=== PATIENT | female | born 1930 | race Hispanic/Latino ===

== ENCOUNTER 2017-05-26 17:01 | Inpatient (IN) | payer MEDICARE, BC ==
[2017-05-26] MEDS ORDERED: Albuterol-Ipratrop 3 mg / 0.5 (3 ml) UD INH STA ×3 (17:33→18:40)
--- NOTE | 2017-05-26 17:48 | ED PDOC ---
HPI: SOB/CHF/COPD Time Seen by Provider: 05/26/17 17:16 Chief Complaint (Nursing): Shortness Of Breath Chief Complaint (Provider): Shortness of breath History Per: Patient History/Exam Limitations: no limitations Onset/Duration Of Symptoms: Days Current Symptoms Are (Timing): Still Present Additional Complaint(s): 86yo female with past medical history of chronic lung problems, hypertension, brought to ED by EMS for evaluation of shortness of breath, present since this afternoon. Patient states she was discharged from a rehab facility this morning and was told when she would arrive home, there would be O2 for her to use. Patient states she was in rehab due to chronic leg weakness. Patient was found at home with shortness of breath and O2 sat of 80. Patient was given nebulizers en route to the facility after which she reports feeling better. Patient reports a chronic cough with phlegm, denies any leg swelling, fever, headache. No other medical complaints. PCP: Dr. Garza Past Medical History Reviewed: Historical Data, Nursing Documentation, Vital Signs Vital Signs: Last Vital Signs Temp 98.0 F 05/27/17 12:08 Pulse 88 05/27/17 12:08 Resp 18 05/27/17 12:08 BP 116/62 05/27/17 12:08 Pulse Ox 95 05/27/17 12:08 - Medical History PMH: COPD, Gastritis, HTN Denies: Diabetes, Chronic Kidney Disease - Surgical History Surgical History: Pacemaker - Family History Family History: States: No Known Family Hx - Living Arrangements Living Arrangements: Alone - Immunization History Hx Tetanus Toxoid Vaccination: No Hx Influenza Vaccination: No Hx Pneumococcal Vaccination: No - Home Medications Home Medications: Ambulatory Orders Medication Instructions Recorded Acetaminophen [Acetaminophen Extra 1,000 mg PO BID 05/26/17 Strength] Atorvastatin [Lipitor] 20 mg PO HS 05/26/17 Bisoprolol [Zebeta] 2.5 mg PO DAILY 05/26/17 Budesonide/Formoterol Fumarate 2 puff IH Q12H 05/26/17 [Symbicort 160-4.5 Mcg Inhaler] Famotidine [Pepcid] 20 mg PO HS 05/26/17 Gabapentin [Neurontin] 300 mg PO TID 05/26/17 Montelukast [Singulair] 10 mg PO HS 05/26/17 Mv,Min10/Folic Acid/D3/Ala/Lut 1 tab PO DAILY 05/26/17 [Strovite One Caplet] Albuterol/Ipratropium [Duoneb 3 3 ml INH RQ4 PRN neb 05/27/17 mg/0.5 mg (3 ml) UD] Amino Acids/Protein Hydrolys 30 ml PO BID 05/27/17 [Prostat 15 g packet] Silver Sulfadiazine 1% [Silvadene 1 % TOP Q8 05/27/17 1%] - Allergies Allergies/Adverse Reactions: Allergies Allergy/AdvReac Type Severity Reaction Status Date / Time No Known Allergies Allergy Verified 05/26/17 17:33 Review of Systems ROS Statement: Except As Marked, All Systems Reviewed And Found Negative Constitutional: Negative for: Fever, Chills Respiratory: Positive for: Cough, Shortness of Breath, Sputum Musculoskeletal: Negative for: Other (leg swelling) Physical Exam - Reviewed Nursing Documentation Reviewed: Yes Vital Signs Reviewed: Yes - Physical Exam Appears: Positive for: Uncomfortable Head Exam: Positive for: ATRAUMATIC, NORMAL INSPECTION, NORMOCEPHALIC Skin: Positive for: Normal Color Eye Exam: Positive for: EOMI ENT: Positive for: Normal ENT Inspection Neck: Positive for: Supple Cardiovascular/Chest: Positive for: Regular Rate, Rhythm Respiratory: Positive for: Wheezing (coarse breath sounds with occasional wheeze ), Other (tachypnea). Negative for: Accessory Muscle Use Gastrointestinal/Abdominal: Positive for: Soft. Negative for: Tenderness Back: Positive for: Normal Inspection Extremity: Positive for: Normal ROM. Negative for: Pedal Edema Neurologic/Psych: Positive for: Alert, Oriented - Laboratory Results Result Diagrams: 05/27/17 06:30 05/27/17 06:30 - ECG ECG: Positive for: Interpreted By Me, Viewed By Me ECG Rhythm: Positive for: Atrioventricular Paced, ST/T Changes (non-specific) Rate: 95 O2 Sat by Pulse Oximetry: 100 (RA) Pulse Ox Interpretation: Normal Medical Decision Making Medical Decision Making: Impression: Shortness of breath Differential: COPD, acute bronchitis, pneumonia, CHF rule out PE Plan: -- Labs -- CXR -- Duoneb 3ml INH -- Rapid flu Reassess Time: 1909 Patient signed out to Dr. Huerta pending labs. Scribe Attestation: Documented by Floridalma Christianson acting as a scribe for Michelle Arguello MD. Provider Attestation: All medical record entries made by the Scribe were at my direction and personally dictated by me. I have reviewed the chart and agree that the record accurately reflects my personal performance of the history, physical exam, medical decision making, and the department course for this patient. I have also personally directed, reviewed, and agree with the discharge instructions and disposition. Disposition - Clinical Impression Clinical Impression: Bilateral pulmonary embolism, COPD (chronic obstructive pulmonary disease) - Patient ED Disposition Is Patient to be Admitted: Transfer of Care Counseled Patient/Family Regarding: Studies Performed, Diagnosis - Disposition Disposition: Transfer of Care Disposition Time: 19:10 Condition: STABLE Patient Signed Over To: Ernie Huerta Handoff Comments: pending labs
[2017-05-26] MEDS ORDERED: Albuterol-Ipratrop 3 mg / 0.5 (3 ml) UD ONE ×2 (17:49→18:50)
[2017-05-26 18:33] LABS: BASO # 0.1 K/uL (0.0-0.2); BASO % 0.8 % (0.0-2.0); EOS # 0.1 K/uL (0.0-0.7); EOS % 0.8 % (0.0-4.0); HEMATOCRIT 38.2 % (34.0-47.0); LYMPH # 4.9 K/uL (1.0-4.3); LYMPH % 42.4 % (20.0-40.0); MEAN CELL VOLUME 87.7 fl (81.0-99.0); MEAN CORPUSCULAR HEMOGLOBIN 27.9 pg (27.0-31.0); MEAN CORPUSCULAR HGB CONC 31.9 g/dL (33.0-37.0); MEAN PLATELET VOLUME 8.5 fl (7.2-11.7); MONO # 0.7 K/uL (0.0-0.8); MONO % 6.4 % (0.0-10.0); NEUT # 5.8 K/uL (1.8-7.0); NEUT % 49.6 % (50.0-75.0); NRBC % 0.2 % (0.0-0.0); RED CELL DISTRIBUTION WIDTH 18.2 % (11.5-14.5); WHITE BLOOD COUNT 11.6 K/uL (4.8-10.8)
[2017-05-26 18:34] LABS: ABG ALLEN TEST YES; ARTERIAL BLOOD GAS HCO3 28.1 mmol/L (21-28); ARTERIAL BLOOD GAS O2 CAPACITY 15.8 mL/dL (16-24); ARTERIAL BLOOD GAS O2 CONTENT 15.9 ML/dL (15-23); ARTERIAL BLOOD GAS PH 7.38 (7.35-7.45); ARTERIAL BLOOD GAS PO2 113 mm/Hg (80-100); ARTERIAL BLOOD HGB O2 SAT 96.2 % (95.0-98.0); CARBOXYHEMOGLOBIN 2.7 % (0.5-1.5); HHB -0.9 % (0.0-5.0); METHEMOGLOBIN 2.1 % (0.0-3.0)
[2017-05-26] MEDS ORDERED: levoFLOXacin 500 mg in D5W 500 MG/100 ML BAG IVPB STA (18:40)
--- NOTE | 2017-05-26 18:48 | RAD ---
PROCEDURE: CHEST RADIOGRAPH, 1 VIEW HISTORY: dyspnea COMPARISON: 03/04/2013 FINDINGS: LUNGS: Clear. PLEURA: No pneumothorax or pleural fluid seen. CARDIOVASCULAR: No radiographic findings to suggest acute or significant cardiovascular disease. Position/ configuration of pacemaker device: Satisfactory. OSSEOUS STRUCTURES: No significant abnormalities. VISUALIZED UPPER ABDOMEN: Normal. OTHER FINDINGS: None. IMPRESSION: No active disease. No acute/significant interval changes.
[2017-05-26] MEDS ORDERED: levoFLOXacin 500 mg in D5W 500 MG/100 ML BAG IVPB ONE (18:51)
--- NOTE | 2017-05-26 19:16 | ED PDOC ---
- Laboratory Results Result Diagrams: 05/26/17 18:27 05/26/17 18:27 - ECG O2 Sat by Pulse Oximetry: 100 Pulse Ox Interpretation: Normal Medical Decision Making Medical Decision Making: Receiving sign out: Patient signed out to me by Dr. Arguello at 1900 pending chemistry, troponin and d-dimer results. CT Chest FINDINGS: Artifacts: Streak artifact degrades image quality. Motion artifact degrades image quality. Heart, aorta and Pulmonary arteries: The heart is enlarged. There are coronary artery calcifications. There are atherosclerotic calcifications in the aortic arch. There is dissection at the arch. There is an adjacent focal aneurysm or pseudoaneurysm, images 29-38, series 3. There is mural thrombus in the descending aorta with areas of ulceration. There are bilateral pulmonary emboli. Largest filling defects are a lower lobe pulmonary arteries. Lungs pleural spaces: Trachea and main bronchi are patent. There is mild prominence of interstitial markings. There is symmetric groundglass opacities. There is subsegmental atelectasis in the right upper lobe. There is dependent atelectasis and scarring at the lung bases. There are no definite effusions. Mediastinum: There is shotty mediastinal nodes.Kiersten are not optimally evaluated without contrast material. There is a small hiatal hernia. Esophagus is grossly unremarkable. Thyroid: The thyroid is asymmetric with prominence of the right lobe. 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 There are extensive degenerative changes in both shoulders. There are degenerative changes in the spine. Soft tissues: unremarkable Upper abdomen: Extensive streak artifact limits evaluation of the upper abdomen. Tubes, lines and devices: There is streak artifact from a pacemaker in the left chest wallThere is streak artifact from pacemaker leads. 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 reasessed, lovenox ordered for bilateral PE. Risk factor likely large habitus and relative immobility. Virgil Jimenez NP aware. Pt. requires inpatient monitoring at this time for hypoxia on RA, continued nebulizer treatments, and stabilization of condition for bilateral PE. Scribe Attestation: Documented by Floridalma Christianson and Marta Campbell acting as scribes for Ernie Huerta MD. Provider Attestation: All medical record entries made by the Scribe were at my direction and personally dictated by me. I have reviewed the chart and agree that the record accurately reflects my personal performance of the history, physical exam, medical decision making, and the department course for this patient. I have also personally directed, reviewed, and agree with the discharge instructions and disposition. Disposition - Clinical Impression Clinical Impression: Bilateral pulmonary embolism, COPD (chronic obstructive pulmonary disease) - POA Present On Arrival: None - Disposition Disposition: Admitted as In-Patient Disposition Time: 00:20 Condition: SERIOUS
[2017-05-26 19:26] LABS: BLOOD UREA NITROGEN 32 mg/dl (7-17); CALCIUM 10.3 mg/dL (8.4-10.2); CARBON DIOXIDE 32 mmol/L (22-30); CHLORIDE 102 mmol/L (98-107); GFR AFRICAN-AMERICAN > 60; GLUCOSE,RANDOM 112 mg/dL (65-105); POTASSIUM 5.2 MMOL/L (3.6-5.0); SODIUM 143 mmol/l (132-148)
[2017-05-26] MEDS ORDERED: Magnesium Sulfate 2 gm/50 ml 2 GM/50 ML BAG IVPB ONE (22:53)
[2017-05-26] MEDS ORDERED: Iodixanol 320 MG/ML 100 ML BOTTLE IV ONE (23:03)
--- NOTE | 2017-05-27 00:15 | CT ---
EXAM: CT Angiography Chest With Intravenous Contrast EXAM DATE/TIME: 05/26/2017 8:17 PM CLINICAL HISTORY: 86 years old, female; Signs and symptoms; Shortness of breath; Prior surgery; Surgery date: 6+ months; Surgery type: Pacemaker; Additional info: R/O pe, elevated d-dimer TECHNIQUE: Axial computed tomographic angiography images of the chest with intravenous contrast using pulmonary embolism protocol. All CT scans at this facility use one or more dose reduction techniques, viz.: automated exposure control; ma/kV adjustment per patient size (including targeted exams where dose is matched to indication; i.e. head); or iterative reconstruction technique. MIP reconstructed images were created and reviewed. Coronal and sagittal reformatted images were created and reviewed. CONTRAST: 95 mL of [id number] administered intravenously. COMPARISON: There are no prior studies for comparison. FINDINGS: Artifacts: Streak artifact degrades image quality. Motion artifact degrades image quality. Heart, aorta and Pulmonary arteries: The heart is enlarged. There are coronary artery calcifications. There are atherosclerotic calcifications in the aortic arch. There is dissection at the arch. There is an adjacent focal aneurysm or pseudoaneurysm, images 29-38, series 3. There is mural thrombus in the descending aorta with areas of ulceration. There are bilateral pulmonary emboli. Largest filling defects are a lower lobe pulmonary arteries. Lungs pleural spaces: Trachea and main bronchi are patent. There is mild prominence of interstitial markings. There is symmetric groundglass opacities. There is subsegmental atelectasis in the right upper lobe. There is dependent atelectasis and scarring at the lung bases. There are no definite effusions. Mediastinum: There is shotty mediastinal nodes.Kiersten are not optimally evaluated without contrast material. There is a small hiatal hernia. Esophagus is grossly unremarkable. Thyroid: The thyroid is asymmetric with prominence of the right lobe. 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 There are extensive degenerative changes in both shoulders. There are degenerative changes in the spine. Soft tissues: unremarkable Upper abdomen: Extensive streak artifact limits evaluation of the upper abdomen. Tubes, lines and devices: There is streak artifact from a pacemaker in the left chest wallThere is streak artifact from pacemaker leads. 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
[2017-05-27] MEDS ORDERED: Enoxaparin 100 mg Syringe SC STA (00:26)
[2017-05-27] MEDS ORDERED: Magnesium Sulfate 2 gm/50 ml 2 GM/50 ML BAG ONE (01:22)
[2017-05-27 03:12] VITALS: BMI 35.4
[2017-05-27 03:38] VITALS: RESP 18
[2017-05-27] MEDS ORDERED: Albuterol-Ipratrop 3 mg / 0.5 (3 ml) UD INH PRN (06:06)
[2017-05-27] MEDS ORDERED: Patient's Own Med (Budesonide/Formoterol Fumarate [Symbicort 160-4.5 Mcg Inhaler] 2 PUFF) IH SCH (06:15)
[2017-05-27 07:01] LABS: BASO % 0.1 % (0.0-2.0); HEMATOCRIT 34.2 % (34.0-47.0); LYMPH % 18.5 % (20.0-40.0); MEAN CELL VOLUME 87.2 fl (81.0-99.0); MEAN CORPUSCULAR HEMOGLOBIN 27.2 pg (27.0-31.0); MEAN CORPUSCULAR HGB CONC 31.2 g/dL (33.0-37.0); MEAN PLATELET VOLUME 8.3 fl (7.2-11.7); MONO # 0.1 K/uL (0.0-0.8); MONO % 1.6 % (0.0-10.0); NEUT # 4.3 K/uL (1.8-7.0); NEUT % 79.8 % (50.0-75.0); NRBC % 0.2 % (0.0-0.0); RED CELL DISTRIBUTION WIDTH 18.9 % (11.5-14.5); WHITE BLOOD COUNT 5.4 K/uL (4.8-10.8)
[2017-05-27 07:02] LABS: ALB/GLOB RATIO 0.9 (1.0-2.1); ALKALINE PHOSPHATASE 86 U/L (38-126); ALT/SGPT 34 U/L (9-52); AST/SGOT 35 U/L (14-36); BILIRUBIN,TOTAL 0.3 mg/dl (0.2-1.3); BLOOD UREA NITROGEN 30 mg/dl (7-17); CALCIUM 9.8 mg/dL (8.4-10.2); CARBON DIOXIDE 24 mmol/L (22-30); CHLORIDE 103 mmol/L (98-107); GFR AFRICAN-AMERICAN > 60; GLUCOSE,RANDOM 208 mg/dL (65-105); POTASSIUM 4.3 MMOL/L (3.6-5.0); SODIUM 137 mmol/l (132-148); TOTAL PROTEIN 7.4 G/DL (6.3-8.2)
--- NOTE | 2017-05-27 07:55 | CP.PCM.HP ---
History of Present Illness - History of Present Illness History of Present Illness: pt admitted for b/l pe. was recently dc from [facility]. felt sob at home but there was no o2 at home. at present pt offers no compalints. pt is confused. no cp, dyspnea. ct report noted w/ b/l pe and aortic arch ?? dissection. consults pending pt comfortable, bw noted. Present on Admission - Present on Admission Any Indicators Present on Admission: Yes History of Uncontrolled Diabetes: Yes Decubitus Ulcer Location: sacrum/buttock Decubitus Ulcer Stage: I Review of Systems - Respiratory Respiratory: As Per HPI, Dyspnea on Exertion (d) Past Patient History - Past Medical History & Family History Past Medical History?: Yes - Past Social History Smoking Status: Never Smoked - CARDIAC Hx Cardiac Disorders: Yes Hx Hypertension: Yes Hx Pacemaker: Yes - PULMONARY Hx Respiratory Disorders: Yes Hx Chronic Obstructive Pulmonary Disease (COPD): Yes - NEUROLOGICAL Hx Neurological Disorder: No - HEENT Hx HEENT Problems: No - RENAL Hx Chronic Kidney Disease: Yes - ENDOCRINE/METABOLIC Other/Comment: PT had bowel surgery - HEMATOLOGICAL/ONCOLOGICAL Hx Blood Disorders: No - INTEGUMENTARY Hx Dermatological Problems: No - MUSCULOSKELETAL/RHEUMATOLOGICAL Hx Falls: No Other/Comment: CHRONIC LEG WEAKNESS - GASTROINTESTINAL Hx Gastritis: Yes - GENITOURINARY/GYNECOLOGICAL Hx Genitourinary Disorders: No - PSYCHIATRIC Hx Substance Use: No - SURGICAL HISTORY Other/Comment: Bowel Surgery - ANESTHESIA Hx Anesthesia: Yes Hx Anesthesia Reactions: No Hx Malignant Hyperthermia: No Meds Allergies/Adverse Reactions: Allergies Allergy/AdvReac Type Severity Reaction Status Date / Time No Known Allergies Allergy Verified 05/26/17 17:33 Physical Exam - Constitutional Appears: Non-toxic, No Acute Distress, Chronically Ill - Head Exam Head Exam: ATRAUMATIC, NORMAL INSPECTION, NORMOCEPHALIC - Eye Exam Eye Exam: EOMI, Normal appearance, PERRL Pupil Exam: NORMAL ACCOMODATION, PERRL - ENT Exam ENT Exam: Mucous Membranes Moist, Normal Exam - Neck Exam Neck exam: Positive for: Normal Inspection - Respiratory Exam Respiratory Exam: Clear to Auscultation Bilateral, NORMAL BREATHING PATTERN - Cardiovascular Exam Cardiovascular Exam: REGULAR RHYTHM, RRR, +S1, +S2 - GI/Abdominal Exam GI & Abdominal Exam: Normal Bowel Sounds, Soft. absent: Tenderness - Rectal Exam Rectal Exam: NORMAL INSPECTION - Exam Exam: Circumcision, NORMAL INSPECTION External exam: NORMAL EXTERNAL EXAM Speculum exam: NORMAL SPECULUM EXAM Bimanual exam: NORMAL BIMANUAL EXAM - Extremities Exam Extremities exam: Positive for: normal inspection - Back Exam Back exam: NORMAL INSPECTION - Neurological Exam Neurological exam: Alert, CN II-XII Intact, Normal Gait, Oriented x3, Reflexes Normal - Psychiatric Exam Psychiatric exam: Normal Affect, Normal Mood - Skin Skin Exam: Dry, Intact, Normal Color, Warm Results - Vital Signs Recent Vital Signs: Last Vital Signs Temp 98.1 F 05/27/17 02:41 Pulse 97 H 05/27/17 02:41 Resp 18 05/27/17 03:01 BP 134/77 05/27/17 02:41 Pulse Ox 100 05/27/17 03:02 - Labs Result Diagrams: 05/27/17 06:30 05/27/17 06:30 Labs: Laboratory Results - last 24 hr 05/26/17 05/26/17 05/26/17 18:27 18:27 18:31 WBC 11.6 H RBC 4.36 Hgb 12.2 Hct 38.2 MCV 87.7 MCH 27.9 MCHC 31.9 L RDW 18.2 H Plt Count 506 H MPV 8.5 Neut % (Auto) 49.6 L Lymph % (Auto) 42.4 H [place] % (Auto) 6.4 Eos % (Auto) 0.8 Baso % (Auto) 0.8 Neut # 5.8 Lymph # 4.9 H [place] # 0.7 Eos # 0.1 Baso # 0.1 D-Dimer, Quantitative pCO2 51 H pO2 113 H HCO3 28.1 H ABG pH 7.38 ABG Total CO2 31.8 H ABG O2 Saturation 100.9 H ABG O2 Content 15.9 ABG Base Excess 4.1 H ABG Hemoglobin 11.6 L ABG Carboxyhemoglobin 2.7 H POC ABG HHb (Measured) -0.9 L ABG Methemoglobin 2.1 ABG O2 Capacity 15.8 L Andres Test Yes A-a O2 Difference 108.0 Hgb O2 Saturation 96.2 FiO2 40.0 Sodium 143 Potassium 5.2 H Chloride 102 Carbon Dioxide 32 H Anion Gap 14 BUN 32 H Creatinine 0.8 Est GFR ( Amer) > 60 Est GFR (Non-Af Amer) > 60 Random Glucose 112 H Calcium 10.3 H Total Bilirubin AST ALT Alkaline Phosphatase Troponin I 0.0360 NT-Pro-B Natriuret Pep 1520 H Total Protein Albumin Globulin Albumin/Globulin Ratio Influenza Typ A,B (EIA) 05/26/17 05/26/17 05/27/17 18:32 19:10 06:30 WBC 5.4 D RBC 3.93 Hgb 10.7 L Hct 34.2 MCV 87.2 MCH 27.2 MCHC 31.2 L RDW 18.9 H Plt Count 392 D MPV 8.3 Neut % (Auto) 79.8 H Lymph % (Auto) 18.5 L [place] % (Auto) 1.6 Eos % (Auto) 0.0 Baso % (Auto) 0.1 Neut # 4.3 Lymph # 1.0 [place] # 0.1 Eos # 0.0 Baso # 0.0 D-Dimer, Quantitative 1908 H pCO2 pO2 HCO3 ABG pH ABG Total CO2 ABG O2 Saturation ABG O2 Content ABG Base Excess ABG Hemoglobin ABG Carboxyhemoglobin POC ABG HHb (Measured) ABG Methemoglobin ABG O2 Capacity Andres Test A-a O2 Difference Hgb O2 Saturation FiO2 Sodium Potassium Chloride Carbon Dioxide Anion Gap BUN Creatinine Est GFR ( Amer) Est GFR (Non-Af Amer) Random Glucose Calcium Total Bilirubin AST ALT Alkaline Phosphatase Troponin I NT-Pro-B Natriuret Pep Total Protein Albumin Globulin Albumin/Globulin Ratio Influenza Typ A,B (EIA) Negative for flu a/b 05/27/17 06:30 WBC RBC Hgb Hct MCV MCH MCHC RDW Plt Count MPV Neut % (Auto) Lymph % (Auto) [place] % (Auto) Eos % (Auto) Baso % (Auto) Neut # Lymph # [place] # Eos # Baso # D-Dimer, Quantitative pCO2 pO2 HCO3 ABG pH ABG Total CO2 ABG O2 Saturation ABG O2 Content ABG Base Excess ABG Hemoglobin ABG Carboxyhemoglobin POC ABG HHb (Measured) ABG Methemoglobin ABG O2 Capacity Andres Test A-a O2 Difference Hgb O2 Saturation FiO2 Sodium 137 Potassium 4.3 Chloride 103 Carbon Dioxide 24 Anion Gap 14 BUN 30 H Creatinine 0.8 Est GFR ( Amer) > 60 Est GFR (Non-Af Amer) > 60 Random Glucose 208 H Calcium 9.8 Total Bilirubin 0.3 AST 35 ALT 34 Alkaline Phosphatase 86 Troponin I NT-Pro-B Natriuret Pep Total Protein 7.4 Albumin 3.5 Globulin 3.9 Albumin/Globulin Ratio 0.9 L Influenza Typ A,B (EIA) Assessment & Plan (1) Aortic arch dissection Assessment and Plan: cardio ct surgery prn Status: Acute (2) DVT prophylaxis Assessment and Plan: hold scd/ae hose for dopplar lovenox Status: Acute (3) Bilateral pulmonary embolism Assessment and Plan: lovenox pulm/heme/onc o2 prn case d/c w/ daughter as pt is confused Status: Acute (4) COPD (chronic obstructive pulmonary disease) Assessment and Plan: benedicto falcon pulm Status: Acute Decision To Admit - Pt Status Changed To: Hospital Disposition Of: Inpatient - Admit Certification Admit to Inpatient:: After my assessment, the patient will require hospitalization for at least two midnights. This is because of the severity of symptoms shown, intensity of services needed, and/or the medical risk in this patient being treated as an outpatient. - . Bed Request Type: Telemetry Admitting Physician: Francia Wheatley
[2017-05-27] MEDS ORDERED: Multivitamin With Minerals Tab PO SCH (09:00)
[2017-05-27] MEDS ORDERED: Fluticasone-Salmeterol 250-50mcg Diskus IH SCH (09:00)
[2017-05-27] MEDS ORDERED: Enoxaparin 80 mg Syringe SC SCH (09:00)
[2017-05-27] MEDS ORDERED: Patient's Own Med (Amino Acids/Protein Hydrolys [Prostat 15 G Packet] 30 ml) PO SCH (09:00)
[2017-05-27] MEDS ORDERED: SILVER SULFADIAZINE 1% TOP SCH (09:00)
[2017-05-27] MEDS ORDERED: Silver Sulfadiazine 1% Cream (20 gm) TOP SCH (09:00)
[2017-05-27] MEDS ORDERED: Enoxaparin 100 mg Syringe SC SCH (09:00)
[2017-05-27] MEDS ORDERED: levoFLOXacin 500 mg in D5W 500 MG/100 ML BAG IVPB SCH (09:00)
--- NOTE | 2017-05-27 10:54 | PQF GENQUE ---
Opal Jimenez, Please specify type of COPD: i.e. With acute exacerbation versus Stable Other COPD (please specify) Clinically unable to determine Unknown H and P:Respiratory Exam: Clear to Auscultation Bilateral, NORMAL BREATHING PATTERN Diagnoses include: COPD (chronic obstructive pulmonary disease) Assessment and Plan: benedicto falcon Status: Acute This form is a permanent part of the medical record Clarification of your documentation is requested to better reflect the severity of illness and intensity of treatment of your patient. Indicators present [] Specify: [] [] Specify: [] [] Specify: [] [] Specify: [] Location in the medical record that reflects the above clinical findings: [] Treatment Provided: [] PHYSICIAN'S RESPONSE Based on your medical judgment of the clinical indicators outlined above please clarify the following: [] Practitioner response chronic, no exacerbation noted [] If unable to determine, please check the box, sign and date. Present On Admission (POA) Indicator: [x] Present at the time of admission [] Not present at the time of admission [] Clinically Undetermined In responding to this query, please exercise your independent professional judgment. The fact that a question is asked does not imply that any particular answer is desired or expected. Thank you for your clarification on this documentation. If you have any questions please call. * Thank you, Rosmery Christianson RN ext. #[phone] MTDF
[2017-05-27 12:09] VITALS: BP 116/62; TEMP 98
--- NOTE | 2017-05-27 13:07 | CP.PCM.CON ---
History of Present Illness - History of Present Illness History of Present Illness: CC: B/L PE. Pulmonary consult for a 86 y/o F, brought to [facility] due increased SOB on DOA, Pt had Nebulizer Tx while in the field with mild relief of symptoms. Pt with Hx of COPD, Pacemaker, discharged from [facility] due to weakness B/ L lower extremities on same DOA to [facility]. As per Pt, she was suppose to receive O2 on arrival at home but wast not delivered on time, Pt start feeling increased SOB associated to chronic productive cough. Worsening symptoms: SOTOMAYOR. CT showing: B/L Pulmonary Emboli. Aggravated factor: Movements. Pt denied: Fever, chills, n/v/d, abdominal pain, dizziness, syncope, CP, sick contact, recent travel out of [facility]. CT Chest reads: B/L Pulmonary Emboli, largest filling defects in lower lobe arteries. Cardiomegaly with pacemaker. 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 Review of Systems - Constitutional Constitutional: Weakness - EENT Eyes: Other (negative) Ears: Decreased Hearing Nose/Mouth/Throat: Other (negative) - Cardiovascular Cardiovascular: Other (negative) - Respiratory Respiratory: Cough, Dyspnea on Exertion - Gastrointestinal Gastrointestinal: Other (negative) - Genitourinary Genitourinary: Urinary Incontinence - Musculoskeletal Musculoskeletal: Muscle Weakness - Neurological Neurological: Confusion - Psychiatric Psychiatric: Confusion - Endocrine Endocrine: Other (obesity) Past Patient History - Past Medical History & Family History Past Medical History?: Yes Pertinent Family History: Unknown - Past Social History Smoking Status: Never Smoked Alcohol: None Drugs: Denies Home Situation {Lives}: Alone - CARDIAC Hx Cardiac Disorders: Yes Hx Hypertension: Yes Hx Pacemaker: Yes - PULMONARY Hx Respiratory Disorders: Yes Hx Chronic Obstructive Pulmonary Disease (COPD): Yes - NEUROLOGICAL Hx Neurological Disorder: No - HEENT Hx HEENT Problems: No - RENAL Hx Chronic Kidney Disease: Yes - ENDOCRINE/METABOLIC Other/Comment: PT had bowel surgery - HEMATOLOGICAL/ONCOLOGICAL Hx Blood Disorders: No - INTEGUMENTARY Hx Dermatological Problems: No - MUSCULOSKELETAL/RHEUMATOLOGICAL Hx Musculoskeletal Disorders: Yes Hx Falls: No Other/Comment: CHRONIC LEG WEAKNESS - GASTROINTESTINAL Hx Gastrointestinal Disorders: Yes Hx Gastritis: Yes - GENITOURINARY/GYNECOLOGICAL Hx Genitourinary Disorders: No - PSYCHIATRIC Hx Psychophysiologic Disorder: No Hx Substance Use: No - SURGICAL HISTORY Hx Surgeries: Yes Other/Comment: Bowel Surgery - ANESTHESIA Hx Anesthesia: Yes Hx Anesthesia Reactions: No Hx Malignant Hyperthermia: No Meds Home Medications: Home Medication List Medication Instructions Recorded Confirmed Type Albuterol/Ipratropium [Duoneb 3 3 ml INH RQ4 PRN neb 05/27/17 Rx mg/0.5 mg (3 ml) UD] Allergies/Adverse Reactions: Allergies Allergy/AdvReac Type Severity Reaction Status Date / Time No Known Allergies Allergy Verified 05/26/17 17:33 - Medications Medications: Current Medications Acetaminophen (Tylenol 325mg Tab) 975 mg PO BID [facility] Last Admin: 05/27/17 09:20 Dose: 975 mg Albuterol/Ipratropium (Duoneb 3 Mg/0.5 Mg (3 Ml) Ud) 3 ml INH RQ4 PRN PRN Reason: Shortness of Breath Atorvastatin Calcium (Lipitor) 20 mg PO HS [facility] Bisoprolol Fumarate (Zebeta) 2.5 mg PO DAILY [facility] Last Admin: 05/27/17 09:22 Dose: 2.5 mg Enoxaparin Sodium (Lovenox) 80 mg SC Q12 E[facility]OTT PRN Reason: Protocol Famotidine (Pepcid) 20 mg PO HS [facility] Gabapentin (Neurontin) 300 mg PO TID [facility] Last Admin: 05/27/17 09:22 Dose: 300 mg Home Med (Amino Acids/Protein Hydrolys [Prostat 15 G Packet]) 30 ml PO BID [facility] Levofloxacin/Dextrose (Levaquin 500mg) 500 mg in 100 mls @ 100 mls/hr IVPB DAILY [facility] PRN Reason: Protocol Last Admin: 05/27/17 11:22 Dose: 100 mls/hr Montelukast Sodium (Singulair) 10 mg PO HS [facility] Multivitamins/Minerals (Therapeutic-M Tab) 1 tab PO DAILY [facility] Fluticasone/Salmeterol (Advair Diskus 250/50) 1 puff IH Q12 [facility] Last Admin: 05/27/17 09:21 Dose: 1 puff Silver Sulfadiazine (Silvadene 1% 20 Gm) 1 ea TOP Q8 [facility] Last Admin: 05/27/17 09:21 Dose: 1 applic Physical Exam - Constitutional Appears: No Acute Distress, Chronically Ill - Head Exam Head Exam: NORMAL INSPECTION - Eye Exam Eye Exam: PERRL - ENT Exam Additional comments: Hard of hearing - Neck Exam Neck exam: Positive for: Normal Inspection - Respiratory Exam Respiratory Exam: NORMAL BREATHING PATTERN - Cardiovascular Exam Cardiovascular Exam: REGULAR RHYTHM - GI/Abdominal Exam GI & Abdominal Exam: Normal Bowel Sounds, Soft - Extremities Exam Additional comments: B/L heels harvey erythema, POA. - Back Exam Additional comments: Pressured ulcer R buttock and sacrum, POS - Neurological Exam Neurological exam: Alert Additional comments: Ox2, forgetful, follows commands, weakness lower extremities. - Skin Skin Exam: Warm Results - Vital Signs Recent Vital Signs: Last Vital Signs Temp 98.0 F 05/27/17 12:08 Pulse 88 05/27/17 12:08 Resp 18 05/27/17 12:08 BP 116/62 05/27/17 12:08 Pulse Ox 95 05/27/17 12:08 reviewed Lnydon - Labs Result Diagrams: 05/27/17 06:30 05/27/17 06:30 Labs: Laboratory Results - last 24 hr 05/26/17 05/26/17 05/26/17 18:27 18:27 18:31 WBC 11.6 H RBC 4.36 Hgb 12.2 Hct 38.2 MCV 87.7 MCH 27.9 MCHC 31.9 L RDW 18.2 H Plt Count 506 H MPV 8.5 Neut % (Auto) 49.6 L Lymph % (Auto) 42.4 H Att[place] % (Auto) 6.4 Eos % (Auto) 0.8 Baso % (Auto) 0.8 Neut # 5.8 Lymph # 4.9 H Attala # 0.7 Eos # 0.1 Baso # 0.1 D-Dimer, Quantitative pCO2 51 H pO2 113 H HCO3 28.1 H ABG pH 7.38 ABG Total CO2 31.8 H ABG O2 Saturation 100.9 H ABG O2 Content 15.9 ABG Base Excess 4.1 H ABG Hemoglobin 11.6 L ABG Carboxyhemoglobin 2.7 H POC ABG HHb (Measured) -0.9 L ABG Methemoglobin 2.1 ABG O2 Capacity 15.8 L Andres Test Yes A-a O2 Difference 108.0 Hgb O2 Saturation 96.2 FiO2 40.0 Sodium 143 Potassium 5.2 H Chloride 102 Carbon Dioxide 32 H Anion Gap 14 BUN 32 H Creatinine 0.8 Est GFR ( Amer) > 60 Est GFR (Non-Af Amer) > 60 Random Glucose 112 H Calcium 10.3 H Total Bilirubin AST ALT Alkaline Phosphatase Troponin I 0.0360 NT-Pro-B Natriuret Pep 1520 H Total Protein Albumin Globulin Albumin/Globulin Ratio Influenza Typ A,B (EIA) 05/26/17 05/26/17 05/27/17 18:32 19:10 06:30 WBC 5.4 D RBC 3.93 Hgb 10.7 L Hct 34.2 MCV 87.2 MCH 27.2 MCHC 31.2 L RDW 18.9 H Plt Count 392 D MPV 8.3 Neut % (Auto) 79.8 H Lymph % (Auto) 18.5 L [place] % (Auto) 1.6 Eos % (Auto) 0.0 Baso % (Auto) 0.1 Neut # 4.3 Lymph # 1.0 Attala # 0.1 Eos # 0.0 Baso # 0.0 D-Dimer, Quantitative 1908 H pCO2 pO2 HCO3 ABG pH ABG Total CO2 ABG O2 Saturation ABG O2 Content ABG Base Excess ABG Hemoglobin ABG Carboxyhemoglobin POC ABG HHb (Measured) ABG Methemoglobin ABG O2 Capacity Andres Test A-a O2 Difference Hgb O2 Saturation FiO2 Sodium Potassium Chloride Carbon Dioxide Anion Gap BUN Creatinine Est GFR ( Amer) Est GFR (Non-Af Amer) Random Glucose Calcium Total Bilirubin AST ALT Alkaline Phosphatase Troponin I NT-Pro-B Natriuret Pep Total Protein Albumin Globulin Albumin/Globulin Ratio Influenza Typ A,B (EIA) Negative for flu a/b 05/27/17 06:30 WBC RBC Hgb Hct MCV MCH MCHC RDW Plt Count MPV Neut % (Auto) Lymph % (Auto) [place] % (Auto) Eos % (Auto) Baso % (Auto) Neut # Lymph # [place] # Eos # Baso # D-Dimer, Quantitative pCO2 pO2 HCO3 ABG pH ABG Total CO2 ABG O2 Saturation ABG O2 Content ABG Base Excess ABG Hemoglobin ABG Carboxyhemoglobin POC ABG HHb (Measured) ABG Methemoglobin ABG O2 Capacity Andres Test A-a O2 Difference Hgb O2 Saturation FiO2 Sodium 137 Potassium 4.3 Chloride 103 Carbon Dioxide 24 Anion Gap 14 BUN 30 H Creatinine 0.8 Est GFR ( Amer) > 60 Est GFR (Non-Af Amer) > 60 Random Glucose 208 H Calcium 9.8 Total Bilirubin 0.3 AST 35 ALT 34 Alkaline Phosphatase 86 Troponin I NT-Pro-B Natriuret Pep Total Protein 7.4 Albumin 3.5 Globulin 3.9 Albumin/Globulin Ratio 0.9 L Influenza Typ A,B (EIA) reviewed J.P. - Imaging and Cardiology Chest x-ray Status: Report reviewed by me (RobertP.) CT scan - chest Status: Report reviewed by me (Krystyna.) Assessment & Plan (1) Bilateral pulmonary embolism Status: Acute Priority: High (2) COPD (chronic obstructive pulmonary disease) Status: Acute Priority: High - Assessment and Plan (Free Text) Plan: Pt on O2 NC, Lovenox adjusted dose, Levaquin 500 IV and rest of Tx. Will be transferred today to [facility] for further Tx of PE, Aortic arch dissection Aneurysm, - Date & Time Date: 05/27/17 Time: 12:00
[2017-05-27 13:09] VITALS: PULSE 95; O2SAT 100
--- NOTE | 2017-05-27 13:58 | CP.PCM.DIS ---
Provider - Provider Date of Admission: 05/27/17 00:23 Attending physician: Francia Wheatley MD Time Spent in preparation of Discharge (in minutes): 60 Diagnosis - Discharge Diagnosis (1) Aortic arch dissection Status: Acute (2) DVT prophylaxis Status: Acute (3) Bilateral pulmonary embolism Status: Acute (4) COPD (chronic obstructive pulmonary disease) Status: Acute Hospital Course - Lab Results Lab Results: Most Recent Lab Values WBC 5.4 K/uL (4.8-10.8) D 05/27/17 06:30 RBC 3.93 Mil/uL (3.80-5.20) 05/27/17 06:30 Hgb 10.7 g/dL (12.0-16.0) L 05/27/17 06:30 Hct 34.2 % (34.0-47.0) 05/27/17 06:30 MCV 87.2 fl (81.0-99.0) 05/27/17 06:30 MCH 27.2 pg (27.0-31.0) 05/27/17 06:30 MCHC 31.2 g/dL (33.0-37.0) L 05/27/17 06:30 RDW 18.9 % (11.5-14.5) H 05/27/17 06:30 Plt Count 392 K/uL (130-400) D 05/27/17 06:30 MPV 8.3 fl (7.2-11.7) 05/27/17 06:30 Neut % (Auto) 79.8 % (50.0-75.0) H 05/27/17 06:30 Lymph % (Auto) 18.5 % (20.0-40.0) L 05/27/17 06:30 Dubois % (Auto) 1.6 % (0.0-10.0) 05/27/17 06:30 Eos % (Auto) 0.0 % (0.0-4.0) 05/27/17 06:30 Baso % (Auto) 0.1 % (0.0-2.0) 05/27/17 06:30 Neut # 4.3 K/uL (1.8-7.0) 05/27/17 06:30 Lymph # 1.0 K/uL (1.0-4.3) 05/27/17 06:30 Dubois # 0.1 K/uL (0.0-0.8) 05/27/17 06:30 Eos # 0.0 K/uL (0.0-0.7) 05/27/17 06:30 Baso # 0.0 K/uL (0.0-0.2) 05/27/17 06:30 D-Dimer, Quantitative 1908 ng/mlDDU (0-230) H 05/26/17 19:10 pCO2 51 mm/Hg (35-45) H 05/26/17 18:31 pO2 113 mm/Hg (80-100) H 05/26/17 18:31 HCO3 28.1 mmol/L (21-28) H 05/26/17 18:31 ABG pH 7.38 (7.35-7.45) 05/26/17 18:31 ABG Total CO2 31.8 mmol/L (22-28) H 05/26/17 18:31 ABG O2 Saturation 100.9 % (95-98) H 05/26/17 18:31 ABG O2 Content 15.9 ML/dL (15-23) 05/26/17 18:31 ABG Base Excess 4.1 mmol/L (-2.0-3.0) H 05/26/17 18:31 ABG Hemoglobin 11.6 g/dL (11.7-17.4) L 05/26/17 18:31 ABG Carboxyhemoglobin 2.7 % (0.5-1.5) H 05/26/17 18:31 POC ABG HHb (Measured) -0.9 % (0.0-5.0) L 05/26/17 18:31 ABG Methemoglobin 2.1 % (0.0-3.0) 05/26/17 18:31 ABG O2 Capacity 15.8 mL/dL (16-24) L 05/26/17 18:31 Andres Test Yes 05/26/17 18:31 A-a O2 Difference 108.0 mm/Hg 05/26/17 18:31 Hgb O2 Saturation 96.2 % (95.0-98.0) 05/26/17 18:31 FiO2 40.0 % 05/26/17 18:31 Sodium 137 mmol/l (132-148) 05/27/17 06:30 Potassium 4.3 MMOL/L (3.6-5.0) 05/27/17 06:30 Chloride 103 mmol/L (98-107) 05/27/17 06:30 Carbon Dioxide 24 mmol/L (22-30) 05/27/17 06:30 Anion Gap 14 (10-20) 05/27/17 06:30 BUN 30 mg/dl (7-17) H 05/27/17 06:30 Creatinine 0.8 mg/dl (0.7-1.2) 05/27/17 06:30 Est GFR ( Amer) > 60 05/27/17 06:30 Est GFR (Non-Af Amer) > 60 05/27/17 06:30 Random Glucose 208 mg/dL (65-105) H 05/27/17 06:30 Calcium 9.8 mg/dL (8.4-10.2) 05/27/17 06:30 Total Bilirubin 0.3 mg/dl (0.2-1.3) 05/27/17 06:30 AST 35 U/L (14-36) 05/27/17 06:30 ALT 34 U/L (9-52) 05/27/17 06:30 Alkaline Phosphatase 86 U/L (38-126) 05/27/17 06:30 Troponin I 0.0360 ng/mL (0.00-0.120) 05/26/17 18:27 NT-Pro-B Natriuret Pep 1520 pg/ml (0-900) H 05/26/17 18:27 Total Protein 7.4 G/DL (6.3-8.2) 05/27/17 06:30 Albumin 3.5 g/dL (3.5-5.0) 05/27/17 06:30 Globulin 3.9 gm/dL (2.2-3.9) 05/27/17 06:30 Albumin/Globulin Ratio 0.9 (1.0-2.1) L 05/27/17 06:30 Influenza Typ A,B (EIA) Negative for flu a/b (NEGATIVE) 05/26/17 18:32 Discharge Exam - Head Exam Head Exam: ATRAUMATIC, NORMAL INSPECTION, NORMOCEPHALIC Discharge Plan - Follow Up Plan Condition: STABLE Disposition: Trans to Other Acute Care Hosp Additional Instructions: rangel dx-b/l pe, aortic arch dissection/aneurysm for xfer to [facility] today under s/o dr boone no distress. daughter aware of all
--- NOTE | 2017-05-27 19:09 | CARD ---
APPROVED REPORT EKG Measurement Heart [id number] <Conclusion> Atrial-sensed ventricular-paced rhythm with occasional premature ventricular complexes Abnormal ECG
== END 2017-05-27 13:56 | disposition short-term general hospital (02) | DRG 175 ==
LOC: H.ER 17:01 → H.ERHOLD 05-27 00:23 → H.TEL 05-27 02:20
PROVIDERS: ADMIT Family Medicine; ATTEND Family Medicine
DX: I26.99 Other pulmonary embolism without acute cor pulmonale (principal); I71.01 Dissection of thoracic aorta; I74.19 Embolism and thrombosis of other parts of aorta; I70.0 Atherosclerosis of aorta; L89.151 Pressure ulcer of sacral region, stage 1; J44.9 Chronic obstructive pulmonary disease, unspecified; I10 Essential (primary) hypertension; I51.7 Cardiomegaly; K29.70 Gastritis, unspecified, without bleeding; Z79.51 Long term (current) use of inhaled steroids; Z95.0 Presence of cardiac pacemaker

== ENCOUNTER 2018-02-09 16:10 | Inpatient (IN) | payer MEDICARE, BC ==
[2018-02-09] MEDS ORDERED: Sodium Chloride 0.9% 1,000 ML IV ONE (16:45)
--- NOTE | 2018-02-09 16:56 | CT ---
Date of service: 02/09/2018 PROCEDURE: CT HEAD WITHOUT CONTRAST. HISTORY: code stroke COMPARISON: None available. TECHNIQUE: Axial computed tomography images were obtained through the head/brain without intravenous contrast. Radiation dose: Total exam DLP = 873 mGy-cm. This CT exam was performed using one or more of the following dose reduction techniques: Automated exposure control, adjustment of the mA and/or kV according to patient size, and/or use of iterative reconstruction technique. FINDINGS: HEMORRHAGE: A 1.3 cm intraparenchymal hemorrhage/hematoma -left thalamus with surrounding edema is present. No midline shift present. BRAIN: Edema surrounds the left thalamic hemorrhage/hematoma . There is extensive generalize cerebral atrophy and extensive periventricular chronic appearing microvascular ischemic changes. VENTRICLES: Unremarkable. No hydrocephalus. CALVARIUM: Unremarkable. PARANASAL SINUSES: Right sphenoid sinus retention cyst and fluid- sinus inflammatory changes here inferred. MASTOID AIR CELLS: Unremarkable as visualized. No inflammatory changes. OTHER FINDINGS: None. IMPRESSION: Left thalamic intraparenchymal hemorrhage/hematoma approximately 1.3 cm with surrounding edema. No gross midline shift appreciated. Prior to dictating this report these findings were called in to the ER physician at 4:50 p.m. on 02/09/2018 Continued close follow-up recommended Chronic cerebral atrophy and chronic appearing periventricular ischemic white matter changes as above.
--- NOTE | 2018-02-09 16:59 | ED PDOC ---
HPI:STROKE - Time Time: 16:30 - Historian Historian: Family - Chief Complaint Chief Complaint: Slurred speech - Onset Date: 02/09/18 Onset: This morning - Timing Timing: Currently Symptomatic - Associated Symptoms Associated symptoms:: Anticoagulant use (Xarelto) - Notes: Notes:: 87yo female, with history of hypertension, CHF, COPD, pulmonary embolism, ulcers , brought to ER by daughter for evaluation of slurred and confused speech since this morning. History obtained from daughter secondary to patient's clinical condition. Per daughter, the patient called out to her this morning and she noted the patient "was not speaking right" and had slurred and confused speech. She states the patient was less verbal than normal all day and today was less active in bed despite being bed bound. She states when the patient went to bed last night, she was at her baseline. She reports the patient complained this morning that people were "looking" at her. Daughter reports the patient has progressively worsened during the day and has become less verbal; also states patient has had decreased PO intake today. She additionally states the patient had bloody urine x 2 weeks and had a home ultrasound as well as labs which were both normal. Of note, patient is on a Xarelto regimen due to history of bilateral pulmonary embolisms and a pacemaker. Otherwise, daughter denies any history of CVA. PMD: Dr. Bright Garza NIHSS Stroke Scale - Date/Time Evaluation Performed Date Performed: 02/09/18 Time Performed: 16:30 When Was NIHSS Performed: Baseline - How Severe is the Stroke Level of Consciousness: 0=Alert LOC to Questions: 2=Neither correct LOC to commands: 1=Obeys one correctly Best Gaze: 0=Normal Visual: 0=No visual loss Facial: 0=Normal Motor Arm - Left: 3=No effort against gravity (falls immediately) Motor Arm - Right: 0=No drift Motor Leg - Left: 3=No effort against gravity (falls immediately) Motor Leg - Right: 3=No effort against gravity (falls immediately) Limb Ataxia: 0=Absent Sensory: 0=Normal Best Language: 2=Severe aphasia Dysarthia: 1=Mild to moderate slurring Extinction & Inattention (Neglect): 0=Normal, no object Score: 15 rTPA Inclusion/Exclusion - Refusal of Treatment Patient Refused Treatment: No - Inclusion Criteria for Altepase Patient is 18 years or Older: Yes The Clinical Diagnosis of Ischemic Stroke That is Causing a Potentially Disabling Neurological Deficit: No Time of Onset is Well Established to be Less Than 270 Minute Before Treatment Would Begin: No Risk/Benefit Discussed With Patient/Family Member Present: No Past Medical History Reviewed: Historical Data, Nursing Documentation, Vital Signs Vital Signs: Last Vital Signs Temp 98.2 F 02/09/18 16:15 Pulse 87 02/09/18 16:15 Resp 18 02/09/18 16:15 BP 184/100 H 02/09/18 16:15 Pulse Ox 96 02/09/18 16:15 - Medical History PMH: COPD, Gastritis, HTN, Chronic Kidney Disease Denies: CVA, Diabetes - Surgical History Surgical History: Pacemaker Other surgeries: Surgery for ulcer; right shoulder surgery - Family History Family History: States: No Known Family Hx - Living Arrangements Living Arrangements: With Family (bedbound) - Social History Current smoker - smoking cessation education provided: No Alcohol: None Drugs: Denies - Immunization History Hx Tetanus Toxoid Vaccination: No Hx Influenza Vaccination: No Hx Pneumococcal Vaccination: No - Home Medications Home Medications: Ambulatory Orders Medication Instructions Recorded Atorvastatin [Lipitor] 20 mg PO HS 05/26/17 Budesonide/Formoterol Fumarate 2 puff IH Q12 05/26/17 [Symbicort 160-4.5 Mcg Inhaler] Gabapentin [Neurontin] 300 mg PO HS 05/26/17 Bisoprolol [Zebeta] 5 mg PO BID 02/09/18 Magnesium Hydroxide [Milk Of 30 ml PO DAILY PRN 02/09/18 Magnesia] Multivitamin [Multi-Vitamin Daily] 1 tab PO DAILY 02/09/18 Rivaroxaban [Xarelto] 20 mg PO DAILY 02/09/18 - Allergies Allergies/Adverse Reactions: Allergies Allergy/AdvReac Type Severity Reaction Status Date / Time No Known Allergies Allergy Verified 02/09/18 16:15 Review of Systems ROS Statement: Except As Marked, All Systems Reviewed And Found Negative (as per HPI) Neurological: Positive for: Change in Speech, Confusion Physical Exam - Reviewed Nursing Documentation Reviewed: Yes Vital Signs Reviewed: Yes - Physical Exam Appears: Positive for: No Acute Distress. Negative for: Well (+ chronically ill appearing; + bed-bound) Head Exam: Positive for: ATRAUMATIC, NORMOCEPHALIC Skin: Positive for: Warm, Dry, Pallor Eye Exam: Positive for: EOMI, PERRL ENT: Positive for: Pharynx Is (clear), Other (tacky mucus membranes) Neck: Positive for: Painless ROM, Supple Cardiovascular/Chest: Positive for: Regular Rate, Rhythm, Chest Non Tender. Negative for: Murmur Respiratory: Positive for: Rales (bibasilar). Negative for: Respiratory Distress Gastrointestinal/Abdominal: Positive for: Soft. Negative for: Tenderness Back: Positive for: Normal Inspection, Other (deep sacral decub). Negative for : Decreased ROM Extremity: Positive for: Swelling (+ edema noted to right upper extremity and fingers), Other (lower extremities with poor muscle bulk). Negative for: Pedal Edema Lymphatic: Negative for: Adenopathy Neurologic/Psych: Positive for: Alert, Motor/Sensory Deficits (right upper extremity weakness, bilateral lower extremity weakness, see NIHSS), Aphasia. Negative for: Oriented - Laboratory Results Result Diagrams: 02/12/18 04:20 02/12/18 04:20 - ECG ECG: Positive for: Interpreted By Me, Viewed By Me ECG Rhythm: Positive for: Venticular Paced Interpretation Of Abn EKG: Appropriate discordance of t-waves O2 Sat by Pulse Oximetry: 96 (RA) Pulse Ox Interpretation: Normal - Radiology X-Ray: Read By Radiologist - Core Measure Core Measure Indicators: Code Stroke - Critical Care Total Time (In Min): 30 Documented Critical Care: Time excludes all time spent performint seperately billable procedures Medical Decision Making Medical Decision Making: Impression: Aphasia, right sided weakness Differential: Including but not limited to CVA, metabolic encephalopathy, sepsis , dehydration, anemia, ACS Plan: -- Labs -- EKG -- CXR -- CT Head w/o contrast Code stroke called [address] Head w/o contrast FINDINGS: HEMORRHAGE: A 1.3 cm intraparenchymal hemorrhage/hematoma -left thalamus with surrounding edema is present. No midline shift present. BRAIN: Edema surrounds the left thalamic hemorrhage/hematoma . There is extensive generalize cerebral atrophy and extensive periventricular chronic appearing microvascular ischemic changes. VENTRICLES: Unremarkable. No hydrocephalus. CALVARIUM: Unremarkable. PARANASAL SINUSES: Right sphenoid sinus retention cyst and fluid- sinus inflammatory changes here inferred. MASTOID AIR CELLS: Unremarkable as visualized. No inflammatory changes. OTHER FINDINGS: None. IMPRESSION: Left thalamic intraparenchymal hemorrhage/hematoma approximately 1.3 cm with surrounding edema. No gross midline shift appreciated. Prior to dictating this report these findings were called in to the ER physician at 4:50 p.m. on 2017 Continued close follow-up recommended Chronic cerebral atrophy and chronic appearing periventricular ischemic white matter changes as above. [address] Lindo who recommends repeat CT in 12 hours. Keep head and bed elevated, if blood pressure goes up start Cardizem drip. Agrees with starting Kcentra to reverse Xarelto effects. [address] Houser for ICU consult. Case discussed with Dr. Anton and patient admitted under his medical service. [address] Lindo in ER and he is agreeable with current plan of care. Accession No. : [id number] Patient Name / ID : ANNALEE [email or web address] / [id number] Exam Date : 02/09/2018 17:34:24 ( Approved ) Study Comment : Sex / Age : F / 87Y Creator : Tc Gaxiola MD Dictator : Tc Gaxiola MD Manager Photo : Oceanographic Meteorologist : Tc Gaxiola MD Approver2 : Report Date : 02/09/2018 17:51:05 My Comment : Date of service: 02/09/2018 HISTORY: Code Stroke COMPARISON: 05/26/2017 FINDINGS: LUNGS: Right apical opacity. Possible pneumonia. Followup advised. Patchy left basilar opacity, possibly subsegmental atelectasis. PLEURA: No significant pleural effusion identified, no pneumothorax apparent. CARDIOVASCULAR: Mild cardiomegaly. Permanent pacemaker. No congestive change. OSSEOUS STRUCTURES: No significant abnormalities. VISUALIZED UPPER ABDOMEN: Normal. OTHER FINDINGS: None. IMPRESSION: Ill-defined right apical opacity. Possible pneumonia. Possible subsegmental atelectasis at left lung base. CT chest ordered to elucidate opacity. Pt has no leukocytosis or cough or hypoxia. ----- Scribe Attestation: Documented by Floridalma Christianson, acting as a scribe for Bernie Horton MD. Provider Scribe Attestation: All medical record entries made by the Scribe were at my direction and personally dictated by me. I have reviewed the chart and agree that the record accurately reflects my personal performance of the history, physical exam, medical decision making, and the department course for this patient. I have also personally directed, reviewed, and agree with the discharge instructions and disposition. Disposition - Clinical Impression Clinical Impression: Thalamic hemorrhage with stroke Counseled Patient/Family Regarding: Studies Performed, Diagnosis - Disposition Disposition Time: 17:00 Condition: CRITICAL - Pt Status Changed To: Hospital Disposition Of: Inpatient - Admit Certification Admit to Inpatient:: After my assessment, the patient will require hospitalization for at least two midnights. This is because of the severity of symptoms shown, intensity of services needed, and/or the medical risk in this patient being treated as an outpatient. - POA Present On Arrival: Falls Or Trauma, Pressure Ulcer (risk)
[2018-02-09] MEDS ORDERED: Hum Prothrombin CPLX(PCC)4FACT 1 Unit Inj IV STA (17:15)
[2018-02-09 17:24] LABS: VENOUS BLOOD GAS BASE EXCESS 7.1 mmol/L (0.0-2.0); VENOUS BLOOD GAS PCO2 45 mmHg (40-60); VENOUS BLOOD GAS PO2 74 mm/Hg (30-55); VENOUS BLOOD PH 7.46 (7.32-7.43)
[2018-02-09 17:25] LABS: BASO # 0.1 K/uL (0.0-0.2); BASO % 1.1 % (0.0-2.0); EOS # 0.1 K/uL (0.0-0.7); EOS % 1.1 % (0.0-4.0); HEMOGLOBIN 9.8 g/dL (12.0-16.0); LYMPH # 2.4 K/uL (1.0-4.3); LYMPH % 21.9 % (20.0-40.0); MEAN CELL VOLUME 73.7 fl (81.0-99.0); MEAN CORPUSCULAR HEMOGLOBIN 24.1 pg (27.0-31.0); MEAN CORPUSCULAR HGB CONC 32.7 g/dL (33.0-37.0); MEAN PLATELET VOLUME 8.8 fl (7.2-11.7); MONO # 0.6 K/uL (0.0-0.8); NEUT # 7.5 K/uL (1.8-7.0); NEUT % 69.9 % (50.0-75.0); NRBC % 0.1 % (0.0-0.0); RBC 4.07 Mil/uL (3.80-5.20); RED CELL DISTRIBUTION WIDTH 20.7 % (11.5-14.5); WHITE BLOOD COUNT 10.8 K/uL (4.8-10.8)
[2018-02-09 17:36] LABS: ALBUMIN 3.7 g/dL (3.5-5.0); ALT/SGPT 20 U/L (9-52); AST/SGOT 30 U/L (14-36); BLOOD UREA NITROGEN 39 mg/dl (7-17); CALCIUM 9.4 mg/dL (8.4-10.2); GFR NON-AFRICAN AMERICAN 53; HDL CHOLESTEROL 21 MG/DL (30-70)
[2018-02-09 17:37] LABS: INR 2.7; PROTHROMBIN TIME 30.8 Seconds (9.8-13.1)
[2018-02-09 17:39] LABS: PARTIAL THROMBOPLASTIN TIME 43.1 Seconds (25.6-37.1)
[2018-02-09 17:46] LABS: LDL CHOLESTEROL 66 mg/dL (0-129)
--- NOTE | 2018-02-09 17:52 | RAD ---
Date of service: 02/09/2018 HISTORY: Code Stroke COMPARISON: 05/26/2017 FINDINGS: LUNGS: Right apical opacity. Possible pneumonia. Followup advised. Patchy left basilar opacity, possibly subsegmental atelectasis. PLEURA: No significant pleural effusion identified, no pneumothorax apparent. CARDIOVASCULAR: Mild cardiomegaly. Permanent pacemaker. No congestive change. OSSEOUS STRUCTURES: No significant abnormalities. VISUALIZED UPPER ABDOMEN: Normal. OTHER FINDINGS: None. IMPRESSION: Ill-defined right apical opacity. Possible pneumonia. Possible subsegmental atelectasis at left lung base.
[2018-02-09] MEDS ORDERED: HUM PROTHROMBIN CPLX IV ONE (18:00)
[2018-02-09] MEDS ORDERED: [UNRECOGNIZED DRUG - OTHER] IV ONE (18:00)
[2018-02-09 18:21] VITALS: BMI 26.8
--- NOTE | 2018-02-09 18:21 | CP.PCM.CON ---
History of Present Illness - History of Present Illness History of Present Illness: Neurology Consultation Note; Mrs. Ochoa is an 87-year-old woman with a past medical history of previous DVT/PE on Xarelto, HTN, OA, who is bedbound and was found to be lethargic and difficult to move this morning by her daughter. She was brought in to the ED, where a CT scan of the head was done and showed a left thalamic intraparenchymal hemorrhage measuring about 1.4 cm. Her BP was elevated and the patient had slight right side weakness as compared with the left. Review of Systems - Review of Systems All systems: reviewed and no additional remarkable complaints except Past Patient History - Past Medical History & Family History Past Medical History?: Yes - Past Social History Alcohol: None Drugs: Denies - CARDIAC Hx Hypertension: Yes Hx Pacemaker: Yes - PULMONARY Hx Chronic Obstructive Pulmonary Disease (COPD): Yes - NEUROLOGICAL Hx Neurological Disorder: No - HEENT Hx HEENT Problems: No - RENAL Hx Chronic Kidney Disease: Yes - ENDOCRINE/METABOLIC Other/Comment: PT had bowel surgery - HEMATOLOGICAL/ONCOLOGICAL Hx Blood Disorders: No - INTEGUMENTARY Hx Dermatological Problems: No - MUSCULOSKELETAL/RHEUMATOLOGICAL Hx Musculoskeletal Disorders: Yes Hx Falls: No Other/Comment: CHRONIC LEG WEAKNESS - GASTROINTESTINAL Hx Gastritis: Yes - GENITOURINARY/GYNECOLOGICAL Hx Genitourinary Disorders: No - PSYCHIATRIC Hx Psychophysiologic Disorder: No Hx Substance Use: No - SURGICAL HISTORY Hx Surgeries: Yes Other/Comment: Bowel Surgery - ANESTHESIA Hx Anesthesia: Yes Hx Anesthesia Reactions: No Hx Malignant Hyperthermia: No Meds Allergies/Adverse Reactions: Allergies Allergy/AdvReac Type Severity Reaction Status Date / Time No Known Allergies Allergy Verified 02/09/18 16:15 - Medications Medications: Current Medications Sodium Chloride (Sodium Chloride 0.9%) 1,000 mls @ 100 mls/hr IV .Q10H ONE Stop: 02/10/18 02:44 Last Admin: 02/09/18 17:42 Dose: 100 mls/hr Prothrombin Complex Concent ( (Human) 3,890 unit/ IV SUPPLIES) 1 mls @ 3.158 mls/hr IV ONCE ONE Stop: 02/09/18 18:18 Physical Exam - Neurological Exam Neurological exam: Altered, CN II-XII Intact Additional comments: NIHSS= 8 - Expanded Neurological Exam Expanded Neurological exam: Expressive Aphasia Patient oriented to: person, place Speech: Slurred Speech Cranial nerves: Facial [place] w/Forehead Movement: Abnormal Right Ataxia: No Cerebellar Function: Finger to Nose: Abnormal Right Upper motor neuron: Babinski Sign: Abnormal Right Sensory exam: Lower Extremity 2 Point Discrimination: Normal, Lower Extremity Light Touch: Normal, Lower Extremity Pin Prick: Normal, Lower Extremity Temperature: Normal, Upper Extremity 2 Point Discrimination: Normal, Upper Extremity Light Touch: Normal, Upper Extremity Pin Prick: Normal, Upper Extremity Temperature: Normal Neuro motor strength exam: Left Upper Extremity: 4, Right Upper Extremity: 3, Left Lower Extremity: 4, Right Lower Extremity: 3 DTR: Achilles Tendon Left: 2+, Achilles Tendon Right: 3+, Brachioradialis Left: 2+, Brachioradialis Right: 3+, Patellar Left: 2+, Patellar Right: 3+, Tricep Left: 2+, Tricep Right: 3+ Results - Vital Signs Recent Vital Signs: Last Vital Signs Temp 98.2 F 02/09/18 16:15 Pulse 77 02/09/18 17:04 Resp 23 02/09/18 17:04 BP 148/81 02/09/18 17:04 Pulse Ox 96 02/09/18 18:01 - Labs Result Diagrams: 02/09/18 17:17 02/09/18 17:17 Labs: Laboratory Results - last 24 hr 02/09/18 02/09/18 02/09/18 16:38 17:15 17:17 WBC 10.8 D RBC 4.07 Hgb 9.8 L Hct 30.0 L MCV 73.7 L D MCH 24.1 L MCHC 32.7 L RDW 20.7 H Plt Count 307 MPV 8.8 Neut % (Auto) 69.9 Lymph % (Auto) 21.9 [place] % (Auto) 6.0 Eos % (Auto) 1.1 Baso % (Auto) 1.1 Neut # (Auto) 7.5 H Lymph # (Auto) 2.4 [place] # (Auto) 0.6 Eos # (Auto) 0.1 Baso # (Auto) 0.1 PT INR APTT pO2 74 H VBG pH 7.46 H VBG pCO2 45 VBG HCO3 30.4 VBG Total CO2 33.4 H VBG O2 Sat (Calc) 99.7 H VBG Base Excess 7.1 H VBG Potassium 4.4 Sodium 135.0 Chloride 105.0 Glucose 111 H Lactate 1.1 FiO2 21.0 Potassium Carbon Dioxide Anion Gap BUN Creatinine Est GFR ( Amer) Est GFR (Non-Af Amer) POC Glucose (mg/dL) 114 H Random Glucose Calcium Phosphorus Magnesium Total Bilirubin AST ALT Alkaline Phosphatase Troponin I Total Protein Albumin Globulin Albumin/Globulin Ratio Triglycerides Cholesterol LDL Cholesterol Direct HDL Cholesterol Venous Blood Potassium 4.4 02/09/18 02/09/18 17:17 17:17 WBC RBC Hgb Hct MCV MCH MCHC RDW Plt Count MPV Neut % (Auto) Lymph % (Auto) [place] % (Auto) Eos % (Auto) Baso % (Auto) Neut # (Auto) Lymph # (Auto) [place] # (Auto) Eos # (Auto) Baso # (Auto) PT 30.8 H INR 2.7 APTT 43.1 H pO2 VBG pH VBG pCO2 VBG HCO3 VBG Total CO2 VBG O2 Sat (Calc) VBG Base Excess VBG Potassium Sodium 137 Chloride 102 Glucose Lactate FiO2 Potassium 4.3 Carbon Dioxide 28 Anion Gap 11 BUN 39 H Creatinine 1.0 Est GFR ( Amer) > 60 Est GFR (Non-Af Amer) 53 POC Glucose (mg/dL) Random Glucose 109 H Calcium 9.4 Phosphorus 3.2 Magnesium 2.2 Total Bilirubin 0.5 AST 30 ALT 20 Alkaline Phosphatase 97 Troponin I 0.0280 Total Protein 7.5 Albumin 3.7 Globulin 3.8 Albumin/Globulin Ratio 1.0 Triglycerides 134 Cholesterol 124 LDL Cholesterol Direct 66 HDL Cholesterol 21 L Venous Blood Potassium Assessment & Plan (1) Thalamic hemorrhage Assessment and Plan: The patient is on Xarelto and will need to be reversed with K-Centra due to concern of expansion. Furthermore, I recommend the followin. ICU admission 2. Q 1 hour neuro-checks 3. Cadrene drip to maintain sBP 100-130 mm Hg 4. Hold anticoagulation 5. Keep head of bed above 40 degrees 6. PT/OT eval 7. SCD for DVT Px 8. Fluids with NS at 100 mL/hr 9. NPO till swallow eval 10. Case management consult 12. Repeat non-contrast CT head in 12 hours. 13. Consider neurosurgical evaluation. Thank you. Status: Acute Priority: High
[2018-02-09 18:38] LABS: URINE BILIRUBIN NEGATIVE (NEGATIVE); URINE BLOOD MODERATE (NEGATIVE); URINE CLARITY TURBID (Clear); URINE COLOR RED (YELLOW); URINE GLUCOSE (UA) NEG (Normal); URINE LEUKOCYTE ESTERASE MOD Leu/uL (Negative); URINE PROTEIN 100 mg/dL (NEGATIVE); URINE UROBILINOGEN 0.2-1.0 mg/dL (0.2-1.0)
[2018-02-09 18:49] LABS: SQUAMOUS EPITHIAL 3 /hpf (0-5); URINE BACTERIA FEW (<OCC)
--- NOTE | 2018-02-09 19:19 | CP.CCUPN ---
CCU Subjective - Physician Review Subjective (Free Text): 87F admitted today post Code Stroke eval for acute onset R sided weakness and slurred speech, found to have hemorrhagic CVA involving Left thalamic region ( 1.3 cm size hematoma) with local edema, no midline shift. Family noted less verbalization, mild confusion and slurred speech this AM, associated with R arm weakness, no LOC, no falls, no SOB, chest discomfort, palpitations, diaphoresis. Of nopte, she has been on Xarelto since 2017 for h/o of Pulmonary embolus. Other vitals and I/O's reviewed: Initial BP was 184/100, later on repeat eval 148/81 without therapy, HR 77-87, 96% SPO2 on nasal cannula, RR 23. Afebrile. ROS: No other pertinent negs or positives on 10+ system review. PMSFH: All other Nursing and physician documentation reviewed to date; no new pertinent info noted relevant to current medical problems. Allergies: NKDA Home Meds: Lipitor, Zebeta, Budesonide inhaler, Gabapentin, MVI, Xarelto EXAM- HEENT: no icterus, no gaze preference, no nystagmus NECK: No JVD visible, supple, carotids equal upstroke bilat CHEST: decreased BS bases, no wheezes audible HEART: irregular, distant, S1S2, no rubs / murmurs ABD: soft, no increased distention, no tympany, no focal tenderness, BS hypoactive EXT: no peripheral/ digital cyanosis, no calf tenderness or palpable cords, distal pulses intact and symmetrical. NEURO: R Motor 3/5 upper and lower, L-Motor 4-5/5; sensory intact, Plantars: withdrawal bilaterally SKIN: no rashes, otherwise warm and dry. LABS: WBC= 10.8 HGB= 9.8 PlTs= 307K INR= 2.7 / PTT= 43.1 Tl=164 K= 4.3 CL= 102 HCO3= 28 BUN/Cr= 39/1.0 BS= 109 CXR: rotated film increased interstitial markings on left, no gross consolidation. (my interp). EKG: Vent demand Paced beats at 78/min ( my interp) IMPRESSION / MAJOR PROBLEMS NOW: 1. Acute hemorrhagic CVA with local edema, on DOACs, with Coagulopathy 2. Accelerated HTN 3. Chronic Disease Anemia 4. Azotemia / Dehydration 5. BedBound at home status PLAN: 1. Repeat CT Brain imaging as per Neuro; Neurochecks, Seizure precautions, HOB 30 degree elevation. 2. Reverse coagulopathy; Kcentra ordered. 3. Keep Systolic BP no higher than 140-150. IV Nicardipine infusion if needed for BP control. Cautious IVF hydration with NSS. 4. SCDs bilaterally 5. No Advance Directives, full Code status as per family. CCU Objective - Vital Signs / Intake & Output Vital Signs (Last 4 hours): Vital Signs Temp Pulse Resp BP Pulse Ox 02/09/18 18:20 71 23 159/84 H 96 02/09/18 18:01 96 02/09/18 17:15 99.4 F 02/09/18 17:04 77 23 148/81 96 02/09/18 16:15 98.2 F 87 18 184/100 H 96
[2018-02-09 19:58] LABS: INR 2.1; PROTHROMBIN TIME 23.5 Seconds (9.8-13.1)
[2018-02-09 20:00] LABS: PARTIAL THROMBOPLASTIN TIME 40.2 Seconds (25.6-37.1)
[2018-02-10] MEDS ORDERED: Sodium Chloride 0.9% 1,000 ML IV ONE (00:15)
[2018-02-10] MEDS ORDERED: Labetalol 5 mg/ml Inj 20ML IVP STA (00:53)
[2018-02-10 05:31] LABS: MEAN CELL VOLUME 74.5 fl (81.0-99.0); MEAN CORPUSCULAR HGB CONC 32.3 g/dL (33.0-37.0); RBC 3.74 Mil/uL (3.80-5.20); RED CELL DISTRIBUTION WIDTH 20.6 % (11.5-14.5); WHITE BLOOD COUNT 10.8 K/uL (4.8-10.8)
[2018-02-10 05:37] LABS: BLOOD UREA NITROGEN 33 mg/dl (7-17); CALCIUM 9.2 mg/dL (8.4-10.2); GFR NON-AFRICAN AMERICAN 53
[2018-02-10] MEDS ORDERED: Nicardipine 20 MG/200 ML 20 MG/200 ML BAG IV ONE (05:38)
[2018-02-10 07:59] LABS: INR 1.8
[2018-02-10 08:01] LABS: PARTIAL THROMBOPLASTIN TIME 38.2 Seconds (25.6-37.1)
--- NOTE | 2018-02-10 08:46 | CP.PCM.PN ---
Subjective - Date & Time of Evaluation Date of Evaluation: 02/10/18 Time of Evaluation: 08:44 - Subjective Subjective: Ms. Ochoa was seen and examined at the bedside in ICU. She is awake, expressive aphasia, answer with some garbled speech. She is confused, but answers some simple questions with yes or no. She is able to some simple commands such as opening her mouth, squeezing her hand with right upper extremity weaker than the left ( hx. OA and rotator cuff SX.).She peyman does not know if an object is placed in her left hand such as cup to place it in her mouth. She is able to participate during speech eval. Nicardipine drip is infusing with SBP below 130. There was no untoward events overnight. Objective - Vital Signs/Intake and Output Vital Signs (last 24 hours): Temp Pulse Resp BP Pulse Ox 98.4 F 76 23 117/42 L 94 L 02/10/18 08:00 02/10/18 08:00 02/10/18 08:00 02/10/18 08:00 02/10/18 08:00 Intake and Output: 02/10/18 02/10/18 06:59 18:59 Intake Total 50 Balance 50 - Medications Medications: Current Medications Sodium Chloride (Sodium Chloride 0.9%) 1,000 mls @ 40 mls/hr IV .Q24H ONE Stop: 02/10/18 16:44 Last Admin: 02/10/18 00:15 Dose: 40 mls/hr Nicardipine HCl (Cardene Iv Premix) 20 mg in 200 mls @ 50 mls/hr IV .Q4H ONE; 5 MG/HR PRN Reason: Protocol Stop: 02/10/18 09:37 Last Admin: 02/10/18 06:11 Dose: 5 mg/hr, 50 mls/hr - Labs Labs: 02/10/18 04:35 02/10/18 04:35 PT 20.0 Seconds (9.8-13.1) H 02/10/18 07:45 INR 1.8 02/10/18 07:45 APTT 38.2 Seconds (25.6-37.1) H 02/10/18 07:45 - Constitutional Appears: No Acute Distress - Head Exam Head Exam: NORMAL INSPECTION - Eye Exam Pupil Exam: Miosis, PERRL - Neurological Exam Neurological Exam: Awake Neuro motor strength exam: Left Upper Extremity: 4, Right Upper Extremity: 3, Left Lower Extremity: 4, Right Lower Extremity: 3 Additional comments: awake, expressive aphasia, apraxic, follows commands, sensation is intact. Assessment and Plan (1) Thalamic hemorrhage Assessment & Plan: Case discussed with Dr. Lindo, continue all current medical regimen including ICU team management for blood pressure control. Pending repeat CTH without contrast. Recommend hydration, blood pressure control, repeat CTH if mental state deteriorate, severe headache, keep head of bed elevated at least 30 degrees, neurosurgical consult. Status: Acute
--- NOTE | 2018-02-10 08:49 | CARD ---
APPROVED REPORT Date of service: 02/09/2018 <Conclusion> Atrial-sensed ventricular-paced rhythm Abnormal ECG
--- NOTE | 2018-02-10 10:57 | CT ---
Date of service: 02/10/2018 PROCEDURE: CT HEAD WITHOUT CONTRAST. HISTORY: Follow-up COMPARISON: 02/09/2018. TECHNIQUE: Axial computed tomography images were obtained through the head/brain without intravenous contrast. Radiation dose: Total exam DLP = 1118.35 mGy-cm. This CT exam was performed using one or more of the following dose reduction techniques: Automated exposure control, adjustment of the mA and/or kV according to patient size, and/or use of iterative reconstruction technique. FINDINGS: HEMORRHAGE: Given differences in slice selection, there is no significant interval change in the size and appearance of 1.5 x 1.5 cm acute left thalamic hematoma with moderate surrounding vasogenic edema, mild mass effect and 2 mm midline shift from left to right. BRAIN: There are severe chronic microangiopathic changes. There is no abnormal extra-axial fluid collection. VENTRICLES: There is moderate age-related global parenchymal volume loss and proportionate enlargement of the ventricles and cortical sulci. CALVARIUM: There is mild hyperostosis frontalis interna. PARANASAL SINUSES: There is fluid in the right sphenoid chamber. The remaining included paranasal sinuses are clear. MASTOID AIR CELLS: There is fluid in the right mastoid air cells. The left mastoid air cells are clear. OTHER FINDINGS: None. IMPRESSION: Interval evolution of 1.5 x 1.5 cm acute left thalamic hematoma with moderate surrounding vasogenic edema, mild mass effect and 2 mm midline shift from left to right. No herniation or hydrocephalus. No other significant interval change. A preliminary report was provided by [employer] services.
[2018-02-10] MEDS ORDERED: Sodium Chloride 0.9% 1,000 ML IV SCH (11:00)
--- NOTE | 2018-02-10 13:45 | CT ---
Date of Service: 02/09/18 CT chest without IV contrast Indication: Right upper lobe opacity Technique: Contiguous axial images were obtained through the chest without intravenous contrast enhancement. Sagittal and coronal reconstructions were generated and reviewed. This CT exam was performed using 1 or more of the following dose reduction techniques: Automated exposure control, adjustment of the MAA and/or kV according to patient size, and/or use of iterative reconstruction technique. Radiation dose (DLP): 543.28 MGy-cm. Comparison: Chest x-ray performed 02/09/18, CTA chest performed 05/26/17 Findings: Visualized portions of the inferior thyroid gland appear unremarkable. The unenhanced mediastinal and hilar vascular structures appear grossly unremarkable. Cardiomegaly. Trace pericardial effusion. Dense atherosclerotic calcifications of the aorta and branches. Coronary artery calcifications. 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 Bilateral interstitial pulmonary opacities most prominent at the lung bases. Geographic region of ground-glass opacities within the right upper lobe. Correlate clinically for pulmonary edema. Superimposed infection is not excluded. Dependent basilar consolidations. No pleural effusion. No pneumothorax. Small hiatal hernia/ distal esophageal wall thickening. Limited visualization of the noncontrast upper abdomen: Pancreatic atrophy. Degenerative changes of the spine. Extensive degenerative changes/ abnormalities involving bilateral shoulders. Impression: Geographic ground glass opacities within the right upper lobe and bilateral interstitial opacities may be due to pulmonary edema. Correlate clinically. Superimposed infection is not excluded. Follow-up upon resolution suggested. Preliminary impression was provided by [employer].
--- NOTE | 2018-02-10 19:41 | HP ---
Copied To: Dennis Anton MD Attending MD: Dennis Anton MD HISTORY OF PRESENT ILLNESS: Ms. Ochoa is an 87-year-old female who was admitted to the intensive care unit following an episode of lethargy. She has a history of deep venous thrombosis and pulmonary embolism and is on Xarelto at home. She was noted to be lethargic by the daughter and was brought to the emergency room. She is bed bound, also has a history of hypertension, osteoarthritis. FAMILY HISTORY: Nonrevealing SOCIAL HISTORY: She is bed bound. Lives at home. MEDICAL HISTORY: In the emergency room, she was found to have left thalamic intraparenchymal hemorrhage measuring about 1.4 cm. She is unable to give much history, but is responsive to verbal commands by saying yes or no. She has right arm weakness, but has history of rotator cuff surgery in the past. No other history is obtained. PHYSICAL EXAMINATION: GENERAL: The patient is awake, alert, responsive to verbal commands, but still appears very week. VITAL SIGNS: Blood pressure of 148/81, pulse of 77, respiratory rate of 20. She is afebrile. O2 sat 99% on room air. SKIN: Shows fair turgor. HEENT: Pupils are equal and reactive to light and accommodation. Mouth shows fair hygiene. LUNGS: Clear. HEART: Regular. No murmurs or gallop. ABDOMEN: Soft, nontender. No organomegaly. EXTREMITIES: She has weakness of right upper extremity. Left upper extremity is unremarkable. Lower extremity also appears unremarkable. CENTRAL NERVOUS SYSTEM: The patient is awake and alert. One could not evaluate it completely except for weakness of the right upper extremity. LABORATORY DATA: WBC 10.8, hemoglobin 9.9, platelet count 307,000. Sodium 137, potassium 4.3, BUN of 39, creatinine 1, serum glucose 149. Chest x-ray is remarkable for ill-defined right apical opacity, possible pneumonia, possible subsegmental atelectasis, left base. CT of the head is remarkable for left thalamic intraparenchymal hemorrhage. EKG, official report is pending, but read by me shows pacemaker rhythm. IMPRESSION AND PLAN: 1. Intracranial bleed, probably secondary to Xarelto. The plan is neurology evaluation. Monitor the patient in intensive care unit. Repeat CAT scan in several hours to evaluate progress of bleed. Xarelto already given. We will continue to monitor in the intensive care unit. Further therapy will depend on findings. 2. Anemia, probably chronic. 3. History of hypertension. 4. History of pulmonary emboli in the past. 5. History of deep vein thrombosis in the past. Dennis Anton MD
[2018-02-11 05:47] LABS: BASO # 0.1 K/uL (0.0-0.2); BASO % 0.5 % (0.0-2.0); EOS # 0.3 K/uL (0.0-0.7); HEMOGLOBIN 9.3 g/dL (12.0-16.0); LYMPH # 2.4 K/uL (1.0-4.3); LYMPH % 23.2 % (20.0-40.0); MEAN CELL VOLUME 75.2 fl (81.0-99.0); MEAN CORPUSCULAR HEMOGLOBIN 23.9 pg (27.0-31.0); MEAN CORPUSCULAR HGB CONC 31.8 g/dL (33.0-37.0); MEAN PLATELET VOLUME 8.8 fl (7.2-11.7); MONO # 0.6 K/uL (0.0-0.8); NEUT % 67.3 % (50.0-75.0); RBC 3.88 Mil/uL (3.80-5.20); WHITE BLOOD COUNT 10.4 K/uL (4.8-10.8)
[2018-02-11 06:15] LABS: ALBUMIN 3.5 g/dL (3.5-5.0); ALT/SGPT 21 U/L (9-52); AST/SGOT 24 U/L (14-36); BLOOD UREA NITROGEN 26 mg/dl (7-17); CALCIUM 9.2 mg/dL (8.4-10.2); GFR NON-AFRICAN AMERICAN 53
[2018-02-11] MEDS ORDERED: Nicardipine 20 MG/200 ML 20 MG/200 ML BAG IV ONE (08:15)
--- NOTE | 2018-02-11 08:27 | CP.PCM.PN ---
Subjective - Date & Time of Evaluation Date of Evaluation: 02/11/18 Time of Evaluation: 08:27 - Subjective Subjective: Ms. Ochoa was seen and examined at the bedside in ICU. She is awake, expressive aphasia, answer with some garbled speech, but confused. She constantly moans and groans, but not able to move all extremities. She is able to follow some commands such as opening her mouth, moving her tongue from side to side. Sensation is intact. Repeat CTH yesterday showed interval evolution of 1.5 x 1.5 cm acute left thalamic hematoma with moderate surrounding vasogenic edema, mild mass effect and 2 mm midline shift from left to right. No herniation or hydrocephalus. No other significant interval change. This am SBP is above 130, re-ordered Cardene drip. There was no untoward events overnight. Objective - Vital Signs/Intake and Output Vital Signs (last 24 hours): Temp Pulse Resp BP Pulse Ox 97.6 F 75 21 160/60 H 96 02/11/18 08:00 02/11/18 08:00 02/11/18 08:00 02/11/18 08:00 02/11/18 08:00 Intake and Output: 02/11/18 02/11/18 06:59 18:59 Intake Total 440 40 Output Total 500 Balance -60 40 - Medications Medications: Current Medications Acetaminophen (Tylenol 325mg Tab) 650 mg PO Q6 PRN PRN Reason: Pain, Mild (1-3) Last Admin: 02/10/18 18:20 Dose: 650 mg Sodium Chloride (Sodium Chloride 0.9%) 1,000 mls @ 40 mls/hr IV .Q24H ELL[place]OTT Stop: 02/11/18 12:56 Last Admin: 02/10/18 11:00 Dose: 40 mls/hr Nicardipine HCl (Cardene Iv Premix) 20 mg in 200 mls @ 50 mls/hr IV .Q4H ONE; 5 MG/HR PRN Reason: Protocol Stop: 02/11/18 12:14 - Labs Labs: 02/11/18 04:30 02/11/18 04:30 PT 20.0 Seconds (9.8-13.1) H 02/10/18 07:45 INR 1.8 02/10/18 07:45 APTT 38.2 Seconds (25.6-37.1) H 02/10/18 07:45 - Constitutional Appears: No Acute Distress - Head Exam Head Exam: NORMAL INSPECTION - Eye Exam Pupil Exam: Miosis, PERRL Additional comments: 2 mm brisk to react. - Neurological Exam Neurological Exam: Awake Neuro motor strength exam: Left Upper Extremity: 3, Right Upper Extremity: 2/1, Left Lower Extremity: 2/1, Right Lower Extremity: 2/1 Additional comments: awake, confused, follow some commands, sensation is intact. Assessment and Plan (1) Thalamic hemorrhage Assessment & Plan: Case discussed with Dr. Lindo, continue all current medical regimen including ICU team management for blood pressure control.Pending MRI of the brain.Recommend hydration, aspiration precaution, blood pressure control, repeat CTH if mental state deteriorate, severe headache, keep head of bed elevated at least 30 degrees, neurosurgical consult. Status: Acute
--- NOTE | 2018-02-11 12:23 | CP.PCM.PN ---
Subjective - Date & Time of Evaluation Date of Evaluation: 02/11/18 Time of Evaluation: 12:24 - Subjective Subjective: MORE AWAKE AND RESPONSIVE TODAY DAUGHTER AND GRANDAUGHTER AT BEDSIDE--CASE DISCUSSED WITH THEM Objective - Vital Signs/Intake and Output Vital Signs (last 24 hours): Temp Pulse Resp BP Pulse Ox 98.3 F 86 17 157/63 H 97 02/11/18 11:42 02/11/18 11:00 02/11/18 11:00 02/11/18 11:00 02/11/18 11:00 Intake and Output: 02/11/18 02/11/18 06:59 18:59 Intake Total 440 200 Output Total 500 Balance -60 200 - Medications Medications: Current Medications Acetaminophen (Tylenol 325mg Tab) 650 mg PO Q6 PRN PRN Reason: Pain, Mild (1-3) Last Admin: 02/10/18 18:20 Dose: 650 mg Sodium Chloride (Sodium Chloride 0.9%) 1,000 mls @ 40 mls/hr IV .Q24H [place]OTT Stop: 02/11/18 12:56 Last Admin: 02/10/18 11:00 Dose: 40 mls/hr - Labs Labs: 02/11/18 04:30 02/11/18 04:30 PT 20.0 Seconds (9.8-13.1) H 02/10/18 07:45 INR 1.8 02/10/18 07:45 APTT 38.2 Seconds (25.6-37.1) H 02/10/18 07:45 - Constitutional Appears: Chronically Ill - Head Exam Head Exam: ATRAUMATIC, NORMAL INSPECTION, NORMOCEPHALIC - Eye Exam Eye Exam: EOMI, Normal appearance, PERRL Pupil Exam: NORMAL ACCOMODATION, PERRL - ENT Exam ENT Exam: Mucous Membranes Moist, Normal Exam - Neck Exam Neck Exam: Full ROM, Normal Inspection. absent: Lymphadenopathy - Respiratory Exam Respiratory Exam: Clear to Ausculation Bilateral, NORMAL BREATHING PATTERN - Cardiovascular Exam Cardiovascular Exam: REGULAR RHYTHM, +S1, +S2. absent: Murmur - GI/Abdominal Exam GI & Abdominal Exam: Soft, Normal Bowel Sounds. absent: Tenderness - Rectal Exam Rectal Exam: NORMAL INSPECTION - Extremities Exam Extremities Exam: Full ROM, Normal Capillary Refill, Normal Inspection. absent : Joint Swelling, Pedal Edema - Back Exam Back Exam: NORMAL INSPECTION - Neurological Exam Neurological Exam: Alert, Awake, CN II-XII Intact Neuro motor strength exam: Left Upper Extremity: 4, Right Upper Extremity: 2/1, Left Lower Extremity: 4, Right Lower Extremity: 4 - Skin Skin Exam: Dry, Intact, Normal Color, Warm Assessment and Plan - Assessment and Plan (Free Text) Assessment: CVA--INTRACRANIAL BLEED HTN APHASIA DYSPHAGIA Plan: CONTINUE RX ORDERED PROGNOSIS IS GUARDED PICC LINE FOR IV ACCESS
--- NOTE | 2018-02-11 13:07 | PQF ---
PROVIDER RESPONSE TEXT: STAGE 3 PRESSURE ULCERS IN SACRUM--PRESENT ON ADMISSION REVIEWER QUERY TEXT: Pressure Ulcer Type 3 queries: Pressure ulcer is documented in the Medical Record. Please specify the (1) location,(2) present on admission status and (3) stage:if in agreement POA status of each pressure ulcer: -- Not present on admission -- Present on admission -- Other -- Clinically unable to determine -- Unknown MD order: Wound Care; Sacral Wound on Admission Nursing Admission Assessment : Pressure Ulcer POA: Yes: Sacrum 02/10 Pressure Ulcer Assessment:Sacrum: Partial thickness loss of dermis presenting as a shallow open ulcer Stage of each pressure ulcer (National Pressure Ulcer Advisory Panel definitions): -- Stage I: Intact skin with non-blanchable redness of a localized area -- Stage II: Partial thickness skin loss involving dermis with a shallow open ulcer or an open serum -filled blister -- Stage III: Full thickness skin loss involving damage or necrosis of subcutaneous tissue -- Stage IV: Full thickness skin loss with exposed bone, tendon or muscle -- Unstageable: Full thickness tissue loss in which the base of the ulcer is covered by slough and/o r eschar in the wound bed The patient's Clinical Indicators include: xx Query created by: Rosmery Christianson on 02/11/2018 10:39 AM Electronically signed by: Dennis Anton MD 02/11/2018 1:04 PM
--- NOTE | 2018-02-11 13:36 | MRI ---
Date of service: 02/11/2018 PROCEDURE: MRI BRAIN WITHOUT CONTRAST HISTORY: Evaluate for other micro hemorrhages COMPARISON: Comparison made with prior CT scan of the brain 02/10/2018 TECHNIQUE: Multiplanar, multisequence MR images of the brain were obtained without intravenous contrast enhancement. FINDINGS: Note that the examination is limited by motion artifact. HEMORRHAGE: Re- demonstrated is an a small rounded acute hemorrhage of located in the left basal ganglia that exhibits predominantly dark T2 and isointense T1 signal consistent with intracellular deoxyhemoglobin. A very thin rim of bright T1 signal is seen consistent with developing intracellular methemoglobin. Small rim of edema surrounds the hemorrhage. Additionally, there are a few tiny focal areas of dark T2 signal scattered about both basal nuclei including the right adams radiata seen on gradient echo weighted sequence likely representing tiny foci of hemosiderin. DWI: No evidence of an acute or early subacute infarction. BRAIN PARENCHYMA: Significant and extensive the diffuse and confluent chronic white matter ischemic changes seen extending peripherally into the deep and subcortical white matter both cerebral hemispheres. There is extension of these changes into the white matter tracts of both basal nuclei. The in addition there are chronic appearing infarct changes seen within the brainstem with one or 2 tiny lacunar-type infarcts seen in the left cerebellar hemisphere. No obvious parenchymal nor extra-axial mass or collection seen on this noncontrast exam. Moderate generalized VENTRICLES: No obstructive hydrocephalus. CRANIUM: Unremarkable. ORBITS: Grossly unremarkable. PARANASAL SINUSES/MASTOIDS: Clear subtotal opacification right chamber sphenoid sinus. Minor mucosal thickening noted within a few ethmoid air cells. VASCULAR SYSTEM: Visualized major vascular flow voids at skull base patent. . OTHER FINDINGS: None. IMPRESSION: Limited motion degraded study. Re- demonstrated is an acute hemorrhage in the left basal ganglia with small rim of surrounding edema. . Several tiny foci of dark T2 signal scattered about both basal nuclei seen on gradient echo weighted sequence likely representing tiny hemosiderin deposits. Significant an extensive chronic periventricular white matter ischemic changes which extend into the white matter tracts of both basal nuclei. There are also of chronic brainstem ischemic changes with 1 or 2 tiny chronic left cerebellar lacunar type infarcts. Moderate generalized volume loss.
--- NOTE | 2018-02-11 13:38 | CP.CCUPN ---
CCU Subjective - Physician Review Subjective (Free Text): Awake, but appears confused, no new focal weakness, still has R sided hemiplegia , BP levels intermittently elevated, up to 180 systolic at times, denies any headaches or dizziness, no nausea. Other vitals and I/O's reviewed: ROS: No other pertinent negs or positives on 10+ system review. PMSFH: All other Nursing and physician documentation reviewed to date; no new pertinent info noted relevant to current medical problems. Allergies: NKDA Home Meds: Lipitor, Zebeta, Budesonide inhaler, Gabapentin, MVI, Xarelto EXAM- HEENT: no icterus, no gaze preference, no nystagmus NECK: No JVD visible, supple, carotids equal upstroke bilat CHEST: decreased BS bases, no wheezes audible HEART: irregular, distant, S1S2, no rubs / murmurs ABD: soft, no increased distention, no tympany, no focal tenderness, BS hypoactive EXT: no peripheral/ digital cyanosis, no calf tenderness or palpable cords, distal pulses intact and symmetrical. NEURO: R Motor 3/5 upper and lower, L-Motor 4-5/5; sensory intact, Plantars: withdrawal bilaterally SKIN: no rashes, otherwise warm and dry. LABS: WBC= 10.4 HGB= 9.3 PlTs= 281K INR= 1.8 yesterday Df=712 K= 3.8 CL= 104 HCO3= 29 BUN/Cr= 26/1.0 BS= 101 MRI Brain results reviewed: Chronic white matter ischemis changes, no overall change in size of hemorrhage. IMPRESSION / MAJOR PROBLEMS NOW: 1. Acute hemorrhagic CVA with local edema, on DOACs, with Coagulopathy 2. Accelerated HTN 3. Chronic Disease Anemia 4. Azotemia / Dehydration 5. BedBound at home status PLAN: 1. Keep Systolic BP no higher than 140. IV Nicardipine infusion if needed for BP control. Resume BBlockers. 2. Off IVFs, approved for PO diet with pureed and nectar thickened fluids. 3. PT/OT 4. Stable for Tele bed for further mgmt / observation. CCU Objective - Vital Signs / Intake & Output Vital Signs (Last 4 hours): Vital Signs Temp Pulse Resp BP Pulse Ox 02/11/18 11:42 98.3 F 02/11/18 11:00 86 17 157/63 H 97 02/11/18 10:52 86 16 160/68 H 96 02/11/18 10:00 84 14 187/103 H 96 Intake and Output (Last 8hrs): Intake & Output 02/10/18 02/11/18 02/11/18 22:59 06:59 14:59 Intake Total 580 440 200 Output Total 600 500 Balance -20 -60 200 Intake: IV 360 440 80 Oral 220 120 Output: Urine 600 500 Urethral ([place]) 600 500 Other: # Bowel Movements 2 - Patient Studies Fingerstick Blood Sugar Results: 114
[2018-02-11] MEDS ORDERED: Lidocaine 1% Inj (20ml) ONE (15:11)
[2018-02-11] MEDS ORDERED: Chlorhexidine Gluconate 1 APPL/PKT TP ONE (15:52)
--- NOTE | 2018-02-11 16:34 | CP.PCM.CON ---
History of Present Illness - History of Present Illness History of Present Illness: General surgery consult note for Dr. Edie Chavez, PGY-2 Pt S & E at bedside with family in attendence at 1450 87F w/PMH sig for CVA, HTN consulted for vascular access for BP medication requirements. Pt is non verbal, history as per daughters and granddaughter at bedside. Pt was found to have hemorrhagic CVA upon admission due to elevated BP. Unable to obtain ROS due to non verbal status. Family at bedside indicated that daughter -Beckie Holman - is the medical decision maker. Consent was obtained for Triple lumen catheter insertion. 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, OA, COPD, chronic leg weakness PSH: Pacemaker, "bowel surgery" All: NKDA SH: Bedbound Review of Systems - Review of Systems Systems not reviewed;Unavailable: Dementia, Other (non verbal) Past Patient History - Past Medical History & Family History Past Medical History?: Yes - Past Social History Smoking Status: Never Smoked - CARDIAC Hx Cardiac Disorders: Yes Hx Hypertension: Yes Hx Pacemaker: Yes - PULMONARY Hx Respiratory Disorders: Yes Hx Chronic Obstructive Pulmonary Disease (COPD): Yes - NEUROLOGICAL Hx Neurological Disorder: No - HEENT Hx HEENT Problems: Yes - RENAL Hx Chronic Kidney Disease: No - ENDOCRINE/METABOLIC Hx Endocrine Disorders: Yes Hx Diabetes Mellitus Type 2: Yes - HEMATOLOGICAL/ONCOLOGICAL Hx Blood Disorders: No - INTEGUMENTARY Hx Dermatological Problems: No - MUSCULOSKELETAL/RHEUMATOLOGICAL Hx Musculoskeletal Disorders: Yes Hx Falls: No Hx Fractures: Yes Hx Osteoarthritis: Yes Other/Comment: CHRONIC LEG WEAKNESS - GASTROINTESTINAL Hx Gastrointestinal Disorders: Yes Hx Gastritis: Yes Hx Ulcer: Yes - GENITOURINARY/GYNECOLOGICAL Hx Genitourinary Disorders: No - PSYCHIATRIC Hx Psychophysiologic Disorder: No - SURGICAL HISTORY Hx Surgeries: Yes Other/Comment: repair of stomach ulcer bleed, pacemaker, fracture repair - ANESTHESIA Hx Anesthesia: Yes Hx Anesthesia Reactions: No Hx Malignant Hyperthermia: No Meds Allergies/Adverse Reactions: Allergies Allergy/AdvReac Type Severity Reaction Status Date / Time No Known Allergies Allergy Verified 02/09/18 16:15 - Medications Medications: Current Medications Acetaminophen (Tylenol 325mg Tab) 650 mg PO Q6 PRN PRN Reason: Pain, Mild (1-3) Last Admin: 02/10/18 18:20 Dose: 650 mg Amlodipine Besylate (Norvasc) 5 mg PO DAILY [facility] Bisoprolol Fumarate (Zebeta) 10 mg PO DAILY [facility] Last Admin: 02/11/18 16:18 Dose: 10 mg Clonidine HCl (Catapres-Tts2 0.2 Mg/24 Hr) 1 patch TD Q7D [facility] Physical Exam - Constitutional Appears: Non-toxic, No Acute Distress - Head Exam Head Exam: ATRAUMATIC, NORMAL INSPECTION, NORMOCEPHALIC - Eye Exam Eye Exam: EOMI, Normal appearance - ENT Exam ENT Exam: Mucous Membranes Moist, Normal Exam - Neck Exam Neck exam: Positive for: Full Rom, Normal Inspection - Respiratory Exam Respiratory Exam: NORMAL BREATHING PATTERN - Cardiovascular Exam Cardiovascular Exam: REGULAR RHYTHM, +S1, +S2 - GI/Abdominal Exam GI & Abdominal Exam: Soft. absent: Tenderness - Extremities Exam Extremities exam: Positive for: normal inspection. Negative for: tenderness - Neurological Exam Neurological exam: CN II-XII Intact - Psychiatric Exam Additional comments: unable to assess - Skin Skin Exam: Dry, Intact, Normal Color, Warm Results - Vital Signs Recent Vital Signs: Last Vital Signs Temp 98.2 F 02/11/18 16:00 Pulse 83 02/11/18 16:00 Resp 21 02/11/18 16:00 BP 173/91 H 02/11/18 16:00 Pulse Ox 97 02/11/18 16:00 - Labs Result Diagrams: 02/11/18 04:30 02/11/18 04:30 Labs: Laboratory Results - last 24 hr 02/11/18 02/11/18 04:30 04:30 WBC 10.4 RBC 3.88 Hgb 9.3 L Hct 29.2 L MCV 75.2 L MCH 23.9 L MCHC 31.8 L RDW 21.0 H Plt Count 281 MPV 8.8 Neut % (Auto) 67.3 Lymph % (Auto) 23.2 [place] % (Auto) 6.0 Eos % (Auto) 3.0 Baso % (Auto) 0.5 Neut # (Auto) 7.0 Lymph # (Auto) 2.4 [place] # (Auto) 0.6 Eos # (Auto) 0.3 Baso # (Auto) 0.1 Sodium 139 Potassium 3.8 Chloride 104 Carbon Dioxide 29 Anion Gap 10 BUN 26 H Creatinine 1.0 Est GFR ( Amer) > 60 Est GFR (Non-Af Amer) 53 Random Glucose 101 Calcium 9.2 Total Bilirubin 0.5 AST 24 ALT 21 Alkaline Phosphatase 94 Total Protein 7.1 Albumin 3.5 Globulin 3.7 Albumin/Globulin Ratio 1.0 Assessment & Plan - Assessment and Plan (Free Text) Assessment: 87F w/hemorrhagic CVA requiring BP medication drips Plan: TLC insertion at bedside Consent obtained, in chart DW attending Kathy, PGY-2 - Date & Time Date: 02/11/18 Time: 16:33 Proc: Central Venous Access - Time Performed Time Performed: 14:55 - Time Out Time Out: Side verified, Site verified, Patient ID confirmed, Sterile procedures obs. - Procedure Procedure: Central Line placement: Right Technique:: Seldinger technique, Ultrasound guidance, Internal jugular vein ( failed, decision to insert into Right femoral vein made), Femoral vein ( successful, guidewire inserted) - Consent obtained Consent obtained: Written - Performed by Performed by: Mid-level Provider - Indications Indication(s):: Centrally admin. meds Contraindications: None Tube type:: Triple lumen - Local Anesthetic Local Anesthetic: Lidocaine: Lidocaine 3cc - Number of Attempts Attempts: 5 in RIJ, 3 in Right femoral vein - Depth of Skin Depth at skin cm:: 15cm - Line sutured in place Line sutured in place:: Yes (femoral vein TLC inserted, no need for CXR, never put guidewire into RIJ ) - Post-procedural O2 Sat % Post-procedural O2 sat %:: 97% - Complications Complications: None - Patient tolerated procedure Patient Tolerated Procedure:: Uncooperative (for RIJ insertion, tolerated right femoral vein catheter with cooperation)
--- NOTE | 2018-02-11 17:07 | RAD ---
HISTORY: attempted TLC placement COMPARISON: Chest x-ray performed 02/09/18 TECHNIQUE: Chest, one view. FINDINGS: Numerous external wires and leads obscure evaluation of the underlying parenchyma. LUNGS: Interstitial prominence. Patchy opacities involving the right greater than left upper and left greater than right lower lobes may reflect infiltrate or edema. Please note that chest x-ray has limited sensitivity for the detection of pulmonary masses. PLEURA: Probable small bilateral pleural effusions. No definite pneumothorax . CARDIOVASCULAR: Cardiomegaly. Dual lead left-sided pacemaker. OSSEOUS STRUCTURES: Degenerative changes. Osseous demineralization. VISUALIZED UPPER ABDOMEN: Unremarkable. OTHER FINDINGS: None. IMPRESSION: Interstitial prominence. Patchy opacities involving the right greater than left upper and left greater than right lower lobes may reflect infiltrate or edema. Probable small bilateral pleural effusions. Cardiomegaly. Dual lead left-sided pacemaker.
[2018-02-11] MEDS: Nicardipine HCl 40 MG/200 ML 40 MG/200 ML SOL IV SCH (22:30)
[2018-02-12 05:46] LABS: BASO % 0.3 % (0.0-2.0); EOS # 0.2 K/uL (0.0-0.7); HEMOGLOBIN 8.8 g/dL (12.0-16.0); LYMPH # 1.9 K/uL (1.0-4.3); LYMPH % 16.2 % (20.0-40.0); MEAN CELL VOLUME 74.7 fl (81.0-99.0); MEAN CORPUSCULAR HEMOGLOBIN 23.7 pg (27.0-31.0); MEAN CORPUSCULAR HGB CONC 31.7 g/dL (33.0-37.0); MEAN PLATELET VOLUME 8.8 fl (7.2-11.7); MONO # 0.8 K/uL (0.0-0.8); MONO % 6.5 % (0.0-10.0); NEUT # 8.9 K/uL (1.8-7.0); RBC 3.72 Mil/uL (3.80-5.20); RED CELL DISTRIBUTION WIDTH 21.1 % (11.5-14.5); WHITE BLOOD COUNT 11.8 K/uL (4.8-10.8)
[2018-02-12 05:56] LABS: ALB/GLOB RATIO 0.9 (1.0-2.1); ALBUMIN 3.3 g/dL (3.5-5.0); ALT/SGPT 17 U/L (9-52); AST/SGOT 24 U/L (14-36); BLOOD UREA NITROGEN 21 mg/dl (7-17); CALCIUM 8.9 mg/dL (8.4-10.2); GFR NON-AFRICAN AMERICAN 53
[2018-02-12] MEDS: Nicardipine HCl 40 MG/200 ML 40 MG/200 ML SOL IV SCH (06:15)
--- NOTE | 2018-02-12 11:36 | CP.PCM.PN ---
Subjective - Date & Time of Evaluation Date of Evaluation: 02/12/18 Time of Evaluation: 11:36 - Subjective Subjective: more awake and alert responds to verbal commands tolerating diet Objective - Vital Signs/Intake and Output Vital Signs (last 24 hours): Temp Pulse Resp BP Pulse Ox 98.6 F 86 24 129/65 98 02/12/18 08:00 02/12/18 10:00 02/12/18 10:00 02/12/18 10:00 02/12/18 10:00 Intake and Output: 02/12/18 02/12/18 06:59 18:59 Intake Total 915 120 Output Total 350 Balance 565 120 - Medications Medications: Current Medications Acetaminophen (Tylenol 325mg Tab) 650 mg PO Q6 PRN PRN Reason: Pain, Mild (1-3) Last Admin: 02/10/18 18:20 Dose: 650 mg Amlodipine Besylate (Norvasc) 10 mg PO DAILY [facility] Ascorbic Acid (Vitamin C 500 Mg Tab) 1,000 mg PO DAILY [facility] [place] Bisoprolol Fumarate (Zebeta) 10 mg PO DAILY [facility] [place] Last Admin: 02/12/18 08:54 Dose: 10 mg Clonidine HCl (Catapres-Tts2 0.2 Mg/24 Hr) 1 patch TD Q7D [facility] [place] Hydralazine HCl (Apresoline) 5 mg IV Q3H PRN PRN Reason: Systolic Blood Pressure Multivitamins/Minerals (Therapeutic-M Tab) 1 tab PO DAILY [facility] [place] Zinc Sulfate (Zinc Sulfate 220 Mg Cap) 220 mg PO DAILY [facility] [place] - Labs Labs: 02/12/18 04:20 02/12/18 04:20 PT 20.0 Seconds (9.8-13.1) H 02/10/18 07:45 INR 1.8 02/10/18 07:45 APTT 38.2 Seconds (25.6-37.1) H 02/10/18 07:45 - Constitutional Appears: No Acute Distress - Head Exam Head Exam: ATRAUMATIC, NORMAL INSPECTION, NORMOCEPHALIC - Eye Exam Eye Exam: EOMI, Normal appearance, PERRL Pupil Exam: NORMAL ACCOMODATION, PERRL - ENT Exam ENT Exam: Mucous Membranes Moist, Normal Exam - Neck Exam Neck Exam: Full ROM, Normal Inspection. absent: Lymphadenopathy - Respiratory Exam Respiratory Exam: Clear to Ausculation Bilateral, NORMAL BREATHING PATTERN - Cardiovascular Exam Cardiovascular Exam: REGULAR RHYTHM, +S1, +S2. absent: Murmur - GI/Abdominal Exam GI & Abdominal Exam: Soft, Normal Bowel Sounds. absent: Tenderness - Rectal Exam Rectal Exam: NORMAL INSPECTION - Extremities Exam Extremities Exam: Full ROM, Normal Capillary Refill, Normal Inspection. absent : Joint Swelling, Pedal Edema - Back Exam Back Exam: NORMAL INSPECTION - Neurological Exam Neurological Exam: Alert, Awake, CN II-XII Intact - Skin Skin Exam: Dry, Intact, Normal Color, Warm Assessment and Plan - Assessment and Plan (Free Text) Assessment: s/p cva--intracranial bleed htn hx of dvt Plan: continue current rx pt/ot may need venous doppler of lower extremities to determine need for ivc filter
[2018-02-12] MEDS: Multivitamin With Minerals Tab PO SCH (13:34)
--- NOTE | 2018-02-12 14:56 | CP.PCM.PN ---
Subjective - Date & Time of Evaluation Date of Evaluation: 02/12/18 Time of Evaluation: 14:54 - Subjective Subjective: Mrs. Ochoa was seen and examined today at bedside in the ICU. There were no acute events overnight. Her speech was slightly improved. Objective - Vital Signs/Intake and Output Vital Signs (last 24 hours): Temp Pulse Resp BP Pulse Ox 98.6 F 76 20 147/71 99 02/12/18 08:00 02/12/18 14:29 02/12/18 14:00 02/12/18 14:29 02/12/18 14:00 Intake and Output: 02/12/18 02/12/18 06:59 18:59 Intake Total 915 480 Output Total 350 Balance 565 480 - Medications Medications: Current Medications Acetaminophen (Tylenol 325mg Tab) 650 mg PO Q6 PRN PRN Reason: Pain, Mild (1-3) Last Admin: 02/10/18 18:20 Dose: 650 mg Amlodipine Besylate (Norvasc) 10 mg PO DAILY [facility] Ascorbic Acid (Vitamin C 500 Mg Tab) 1,000 mg PO DAILY [facility] Last Admin: 02/12/18 13:35 Dose: 1,000 mg Bisoprolol Fumarate (Zebeta) 10 mg PO DAILY [facility] Last Admin: 02/12/18 08:54 Dose: 10 mg Clonidine HCl (Catapres-Tts2 0.2 Mg/24 Hr) 1 patch TD Q7D [facility] Hydralazine HCl (Apresoline) 5 mg IV Q3H PRN PRN Reason: Systolic Blood Pressure Last Admin: 02/12/18 14:29 Dose: 5 mg Multivitamins/Minerals (Therapeutic-M Tab) 1 tab PO DAILY [facility] Last Admin: 02/12/18 13:34 Dose: 1 tab Zinc Sulfate (Zinc Sulfate 220 Mg Cap) 220 mg PO DAILY [facility] Last Admin: 02/12/18 13:36 Dose: 220 mg - Labs Labs: 02/12/18 04:20 02/12/18 04:20 PT 20.0 Seconds (9.8-13.1) H 02/10/18 07:45 INR 1.8 02/10/18 07:45 APTT 38.2 Seconds (25.6-37.1) H 02/10/18 07:45 - Neurological Exam Additional comments: Neurologically unchanged compared with yesterday's examination. Assessment and Plan (1) Thalamic hemorrhage Assessment & Plan: Continue current management of BP (Norvasc increased to 10 mg). PT/OT. Status: Acute
[2018-02-13 06:56] LABS: BASO % 0.4 % (0.0-2.0); EOS # 0.4 K/uL (0.0-0.7); EOS % 3.1 % (0.0-4.0); HEMOGLOBIN 8.8 g/dL (12.0-16.0); LYMPH # 2.7 K/uL (1.0-4.3); LYMPH % 23.6 % (20.0-40.0); MEAN CELL VOLUME 74.9 fl (81.0-99.0); MEAN CORPUSCULAR HEMOGLOBIN 23.6 pg (27.0-31.0); MEAN CORPUSCULAR HGB CONC 31.6 g/dL (33.0-37.0); MONO # 0.8 K/uL (0.0-0.8); MONO % 6.7 % (0.0-10.0); NEUT # 7.6 K/uL (1.8-7.0); NEUT % 66.2 % (50.0-75.0); RBC 3.73 Mil/uL (3.80-5.20); RED CELL DISTRIBUTION WIDTH 20.8 % (11.5-14.5); WHITE BLOOD COUNT 11.5 K/uL (4.8-10.8)
[2018-02-13 07:09] LABS: ALBUMIN 3.4 g/dL (3.5-5.0); ALT/SGPT 16 U/L (9-52); AST/SGOT 22 U/L (14-36); BLOOD UREA NITROGEN 18 mg/dl (7-17); CALCIUM 9.2 mg/dL (8.4-10.2); GFR NON-AFRICAN AMERICAN 53
[2018-02-13] MEDS: Multivitamin With Minerals Tab PO SCH (08:49)
--- NOTE | 2018-02-13 13:10 | CP.PCM.PN ---
Subjective - Date & Time of Evaluation Date of Evaluation: 02/13/18 Time of Evaluation: 13:11 - Subjective Subjective: MORE AWAKE AND ALERT RESPONDS APPROPRIATELY TO QUESTIONS TOLERATING DIET Objective - Vital Signs/Intake and Output Vital Signs (last 24 hours): Temp Pulse Resp BP Pulse Ox 97.8 F 72 23 134/65 98 02/13/18 12:00 02/13/18 10:00 02/13/18 10:00 02/13/18 10:00 02/13/18 10:00 Intake and Output: 02/13/18 02/13/18 06:59 18:59 Intake Total 240 Output Total 400 Balance -400 240 - Medications Medications: Current Medications Acetaminophen (Tylenol 325mg Tab) 650 mg PO Q6 PRN PRN Reason: Pain, Mild (1-3) Last Admin: 02/10/18 18:20 Dose: 650 mg Amlodipine Besylate (Norvasc) 10 mg PO DAILY [facility] Last Admin: 02/13/18 08:49 Dose: 10 mg Ascorbic Acid (Vitamin C 500 Mg Tab) 1,000 mg PO DAILY [facility] Last Admin: 02/13/18 08:49 Dose: 1,000 mg Bisoprolol Fumarate (Zebeta) 10 mg PO DAILY [facility] Last Admin: 02/13/18 08:48 Dose: 10 mg Clonidine HCl (Catapres-Tts2 0.2 Mg/24 Hr) 1 patch TD Q7D [facility] Hydralazine HCl (Apresoline) 5 mg IV Q3H PRN PRN Reason: Systolic Blood Pressure Last Admin: 02/12/18 18:19 Dose: 5 mg Multivitamins/Minerals (Therapeutic-M Tab) 1 tab PO DAILY [facility] Last Admin: 02/13/18 08:49 Dose: 1 tab Zinc Sulfate (Zinc Sulfate 220 Mg Cap) 220 mg PO DAILY [facility] Last Admin: 02/13/18 08:50 Dose: 220 mg - Labs Labs: 02/13/18 05:00 02/13/18 05:00 PT 20.0 Seconds (9.8-13.1) H 02/10/18 07:45 INR 1.8 02/10/18 07:45 APTT 38.2 Seconds (25.6-37.1) H 02/10/18 07:45 - Constitutional Appears: No Acute Distress - Head Exam Head Exam: ATRAUMATIC, NORMAL INSPECTION, NORMOCEPHALIC - Eye Exam Eye Exam: EOMI, Normal appearance, PERRL Pupil Exam: NORMAL ACCOMODATION, PERRL - ENT Exam ENT Exam: Mucous Membranes Moist, Normal Exam - Neck Exam Neck Exam: Full ROM, Normal Inspection. absent: Lymphadenopathy - Respiratory Exam Respiratory Exam: Clear to Ausculation Bilateral, NORMAL BREATHING PATTERN - Cardiovascular Exam Cardiovascular Exam: REGULAR RHYTHM, +S1, +S2. absent: Murmur - GI/Abdominal Exam GI & Abdominal Exam: Soft, Normal Bowel Sounds. absent: Tenderness - Rectal Exam Rectal Exam: NORMAL INSPECTION - Extremities Exam Extremities Exam: Full ROM, Normal Capillary Refill, Normal Inspection. absent : Joint Swelling, Pedal Edema - Back Exam Back Exam: NORMAL INSPECTION - Neurological Exam Neurological Exam: Alert, Awake, CN II-XII Intact, Oriented x3 Neuro motor strength exam: Left Upper Extremity: 4, Right Upper Extremity: 2/1, Left Lower Extremity: 4, Right Lower Extremity: 4 - Psychiatric Exam Psychiatric exam: Normal Affect, Normal Mood - Skin Skin Exam: Dry, Intact, Normal Color, Warm Assessment and Plan - Assessment and Plan (Free Text) Assessment: INTRACRANIAL BLEED HTN HX OF DVT Plan: MAY TRANSFER TO TELEMETRY ERGONOMIST TO REFER FOR SUBACUTE CARE WILL DISCUS VENOUS DOPPLER OF EXTREMITIES WITH FAMILY
[2018-02-14 05:39] LABS: BASO % 0.4 % (0.0-2.0); EOS # 0.1 K/uL (0.0-0.7); EOS % 1.4 % (0.0-4.0); HEMOGLOBIN 8.7 g/dL (12.0-16.0); LYMPH # 1.9 K/uL (1.0-4.3); LYMPH % 17.6 % (20.0-40.0); MEAN CELL VOLUME 74.4 fl (81.0-99.0); MEAN CORPUSCULAR HEMOGLOBIN 24.1 pg (27.0-31.0); MEAN CORPUSCULAR HGB CONC 32.4 g/dL (33.0-37.0); MEAN PLATELET VOLUME 8.7 fl (7.2-11.7); MONO # 0.7 K/uL (0.0-0.8); MONO % 6.8 % (0.0-10.0); NEUT % 73.8 % (50.0-75.0); RBC 3.61 Mil/uL (3.80-5.20); RED CELL DISTRIBUTION WIDTH 21.3 % (11.5-14.5); WHITE BLOOD COUNT 10.8 K/uL (4.8-10.8)
[2018-02-14 05:45] LABS: ALB/GLOB RATIO 0.9 (1.0-2.1); ALBUMIN 3.3 g/dL (3.5-5.0); ALT/SGPT 17 U/L (9-52); AST/SGOT 26 U/L (14-36); BLOOD UREA NITROGEN 23 mg/dl (7-17); CALCIUM 9.1 mg/dL (8.4-10.2); GFR NON-AFRICAN AMERICAN 53
[2018-02-14] MEDS: Multivitamin With Minerals Tab PO SCH (08:48)
--- NOTE | 2018-02-14 10:41 | CP.PCM.PN ---
Subjective - Date & Time of Evaluation Date of Evaluation: 02/14/18 Time of Evaluation: 10:44 - Subjective Subjective: NO APPARENT DISTRESS CLINICALLY IMPROVING CONSTIPATED Objective - Vital Signs/Intake and Output Vital Signs (last 24 hours): Temp Pulse Resp BP Pulse Ox 97.5 F L 73 23 151/67 H 96 02/14/18 08:00 02/14/18 10:08 02/14/18 10:00 02/14/18 10:08 02/14/18 10:00 Intake and Output: 02/14/18 02/14/18 06:59 18:59 Intake Total 0 237 Output Total 300 Balance -300 237 - Medications Medications: Current Medications Acetaminophen (Tylenol 325mg Tab) 650 mg PO Q6 PRN PRN Reason: Pain, Mild (1-3) Last Admin: 02/13/18 15:40 Dose: 650 mg Amlodipine Besylate (Norvasc) 10 mg PO DAILY [facility] Last Admin: 02/14/18 08:48 Dose: 10 mg Ascorbic Acid (Vitamin C 500 Mg Tab) 1,000 mg PO DAILY [facility] Last Admin: 02/14/18 08:46 Dose: 1,000 mg Bisoprolol Fumarate (Zebeta) 10 mg PO DAILY [facility] Last Admin: 02/14/18 08:47 Dose: 10 mg Hydralazine HCl (Apresoline) 10 mg PO TID [facility] Last Admin: 02/14/18 10:08 Dose: 10 mg Hydralazine HCl (Apresoline) 5 mg IV Q4H PRN PRN Reason: Systolic Blood Pressure Multivitamins/Minerals (Therapeutic-M Tab) 1 tab PO DAILY [facility] Last Admin: 02/14/18 08:48 Dose: 1 tab Zinc Sulfate (Zinc Sulfate 220 Mg Cap) 220 mg PO DAILY [facility] Last Admin: 02/14/18 08:45 Dose: 220 mg - Labs Labs: 02/14/18 04:40 02/14/18 04:40 PT 20.0 Seconds (9.8-13.1) H 02/10/18 07:45 INR 1.8 02/10/18 07:45 APTT 38.2 Seconds (25.6-37.1) H 02/10/18 07:45 - Constitutional Appears: No Acute Distress - Head Exam Head Exam: ATRAUMATIC, NORMAL INSPECTION, NORMOCEPHALIC - Eye Exam Eye Exam: EOMI, Normal appearance, PERRL Pupil Exam: NORMAL ACCOMODATION, PERRL - ENT Exam ENT Exam: Mucous Membranes Moist, Normal Exam - Neck Exam Neck Exam: Full ROM, Normal Inspection. absent: Lymphadenopathy - Respiratory Exam Respiratory Exam: Clear to Ausculation Bilateral, NORMAL BREATHING PATTERN - Cardiovascular Exam Cardiovascular Exam: REGULAR RHYTHM, +S1, +S2. absent: Murmur - GI/Abdominal Exam GI & Abdominal Exam: Soft, Normal Bowel Sounds. absent: Tenderness - Rectal Exam Rectal Exam: NORMAL INSPECTION - Extremities Exam Extremities Exam: Full ROM, Normal Capillary Refill, Normal Inspection. absent : Joint Swelling, Pedal Edema Additional comments: R ARM WEAKNESS - Back Exam Back Exam: NORMAL INSPECTION - Neurological Exam Neurological Exam: Alert, Awake, CN II-XII Intact, Oriented x3 Neuro motor strength exam: Left Upper Extremity: 4, Right Upper Extremity: 2/1, Left Lower Extremity: 4, Right Lower Extremity: 4 - Psychiatric Exam Psychiatric exam: Normal Affect, Normal Mood - Skin Skin Exam: Dry, Intact, Normal Color, Warm Assessment and Plan - Assessment and Plan (Free Text) Assessment: ACUTE CVA--INTRACRANIAL BLEED HTN Plan: CONTINUE CURRENT RX FOR POSSIBLE SUBACUTE CARE/REHAB WILL GIVE COLACE FOR CONSTIPATION
--- NOTE | 2018-02-14 16:01 | CP.PCM.PN ---
Subjective - Date & Time of Evaluation Date of Evaluation: 02/14/18 Time of Evaluation: 15:59 - Subjective Subjective: Mrs. Ochoa was seen and examined today at bedside in the ICU. Her daughter was present. There were no acute events overnight. The patient is more conversant today and seems more alert. Objective - Vital Signs/Intake and Output Vital Signs (last 24 hours): Temp Pulse Resp BP Pulse Ox 98.2 F 69 19 146/58 L 98 02/14/18 12:00 02/14/18 14:00 02/14/18 14:00 02/14/18 14:00 02/14/18 14:00 Intake and Output: 02/14/18 02/14/18 06:59 18:59 Intake Total 0 477 Output Total 300 Balance -300 477 - Medications Medications: Current Medications Acetaminophen (Tylenol 325mg Tab) 650 mg PO Q6 PRN PRN Reason: Pain, Mild (1-3) Last Admin: 02/13/18 15:40 Dose: 650 mg Amlodipine Besylate (Norvasc) 10 mg PO DAILY [facility] Last Admin: 02/14/18 08:48 Dose: 10 mg Ascorbic Acid (Vitamin C 500 Mg Tab) 1,000 mg PO DAILY [facility] Last Admin: 02/14/18 08:46 Dose: 1,000 mg Bisoprolol Fumarate (Zebeta) 10 mg PO DAILY [facility] Last Admin: 02/14/18 08:47 Dose: 10 mg Docusate Sodium (Colace) 100 mg PO TID [facility] Last Admin: 02/14/18 13:32 Dose: 100 mg Hydralazine HCl (Apresoline) 10 mg PO TID [facility] Last Admin: 02/14/18 13:16 Dose: 10 mg Hydralazine HCl (Apresoline) 5 mg IV Q4H PRN PRN Reason: Systolic Blood Pressure Multivitamins/Minerals (Therapeutic-M Tab) 1 tab PO DAILY [facility] Last Admin: 02/14/18 08:48 Dose: 1 tab Zinc Sulfate (Zinc Sulfate 220 Mg Cap) 220 mg PO DAILY [facility] Last Admin: 02/14/18 08:45 Dose: 220 mg - Labs Labs: 02/14/18 04:40 02/14/18 04:40 PT 20.0 Seconds (9.8-13.1) H 02/10/18 07:45 INR 1.8 02/10/18 07:45 APTT 38.2 Seconds (25.6-37.1) H 02/10/18 07:45 - Neurological Exam Additional comments: Focal neurological deficits persist, but she is more alert and conversant today. Assessment and Plan (1) Thalamic hemorrhage Assessment & Plan: Continue current management. Avoid antiplatelet agents. SQ DVT Px is okay. PT /OT eval and treatment. Control BP per primary team. Status: Acute
[2018-02-15 05:46] LABS: BASO % 0.4 % (0.0-2.0); EOS # 0.3 K/uL (0.0-0.7); EOS % 2.7 % (0.0-4.0); HEMOGLOBIN 8.1 g/dL (12.0-16.0); LYMPH # 1.9 K/uL (1.0-4.3); LYMPH % 18.3 % (20.0-40.0); MEAN CELL VOLUME 74.4 fl (81.0-99.0); MEAN CORPUSCULAR HEMOGLOBIN 23.8 pg (27.0-31.0); MEAN CORPUSCULAR HGB CONC 31.9 g/dL (33.0-37.0); MEAN PLATELET VOLUME 8.4 fl (7.2-11.7); MONO # 0.7 K/uL (0.0-0.8); MONO % 6.4 % (0.0-10.0); NEUT # 7.5 K/uL (1.8-7.0); NEUT % 72.2 % (50.0-75.0); RBC 3.43 Mil/uL (3.80-5.20); RED CELL DISTRIBUTION WIDTH 21.2 % (11.5-14.5); WHITE BLOOD COUNT 10.4 K/uL (4.8-10.8)
[2018-02-15 06:06] LABS: ALB/GLOB RATIO 0.9 (1.0-2.1); ALBUMIN 3.1 g/dL (3.5-5.0); CALCIUM 8.9 mg/dL (8.4-10.2)
[2018-02-15] MEDS: Multivitamin With Minerals Tab PO SCH (08:45)
--- NOTE | 2018-02-15 09:25 | CP.PCM.PN ---
Subjective - Date & Time of Evaluation Date of Evaluation: 02/15/18 Time of Evaluation: 09:25 - Subjective Subjective: CLINICALLY UNCHANGED WILL OBTAIN [facility] CONSULT RE-DISPOSITION Objective - Vital Signs/Intake and Output Vital Signs (last 24 hours): Temp Pulse Resp BP Pulse Ox 98.1 F 83 15 146/64 95 02/15/18 08:00 02/15/18 08:45 02/15/18 08:00 02/15/18 08:45 02/15/18 08:00 Intake and Output: 02/15/18 02/15/18 06:59 18:59 Intake Total 0 500 Output Total 400 100 Balance -400 400 - Medications Medications: Current Medications Acetaminophen (Tylenol 325mg Tab) 650 mg PO Q6 PRN PRN Reason: Pain, Mild (1-3) Last Admin: 02/13/18 15:40 Dose: 650 mg Amlodipine Besylate (Norvasc) 10 mg PO DAILY [facility] Last Admin: 02/15/18 08:45 Dose: 10 mg Ascorbic Acid (Vitamin C 500 Mg Tab) 1,000 mg PO DAILY [facility] Last Admin: 02/15/18 08:45 Dose: 1,000 mg Bisoprolol Fumarate (Zebeta) 10 mg PO DAILY [facility] Last Admin: 02/15/18 08:45 Dose: 10 mg Docusate Sodium (Colace) 100 mg PO TID [facility] Last Admin: 02/15/18 08:44 Dose: 100 mg Hydralazine HCl (Apresoline) 10 mg PO TID [facility] Last Admin: 02/15/18 08:44 Dose: 10 mg Hydralazine HCl (Apresoline) 5 mg IV Q4H PRN PRN Reason: Systolic Blood Pressure Multivitamins/Minerals (Therapeutic-M Tab) 1 tab PO DAILY [facility] Last Admin: 02/15/18 08:45 Dose: 1 tab Zinc Sulfate (Zinc Sulfate 220 Mg Cap) 220 mg PO DAILY [facility] Last Admin: 02/15/18 08:45 Dose: 220 mg - Labs Labs: 02/15/18 05:30 02/15/18 05:30 PT 20.0 Seconds (9.8-13.1) H 02/10/18 07:45 INR 1.8 02/10/18 07:45 APTT 38.2 Seconds (25.6-37.1) H 08/30/18 07:45 - Constitutional Appears: No Acute Distress - Head Exam Head Exam: ATRAUMATIC, NORMAL INSPECTION, NORMOCEPHALIC - Eye Exam Eye Exam: EOMI, Normal appearance, PERRL Pupil Exam: NORMAL ACCOMODATION, PERRL - ENT Exam ENT Exam: Mucous Membranes Moist, Normal Exam - Neck Exam Neck Exam: Full ROM, Normal Inspection. absent: Lymphadenopathy - Respiratory Exam Respiratory Exam: Clear to Ausculation Bilateral, NORMAL BREATHING PATTERN - Cardiovascular Exam Cardiovascular Exam: REGULAR RHYTHM, +S1, +S2. absent: Murmur - GI/Abdominal Exam GI & Abdominal Exam: Soft, Normal Bowel Sounds. absent: Tenderness - Rectal Exam Rectal Exam: NORMAL INSPECTION - Extremities Exam Extremities Exam: Full ROM, Normal Capillary Refill, Normal Inspection. absent : Joint Swelling, Pedal Edema - Back Exam Back Exam: NORMAL INSPECTION - Neurological Exam Neurological Exam: Alert, Awake, CN II-XII Intact, Oriented x3 - Psychiatric Exam Psychiatric exam: Normal Affect, Normal Mood - Skin Skin Exam: Dry, Intact, Normal Color, Warm Assessment and Plan - Assessment and Plan (Free Text) Assessment: CVA HTN Plan: CONTINUE RX ORDERED
[2018-02-15 09:48] LABS: HDL CHOLESTEROL 21 MG/DL (30-70)
[2018-02-15 09:59] LABS: LDL CHOLESTEROL 67 mg/dL (0-129)
[2018-02-15 11:08] LABS: URINE AMORPHOUS SEDIMENT RARE /ul (<OCC); URINE BACTERIA FEW (<OCC); URINE BILIRUBIN NEGATIVE (NEGATIVE); URINE BLOOD LARGE (NEGATIVE); URINE CLARITY TURBID (Clear); URINE COLOR YELLOW (YELLOW); URINE GLUCOSE (UA) NEG (Normal); URINE LEUKOCYTE ESTERASE LARGE Leu/uL (Negative); URINE PROTEIN 30 mg/dL (NEGATIVE); URINE TRIPLE PHOSPHATE CRYSTAL MOD /hpf (<OCC); URINE UROBILINOGEN 0.2-1.0 mg/dL (0.2-1.0)
[2018-02-16 06:16] LABS: BASO % 0.3 % (0.0-2.0); EOS # 0.3 K/uL (0.0-0.7); EOS % 2.5 % (0.0-4.0); HEMOGLOBIN 8.1 g/dL (12.0-16.0); LYMPH # 2.5 K/uL (1.0-4.3); LYMPH % 22.1 % (20.0-40.0); MEAN CORPUSCULAR HEMOGLOBIN 23.6 pg (27.0-31.0); MEAN CORPUSCULAR HGB CONC 31.5 g/dL (33.0-37.0); MEAN PLATELET VOLUME 8.7 fl (7.2-11.7); MONO # 0.7 K/uL (0.0-0.8); MONO % 6.4 % (0.0-10.0); NEUT # 7.7 K/uL (1.8-7.0); NEUT % 68.7 % (50.0-75.0); RBC 3.42 Mil/uL (3.80-5.20); RED CELL DISTRIBUTION WIDTH 21.1 % (11.5-14.5); WHITE BLOOD COUNT 11.2 K/uL (4.8-10.8)
[2018-02-16 06:31] LABS: ALB/GLOB RATIO 0.9 (1.0-2.1); ALBUMIN 3.2 g/dL (3.5-5.0); ALT/SGPT 18 U/L (9-52); AST/SGOT 33 U/L (14-36); BLOOD UREA NITROGEN 25 mg/dl (7-17); GFR NON-AFRICAN AMERICAN 53
[2018-02-16] MEDS: Multivitamin With Minerals Tab PO SCH (08:57)
--- NOTE | 2018-02-16 09:58 | CP.PCM.PN ---
Subjective - Date & Time of Evaluation Date of Evaluation: 02/16/18 Time of Evaluation: 09:58 - Subjective Subjective: AWAKE AND ALERT NO NEW CLINICAL FINDINGS Objective - Vital Signs/Intake and Output Vital Signs (last 24 hours): Temp Pulse Resp BP Pulse Ox 98.7 F 72 17 138/78 92 L 02/16/18 08:00 02/16/18 08:56 02/16/18 08:00 02/16/18 08:56 02/16/18 08:00 Intake and Output: 02/16/18 02/16/18 06:59 18:59 Intake Total 0 Balance 0 - Medications Medications: Current Medications Acetaminophen (Tylenol 325mg Tab) 650 mg PO Q6 PRN PRN Reason: Pain, Mild (1-3) Last Admin: 02/13/18 15:40 Dose: 650 mg Amlodipine Besylate (Norvasc) 10 mg PO DAILY [facility] Last Admin: 02/16/18 08:54 Dose: 10 mg Ascorbic Acid (Vitamin C 500 Mg Tab) 1,000 mg PO DAILY [facility] Last Admin: 02/16/18 08:57 Dose: 1,000 mg Bisoprolol Fumarate (Zebeta) 10 mg PO DAILY [facility] Last Admin: 02/15/18 08:45 Dose: 10 mg Docusate Sodium (Colace) 100 mg PO TID [facility] Last Admin: 02/16/18 08:56 Dose: 100 mg Hydralazine HCl (Apresoline) 10 mg PO TID [facility] Last Admin: 02/16/18 08:56 Dose: 10 mg Hydralazine HCl (Apresoline) 5 mg IV Q4H PRN PRN Reason: Systolic Blood Pressure Multivitamins/Minerals (Therapeutic-M Tab) 1 tab PO DAILY [facility] Last Admin: 02/16/18 08:57 Dose: 1 tab Zinc Sulfate (Zinc Sulfate 220 Mg Cap) 220 mg PO DAILY [facility] Last Admin: 02/16/18 08:58 Dose: 220 mg - Labs Labs: 02/16/18 05:55 02/16/18 05:55 PT 20.0 Seconds (9.8-13.1) H 02/10/18 07:45 INR 1.8 02/10/18 07:45 APTT 38.2 Seconds (25.6-37.1) H 02/10/18 07:45 - Constitutional Appears: No Acute Distress - Head Exam Head Exam: ATRAUMATIC, NORMAL INSPECTION, NORMOCEPHALIC - Eye Exam Eye Exam: EOMI, Normal appearance, PERRL Pupil Exam: NORMAL ACCOMODATION, PERRL - ENT Exam ENT Exam: Mucous Membranes Moist, Normal Exam - Neck Exam Neck Exam: Full ROM, Normal Inspection. absent: Lymphadenopathy - Respiratory Exam Respiratory Exam: Clear to Ausculation Bilateral, NORMAL BREATHING PATTERN - Cardiovascular Exam Cardiovascular Exam: REGULAR RHYTHM, +S1, +S2. absent: Murmur - GI/Abdominal Exam GI & Abdominal Exam: Soft, Normal Bowel Sounds. absent: Tenderness - Rectal Exam Rectal Exam: NORMAL INSPECTION - Extremities Exam Extremities Exam: Full ROM, Normal Capillary Refill, Normal Inspection. 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
--- NOTE | 2018-02-16 10:51 | CP.PCM.PN ---
Subjective - Date & Time of Evaluation Date of Evaluation: 02/16/18 Time of Evaluation: 10:51 - Subjective Subjective: Ms. Ochoa was seen and examined at the bedside in ICU. She is more conversant to staff, but unable to verbalize place, person , and time. She is able to participate during assessment with right arm weaker than the left. She has minimal movement of the lower extremities. There was no untoward events overnight. Objective - Vital Signs/Intake and Output Vital Signs (last 24 hours): Temp Pulse Resp BP Pulse Ox 98.7 F 72 17 138/78 92 L 02/16/18 08:00 02/16/18 08:56 02/16/18 08:00 02/16/18 08:56 02/16/18 08:00 Intake and Output: 02/16/18 02/16/18 06:59 18:59 Intake Total 0 0 Balance 0 0 - Medications Medications: Current Medications Acetaminophen (Tylenol 325mg Tab) 650 mg PO Q6 PRN PRN Reason: Pain, Mild (1-3) Last Admin: 02/13/18 15:40 Dose: 650 mg Amlodipine Besylate (Norvasc) 10 mg PO DAILY [facility] Last Admin: 02/16/18 08:54 Dose: 10 mg Ascorbic Acid (Vitamin C 500 Mg Tab) 1,000 mg PO DAILY [facility] Last Admin: 02/16/18 08:57 Dose: 1,000 mg Bisoprolol Fumarate (Zebeta) 10 mg PO DAILY [facility] Last Admin: 02/16/18 10:36 Dose: 10 mg Docusate Sodium (Colace) 100 mg PO TID [facility] Last Admin: 02/16/18 08:56 Dose: 100 mg Hydralazine HCl (Apresoline) 10 mg PO TID [facility] Last Admin: 02/16/18 08:56 Dose: 10 mg Hydralazine HCl (Apresoline) 5 mg IV Q4H PRN PRN Reason: Systolic Blood Pressure Multivitamins/Minerals (Therapeutic-M Tab) 1 tab PO DAILY [facility] Last Admin: 02/16/18 08:57 Dose: 1 tab Zinc Sulfate (Zinc Sulfate 220 Mg Cap) 220 mg PO DAILY [facility] Last Admin: 02/16/18 08:58 Dose: 220 mg - Labs Labs: 02/16/18 05:55 02/16/18 05:55 PT 20.0 Seconds (9.8-13.1) H 02/10/18 07:45 INR 1.8 02/10/18 07:45 APTT 38.2 Seconds (25.6-37.1) H 02/10/18 07:45 - Constitutional Appears: No Acute Distress - Head Exam Head Exam: NORMAL INSPECTION - Eye Exam Pupil Exam: Miosis, PERRL Additional comments: 2 mm - Neurological Exam Neurological Exam: Awake Neuro motor strength exam: Left Upper Extremity: 3, Right Upper Extremity: 2/1, Left Lower Extremity: 2/1, Right Lower Extremity: 2/1 Additional comments: neurological improved from previous examination. Assessment and Plan (1) Thalamic hemorrhage Assessment & Plan: Continue all current medical, physical , and occupational therapies. Recommend hydration, blood pressure control, and electrolyte abnormalities. Status: Acute
[2018-02-17 05:30] VITALS: O2SAT 97
[2018-02-17 06:03] LABS: HEMOGLOBIN 8.1 g/dL (12.0-16.0); MEAN CELL VOLUME 74.8 fl (81.0-99.0); MEAN CORPUSCULAR HEMOGLOBIN 23.8 pg (27.0-31.0); MEAN CORPUSCULAR HGB CONC 31.7 g/dL (33.0-37.0); RBC 3.4 Mil/uL (3.80-5.20); RED CELL DISTRIBUTION WIDTH 20.9 % (11.5-14.5); WHITE BLOOD COUNT 11.4 K/uL (4.8-10.8)
[2018-02-17 06:22] LABS: BLOOD UREA NITROGEN 25 mg/dl (7-17); CALCIUM 9.1 mg/dL (8.4-10.2); GFR NON-AFRICAN AMERICAN 53
[2018-02-17] MEDS: Multivitamin With Minerals Tab PO SCH (08:37)
[2018-02-17] MEDS ORDERED: Ferrous Sulfate 300 mg/5 mL Liq UD PO SCH (09:15)
--- NOTE | 2018-02-17 09:15 | CP.PCM.PN ---
Subjective - Date & Time of Evaluation Date of Evaluation: 02/17/18 Time of Evaluation: 09:17 - Subjective Subjective: NO NEW FINDINGS CLINICALLY IMPROVED Objective - Vital Signs/Intake and Output Vital Signs (last 24 hours): Temp Pulse Resp BP Pulse Ox 98 F 71 20 151/68 H 97 02/17/18 04:00 02/17/18 08:36 02/17/18 06:00 02/17/18 08:36 02/17/18 06:00 Intake and Output: 02/17/18 02/17/18 06:59 18:59 Intake Total 50 Output Total 600 Balance -550 - Medications Medications: Current Medications Acetaminophen (Tylenol 325mg Tab) 650 mg PO Q6 PRN PRN Reason: Pain, Mild (1-3) Last Admin: 02/13/18 15:40 Dose: 650 mg Amlodipine Besylate (Norvasc) 10 mg PO DAILY [facility] Last Admin: 02/17/18 08:36 Dose: 10 mg Ascorbic Acid (Vitamin C 500 Mg Tab) 1,000 mg PO DAILY [facility] Last Admin: 02/17/18 08:37 Dose: 1,000 mg Bisoprolol Fumarate (Zebeta) 10 mg PO DAILY [facility] Last Admin: 02/16/18 10:36 Dose: 10 mg Docusate Sodium (Colace) 100 mg PO TID [facility] Last Admin: 02/17/18 08:35 Dose: 100 mg Ferrous Sulfate (Feosol Liq) 300 mg PO BID [facility] Hydralazine HCl (Apresoline) 10 mg PO TID [facility] Last Admin: 02/17/18 08:35 Dose: 10 mg Hydralazine HCl (Apresoline) 5 mg IV Q4H PRN PRN Reason: Systolic Blood Pressure Multivitamins/Minerals (Therapeutic-M Tab) 1 tab PO DAILY [facility] Last Admin: 02/17/18 08:37 Dose: 1 tab Zinc Sulfate (Zinc Sulfate 220 Mg Cap) 220 mg PO DAILY [facility] Last Admin: 02/17/18 08:37 Dose: 220 mg - Labs Labs: 02/17/18 04:50 02/17/18 04:50 PT 20.0 Seconds (9.8-13.1) H 02/10/18 07:45 INR 1.8 02/10/18 07:45 APTT 38.2 Seconds (25.6-37.1) H 02/10/18 07:45 - Constitutional Appears: No Acute Distress - Head Exam Head Exam: ATRAUMATIC, NORMAL INSPECTION, NORMOCEPHALIC - Eye Exam Eye Exam: EOMI, Normal appearance, PERRL Pupil Exam: NORMAL ACCOMODATION, PERRL - ENT Exam ENT Exam: Mucous Membranes Moist, Normal Exam - Neck Exam Neck Exam: Full ROM, Normal Inspection. absent: Lymphadenopathy - Respiratory Exam Respiratory Exam: Clear to Ausculation Bilateral, NORMAL BREATHING PATTERN - Cardiovascular Exam Cardiovascular Exam: REGULAR RHYTHM, +S1, +S2. absent: Murmur - GI/Abdominal Exam GI & Abdominal Exam: Soft, Normal Bowel Sounds. absent: Tenderness - Rectal Exam Rectal Exam: NORMAL INSPECTION - Extremities Exam Extremities Exam: Full ROM, Normal Capillary Refill, Normal Inspection. absent : Joint Swelling, Pedal Edema Additional comments: WEAKNESS OF R ARM - Back Exam Back Exam: NORMAL INSPECTION - Neurological Exam Neurological Exam: Alert, Awake, CN II-XII Intact, Oriented x3 - Psychiatric Exam Psychiatric exam: Normal Affect, Normal Mood - Skin Skin Exam: Dry, Intact, Normal Color, Warm Assessment and Plan - Assessment and Plan (Free Text) Assessment: INTRACRANIAL BLEED--STABLE Plan: ASSEMBLER FOR PULLER OVER HAND FOR DISCHARGE PLANNING
--- NOTE | 2018-02-17 09:20 | CP.PCM.PN ---
Subjective - Date & Time of Evaluation Date of Evaluation: 02/17/18 Time of Evaluation: 09:20 - Subjective Subjective: Ms. Ochoa was seen and examined at the bedside in ICU. She is more conversant to staff, able to state her name,but unable to verbalize place, other person , and time. She is able to participate during assessment with right arm weaker than the left. She has minimal movement of the lower extremities. There was no untoward events overnight. Objective - Vital Signs/Intake and Output Vital Signs (last 24 hours): Temp Pulse Resp BP Pulse Ox 98 F 71 20 151/68 H 97 02/17/18 04:00 02/17/18 08:36 02/17/18 06:00 02/17/18 08:36 02/17/18 06:00 Intake and Output: 02/17/18 02/17/18 06:59 18:59 Intake Total 50 Output Total 600 Balance -550 - Medications Medications: Current Medications Acetaminophen (Tylenol 325mg Tab) 650 mg PO Q6 PRN PRN Reason: Pain, Mild (1-3) Last Admin: 02/13/18 15:40 Dose: 650 mg Amlodipine Besylate (Norvasc) 10 mg PO DAILY [facility] Last Admin: 02/17/18 08:36 Dose: 10 mg Ascorbic Acid (Vitamin C 500 Mg Tab) 1,000 mg PO DAILY [facility] Last Admin: 02/17/18 08:37 Dose: 1,000 mg Bisoprolol Fumarate (Zebeta) 10 mg PO DAILY [facility] Last Admin: 02/16/18 10:36 Dose: 10 mg Docusate Sodium (Colace) 100 mg PO TID [facility] Last Admin: 02/17/18 08:35 Dose: 100 mg Ferrous Sulfate (Feosol Liq) 300 mg PO BID [facility] Hydralazine HCl (Apresoline) 10 mg PO TID [facility] Last Admin: 02/17/18 08:35 Dose: 10 mg Hydralazine HCl (Apresoline) 5 mg IV Q4H PRN PRN Reason: Systolic Blood Pressure Multivitamins/Minerals (Therapeutic-M Tab) 1 tab PO DAILY [facility] Last Admin: 02/17/18 08:37 Dose: 1 tab Zinc Sulfate (Zinc Sulfate 220 Mg Cap) 220 mg PO DAILY [facility] Last Admin: 02/17/18 08:37 Dose: 220 mg - Labs Labs: 02/17/18 04:50 02/17/18 04:50 PT 20.0 Seconds (9.8-13.1) H 02/10/18 07:45 INR 1.8 02/10/18 07:45 APTT 38.2 Seconds (25.6-37.1) H 02/10/18 07:45 - Constitutional Appears: No Acute Distress - Head Exam Head Exam: NORMAL INSPECTION - Eye Exam Pupil Exam: Miosis, PERRL Additional comments: 3 mm brisk - Neurological Exam Neurological Exam: Awake Neuro motor strength exam: Left Upper Extremity: 3, Right Upper Extremity: 2/1, Left Lower Extremity: 2/1, Right Lower Extremity: 2/1 Additional comments: neurological unchanged from previous examination. Assessment and Plan (1) Thalamic hemorrhage Assessment & Plan: Continue all current medical, physical, occupational, and speech therapies. Pending repeat CTH without contrast to determine when anti-coagulation can be re -started. Recommend normothermia, blood pressure control, hydration. Status: Acute
[2018-02-17 12:27] VITALS: TEMP 99
[2018-02-17 14:06] VITALS: BP 138/69; PULSE 70; RESP 22
--- NOTE | 2018-02-18 12:30 | PQF ---
PROVIDER RESPONSE TEXT: PRESSURE ULCERS PRESENT ON ADMISSION--STAGE 1 RIGHT HEEL L AND R GREAT TOES--REDNESS R BUTTOCK--SHALLOW ULCER REVIEWER QUERY TEXT: Pressure Ulcer Type Pressure ulcers are documented in the Medical Record. Please specify the location, and stage: if in agreement : 02/11 and 02/15: Wound RN:Pressure Ulcer Assessment: Right Heel : Stage 1 rules examiner: Pressure Ulcer Assessments as follows:: 02/13 note : Lt. Great toe and RT. Great toe: intact skin with non-blanchable redness 02/14 note : Rt. Buttock: Partial thickness loss of dermis presenting as a shallow ulcer Stage of each pressure ulcer (National Pressure Ulcer Advisory Panel definitions): -- Stage I: Intact skin with non-blanchable redness of a localized area -- Stage II: Partial thickness skin loss involving dermis with a shallow open ulcer or an open serum -filled blister -- Stage III: Full thickness skin loss involving damage or necrosis of subcutaneous tissue -- Stage IV: Full thickness skin loss with exposed bone, tendon or muscle -- Unstageable: Full thickness tissue loss in which the base of the ulcer is covered by slough and/o r eschar in the wound bed The patient's Clinical Indicators include: xx Query created by: Rosmery Christianson on 02/16/2018 10:36 AM Electronically signed by: Dennis Anton MD 02/18/2018 12:27 PM
--- NOTE | 2018-02-18 12:33 | CP.PCM.DIS ---
Provider - Provider Date of Admission: 02/09/18 17:24 Attending physician: Dennis Anton MD Time Spent in preparation of Discharge (in minutes): 35 Diagnosis - Discharge Diagnosis (1) Hypertension Status: Acute (2) COPD (chronic obstructive pulmonary disease) Status: Acute Priority: High (3) Thalamic hemorrhage Status: Acute Priority: High (4) Thalamic hemorrhage with stroke Status: Acute (5) Decubital ulcer Status: Acute Hospital Course - Lab Results Lab Results: Micro Results 02/09/18 17:26 Blood Blood Culture - Final NO GROWTH AFTER 5 DAYS 02/09/18 17:26 Blood Gram Stain - Final TEST NOT PERFORMED 02/09/18 17:17 Blood Blood Culture - Final NO GROWTH AFTER 5 DAYS 02/09/18 17:17 Blood Gram Stain - Final TEST NOT PERFORMED 02/10/18 11:40 Naris MRSA Culture (Admit) - Final MRSA NOT DETECTED 02/09/18 17:35 Urine,Catheterized Urine Culture - Final MULTIPLE SPECIES. SUGGEST REPEAT SPECIMEN. Most Recent Lab Values WBC 11.4 K/uL (4.8-10.8) H 02/17/18 04:50 RBC 3.40 Mil/uL (3.80-5.20) L 02/17/18 04:50 Hgb 8.1 g/dL (12.0-16.0) L 02/17/18 04:50 Hct 25.4 % (34.0-47.0) L 02/17/18 04:50 MCV 74.8 fl (81.0-99.0) L 02/17/18 04:50 MCH 23.8 pg (27.0-31.0) L 02/17/18 04:50 MCHC 31.7 g/dL (33.0-37.0) L 02/17/18 04:50 RDW 20.9 % (11.5-14.5) H 02/17/18 04:50 Plt Count 312 K/uL (130-400) 02/17/18 04:50 MPV 8.7 fl (7.2-11.7) 02/16/18 05:55 Neut % (Auto) 68.7 % (50.0-75.0) 02/16/18 05:55 Lymph % (Auto) 22.1 % (20.0-40.0) 02/16/18 05:55 Sharkey % (Auto) 6.4 % (0.0-10.0) 02/16/18 05:55 Eos % (Auto) 2.5 % (0.0-4.0) 02/16/18 05:55 Baso % (Auto) 0.3 % (0.0-2.0) 02/16/18 05:55 Neut # (Auto) 7.7 K/uL (1.8-7.0) H 02/16/18 05:55 Lymph # (Auto) 2.5 K/uL (1.0-4.3) 02/16/18 05:55 Sharkey # (Auto) 0.7 K/uL (0.0-0.8) 02/16/18 05:55 Eos # (Auto) 0.3 K/uL (0.0-0.7) 02/16/18 05:55 Baso # (Auto) 0.0 K/uL (0.0-0.2) 02/16/18 05:55 PT 20.0 Seconds (9.8-13.1) H 02/10/18 07:45 INR 1.8 02/10/18 07:45 APTT 38.2 Seconds (25.6-37.1) H 02/10/18 07:45 pO2 74 mm/Hg (30-55) H 02/09/18 17:15 VBG pH 7.46 (7.32-7.43) H 02/09/18 17:15 VBG pCO2 45 mmHg (40-60) 02/09/18 17:15 VBG HCO3 30.4 mmol/L 02/09/18 17:15 VBG Total CO2 33.4 mmol/L (22-28) H 02/09/18 17:15 VBG O2 Sat (Calc) 99.7 % (40-65) H 02/09/18 17:15 VBG Base Excess 7.1 mmol/L (0.0-2.0) H 02/09/18 17:15 VBG Potassium 4.4 mmol/L (3.6-5.2) 02/09/18 17:15 Sodium 135.0 mmol/L (132-148) 02/09/18 17:15 Chloride 105.0 mmol/L (98-107) 02/09/18 17:15 Glucose 111 mg/dL (65-105) H 02/09/18 17:15 Lactate 1.1 mmol/L (0.7-2.1) 02/09/18 17:15 FiO2 21.0 % 02/09/18 17:15 Sodium 138 mmol/l (132-148) 02/17/18 04:50 Potassium 4.2 MMOL/L (3.6-5.0) 02/17/18 04:50 Chloride 100 mmol/L (98-107) 02/17/18 04:50 Carbon Dioxide 35 mmol/L (22-30) H 02/17/18 04:50 Anion Gap 7 (10-20) L 02/17/18 04:50 BUN 25 mg/dl (7-17) H 02/17/18 04:50 Creatinine 1.0 mg/dl (0.7-1.2) 02/17/18 04:50 Est GFR ( Amer) > 60 02/17/18 04:50 Est GFR (Non-Af Amer) 53 02/17/18 04:50 POC Glucose (mg/dL) 104 mg/dL (65-110) 02/10/18 05:47 Random Glucose 85 mg/dL (65-105) 02/17/18 04:50 Hemoglobin A1c 5.6 % (4.2-6.5) 02/09/18 17:17 Calcium 9.1 mg/dL (8.4-10.2) 02/17/18 04:50 Phosphorus 3.2 mg/dl (2.5-4.5) 02/09/18 17:17 Magnesium 2.2 MG/DL (1.6-2.3) 02/09/18 17:17 Total Bilirubin 0.3 mg/dl (0.2-1.3) 02/16/18 05:55 AST 33 U/L (14-36) 02/16/18 05:55 ALT 18 U/L (9-52) 02/16/18 05:55 Alkaline Phosphatase 75 U/L (38-126) 02/16/18 05:55 Troponin I 0.0280 ng/mL (0.00-0.120) 02/09/18 17:17 Total Protein 6.9 G/DL (6.3-8.2) 02/16/18 05:55 Albumin 3.2 g/dL (3.5-5.0) L 02/16/18 05:55 Globulin 3.6 gm/dL (2.2-3.9) 02/16/18 05:55 Albumin/Globulin Ratio 0.9 (1.0-2.1) L 02/16/18 05:55 Triglycerides 79 mg/DL (0-149) D 02/15/18 09:40 Cholesterol 119 mg/dL (0-199) 02/15/18 09:40 LDL Cholesterol Direct 67 mg/dL (0-129) 02/15/18 09:40 HDL Cholesterol 21 MG/DL (30-70) L 02/15/18 09:40 Venous Blood Potassium 4.4 mmol/L (3.6-5.2) 02/09/18 17:15 Urine Color Yellow (YELLOW) 02/15/18 10:30 Urine Clarity Turbid (Clear) 02/15/18 10:30 Urine pH 8.0 (5.0-8.0) 02/15/18 10:30 Ur Specific Jeffrey 1.008 (1.003-1.030) 02/15/18 10:30 Urine Protein 30 mg/dL (NEGATIVE) 02/15/18 10:30 Urine Glucose (UA) Neg mg/dL (Normal) 02/15/18 10:30 Urine Ketones Negative mg/dL (NEGATIVE) 02/15/18 10:30 Urine Blood Large (NEGATIVE) 02/15/18 10:30 Urine Nitrate Negative (NEGATIVE) 02/15/18 10:30 Urine Bilirubin Negative (NEGATIVE) 02/15/18 10:30 Urine Urobilinogen 0.2-1.0 mg/dL (0.2-1.0) 02/15/18 10:30 Ur Leukocyte Esterase Large Giovani/uL (Negative) 02/15/18 10:30 Urine RBC (Auto) 91 /hpf (0-3) H 02/15/18 10:30 Urine Microscopic WBC 36 /hpf (0-5) H 02/15/18 10:30 Ur Squamous Epith Cells 3 /hpf (0-5) 02/09/18 17:35 Triple Phos Crystals Mod /hpf (<OCC) H 02/15/18 10:30 Amorphous Sediment Rare /ul (<OCC) H 02/15/18 10:30 Urine Bacteria Few (<OCC) H 02/15/18 10:30 Granular Casts (Auto) 1-2 /lpf (0-1) 02/09/18 17:35 Urine Yeast (Budding) Rare /hpf (NEGATIVE) H 02/09/18 17:35 Blood Type O NEGATIVE 02/09/18 17:17 Antibody Screen Negative 02/09/18 17:17 BBK History Checked No verified bt 02/09/18 17:17 Discharge Exam - Head Exam Head Exam: NORMAL INSPECTION - Eye Exam Eye Exam: EOMI, Normal appearance, PERRL Pupil Exam: NORMAL ACCOMODATION, PERRL - GI/Abdominal Exam GI & Abdominal Exam: Normal Bowel Sounds - Rectal Exam Rectal Exam: NORMAL INSPECTION - Extremities Exam Additional comments: WEAKNESS OF R ARM - Neurological Exam Neurological exam: Alert, CN II-XII Intact, Oriented x3, Reflexes Normal - Psychiatric Exam Psychiatric exam: Normal Affect, Normal Mood - Skin Skin Exam: Dry, Intact, Normal Color, Warm Additional comments: DECUBITUS ULCERS OF TOES AND SACRUM Discharge Plan - Follow Up Plan Condition: CRITICAL Disposition: TRANSF TO SNF
== END 2018-02-17 15:38 | DRG 64 ==
LOC: H.ER 16:10 → H.ERHOLD 17:24 → H.ICU/CCU 22:30
PROVIDERS: ADMIT Internal Medicine Pulmonary Disease; ATTEND Internal Medicine Pulmonary Disease
PROC: 06HM33Z Insertion of Infusion Device into Right Femoral Vein, Percutaneous Approach (ICD-10-PCS; principal; 2018-02-11)
DX: I61.8 Other nontraumatic intracerebral hemorrhage (principal); L89.153 Pressure ulcer of sacral region, stage 3; G93.6 Cerebral edema; R47.01 Aphasia; G81.91 Hemiplegia, unspecified affecting right dominant side; I13.0 Hypertensive heart and chronic kidney disease with heart failure and stage 1 through stage 4 chronic kidney disease, or unspecified chronic kidney disease; Z74.01 Bed confinement status; Z86.711 Personal history of pulmonary embolism; Z86.718 Personal history of other venous thrombosis and embolism; Z86.73 Personal history of transient ischemic attack (TIA), and cerebral infarction without residual deficits; Z95.0 Presence of cardiac pacemaker; R48.2 Apraxia; I25.10 Atherosclerotic heart disease of native coronary artery without angina pectoris; J44.9 Chronic obstructive pulmonary disease, unspecified; Z79.01 Long term (current) use of anticoagulants; R13.10 Dysphagia, unspecified; I50.9 Heart failure, unspecified; N18.9 Chronic kidney disease, unspecified; D63.8 Anemia in other chronic diseases classified elsewhere; K29.70 Gastritis, unspecified, without bleeding; M19.90 Unspecified osteoarthritis, unspecified site; K59.00 Constipation, unspecified; L89.611 Pressure ulcer of right heel, stage 1

== ENCOUNTER 2018-10-29 16:13 | Inpatient (IN) | payer MEDICARE, BC ==
[2018-10-29 16:25] VITALS: BMI 39.0
[2018-10-29] MEDS ORDERED: Albuterol 0.083% Inhal Sol (2.5 mg/3 mL) UD IH STA ×2 (16:28→16:38)
[2018-10-29 16:34] LABS: ABG ALLEN TEST YES; ARTERIAL BLOOD GAS HCO3 26.6 mmol/L (21-28); ARTERIAL BLOOD GAS O2 SAT 94.5 % (95-98); ARTERIAL BLOOD GAS PCO2 45 mm/Hg (35-45); ARTERIAL BLOOD GAS PO2 55 mm/Hg (80-100); ARTERIAL BLOOD GAS TCO2 29.3 mmol/L (22-28)
--- NOTE | 2018-10-29 16:45 | RAD ---
Date of service: 10/29/2018 HISTORY: Shortness of breath. COMPARISON: 02/11/2018. FINDINGS: LUNGS: Underlying interstitial lung disease. Mild pulmonary vascular congestion. PLEURA: No significant pleural effusion identified, no pneumothorax apparent. CARDIOVASCULAR: Cardiomegaly. Mild pulmonary vascular congestion. Atherosclerotic calcifications identified primarily aortic arch. Position/ configuration of pacemaker OSSEOUS STRUCTURES: No significant abnormalities. VISUALIZED UPPER ABDOMEN: Normal. OTHER FINDINGS: None. IMPRESSION: Mild pulmonary vascular congestion/CHF.
[2018-10-29 17:01] LABS: BASO % 0.2 % (0.0-2.0); EOS % 0.1 % (0.0-4.0); HEMOGLOBIN 8.6 g/dL (12.0-16.0); LYMPH # 1.7 K/uL (1.0-4.3); LYMPH % 12.3 % (20.0-40.0); MEAN CORPUSCULAR HEMOGLOBIN 23.2 pg (27.0-31.0); MEAN CORPUSCULAR HGB CONC 32.5 g/dL (33.0-37.0); MONO # 0.4 K/uL (0.0-0.8); MONO % 2.6 % (0.0-10.0); NEUT # 11.5 K/uL (1.8-7.0); NEUT % 84.8 % (50.0-75.0); RBC 3.73 Mil/uL (3.80-5.20); RED CELL DISTRIBUTION WIDTH 22.1 % (11.5-14.5); WHITE BLOOD COUNT 13.5 K/uL (4.8-10.8)
[2018-10-29] MEDS ORDERED: Albuterol 0.083% Inhal Sol (2.5 mg/3 mL) UD ONE (17:02)
[2018-10-29 17:12] LABS: MEAN CELL VOLUME 71.3 fl (81.0-99.0)
[2018-10-29 17:13] LABS: INR 1.3; PROTHROMBIN TIME 14.6 Seconds (9.8-13.1)
[2018-10-29 17:16] LABS: ALB/GLOB RATIO 0.8 (1.0-2.1); ALBUMIN 4.1 g/dL (3.5-5.0); CALCIUM 9.7 mg/dL (8.4-10.2); PARTIAL THROMBOPLASTIN TIME 26.9 Seconds (25.6-37.1)
[2018-10-29] MEDS ORDERED: Magnesium Hydroxide Susp 30 ml UD PO PRN (17:33)
--- NOTE | 2018-10-29 17:33 | CP.PCM.HP ---
<Cornelio Guzman - Last Filed: 10/29/18 19:33> History of Present Illness - History of Present Illness History of Present Illness: Patient currently on CPAP and dyspneic, no family at bedside at this moment. Hx mostly taken from ED doctor. 87 y/o female who presents to the ER via EMS with shortness of breath for the last week, patient reports associated wheezing and dry cough. Today she endorses worsening of sx despite using home treatments. Patient took 2 duonebs prior to EMS arrival. EMS reports patient had an O2 sat in the low 80s and an additional Duoneb was given which did not improve symptoms. EMS initiated CPAP and gave Solumedrol 125mg IV. Patient reports feeling a little better. Noted to be in mild distress with accessory respiratory muscles use. O2 sat on monitor range 92-98%. Otherwise no recent fever, chills, sputum production, leg edema, abdominal or chest pain. PMD: Dr. 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 Bowel Surgery (unsure) Meds: per chart, reviewed NKDA SH: denies tobacco hx, etoh or ilicit drugs use. Present on Admission - Present on Admission Any Indicators Present on Admission: No Review of Systems - Review of Systems All systems: reviewed and no additional remarkable complaints except (HPI) Past Patient History - Past Medical History & Family History Past Medical History?: Yes - Past Social History Smoking Status: Never Smoked - CARDIAC Hx Hypertension: Yes Hx Pacemaker: Yes - PULMONARY Hx Chronic Obstructive Pulmonary Disease (COPD): Yes - NEUROLOGICAL Hx Neurological Disorder: No - HEENT Hx HEENT Problems: Yes - RENAL Hx Chronic Kidney Disease: Yes - ENDOCRINE/METABOLIC Hx Endocrine Disorders: Yes Hx Diabetes Mellitus Type 2: Yes - HEMATOLOGICAL/ONCOLOGICAL Hx Blood Disorders: No - INTEGUMENTARY Hx Dermatological Problems: No - MUSCULOSKELETAL/RHEUMATOLOGICAL Hx Musculoskeletal Disorders: Yes Hx Falls: No Hx Fractures: Yes Hx Osteoarthritis: Yes Other/Comment: CHRONIC LEG WEAKNESS - GASTROINTESTINAL Hx Gastritis: Yes - GENITOURINARY/GYNECOLOGICAL Hx Genitourinary Disorders: No - PSYCHIATRIC Hx Psychophysiologic Disorder: No - SURGICAL HISTORY Hx Surgeries: Yes Other/Comment: repair of stomach ulcer bleed, pacemaker, fracture repair - ANESTHESIA Hx Anesthesia: Yes Hx Anesthesia Reactions: No Hx Malignant Hyperthermia: No Meds Allergies/Adverse Reactions: Allergies Allergy/AdvReac Type Severity Reaction Status Date / Time No Known Allergies Allergy Verified 10/29/18 16:19 Physical Exam - Constitutional Appears: Non-toxic, In Acute Distress (mild due to SOB) - Head Exam Head Exam: NORMAL INSPECTION - Eye Exam Eye Exam: EOMI, Normal appearance, PERRL - ENT Exam ENT Exam: Mucous Membranes Moist - Neck Exam Neck exam: Positive for: Full Rom. Negative for: Lymphadenopathy, Tenderness, Thyromegaly - Respiratory Exam Respiratory Exam: Accessory Muscle Use, Rhonchi (diffuse), Wheezes (expiratory, diffuse), Respiratory Distress. absent: Chest Wall Tenderness - Cardiovascular Exam Cardiovascular Exam: REGULAR RHYTHM. absent: Tachycardia, Systolic Murmur - GI/Abdominal Exam GI & Abdominal Exam: Normal Bowel Sounds, Soft. absent: Distended, Tenderness - Extremities Exam Extremities exam: Negative for: calf tenderness, pedal edema - Neurological Exam Neurological exam: Alert, CN II-XII Intact, Oriented x3 - Skin Skin Exam: Dry, Warm Results - Vital Signs Recent Vital Signs: Last Vital Signs Temp 97.8 F 10/29/18 16:19 Pulse 85 10/29/18 17:23 Resp 22 10/29/18 16:19 BP 152/82 H 10/29/18 17:30 Pulse Ox 100 10/29/18 16:19 - Labs Result Diagrams: 10/29/18 16:55 10/29/18 16:55 Labs: Laboratory Results - last 24 hr 10/29/18 10/29/18 10/29/18 16:29 16:55 16:55 WBC 13.5 H RBC 3.73 L Hgb 8.6 L Hct 26.6 L MCV 71.3 L D MCH 23.2 L MCHC 32.5 L RDW 22.1 H Plt Count 453 H D MPV 8.0 Neut % (Auto) 84.8 H Lymph % (Auto) 12.[address] [facility] % (Auto) 2.6 Eos % (Auto) 0.1 Baso % (Auto) 0.2 Neut # (Auto) 11.5 H Lymph # (Auto) 1.7 [facility] # (Auto) 0.4 Eos # (Auto) 0.0 Baso # (Auto) 0.0 PT INR APTT pCO2 45 pO2 55 L HCO3 26.6 ABG pH 7.40 ABG Total CO2 29.3 H ABG O2 Saturation 94.5 L ABG Base Excess 2.5 Andres Test Yes ABG Potassium 4.1 A-a O2 Difference 145.0 Sodium 135.0 135 Chloride 99.0 96 L Glucose 172 H Lactate 1.3 Vent Mode N/c FiO2 36.0 Potassium 4.4 Carbon Dioxide 27 Anion Gap 16 BUN 39 H Creatinine 1.2 Est GFR ( Amer) 52 Est GFR (Non-Af Amer) 43 Random Glucose 169 H Calcium 9.7 Total Bilirubin 0.5 AST 53 H D ALT 16 Alkaline Phosphatase 105 Total Protein 9.1 H Albumin 4.1 Globulin 5.0 H Albumin/Globulin Ratio 0.8 L Arterial Blood Potassium 4.1 Influenza Typ A,B (EIA) 10/29/18 10/29/18 16:55 16:55 WBC RBC Hgb Hct MCV MCH MCHC RDW Plt Count MPV Neut % (Auto) Lymph % (Auto) [facility] % (Auto) Eos % (Auto) Baso % (Auto) Neut # (Auto) Lymph # (Auto) [facility] # (Auto) Eos # (Auto) Baso # (Auto) PT 14.6 H INR 1.3 APTT 26.9 pCO2 pO2 HCO3 ABG pH ABG Total CO2 ABG O2 Saturation ABG Base Excess Andres Test ABG Potassium A-a O2 Difference Sodium Chloride Glucose Lactate Vent Mode FiO2 Potassium Carbon Dioxide Anion Gap BUN Creatinine Est GFR ( Amer) Est GFR (Non-Af Amer) Random Glucose Calcium Total Bilirubin AST ALT Alkaline Phosphatase Total Protein Albumin Globulin Albumin/Globulin Ratio Arterial Blood Potassium Influenza Typ A,B (EIA) Negative for flu a/b Assessment & Plan - Assessment and Plan (Free Text) Assessment: 87 yo female with PMH of COPD, Gastritis, HTN, Chronic Kidney Disease, 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 Plan: Acute CHF/ Respiratory distress - VSS -on CPAP ( PEEP 5, FiO2 40) - CXR: Mild pulmonary vascular congestion/CHF. - EKG: Atrial paced rhythm, appropriate T wave - PBNP: 21014 - s/p duonebs x 3 - continue dounebs q4 eddi, q3 prn - lasix 40 iv q12h - continue Coreg, hydralazine, norvasc and lipitor - I&O - Cardiology consulted, input appreciated - Critical care consulted, possible ICU placement - labs in am Elevated Troponin - likely secondary to CHF - EKG: Atrial paced rhythm, appropriate T wave - f/u trending - Cardiology consulted - f/u repeat EKG Leukocytosis - WBC 13, likely reactive - afebrile, no signs of infection - f/u am CBC - blood cx h/o Hemorrhagic CVA (02/2018) - stable - continue home meds HTN - chronic, controlled - continue home meds - monitor vitals h/o PE/DVT - not on anticoagulation due to hemorrhagic CVA last year DVT ppx - scd for now Case discussed with Dr Haque. <Rema Haque - Last Filed: 10/30/18 20:34> Results - Vital Signs Recent Vital Signs: Last Vital Signs Temp 98 F 10/30/18 20:11 Pulse 99 H 10/30/18 20:11 Resp 18 10/30/18 20:11 BP 117/70 10/30/18 20:11 Pulse Ox 97 10/30/18 20:11 - Labs Result Diagrams: 10/30/18 05:26 10/30/18 18:17 Labs: Laboratory Results - last 24 hr 10/29/18 10/29/18 10/30/18 20:40 23:50 05:26 WBC 4.6 L D RBC 3.66 L Hgb 8.5 L Hct 27.2 L MCV 74.2 L D MCH 23.2 L MCHC 31.2 L RDW 22.1 H Plt Count 401 H MPV 8.4 Neut % (Auto) 79.6 H Lymph % (Auto) 19.[address] [facility] % (Auto) 0.8 Eos % (Auto) 0.0 Baso % (Auto) 0.1 Neut # (Auto) 3.7 Lymph # (Auto) 0.[address] [facility] # (Auto) 0.0 Eos # (Auto) 0.0 Baso # (Auto) 0.0 Sodium Potassium Chloride Carbon Dioxide Anion Gap BUN Creatinine Est GFR ( Amer) Est GFR (Non-Af Amer) Random Glucose Calcium Iron TIBC % Saturation Ferritin Total Bilirubin AST ALT Alkaline Phosphatase Troponin I 1.8000 H* Total Protein Albumin Globulin Albumin/Globulin Ratio Triglycerides Cholesterol LDL Cholesterol Direct HDL Cholesterol Urine Color Yellow Urine Clarity Turbid Urine pH 6.0 Ur Specific [place] 1.012 Urine Protein 100 Urine Glucose (UA) 50 Urine Ketones Negative Urine Blood Moderate Urine Nitrate Negative Urine Bilirubin Negative Urine Urobilinogen 0.2-1.0 Ur Leukocyte Esterase Large Urine RBC (Auto) 144 H Urine WBC Clumps (Auto) Mod H Urine Microscopic WBC 389 H Ur Squamous Epith Cells < 1 Urine Bacteria Occ H 10/30/18 10/30/18 10/30/18 05:26 11:45 11:45 WBC RBC Hgb Hct MCV MCH MCHC RDW Plt Count MPV Neut % (Auto) Lymph % (Auto) [facility] % (Auto) Eos % (Auto) Baso % (Auto) Neut # (Auto) Lymph # (Auto) [facility] # (Auto) Eos # (Auto) Baso # (Auto) Sodium 137 138 Potassium 4.3 3.9 Chloride 99 97 L Carbon Dioxide 24 26 Anion Gap 18 19 BUN 43 H 45 H Creatinine 1.3 H 1.3 H Est GFR ( Amer) 47 47 Est GFR (Non-Af Amer) 39 39 Random Glucose 138 H 159 H Calcium 9.3 9.4 Iron 39 TIBC 264 % Saturation 15 L Ferritin Total Bilirubin 0.4 AST 32 ALT 19 Alkaline Phosphatase 91 Troponin I 1.4900 H* 1.6000 H* Total Protein 8.5 H Albumin 4.0 Globulin 4.5 H Albumin/Globulin Ratio 0.9 L Triglycerides 86 Cholesterol 128 LDL Cholesterol Direct 79 HDL Cholesterol 28 L Urine Color Urine Clarity Urine pH Ur Specific [place] Urine Protein Urine Glucose (UA) Urine Ketones Urine Blood Urine Nitrate Urine Bilirubin Urine Urobilinogen Ur Leukocyte Esterase Urine RBC (Auto) Urine WBC Clumps (Auto) Urine Microscopic WBC Ur Squamous Epith Cells Urine Bacteria 10/30/18 10/30/18 11:45 18:17 WBC RBC Hgb Hct MCV MCH MCHC RDW Plt Count MPV Neut % (Auto) Lymph % (Auto) [facility] % (Auto) Eos % (Auto) Baso % (Auto) Neut # (Auto) Lymph # (Auto) [facility] # (Auto) Eos # (Auto) Baso # (Auto) Sodium 137 Potassium 3.7 Chloride 97 L Carbon Dioxide 28 Anion Gap 16 BUN 47 H Creatinine 1.3 H Est GFR ( Amer) 47 Est GFR (Non-Af Amer) 39 Random Glucose 150 H Calcium 9.4 Iron TIBC % Saturation Ferritin 125.0 Total Bilirubin AST ALT Alkaline Phosphatase Troponin I 1.8900 H* Total Protein Albumin Globulin Albumin/Globulin Ratio Triglycerides Cholesterol LDL Cholesterol Direct HDL Cholesterol Urine Color Urine Clarity Urine pH Ur Specific [place] Urine Protein Urine Glucose (UA) Urine Ketones Urine Blood Urine Nitrate Urine Bilirubin Urine Urobilinogen Ur Leukocyte Esterase Urine RBC (Auto) Urine WBC Clumps (Auto) Urine Microscopic WBC Ur Squamous Epith Cells Urine Bacteria Attending/Attestation - Attestation I have personally seen and examined this patient.: Yes I have fully participated in the care of the patient.: Yes I have reviewed all pertinent clinical information: Yes Notes (Text): Agree with findings and plan as above.
[2018-10-29 17:44] LABS: TROPONIN I 2.28 ng/mL (0.00-0.120)
[2018-10-29] MEDS ORDERED: Albuterol-Ipratrop 3 mg / 0.5 (3 ml) UD INH PRN ×2 (17:44→18:09)
--- NOTE | 2018-10-29 17:45 | ED PDOC ---
HPI: SOB/CHF/COPD Time Seen by Provider: 10/29/18 16:21 Chief Complaint (Nursing): Respiratory Distress Chief Complaint (Provider): Shortness of breath History Per: Patient, EMS, Family (Daughter) History/Exam Limitations: clinical condition Current Symptoms Are (Timing): Still Present Additional Complaint(s): 87 y/o female presents to the ER via EMS with shortness of breath. For the last week, patient reports she has been having wheezing and cough. Today wheezing and shortness of breath worsened prompting ER visit. Patient took 2 duonebs prior to EMS arrival. EMS reports patient had an O2 sat in the low 80s. An additional Duoneb was given which did not improve symptoms. EMS initiated CPAP and gave Solumedrol 125mg IV. Patient reports feeling a little better since management by EMS. History obtained from daughter, EMS, and patient due to patient's clinical condition. PMD: Dr. Colon Past Medical History Reviewed: Historical Data, Nursing Documentation, Vital Signs Vital Signs: Last Vital Signs Temp 97.8 F 10/29/18 16:19 Pulse 85 10/29/18 17:23 Resp 22 10/29/18 16:19 BP 152/82 H 10/29/18 17:30 Pulse Ox 100 10/29/18 16:19 Primary Care Provider: Doctor,Ludwig - Medical History PMH: COPD, Fractures, Gastritis, HTN, Chronic Kidney Disease Denies: CVA, Diabetes - Surgical History Surgical History: Pacemaker - Family History Family History: States: Unknown Family Hx - Immunization History Hx Tetanus Toxoid Vaccination: No Hx Influenza Vaccination: No Hx Pneumococcal Vaccination: No - Home Medications Home Medications: Ambulatory Orders Medication Instructions Recorded Atorvastatin [Lipitor] 20 mg PO HS 05/26/17 Budesonide/Formoterol Fumarate 2 puff IH Q12 05/26/17 [Symbicort 160-4.5 Mcg Inhaler] Acetaminophen [Tylenol (Renal)] PRN 10/29/18 Albuterol/Ipratropium [Duoneb 3 3 ml IH TID 10/29/18 MG/3 Ml-0.5 MG/3 Ml 3 Ml] Carvedilol [Coreg] 3.125 mg PO 10/29/18 Multivitamin [Daily Isamar] 1 tab PO DAILY 10/29/18 amLODIPine [Norvasc] 10 mg PO DAILY 10/29/18 hydrALAZINE [hydralazine 10 mg PO TID 10/29/18 Hydrochloride] - Allergies Allergies/Adverse Reactions: Allergies Allergy/AdvReac Type Severity Reaction Status Date / Time No Known Allergies Allergy Verified 10/29/18 16:19 Review of Systems ROS Statement: Except As Marked, All Systems Reviewed And Found Negative Constitutional: Negative for: Fever Respiratory: Positive for: Cough, Shortness of Breath, Wheezing Physical Exam - Reviewed Nursing Documentation Reviewed: Yes Vital Signs Reviewed: Yes - Physical Exam Appears: Positive for: In Acute Distress (in acute respiratory distress) Head Exam: Positive for: ATRAUMATIC, NORMOCEPHALIC Skin: Positive for: Warm, Dry Eye Exam: Positive for: EOMI, PERRL ENT: Positive for: Other (tacky mucus membranes) Neck: Positive for: Painless ROM, Supple Cardiovascular/Chest: Positive for: Other (Distant heart sounds). Negative for: Murmur (auculated) Respiratory: Positive for: Accessory Muscle Use, Rhonchi (diffuse), Wheezing (expiratory wheezing), Respiratory Distress Gastrointestinal/Abdominal: Positive for: Soft. Negative for: Tenderness Back: Positive for: Normal Inspection Extremity: Positive for: Other (poor muscle bulk bilateral legs). Negative for: Deformity, Swelling Lymphatic: Negative for: Adenopathy Neurological/Psych: Positive for: Awake, Alert. Negative for: Facial Droop - Laboratory Results Result Diagrams: 10/31/18 04:50 10/31/18 04:50 Lab Results: pCO2 45 mm/Hg (35-45) 10/29/18 16:29 pO2 55 mm/Hg (80-100) L 10/29/18 16:29 HCO3 26.6 mmol/L (21-28) 10/29/18 16:29 ABG pH 7.40 (7.35-7.45) 10/29/18 16:29 ABG Total CO2 29.3 mmol/L (22-28) H 10/29/18 16:29 ABG O2 Saturation 94.5 % (95-98) L 10/29/18 16:29 ABG Base Excess 2.5 mmol/L (-2.0-3.0) 10/29/18 16:29 Andres Test Yes 10/29/18 16:29 ABG Potassium 4.1 mmol/L (3.6-5.2) 10/29/18 16:29 A-a O2 Difference 145.0 mm/Hg 10/29/18 16:29 Sodium 135.0 mmol/L (132-148) 10/29/18 16:29 Chloride 99.0 mmol/L (98-107) 10/29/18 16:29 Glucose 172 mg/dL (65-105) H 10/29/18 16:29 Lactate 1.3 mmol/L (0.7-2.1) 10/29/18 16:29 Vent Mode N/c 10/29/18 16:29 FiO2 36.0 % 10/29/18 16:29 PT 14.6 Seconds (9.8-13.1) H 10/29/18 16:55 INR 1.3 10/29/18 16:55 APTT 26.9 Seconds (25.6-37.1) 10/29/18 16:55 Total Bilirubin 0.5 mg/dl (0.2-1.3) 10/29/18 16:55 AST 53 U/L (14-36) H D 10/29/18 16:55 ALT 16 U/L (9-52) 10/29/18 16:55 Alkaline Phosphatase 105 U/L (38-126) 10/29/18 16:55 Total Protein 9.1 G/DL (6.3-8.2) H 10/29/18 16:55 Albumin 4.1 g/dL (3.5-5.0) 10/29/18 16:55 Globulin 5.0 gm/dL (2.2-3.9) H 10/29/18 16:55 Albumin/Globulin Ratio 0.8 (1.0-2.1) L 10/29/18 16:55 - ECG ECG Rhythm: Positive for: Atrial Paced (rhythm with appropriate T wave discordance) Rate: 98 O2 Sat by Pulse Oximetry: 100 (RA) Pulse Ox Interpretation: Normal - Radiology X-Ray: Read By Radiologist - Progress ED Course And Treament: On reeval at 7 - Critical Care Total Time (In Min): 30 Documented Critical Care: Time excludes all time spent performint seperately billable procedures Medical Decision Making Medical Decision Making: Initial Impression: Dyspnea Differential includes COPD exacerbation, CHF, anemia, and ACS. Initial Plan: --Type and screen stat --Arterial blood gas shock panel --EKG --BNP --CMP --Troponin stat --ED urine dipstick --CBC --PTT --Prothombin time --Chest X-ray --Albuterol 2.5mg INH --Lasix 40mg IV --Blood culture stat --Peak flow --Bipap procedure --Influenza A B stat 16:42 Chest X-ray FINDINGS: LUNGS: Underlying interstitial lung disease. Mild pulmonary vascular congestion. PLEURA: No significant pleural effusion identified, no pneumothorax apparent. CARDIOVASCULAR: Cardiomegaly. Mild pulmonary vascular congestion. Atherosclerotic calcifications identified primarily aortic arch. Position/ configuration of pacemaker\AICD device: Satisfactory. OSSEOUS STRUCTURES: No significant abnormalities. VISUALIZED UPPER ABDOMEN: Normal. OTHER FINDINGS: None. IMPRESSION: Mild pulmonary vascular congestion/CHF. 17:[address] Haque for admission for acute CHF and dyspnea. 1800 Troponin positive and probnp markedly elevated. LAVERNE Stein Cardiology oncall. Findings most consistent with cardiac stress rather than acute MO. Given pt's h/o severe hemorrhage (bleeding ulcers and hemorrhagic CVA) will follow serial troponin and continue workup for ACS. LAVERNE Mckeon [employer] Professor who evaluated pt in ER and considered stable for telemetry floor. LAVERNE pt and pt's family findings and plan of care. Scribe Attestation: Documented by Avinash Hanna acting as a scribe for Bernie Horton MD. Provider Scribe Attestation: All medical record entries made by the Scribe were at my direction and personpio chris dictated by me. I have reviewed the chart and agree that the record accurately reflects my personal performance of the history, physical exam, medical decision making, and the department course for this patient. I have also personally directed, reviewed, and agree with the discharge instructions and disposition. Disposition - Clinical Impression Clinical Impression: CHF (congestive heart failure), Elevated troponin, COPD (chronic obstructive pulmonary disease) - Disposition Disposition Time: 17:00 Condition: GUARDED - Pt Status Changed To: Hospital Disposition Of: Inpatient - Admit Certification Admit to Inpatient:: After my assessment, the patient will require hospitalization for at least two midnights. This is because of the severity of symptoms shown, intensity of services needed, and/or the medical risk in this patient being treated as an outpatient. - POA Present On Arrival: None
[2018-10-29 21:16] LABS: SQUAMOUS EPITHIAL < 1 /hpf (0-5); URINE BACTERIA OCC (<OCC); URINE BILIRUBIN NEGATIVE (NEGATIVE); URINE BLOOD MODERATE (NEGATIVE); URINE CLARITY TURBID (Clear); URINE COLOR YELLOW (YELLOW); URINE GLUCOSE (UA) 50 mg/dL (NEGATIVE); URINE LEUKOCYTE ESTERASE LARGE Leu/uL (Negative); URINE PROTEIN 100 mg/dL (NEGATIVE); URINE UROBILINOGEN 0.2-1.0 mg/dL (0.2-1.0); WBC CLUMPS MOD /hpf
[2018-10-29] MEDS: Albuterol-Ipratrop 3 mg / 0.5 (3 ml) UD INH SCH ×2 (22:29→23:49)
[2018-10-30] MEDS: Albuterol-Ipratrop 3 mg / 0.5 (3 ml) UD INH SCH ×6 (04:59→23:43)
[2018-10-30 07:05] LABS: ALB/GLOB RATIO 0.9 (1.0-2.1); CALCIUM 9.3 mg/dL (8.4-10.2)
[2018-10-30 07:08] LABS: TROPONIN I 1.49 ng/mL (0.00-0.120)
[2018-10-30 07:37] LABS: BASO % 0.1 % (0.0-2.0); HEMOGLOBIN 8.5 g/dL (12.0-16.0); LYMPH # 0.9 K/uL (1.0-4.3); LYMPH % 19.5 % (20.0-40.0); MEAN CELL VOLUME 74.2 fl (81.0-99.0); MEAN CORPUSCULAR HEMOGLOBIN 23.2 pg (27.0-31.0); MEAN CORPUSCULAR HGB CONC 31.2 g/dL (33.0-37.0); MEAN PLATELET VOLUME 8.4 fl (7.2-11.7); MONO % 0.8 % (0.0-10.0); NEUT # 3.7 K/uL (1.8-7.0); NEUT % 79.6 % (50.0-75.0); NRBC % 0.2 % (0.0-0.0); RBC 3.66 Mil/uL (3.80-5.20); RED CELL DISTRIBUTION WIDTH 22.1 % (11.5-14.5); WHITE BLOOD COUNT 4.6 K/uL (4.8-10.8)
--- NOTE | 2018-10-30 08:52 | CP.PCM.CON ---
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 She was being looked after by visiting nurse as well as a visiting doctor. She has had a history of pacemaker insertion in 2017. She has a history of hypertension for which she takes multiple antihypertensives. There is no history of diabetes and she has never been a smoker and she has never suffered a myocardial infarction or a history of congestive cardiac failure. The patient denied any chest pain or chest discomfort prior to her onset of dyspnea. Upon arrival in the emergency room the patient received an intravenous dose of furosemide and has diuresed profusely over the last 24 hours and reports significant relief of her dyspnea. She has had a CPAP mask on and on room air now shows an oxygen saturation of 86%. She is lying virtually flat in bed and can carry on a conversation in a halting manner but does not appear distressed while breathing room air. Respiratory rate was 16 to 18 breaths/min while off of CPAP machine. Telemetry shows atrial sensed ventricular paced rhythm at 80 to 90 bpm with occasional premature beats which are are appropriately sensed. Her blood pressure was 134/74 mmHg. There was no pedal edema. There was a sacral pressure sore. The apex was not palpable the first and second heart sounds were distant but normal. There was no murmur or gallop. The inspiratory effort was poor. There were no rales. An indwelling Humphries catheter was in place. Abdomen was soft liver and spleen are not palpable. Her electrocardiogram again showed sinus rhythm with atrial sensed ventricular paced rhythm. Chest x-ray was suggestive of pulmonary venous congestion. Lab data showed microcytic anemia with a hemoglobin in the range of 8.5 g Her creatinine of 1.2 mg percent at admission had risen to 1.3 mg percent this morning and her electrolytes were normal. proBNP was 27,200 pg/mL troponin was elevated on arrival in the emergency room and is trending down. Impression: Patient's history and clinical findings and chest x-ray as well as elevated proBNP strongly suggest congestive cardiac failure. Her elevated troponin levels are most likely due to left ventricular decompensation. Her ventricular paced rhythm precludes EKG diagnosis of myocardial ischemia or infarction. History of COPD/bronchial asthma. Cerebrovascular accident due to intracranial bleed. Microcytic anemia (??iron deficiency) The patient is scheduled to undergo an echocardiogram. In the meantime she will continue to receive furosemide. Iron studies have been ordered. Given her history of intracranial bleed anticoagulation including for DVT prophylaxis has been avoided. The patient is on compression stockings. Past Patient History - Past Medical History & Family History Past Medical History?: Yes - Past Social History Smoking Status: Never Smoked - CARDIAC Hx Hypertension: Yes Hx Pacemaker: Yes - PULMONARY Hx Chronic Obstructive Pulmonary Disease (COPD): Yes - NEUROLOGICAL Hx Neurological Disorder: No - HEENT Hx HEENT Problems: Yes - RENAL Hx Chronic Kidney Disease: Yes - ENDOCRINE/METABOLIC Hx Endocrine Disorders: Yes Hx Diabetes Mellitus Type 2: Yes - HEMATOLOGICAL/ONCOLOGICAL Hx Blood Disorders: No - INTEGUMENTARY Hx Dermatological Problems: No - MUSCULOSKELETAL/RHEUMATOLOGICAL Hx Musculoskeletal Disorders: Yes Hx Falls: No Hx Fractures: Yes Hx Osteoarthritis: Yes Other/Comment: CHRONIC LEG WEAKNESS - GASTROINTESTINAL Hx Gastritis: Yes - GENITOURINARY/GYNECOLOGICAL Hx Genitourinary Disorders: No - PSYCHIATRIC Hx Psychophysiologic Disorder: No Hx Substance Use: No - SURGICAL HISTORY Hx Surgeries: Yes Other/Comment: repair of stomach ulcer bleed, pacemaker, fracture repair - ANESTHESIA Hx Anesthesia: Yes Hx Anesthesia Reactions: No Hx Malignant Hyperthermia: No Meds Allergies/Adverse Reactions: Allergies Allergy/AdvReac Type Severity Reaction Status Date / Time No Known Allergies Allergy Verified 10/29/18 16:19 - Medications Medications: Current Medications Albuterol/Ipratropium (Duoneb 3 Mg/0.5 Mg (3 Ml) Ud) 3 ml INH RQ4 [facility] Last Admin: 10/30/18 07:36 Dose: 3 ml Albuterol/Ipratropium (Duoneb 3 Mg/0.5 Mg (3 Ml) Ud) 3 ml INH Q3 PRN PRN Reason: Shortness of Breath Amlodipine Besylate (Norvasc) 10 mg PO DAILY [facility] Aspirin (Ecotrin) 81 mg PO DAILY [facility] Atorvastatin Calcium (Lipitor) 20 mg PO HS [facility] Last Admin: 10/29/18 22:34 Dose: 20 mg Carvedilol (Coreg) 3.125 mg PO Q12H [facility] Last Admin: 10/30/18 06:42 Dose: 3.125 mg Furosemide (Lasix) 40 mg IVP Q12 [facility] Last Admin: 10/29/18 22:30 Dose: 40 mg Home Med (Budesonide/Formoterol Fumarate [Symbicort 160-4.5 Mcg Inhaler]) 2 puff IH Q12 [facility] Hydralazine HCl (Apresoline) 10 mg PO TID [facility] Magnesium Hydroxide (Milk Of Magnesia) 30 ml PO DAILY PRN PRN Reason: Constipation Multivitamins/Minerals (Therapeutic-M Tab) 1 tab PO DAILY [facility] Results - Vital Signs Recent Vital Signs: Last Vital Signs Temp 96.4 F L 10/30/18 08:19 Pulse 84 10/30/18 08:19 Resp 20 10/30/18 08:19 BP 134/79 10/30/18 08:19 Pulse Ox 100 10/30/18 08:19 - Labs Result Diagrams: 10/30/18 05:26 10/30/18 05:26 Labs: Laboratory Results - last 24 hr 10/29/18 10/29/18 10/29/18 16:29 16:45 16:55 WBC RBC Hgb Hct MCV MCH MCHC RDW Plt Count MPV Neut % (Auto) Lymph % (Auto) [place] % (Auto) Eos % (Auto) Baso % (Auto) Neut # (Auto) Lymph # (Auto) [place] # (Auto) Eos # (Auto) Baso # (Auto) PT INR APTT pCO2 45 pO2 55 L HCO3 26.6 ABG pH 7.40 ABG Total CO2 29.3 H ABG O2 Saturation 94.5 L ABG Base Excess 2.5 Andres Test Yes ABG Potassium 4.1 A-a O2 Difference 145.0 Sodium 135.0 135 Chloride 99.0 96 L Glucose 172 H Lactate 1.3 Vent Mode N/c FiO2 36.0 Potassium 4.4 Carbon Dioxide 27 Anion Gap 16 BUN 39 H Creatinine 1.2 Est GFR ( Amer) 52 Est GFR (Non-Af Amer) 43 Random Glucose 169 H Calcium 9.7 Total Bilirubin 0.5 AST 53 H D ALT 16 Alkaline Phosphatase 105 Troponin I 2.2800 H* NT-Pro-B Natriuret Pep 03503 H Total Protein 9.1 H Albumin 4.1 Globulin 5.0 H Albumin/Globulin Ratio 0.8 L Triglycerides Cholesterol LDL Cholesterol Direct HDL Cholesterol Arterial Blood Potassium 4.1 Urine Color Urine Clarity Urine pH Ur Specific [place] Urine Protein Urine Glucose (UA) Urine Ketones Urine Blood Urine Nitrate Urine Bilirubin Urine Urobilinogen Ur Leukocyte Esterase Urine RBC (Auto) Urine WBC Clumps (Auto) Urine Microscopic WBC Ur Squamous Epith Cells Urine Bacteria Influenza Typ A,B (EIA) Blood Type O NEGATIVE Antibody Screen Negative BBK History Checked Patient has bt 10/29/18 10/29/18 10/29/18 16:55 16:55 16:55 WBC 13.5 H RBC 3.73 L Hgb 8.6 L Hct 26.6 L MCV 71.3 L D MCH 23.2 L MCHC 32.5 L RDW 22.1 H Plt Count 453 H D MPV 8.0 Neut % (Auto) 84.8 H Lymph % (Auto) 12.3 L [place] % (Auto) 2.6 Eos % (Auto) 0.1 Baso % (Auto) 0.2 Neut # (Auto) 11.5 H Lymph # (Auto) 1.7 [place] # (Auto) 0.4 Eos # (Auto) 0.0 Baso # (Auto) 0.0 PT 14.6 H INR 1.3 APTT 26.9 pCO2 pO2 HCO3 ABG pH ABG Total CO2 ABG O2 Saturation ABG Base Excess Andres Test ABG Potassium A-a O2 Difference Sodium Chloride Glucose Lactate Vent Mode FiO2 Potassium Carbon Dioxide Anion Gap BUN Creatinine Est GFR ( Amer) Est GFR (Non-Af Amer) Random Glucose Calcium Total Bilirubin AST ALT Alkaline Phosphatase Troponin I NT-Pro-B Natriuret Pep Total Protein Albumin Globulin Albumin/Globulin Ratio Triglycerides Cholesterol LDL Cholesterol Direct HDL Cholesterol Arterial Blood Potassium Urine Color Urine Clarity Urine pH Ur Specific [place] Urine Protein Urine Glucose (UA) Urine Ketones Urine Blood Urine Nitrate Urine Bilirubin Urine Urobilinogen Ur Leukocyte Esterase Urine RBC (Auto) Urine WBC Clumps (Auto) Urine Microscopic WBC Ur Squamous Epith Cells Urine Bacteria Influenza Typ A,B (EIA) Negative for flu a/b Blood Type Antibody Screen BBK History Checked 10/29/18 10/29/18 10/30/18 20:40 23:50 05:26 WBC 4.6 L D RBC 3.66 L Hgb 8.5 L Hct 27.2 L MCV 74.2 L D MCH 23.2 L MCHC 31.2 L RDW 22.1 H Plt Count 401 H MPV 8.4 Neut % (Auto) 79.6 H Lymph % (Auto) 19.5 L [place] % (Auto) 0.8 Eos % (Auto) 0.0 Baso % (Auto) 0.1 Neut # (Auto) 3.7 Lymph # (Auto) 0.9 L [place] # (Auto) 0.0 Eos # (Auto) 0.0 Baso # (Auto) 0.0 PT INR APTT pCO2 pO2 HCO3 ABG pH ABG Total CO2 ABG O2 Saturation ABG Base Excess Andres Test ABG Potassium A-a O2 Difference Sodium Chloride Glucose Lactate Vent Mode FiO2 Potassium Carbon Dioxide Anion Gap BUN Creatinine Est GFR ( Amer) Est GFR (Non-Af Amer) Random Glucose Calcium Total Bilirubin AST ALT Alkaline Phosphatase Troponin I 1.8000 H* NT-Pro-B Natriuret Pep Total Protein Albumin Globulin Albumin/Globulin Ratio Triglycerides Cholesterol LDL Cholesterol Direct HDL Cholesterol Arterial Blood Potassium Urine Color Yellow Urine Clarity Turbid Urine pH 6.0 Ur Specific [place] 1.012 Urine Protein 100 Urine Glucose (UA) 50 Urine Ketones Negative Urine Blood Moderate Urine Nitrate Negative Urine Bilirubin Negative Urine Urobilinogen 0.2-1.0 Ur Leukocyte Esterase Large Urine RBC (Auto) 144 H Urine WBC Clumps (Auto) Mod H Urine Microscopic WBC 389 H Ur Squamous Epith Cells < 1 Urine Bacteria Occ H Influenza Typ A,B (EIA) Blood Type Antibody Screen BBK History Checked 10/30/18 05:26 WBC RBC Hgb Hct MCV MCH MCHC RDW Plt Count MPV Neut % (Auto) Lymph % (Auto) [place] % (Auto) Eos % (Auto) Baso % (Auto) Neut # (Auto) Lymph # (Auto) [place] # (Auto) Eos # (Auto) Baso # (Auto) PT INR APTT pCO2 pO2 HCO3 ABG pH ABG Total CO2 ABG O2 Saturation ABG Base Excess Andres Test ABG Potassium A-a O2 Difference Sodium 137 Chloride 99 Glucose Lactate Vent Mode FiO2 Potassium 4.3 Carbon Dioxide 24 Anion Gap 18 BUN 43 H Creatinine 1.3 H Est GFR ( Amer) 47 Est GFR (Non-Af Amer) 39 Random Glucose 138 H Calcium 9.3 Total Bilirubin 0.4 AST 32 ALT 19 Alkaline Phosphatase 91 Troponin I 1.4900 H* NT-Pro-B Natriuret Pep Total Protein 8.5 H Albumin 4.0 Globulin 4.5 H Albumin/Globulin Ratio 0.9 L Triglycerides 86 Cholesterol 128 LDL Cholesterol Direct 79 HDL Cholesterol 28 L Arterial Blood Potassium Urine Color Urine Clarity Urine pH Ur Specific [place] Urine Protein Urine Glucose (UA) Urine Ketones Urine Blood Urine Nitrate Urine Bilirubin Urine Urobilinogen Ur Leukocyte Esterase Urine RBC (Auto) Urine WBC Clumps (Auto) Urine Microscopic WBC Ur Squamous Epith Cells Urine Bacteria Influenza Typ A,B (EIA) Blood Type Antibody Screen BBK History Checked
--- NOTE | 2018-10-30 09:42 | CARD ---
APPROVED REPORT Date of service: 10/29/2018 EKG Measurement Heart [id number] <Conclusion> Atrial-sensed ventricular-paced rhythm Abnormal ECG
[2018-10-30] MEDS: FLUTICASONE PROPION/SALMETEROL 113-14 IH SCH ×2 (10:24→21:34)
[2018-10-30] MEDS: Multivitamin With Minerals Tab PO SCH (10:27)
--- NOTE | 2018-10-30 10:35 | CP.PCM.PN ---
<Amanda Jimenes - Last Filed: 10/30/18 17:44> Subjective - Date & Time of Evaluation Date of Evaluation: 10/30/18 Time of Evaluation: 10:35 - Subjective Subjective: Patient seen and examined bedside with Dr. Haque Patient wearing CPAP, peep 5, FIO2 40% She denies any chest pain, but admits shortness of breath. Breathing has im proved but still labored. Troponins trending down. No complaints at present. Objective - Vital Signs/Intake and Output Vital Signs (last 24 hours): Temp Pulse Resp BP Pulse Ox 96.4 F L 84 20 134/79 100 10/30/18 08:19 10/30/18 08:19 10/30/18 08:19 10/30/18 10:26 10/30/18 08:19 Intake and Output: 10/30/18 10/30/18 06:59 18:59 Intake Total 100 Output Total 850 Balance -750 - Medications Medications: Current Medications Albuterol/Ipratropium (Duoneb 3 Mg/0.5 Mg (3 Ml) Ud) 3 ml INH RQ4 [facility] Last Admin: 10/30/18 07:36 Dose: 3 ml Albuterol/Ipratropium (Duoneb 3 Mg/0.5 Mg (3 Ml) Ud) 3 ml INH Q3 PRN PRN Reason: Shortness of Breath Amlodipine Besylate (Norvasc) 10 mg PO DAILY [facility] Last Admin: 10/30/18 10:27 Dose: 10 mg Aspirin (Ecotrin) 81 mg PO DAILY [facility] Last Admin: 10/30/18 10:25 Dose: 81 mg Atorvastatin Calcium (Lipitor) 20 mg PO HS [facility] Last Admin: 10/29/18 22:34 Dose: 20 mg Carvedilol (Coreg) 3.125 mg PO Q12H [facility] Last Admin: 10/30/18 06:42 Dose: 3.125 mg Furosemide (Lasix) 40 mg IVP Q12 [facility] Last Admin: 10/30/18 10:26 Dose: 40 mg Hydralazine HCl (Apresoline) 10 mg PO TID [facility] Last Admin: 10/30/18 10:25 Dose: 10 mg Magnesium Hydroxide (Milk Of Magnesia) 30 ml PO DAILY PRN PRN Reason: Constipation Multivitamins/Minerals (Therapeutic-M Tab) 1 tab PO DAILY [facility] Last Admin: 10/30/18 10:27 Dose: 1 tab - Labs Labs: 10/30/18 05:26 10/30/18 05:26 PT 14.6 Seconds (9.8-13.1) H 10/29/18 16:55 INR 1.3 10/29/18 16:55 APTT 26.9 Seconds (25.6-37.1) 10/29/18 16:55 - Constitutional Appears: Other (on CPAP, no respiratory distress) - Eye Exam Eye Exam: Normal appearance - Respiratory Exam Respiratory Exam: Rales, Wheezes (poor inspiratory ), Respiratory Distress. absent: Clear to Ausculation Bilateral Additional comments: decreased breath sounds bilaterally, poor air entry - Cardiovascular Exam Cardiovascular Exam: absent: Bradycardia, Tachycardia Additional comments: paced rhythm, distant heart sounds - GI/Abdominal Exam GI & Abdominal Exam: Soft. absent: Distended, Guarding, Tenderness - Neurological Exam Neurological Exam: Alert, Awake - Psychiatric Exam Psychiatric exam: Normal Affect, Normal Mood - Skin Skin Exam: Dry, Intact - Additional Findings Additional findings: pleasant morbidly obese elderly female Assessment and Plan - Assessment and Plan (Free Text) Assessment: 87 year old female with PMH of COPD, Gastritis, HTN, Chronic Kidney Disease, Hemorrhagic CVA 02/2018 admitted with CHF exacerbation, COPD exacerbation with acute respiratory failure improved with CPAP and diuresis. PAtient with Elevated troponins, ?LV strain vs acute MA. Hx of Hemorrhagic CVA - hold heparin/lovenox Continue to monitor respiratory status. continue diuresis, monitor K+ Trend troponins Plan: Acute CHF Exacerbation with Elevated Troponins COPD Exacerbation with Acute Respiratory Failure - CXR: Mild pulmonary vascular congestion/CHF. - EKG: Atrial paced rhythm - PBNP: 33249 - lasix 40 iv a40d--ervlwms K+ and renal function - continue Coreg, hydralazine, norvasc and lipitor - I&O - Cardiology consult appreciated Leukocytosis resolved , now with Leukopenia - WBC 13--> 4.5 -likely reactive as patient is afebrile -f.u blood cultures/urine cultures -continue to monitor h/o Hemorrhagic CVA (02/2018) - stable - continue home meds HTN - chronic, controlled - continue home meds - monitor vitals Hx of PE/DVT - not on anticoagulation due to hemorrhagic CVA last year DVT ppx - scd for now <Garland,Rema K - Last Filed: 10/30/18 20:30> Objective - Vital Signs/Intake and Output Vital Signs (last 24 hours): Temp Pulse Resp BP Pulse Ox 98 F 99 H 18 117/70 97 10/30/18 20:11 10/30/18 20:11 10/30/18 20:11 10/30/18 20:11 10/30/18 20:11 Intake and Output: 10/30/18 10/31/18 18:59 06:59 Intake Total 900 Output Total 650 Balance 250 - Medications Medications: Current Medications Albuterol/Ipratropium (Duoneb 3 Mg/0.5 Mg (3 Ml) Ud) 3 ml INH RQ4 [facility] Last Admin: 10/30/18 19:06 Dose: 3 ml Albuterol/Ipratropium (Duoneb 3 Mg/0.5 Mg (3 Ml) Ud) 3 ml INH Q3 PRN PRN Reason: Shortness of Breath Amlodipine Besylate (Norvasc) 10 mg PO DAILY [facility] Last Admin: 10/30/18 10:27 Dose: 10 mg Aspirin (Ecotrin) 81 mg PO DAILY [facility] Last Admin: 10/30/18 10:25 Dose: 81 mg Atorvastatin Calcium (Lipitor) 20 mg PO HS [facility] Last Admin: 10/29/18 22:34 Dose: 20 mg Carvedilol (Coreg) 3.125 mg PO Q12H [facility] Last Admin: 10/30/18 17:05 Dose: 3.125 mg Furosemide (Lasix) 40 mg IVP Q12 [facility] Last Admin: 10/30/18 10:26 Dose: 40 mg Hydralazine HCl (Apresoline) 10 mg PO TID [facility] Last Admin: 10/30/18 17:04 Dose: 10 mg Magnesium Hydroxide (Milk Of Magnesia) 30 ml PO DAILY PRN PRN Reason: Constipation Multivitamins/Minerals (Therapeutic-M Tab) 1 tab PO DAILY [facility] Last Admin: 10/30/18 10:27 Dose: 1 tab - Labs Labs: 10/30/18 05:26 10/30/18 18:17 PT 14.6 Seconds (9.8-13.1) H 10/29/18 16:55 INR 1.3 10/29/18 16:55 APTT 26.9 Seconds (25.6-37.1) 10/29/18 16:55 Attending/Attestation - Attestation I have personally seen and examined this patient.: Yes I have fully participated in the care of the patient.: Yes I have reviewed all pertinent clinical information, including history, physical exam and plan: Yes Notes (Text): Agree with findings and plan as above. Cardiology consult appreciated and followed, troponins trended down and back up. She is currently chest pain free and comfortable, however requires higher O2 than at baseline which is 2-3 L NC at home, likely lives at 88-92%. Continue to monitor, diurese.
[2018-10-30 12:03] LABS: IRON 39 ug/dL (37-170)
[2018-10-30 12:05] LABS: CALCIUM 9.4 mg/dL (8.4-10.2)
[2018-10-30 12:13] LABS: % IRON SATURATION 15 % (20-55); TOTAL IRON BINDING CAPACITY 264 ug/dL (250-450)
[2018-10-30 12:40] LABS: TROPONIN I 1.6 ng/mL (0.00-0.120)
[2018-10-30 19:03] LABS: CALCIUM 9.4 mg/dL (8.4-10.2)
[2018-10-30 19:57] LABS: TROPONIN I 1.89 ng/mL (0.00-0.120)
[2018-10-31] MEDS: Albuterol-Ipratrop 3 mg / 0.5 (3 ml) UD INH SCH ×6 (04:03→23:33)
[2018-10-31 05:44] LABS: HEMOGLOBIN 8.3 g/dL (12.0-16.0); MEAN CELL VOLUME 71.8 fl (81.0-99.0); MEAN CORPUSCULAR HEMOGLOBIN 23.2 pg (27.0-31.0); MEAN CORPUSCULAR HGB CONC 32.4 g/dL (33.0-37.0); RBC 3.55 Mil/uL (3.80-5.20); RED CELL DISTRIBUTION WIDTH 21.6 % (11.5-14.5); WHITE BLOOD COUNT 15.3 K/uL (4.8-10.8)
[2018-10-31 06:00] LABS: CALCIUM 9.3 mg/dL (8.4-10.2)
[2018-10-31] MEDS: FLUTICASONE PROPION/SALMETEROL 113-14 IH SCH ×2 (09:04→21:13)
[2018-10-31] MEDS: Multivitamin With Minerals Tab PO SCH (09:08)
--- NOTE | 2018-10-31 11:55 | CARD ---
APPROVED REPORT Date of service: 10/30/2018 EKG Measurement Heart [id number] <Conclusion> Atrial-sensed ventricular-paced rhythm Abnormal ECG
--- NOTE | 2018-10-31 14:10 | CP.PCM.PN ---
<Amanda Jimenes - Last Filed: 10/31/18 18:14> Subjective - Date & Time of Evaluation Date of Evaluation: 10/31/18 Time of Evaluation: 17:42 - Subjective Subjective: Remains dyspneic. CPAP in place - SaO2 96% Still short of breath. Poor bilateral air entry - start solu-medrol. Decrease lasix to daily. Objective - Vital Signs/Intake and Output Vital Signs (last 24 hours): Temp Pulse Resp BP Pulse Ox 97.0 F L 76 20 125/67 95 10/31/18 12:39 10/31/18 12:39 10/31/18 12:39 10/31/18 12:39 10/31/18 12:39 - Medications Medications: Current Medications Albuterol/Ipratropium (Duoneb 3 Mg/0.5 Mg (3 Ml) Ud) 3 ml INH RQ4 [facility] Last Admin: 10/31/18 11:33 Dose: 3 ml Albuterol/Ipratropium (Duoneb 3 Mg/0.5 Mg (3 Ml) Ud) 3 ml INH Q3 PRN PRN Reason: Shortness of Breath Amlodipine Besylate (Norvasc) 10 mg PO DAILY [facility] Last Admin: 10/31/18 09:08 Dose: 10 mg Aspirin (Ecotrin) 81 mg PO DAILY [facility] Last Admin: 10/31/18 09:07 Dose: 81 mg Atorvastatin Calcium (Lipitor) 20 mg PO HS [facility] Last Admin: 10/30/18 21:36 Dose: 20 mg Carvedilol (Coreg) 3.125 mg PO Q12H [facility] Last Admin: 10/31/18 09:06 Dose: 3.125 mg Furosemide (Lasix) 40 mg IVP Q12 [facility] Last Admin: 10/31/18 09:07 Dose: 40 mg Hydralazine HCl (Apresoline) 10 mg PO TID [facility] Last Admin: 10/31/18 09:04 Dose: 10 mg Magnesium Hydroxide (Milk Of Magnesia) 30 ml PO DAILY PRN PRN Reason: Constipation Multivitamins/Minerals (Therapeutic-M Tab) 1 tab PO DAILY [facility] Last Admin: 10/31/18 09:08 Dose: 1 tab - Labs Labs: 10/31/18 04:50 10/31/18 04:50 PT 14.6 Seconds (9.8-13.1) H 10/29/18 16:55 INR 1.3 10/29/18 16:55 APTT 26.9 Seconds (25.6-37.1) 10/29/18 16:55 - Constitutional Appears: In Acute Distress (respiratory distress), Other (morbidly obese female) - Head Exam Head Exam: ATRAUMATIC, NORMAL INSPECTION, NORMOCEPHALIC - Respiratory Exam Respiratory Exam: Decreased Breath Sounds (diffusely), Prolonged Expiratory Phase, Wheezes. absent: Clear to Ausculation Bilateral, NORMAL BREATHING PATTERN - Cardiovascular Exam Cardiovascular Exam: REGULAR RHYTHM (distant heart sounds) - GI/Abdominal Exam GI & Abdominal Exam: Soft, Tenderness. absent: Distended - Extremities Exam Extremities Exam: Normal Inspection. absent: Pedal Edema - Neurological Exam Neurological Exam: Awake - Psychiatric Exam Psychiatric exam: Normal Affect, Normal Mood - Skin Skin Exam: Dry, Intact Assessment and Plan - Assessment and Plan (Free Text) Assessment: 87 year old female with PMH of COPD, Gastritis, HTN, Chronic Kidney Disease, Hemorrhagic CVA 02/2018 admitted with CHF exacerbation, COPD exacerbation with acute respiratory failure improved with CPAP and diuresis. Hx of Hemorrhagic CVA - hold heparin/lovenox Continue to monitor respiratory status. continue diuresis, monitor K+. Continue CPAP for now, remains hypoxemic off of cpap.. trial off in AM. Plan: Acute CHF Exacerbation with Elevated Troponins COPD Exacerbation with Acute Respiratory Failure - CXR: Mild pulmonary vascular congestion/CHF. - EKG: Atrial paced rhythm - PBNP: 61815 - decrease lasix to 40 daily --monitor K+ and renal function - continue Coreg, hydralazine, norvasc and lipitor - I&O - Cardiology consult appreciated - Start solumedrol 40mg q12 - obtain CXR given persistent leukocytosis and hypoxemia. - continue duonebs rtc Leukocytosis ---afebrile --continue to monitor -- f.u blood cultures/urine cultures -- continue to monitor H/o Hemorrhagic CVA (02/2018) - stable - continue home meds HTN - chronic, controlled - continue home meds - monitor vitals Hx of PE/DVT - not on anticoagulation due to hemorrhagic CVA last year DVT ppx - scd for now Robert Jimenes PGY3 <Antonio Fry D - Last Filed: 10/31/18 18:29> Objective - Vital Signs/Intake and Output Vital Signs (last 24 hours): Temp Pulse Resp BP Pulse Ox 97.9 F 81 17 117/68 93 L 10/31/18 16:03 10/31/18 18:17 10/31/18 16:03 10/31/18 18:17 10/31/18 16:03 Intake and Output: 10/31/18 10/31/18 06:59 18:59 Intake Total 1000 Output Total 800 Balance 200 - Medications Medications: Current Medications Albuterol/Ipratropium (Duoneb 3 Mg/0.5 Mg (3 Ml) Ud) 3 ml INH RQ4 [facility] Last Admin: 10/31/18 15:26 Dose: 3 ml Albuterol/Ipratropium (Duoneb 3 Mg/0.5 Mg (3 Ml) Ud) 3 ml INH Q3 PRN PRN Reason: Shortness of Breath Amlodipine Besylate (Norvasc) 10 mg PO DAILY [facility] Last Admin: 10/31/18 09:08 Dose: 10 mg Aspirin (Ecotrin) 81 mg PO DAILY [facility] Last Admin: 10/31/18 09:07 Dose: 81 mg Atorvastatin Calcium (Lipitor) 20 mg PO HS [facility] Last Admin: 10/30/18 21:36 Dose: 20 mg Carvedilol (Coreg) 3.125 mg PO Q12H [facility] Last Admin: 10/31/18 18:17 Dose: 3.125 mg Furosemide (Lasix) 40 mg IVP DAILY [facility] Hydralazine HCl (Apresoline) 10 mg PO TID [facility] Last Admin: 10/31/18 17:08 Dose: 10 mg Magnesium Hydroxide (Milk Of Magnesia) 30 ml PO DAILY PRN PRN Reason: Constipation Methylprednisolone (Solu-Medrol) 40 mg IVP Q12 [facility] Multivitamins/Minerals (Therapeutic-M Tab) 1 tab PO DAILY [facility] Last Admin: 10/31/18 09:08 Dose: 1 tab - Labs Labs: 10/31/18 04:50 10/31/18 04:50 PT 14.6 Seconds (9.8-13.1) H 10/29/18 16:55 INR 1.3 10/29/18 16:55 APTT 26.9 Seconds (25.6-37.1) 10/29/18 16:55 Attending/Attestation - Attestation I have personally seen and examined this patient.: Yes I have fully participated in the care of the patient.: Yes I have reviewed all pertinent clinical information, including history, physical exam and plan: Yes Notes (Text): 10/31/18 18:28 Patient seen and examined with resident. Case discussed and agreed with assessment and plan
[2018-10-31] MEDS ORDERED: Albuterol 0.083% Inhal Sol (2.5 mg/3 mL) UD INH ONE (15:02)
[2018-10-31] MEDS ORDERED: methylPREDNISolone 40 MG in Sodium Chloride 0.9% 50 ML IVPB SCH (21:00)
[2018-10-31] MEDS: MethylPREDNISolone 40 mg Vial IVP SCH (21:13)
[2018-11-01 00:32] VITALS: RESP 18
[2018-11-01] MEDS: Albuterol-Ipratrop 3 mg / 0.5 (3 ml) UD INH SCH ×4 (05:27→15:38)
--- NOTE | 2018-11-01 09:29 | CARD ---
APPROVED REPORT Date of service: 10/31/2018 EXAM: Two-dimensional and M-mode echocardiogram with Doppler and color Doppler. Other Information Quality : GoodRhythm : NSR INDICATION Congestive Heart Failure 2D DIMENSIONS IVSd1.22 (0.7-1.1cm)LVDd4.98 (3.9-5.9cm) LVOT Diameter2.27 (1.8-2.4cm)PWd1.16 (0.7-1.1cm) IVSs1.44 (0.8-1.2cm)LVDs3.99 (2.5-4.0cm) FS (%) 19.9 %PWs1.37 (0.8-1.2cm) M-Mode DIMENSIONS Left Atrium (MM)2.38 (2.5-4.0cm)IVSd0.76 (0.7-1.1cm) Aortic Root2.88 (2.2-3.7cm)LVDd7.61 (4.0-5.6cm) Aortic Cusp Exc.1.16 (1.5-2.0cm)PWd1.03 (0.7-1.1cm) IVSs1.13 cmFS (%) 20 % LVDs6.12 (2.0-3.8cm)PWs1.29 cm Aortic Valve AoV Peak Aocsfrbb933.2cm/sAoV VTI32.2cmAO Peak GR.16mmHg LVOT Peak Xsuzduou47.4cm/sLVOT VTI10.94cmAO Mean GR.8mmHg MARII (VMAX)0.33ay1CAR (VTI)0.74cm2 Mitral Valve E/A ratio0.0 TDI E/Lateral E'0.0E/Medial E'0.0 Tricuspid Valve TR Peak Evbrrqov002ry/sRAP [id number] Peak Gr.51mmHg [id number] LEFT VENTRICLE The Left Ventricle is moderately dilated with a globular apex. There is normal left ventricular wall thickness. Left ventricle systolic function is moderately to severely impaired. LVEF is 20-25%. The apex was mildly dyskinetic Apical 2/3 of septum was profoundly hypokinetc Other LV segments contracted well. Transmitral Doppler flow pattern is Grade II-pseudonormal filling dynamics. RIGHT VENTRICLE The right ventricle is normal size. There is normal right ventricular wall thickness. The right ventricular systolic function is normal. Pacing leads were seen in the RV ATRIA The left atrium is mildly dilated. The right atrium is mildly dilated. AORTIC VALVE The aortic valve is mildly to moderately sclerotic. There is mild aortic regurgitation. There is no aortic valvular stenosis. MITRAL VALVE Mitral annular calcification is moderate. There is no evidence of mitral valve prolapse. There is no mitral valve stenosis. Mitral regurgitation is moderate to severe. TRICUSPID VALVE The tricuspid valve is normal in structure. There is moderate to severe tricuspid regurgitation. Right ventricular systolic pressure is estimated at 62 mmHg. There is severe pulmonary hypertension. PULMONIC VALVE The pulmonary valve is normal in structure. There is no pulmonic valvular regurgitation. GREAT VESSELS The aortic root is normal in size. The IVC is dilated. The IVC collapses <50% with inspiration. PERICARDIAL EFFUSION The pericardium appears normal. <Conclusion> The Left Ventricle is moderately dilated with a globular apex. There is normal left ventricular wall thickness. The apex was mildly dyskinetic Apical 2/3 of septum was profoundly hypokinetc Other LV segments contracted well. Left ventricle systolic function is moderately to severely impaired. LVEF is 20-25%. Transmitral Doppler flow pattern is Grade II-pseudonormal filling dynamics. Mitral regurgitation is moderate to severe. There is moderate to severe tricuspid regurgitation. Right ventricular systolic pressure is estimated at 62 mmHg. There is severe pulmonary hypertension. The IVC is dilated. The IVC collapses <50% with inspiration.
[2018-11-01] MEDS: MethylPREDNISolone 40 mg Vial IVP SCH (09:33)
[2018-11-01] MEDS: FLUTICASONE PROPION/SALMETEROL 113-14 IH SCH (09:34)
[2018-11-01] MEDS: Multivitamin With Minerals Tab PO SCH (09:37)
[2018-11-01 09:55] LABS: HEMOGLOBIN 9.3 g/dL (12.0-16.0); LYMPH # 0.8 K/uL (1.0-4.3); MEAN CELL VOLUME 72.9 fl (81.0-99.0); MEAN CORPUSCULAR HEMOGLOBIN 23.2 pg (27.0-31.0); MEAN CORPUSCULAR HGB CONC 31.8 g/dL (33.0-37.0); MEAN PLATELET VOLUME 8.3 fl (7.2-11.7); MONO # 0.1 K/uL (0.0-0.8); MONO % 1.2 % (0.0-10.0); NEUT # 6.7 K/uL (1.8-7.0); NEUT % 87.8 % (50.0-75.0); NRBC % 0.1 % (0.0-0.0); RBC 3.99 Mil/uL (3.80-5.20); WHITE BLOOD COUNT 7.7 K/uL (4.8-10.8)
--- NOTE | 2018-11-01 10:05 | RAD ---
Date of service: 10/31/2018 PROCEDURE: CHEST RADIOGRAPH, 1 VIEW HISTORY: copd exacerbation on cpap , worsening leukocytosis COMPARISON: 10/29/2018 FINDINGS: LUNGS: Clear. PLEURA: Minimal blunting of right costophrenic angle. Possible small pleural effusion. Left costophrenic angle is clear. No pneumothorax. CARDIOVASCULAR: No aortic atherosclerotic calcification present. Normal heart size. Permanent pacemaker. OSSEOUS STRUCTURES: No significant abnormalities. VISUALIZED UPPER ABDOMEN: Normal. OTHER FINDINGS: None. IMPRESSION: Possible very small right pleural effusion.
[2018-11-01 10:14] LABS: ALB/GLOB RATIO 0.9 (1.0-2.1); ALBUMIN 4.2 g/dL (3.5-5.0); CALCIUM 9.5 mg/dL (8.4-10.2)
[2018-11-01] MEDS ORDERED: Azithromycin 500 MG in Sodium Chloride 0.9% 250 ML IVPB SCH (10:15)
[2018-11-01] MEDS ORDERED: Potassium Chloride 20 mEq ER Tab PO SCH (10:30)
--- NOTE | 2018-11-01 10:33 | CP.PCM.PN ---
<Amanda Jimenes - Last Filed: 11/01/18 10:36> Subjective - Date & Time of Evaluation Date of Evaluation: 11/01/18 Time of Evaluation: 10:28 - Subjective Subjective: No acute overnight events. Breathing more comfortably today. Will do trial off CPAP, patient is typically on 2L of O2 at home. WBC trending down continue iv solumedrol PT/OT eval Monitor respiratory status closely and try to wean of CPAP Objective - Vital Signs/Intake and Output Vital Signs (last 24 hours): Temp Pulse Resp BP Pulse Ox 97.7 F 85 18 127/70 97 11/01/18 08:22 11/01/18 09:36 11/01/18 08:22 11/01/18 09:36 11/01/18 08:22 - Medications Medications: Current Medications Albuterol/Ipratropium (Duoneb 3 Mg/0.5 Mg (3 Ml) Ud) 3 ml INH RQ4 [facility] Last Admin: 11/01/18 07:14 Dose: 3 ml Albuterol/Ipratropium (Duoneb 3 Mg/0.5 Mg (3 Ml) Ud) 3 ml INH Q3 PRN PRN Reason: Shortness of Breath Amlodipine Besylate (Norvasc) 10 mg PO DAILY [facility] Last Admin: 11/01/18 09:35 Dose: 10 mg Aspirin (Ecotrin) 81 mg PO DAILY [facility] Last Admin: 11/01/18 09:37 Dose: 81 mg Atorvastatin Calcium (Lipitor) 20 mg PO HS [facility] Last Admin: 10/31/18 21:13 Dose: 20 mg Carvedilol (Coreg) 3.125 mg PO Q12H [facility] Last Admin: 11/01/18 09:36 Dose: 3.125 mg Furosemide (Lasix) 40 mg IVP DAILY [facility] Last Admin: 11/01/18 09:34 Dose: 40 mg Hydralazine HCl (Apresoline) 10 mg PO TID [facility] Last Admin: 11/01/18 09:35 Dose: 10 mg Ceftriaxone Sodium 1 gm/ (Sodium Chloride) 100 mls @ 100 mls/hr IVPB DAILY [facility]; Protocol Last Admin: 11/01/18 09:32 Dose: 100 mls/hr Azithromycin 500 mg/ Sodium (Chloride) 250 mls @ 250 mls/hr IVPB DAILY [facility]; P rotocol Magnesium Hydroxide (Milk Of Magnesia) 30 ml PO DAILY PRN PRN Reason: Constipation Methylprednisolone (Solu-Medrol) 40 mg IVP Q12 [facility] Last Admin: 11/01/18 09:33 Dose: 40 mg Multivitamins/Minerals (Therapeutic-M Tab) 1 tab PO DAILY [facility] Last Admin: 11/01/18 09:37 Dose: 1 tab Potassium Chloride (K-Dur 20 Meq Er Tab) 20 meq PO DAILY [facility] - Labs Labs: 11/01/18 09:15 11/01/18 09:15 PT 14.6 Seconds (9.8-13.1) H 10/29/18 16:55 INR 1.3 10/29/18 16:55 APTT 26.9 Seconds (25.6-37.1) 10/29/18 16:55 - Constitutional Appears: Non-toxic, No Acute Distress - Head Exam Head Exam: ATRAUMATIC, NORMAL INSPECTION, NORMOCEPHALIC - Respiratory Exam Respiratory Exam: Decreased Breath Sounds, Wheezes (minimal diffusely), NORMAL BREATHING PATTERN. absent: Prolonged Expiratory Phase, Rhonchi - Cardiovascular Exam Cardiovascular Exam: REGULAR RHYTHM, +S1, +S2 - GI/Abdominal Exam GI & Abdominal Exam: Soft. 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 Hx of Hemorrhagic CVA - hold heparin/lovenox Continue to monitor respiratory status. continue diuresis, monitor K+. Continue CPAP for now, remains hypoxemic off of cpap.. trial off in AM. Pt is on 2 L of O2 at home Plan: Acute CHF Exacerbation with Elevated Troponins COPD Exacerbation with Acute Respiratory Failure - EKG: Atrial paced rhythm -continue home meds- decreased lasix to daily - c/w solumedrol 40mg q12 - continue duonebs rtc - Cardiology recommendations appreciated Leukocytosis ---afebrile, resolved. --continue to monitor -- f.u blood cultures/urine cultures H/o Hemorrhagic CVA (02/2018) - stable - continue home meds HTN - chronic, controlled - continue home meds - monitor vitals Hx of PE/DVT - not on anticoagulation due to hemorrhagic CVA last year DVT ppx - scd for now - hold heparin/lovenox due hx of hemorrhagic CVA Robert BurnsJimenes PGY3 <Antonio Fry D - Last Filed: 11/01/18 16:33> Objective - Vital Signs/Intake and Output Vital Signs (last 24 hours): Temp Pulse Resp BP Pulse Ox 97.6 F 77 18 121/65 92 L 11/01/18 16:00 11/01/18 16:00 11/01/18 16:00 11/01/18 16:00 11/01/18 16:00 - Medications Medications: Current Medications Albuterol/Ipratropium (Duoneb 3 Mg/0.5 Mg (3 Ml) Ud) 3 ml INH RQ4 [facility] Last Admin: 11/01/18 15:38 Dose: 3 ml Albuterol/Ipratropium (Duoneb 3 Mg/0.5 Mg (3 Ml) Ud) 3 ml INH Q3 PRN PRN Reason: Shortness of Breath Amlodipine Besylate (Norvasc) 10 mg PO DAILY [facility] Last Admin: 11/01/18 09:35 Dose: 10 mg Aspirin (Ecotrin) 81 mg PO DAILY [facility] Last Admin: 11/01/18 09:37 Dose: 81 mg Atorvastatin Calcium (Lipitor) 20 mg PO HS [facility] Last Admin: 10/31/18 21:13 Dose: 20 mg Carvedilol (Coreg) 3.125 mg PO Q12H [facility] Last Admin: 11/01/18 09:36 Dose: 3.125 mg Furosemide (Lasix) 40 mg IVP DAILY [facility] Last Admin: 11/01/18 09:34 Dose: 40 mg Hydralazine HCl (Apresoline) 10 mg PO TID [facility] Last Admin: 11/01/18 15:36 Dose: Not Given Ceftriaxone Sodium 1 gm/ (Sodium Chloride) 100 mls @ 100 mls/hr IVPB DAILY [facility]; Protocol Last Admin: 11/01/18 09:32 Dose: 100 mls/hr Azithromycin 500 mg/ Sodium (Chloride) 250 mls @ 250 mls/hr IVPB DAILY [facility]; Protocol Last Admin: 11/01/18 12:19 Dose: 250 mls/hr Magnesium Hydroxide (Milk Of Magnesia) 30 ml PO DAILY PRN PRN Reason: Constipation Methylprednisolone (Solu-Medrol) 40 mg IVP Q12 [facility] Last Admin: 11/01/18 09:33 Dose: 40 mg Multivitamins/Minerals (Therapeutic-M Tab) 1 tab PO DAILY [facility] Last Admin: 11/01/18 09:37 Dose: 1 tab Potassium Chloride (K-Dur 20 Meq Er Tab) 20 meq PO DAILY [facility] Last Admin: 11/01/18 12:20 Dose: 20 meq - Labs Labs: 11/01/18 09:15 11/01/18 09:15 PT 14.6 Seconds (9.8-13.1) H 10/29/18 16:55 INR 1.3 10/29/18 16:55 APTT 26.9 Seconds (25.6-37.1) 10/29/18 16:55 Attending/Attestation - Attestation I have personally seen and examined this patient.: Yes I have fully participated in the care of the patient.: Yes I have reviewed all pertinent clinical information, including history, physical exam and plan: Yes Notes (Text): 11/01/18 16:32 Patient seen and examined with resident. Case discussed and agreed with assessment.
--- NOTE | 2018-11-01 10:35 | CP.PCM.PN ---
Subjective - Date & Time of Evaluation Date of Evaluation: 11/01/18 Time of Evaluation: 10:00 - Subjective Subjective: The patient has been breathing fairly comfortably off of CPAP. With oxygen supplement at 2 L with nasal cannula her pulse oximetry was between 96 and 97%. compliance monitor shows sinus rhythm with a VVI paced rhythm. Echocardiogram reveals severe left ventricular wall motion abnormality and markedly depressed left ventricular systolic function. There is significant mitral regurgitation and pulmonary hypertension. The patient will need to return home taking 40 mg of Lasix every day. The patient has had a bed and chair bound existence for more than a year. She may be allowed to return home taking her present schedule of medications. Objective - Vital Signs/Intake and Output Vital Signs (last 24 hours): Temp Pulse Resp BP Pulse Ox 97.7 F 85 18 127/70 97 11/01/18 08:22 11/01/18 09:36 11/01/18 08:22 11/01/18 09:36 11/01/18 08:22 - Medications Medications: Current Medications Albuterol/Ipratropium (Duoneb 3 Mg/0.5 Mg (3 Ml) Ud) 3 ml INH RQ4 [facility] Last Admin: 11/01/18 07:14 Dose: 3 ml Albuterol/Ipratropium (Duoneb 3 Mg/0.5 Mg (3 Ml) Ud) 3 ml INH Q3 PRN PRN Reason: Shortness of Breath Amlodipine Besylate (Norvasc) 10 mg PO DAILY [facility] Last Admin: 11/01/18 09:35 Dose: 10 mg Aspirin (Ecotrin) 81 mg PO DAILY [facility] Last Admin: 11/01/18 09:37 Dose: 81 mg Atorvastatin Calcium (Lipitor) 20 mg PO HS [facility] Last Admin: 10/31/18 21:13 Dose: 20 mg Carvedilol (Coreg) 3.125 mg PO Q12H [facility] Last Admin: 11/01/18 09:36 Dose: 3.125 mg Furosemide (Lasix) 40 mg IVP DAILY [facility] Last Admin: 11/01/18 09:34 Dose: 40 mg Hydralazine HCl (Apresoline) 10 mg PO TID [facility] Last Admin: 11/01/18 09:35 Dose: 10 mg Ceftriaxone Sodium 1 gm/ (Sodium Chloride) 100 mls @ 100 mls/hr IVPB DAILY [facility]; Protocol Last Admin: 11/01/18 09:32 Dose: 100 mls/hr Azithromycin 500 mg/ Sodium (Chloride) 250 mls @ 250 mls/hr IVPB DAILY [facility]; Protocol Magnesium Hydroxide (Milk Of Magnesia) 30 ml PO DAILY PRN PRN Reason: Constipation Methylprednisolone (Solu-Medrol) 40 mg IVP Q12 [facility] Last Admin: 11/01/18 09:33 Dose: 40 mg Multivitamins/Minerals (Therapeutic-M Tab) 1 tab PO DAILY [facility] Last Admin: 11/01/18 09:37 Dose: 1 tab Potassium Chloride (K-Dur 20 Meq Er Tab) 20 meq PO DAILY [facility] - Labs Labs: 11/01/18 09:15 11/01/18 09:15 PT 14.6 Seconds (9.8-13.1) H 10/29/18 16:55 INR 1.3 10/29/18 16:55 APTT 26.9 Seconds (25.6-37.1) 10/29/18 16:55
[2018-11-01 16:01] VITALS: TEMP 97.6; O2SAT 92
[2018-11-01 17:08] VITALS: BP 125/73; PULSE 75
--- NOTE | 2018-11-02 09:16 | PQF ---
PROVIDER RESPONSE TEXT: Pt had CHF which was left ventricular, syst and acute on chronic REVIEWER QUERY TEXT: CHF Acuity and Type Congestive Heart Failure Exacerbation is documented in the Medical Record. No history of CHF noted. Please document the type (includes probable or suspected) Such as: Type: -- Systolic -- Diastolic -- Combined -- Other, please specify The patient's Clinical Indicators include: Cardiology consult: Profound SOB. No history of CHF. DX: Congestive cardiac failure. Elevated troponi n levels are most likely due to LV decompensation. ECHO: EF 20-25%, Hypokinesis, MR, TR, pulmonary HTN. Pro BNP 27,200 Rx: Lasix IV Query created by: Rabia aLnd on 11/01/2018 11:27 AM Electronically signed by: Mack Stein MD 11/02/2018 9:13 AM
--- NOTE | 2018-11-02 12:10 | PQF ---
PROVIDER RESPONSE TEXT: CKD Stage 3 with GFR of 43 REVIEWER QUERY TEXT: Kidney Disease, Chronic CKD Stage COULD YOU PLEASE SPECIFY THE STAGE OF CKD? Chronic Kidney Disease (CKD) is documented in the Medical Record. Please specify the disease stage ( includes probable or suspected) Such as: -- Chronic kidney disease Stage 1 -- Chronic kidney disease Stage 2 -- Chronic kidney disease Stage 3 -- Chronic kidney disease Stage 4 -- Chronic kidney disease Stage 5 -- Chronic kidney disease Stage 5, requiring dialysis -- End Stage Renal Disease -- Other, please specify Stages are defined by the [employer] as follows: CKD Stage I GFR >= 90 ml / min per 1.73 m2 and persistent albuminuria CKD Stage 2 GFR between 60 and 89 with persistent albuminuria CKD Stage 3 GFR between 30 and 59 CKD Stage 4 GFR between 15 and 29 CKD Stage 5 GFR between <15 or End Stage Renal Disease The patient's Clinical Indicators include: PMH: CKD Query created by: Ciara Knott on 11/02/2018 10:19 AM Electronically signed by: Amanda Jimenes 11/02/2018 12:07 PM
--- NOTE | 2018-11-02 12:10 | PQF ---
PROVIDER RESPONSE TEXT: Stage 4 pressure ulcer= present on admission REVIEWER QUERY TEXT: Conflicting Documentation Clarification A single mention of a stage 4 pressure ulcer by the floor RN appears in the record. Wound care consul t is pending. After work-up please clarify the diagnosis and POA status Please also document if the condition is: -- Confirmed and current -- Confirmed, treated and resolved -- Ruled out -- Other, please specify The patient's Clinical Indicators include: Admitted in respiratory distress. Per daughter patient has a stage 4 pressure ulcer under treatment as an outpatient with visiting nurs e. Admitting RN: Sacral dressing noted and underneath a opening that appears to be a pressure ulcer stag e IV, as per daughter patient has a home nurse come to her house to take care of the pressure ulcer, wound care consult initiated. Query created by: Rabia Land on 10/31/2018 10:30 AM Electronically signed by: Amanda Jimenes 11/02/2018 12:07 PM
== END 2018-11-01 17:42 | DRG 291 ==
LOC: H.ER 16:13 → H.ERHOLD 17:37 → H.TEL 21:17
PROVIDERS: ADMIT Student in an Organized Health Care Education/Training Program; ATTEND Student in an Organized Health Care Education/Training Program
PROC: 5A09457 Assistance with Respiratory Ventilation, 24-96 Consecutive Hours, Continuous Positive Airway Pressure (ICD-10-PCS; principal; 2018-10-29)
DX: I13.0 Hypertensive heart and chronic kidney disease with heart failure and stage 1 through stage 4 chronic kidney disease, or unspecified chronic kidney disease (principal); L89.154 Pressure ulcer of sacral region, stage 4; I50.23 Acute on chronic systolic (congestive) heart failure; J96.01 Acute respiratory failure with hypoxia; J44.1 Chronic obstructive pulmonary disease with (acute) exacerbation; D50.9 Iron deficiency anemia, unspecified; E11.22 Type 2 diabetes mellitus with diabetic chronic kidney disease; I27.20 Pulmonary hypertension, unspecified; I34.0 Nonrheumatic mitral (valve) insufficiency; I49.40 Unspecified premature depolarization; Z86.73 Personal history of transient ischemic attack (TIA), and cerebral infarction without residual deficits; J44.9 Chronic obstructive pulmonary disease, unspecified; Z79.51 Long term (current) use of inhaled steroids; Z87.11 Personal history of peptic ulcer disease; Z95.0 Presence of cardiac pacemaker; Z99.81 Dependence on supplemental oxygen; K29.70 Gastritis, unspecified, without bleeding; M19.90 Unspecified osteoarthritis, unspecified site; Z74.01 Bed confinement status; Z79.899 Other long term (current) drug therapy; R74.8 Abnormal levels of other serum enzymes; N18.3 Chronic kidney disease, stage 3 (moderate)

== ENCOUNTER 2018-11-01 15:48 | Inpatient (IN) | payer OTHER, BC ==
[2018-11-01 18:15] VITALS: BMI 32.1
[2018-11-01] MEDS ORDERED: Magnesium Hydroxide Susp 30 ml UD PO PRN (20:08)
[2018-11-01] MEDS ORDERED: Patient's Own Med (Budesonide/Formoterol Fumarate [Symbicort 160-4.5 Mcg Inhaler] 2 PUFF) IH SCH (21:00)
[2018-11-01] MEDS: FLUTICASONE PROPION/SALMETEROL 113-14 IH SCH (21:35)
[2018-11-01] MEDS: MethylPREDNISolone 40 mg Vial IVP SCH (21:36)
[2018-11-02] MEDS: FLUTICASONE PROPION/SALMETEROL 113-14 IH SCH ×2 (08:17→21:42)
[2018-11-02] MEDS: MethylPREDNISolone 40 mg Vial IVP SCH ×2 (08:17→21:00)
[2018-11-02] MEDS ORDERED: Multivitamin With Minerals Tab PO SCH (09:00)
[2018-11-02] MEDS ORDERED: Patient's Own Med (Multivitamin [Daily Vite] 1 TAB) PO SCH (09:00)
[2018-11-02] MEDS ORDERED: Azithromycin 500 MG in Sodium Chloride 0.9% 250 ML IVPB SCH (09:00)
[2018-11-02] MEDS ORDERED: Potassium Chloride 20 mEq ER Tab PO SCH (09:00)
[2018-11-02] MEDS ORDERED: cefTRIAXone IV 1 gm in Dextros 50 ML BAG IVPB SCH (09:00)
--- NOTE | 2018-11-02 09:46 | CP.PCM.CON ---
History of Present Illness - History of Present Illness History of Present Illness: The patient was recently hospitalized at this institution with severe shortness of breath. She has a medical history which consists of a hemorrhagic cerebral infarct in January of last year which has left her with se mele speech deficit, weakness on the left side and is virtually bedridden existence. Prior to that she has had bilateral pulmonary emboli for which she was hospitalized here in 2017. She has a history of having required a dual- chamber pacemaker in 2017 but cannot say precisely under what circumstances she needed this pacemaker. She is being looked after by a visiting nurse and it who periodically makes house calls. Her 2 daughters supervise her medical care. She has a history of COPD and the patient used DuoNeb at home before urgently calling 911 for medical help. The patient was found to be in congestive cardiac failure on arrival in the emergency room with a markedly elevated proBNP. A mildly elevated troponin was thought to be most most likely secondary to abrupt left ventricular decompensation. Due to a ventricular paced rhythm a diagnosis of an acute myocardial infarction could not be made based on the electrocardiogram. The patient had never reported any episode of chest pain prior to her arrival in the emergency room. Intravenous diuretics promptly relieved the patient. His subsequent echocardiogram revealed severe wall motion abnormalities with significantly depressed left ventricular systolic function. The patient was initially treated with a BiPAP machine which eventually was not required for adequate oxygenation. The patient is now transferred to transitional care unit for possible physical therapy. Physical examination shows an elderly female with significant speech deficit. She is alert awake and coherent. Afebrile and breathes comfortably 16 times a minute with oxygen supplement with a nasal cannula at 2 L/min. Her pulse oximetry was between 97 and 96%. Her heart rate was 80 bpm regular and her blood pressure was 134/76 mmHg. Due to a short thick neck her jugular venous pressure could not be assessed. There was a pressure sore on the sacrum. No pedal edema was detected but the patient has been mostly bedridden. A Humphries catheter was in place. Extremities were warm nailbeds were pink. There was no central or peripheral cyanosis. The apex was not palpable. The first heart sound was normal the second heart sound was also normal. A brief apical systolic murmur was appreciated. No gallop rhythm and no rales were audible. The inspiratory effort was poor. Lab data reveals a microcytic anemia with the serum iron level near the lower limits of normal. The ferritin level was normal. Iron saturation was low. The patient had a depressed GFR and mildly elevated BUN/creatinine. Impression congestive cardiac failure which was left ventricular systolic and acute on chronic. History of COPD and a history of bilateral pulmonary emboli. History of a hemorrhagic CVA with speech deficit. History of hypertension. The patient is stable from cardiovascular point of view. Past Patient History - Past Medical History & Family History Past Medical History?: Yes - Past Social History Smoking Status: Never Smoked - CARDIAC Hx Hypertension: Yes Hx Pacemaker: Yes - PULMONARY Hx Chronic Obstructive Pulmonary Disease (COPD): Yes - NEUROLOGICAL Hx Neurological Disorder: No - HEENT Hx HEENT Problems: Yes - RENAL Hx Chronic Kidney Disease: Yes - ENDOCRINE/METABOLIC Hx Endocrine Disorders: Yes Hx Diabetes Mellitus Type 2: Yes - HEMATOLOGICAL/ONCOLOGICAL Hx Blood Disorders: No - INTEGUMENTARY Hx Dermatological Problems: No - MUSCULOSKELETAL/RHEUMATOLOGICAL Hx Falls: No - GASTROINTESTINAL Hx Gastritis: Yes - GENITOURINARY/GYNECOLOGICAL Hx Genitourinary Disorders: No - PSYCHIATRIC Hx Substance Use: No - SURGICAL HISTORY Hx Surgeries: Yes Other/Comment: repair of stomach ulcer bleed, pacemaker, fracture repair - ANESTHESIA Hx Anesthesia: Yes Hx Anesthesia Reactions: No Hx Malignant Hyperthermia: No Meds Allergies/Adverse Reactions: Allergies Allergy/AdvReac Type Severity Reaction Status Date / Time No Known Allergies Allergy Verified 11/01/18 17:58 - Medications Medications: Current Medications Albuterol/Ipratropium (Duoneb 3 Mg/0.5 Mg (3 Ml) Ud) 3 ml IH Q3 PRN PRN Reason: Shortness of Breath Amlodipine Besylate (Norvasc) 10 mg PO DAILY [facility] Last Admin: 11/02/18 08:18 Dose: 10 mg Aspirin (Ecotrin) 81 mg PO DAILY [facility] Last Admin: 11/02/18 08:18 Dose: 81 mg Atorvastatin Calcium (Lipitor) 20 mg PO HS [facility] Last Admin: 11/01/18 21:36 Dose: 20 mg Carvedilol (Coreg) 3.125 mg PO Q12 [facility] Furosemide (Lasix) 40 mg IV Q12 [facility] Last Admin: 11/02/18 08:19 Dose: 40 mg Hydralazine HCl (Apresoline) 10 mg PO TID [facility] Last Admin: 11/02/18 08:18 Dose: 10 mg Azithromycin 500 mg/ Sodium (Chloride) 250 mls @ 125 mls/hr IVPB DAILY [facility] Last Admin: 11/02/18 08:20 Dose: 125 mls/hr Ceftriaxone Sodium 1 gm/ (Sodium Chloride) 100 mls @ 100 mls/hr IVPB DAILY [facility] Last Admin: 11/02/18 08:20 Dose: 100 mls/hr Magnesium Hydroxide (Milk Of Magnesia) 30 ml PO DAILY PRN PRN Reason: Constipation Methylprednisolone (Solu-Medrol) 40 mg IVP Q12 [facility] Last Admin: 11/02/18 08:17 Dose: 40 mg Multivitamins/Minerals (Therapeutic-M Tab) 1 tab PO DAILY [facility] Last Admin: 11/02/18 08:18 Dose: 1 tab Potassium Chloride (K-Dur 20 Meq Er Tab) 20 meq PO DAILY [facility] Last Admin: 11/02/18 08:17 Dose: 20 meq Results - Vital Signs Recent Vital Signs: Last Vital Signs Temp 98 F 11/01/18 18:00 Pulse 99 H 11/02/18 08:19 Resp 18 11/01/18 18:19 BP 131/79 11/02/18 08:19 Pulse Ox 93 L 11/01/18 18:19
[2018-11-02 10:25] VITALS: RESP 20
--- NOTE | 2018-11-02 10:48 | CP.PCM.HP ---
Past Patient History - Past Medical History & Family History Past Medical History?: Yes - Past Social History Smoking Status: Never Smoked - CARDIAC Hx Hypertension: Yes Hx Pacemaker: Yes - PULMONARY Hx Chronic Obstructive Pulmonary Disease (COPD): Yes - NEUROLOGICAL Hx Neurological Disorder: No - HEENT Hx HEENT Problems: Yes - RENAL Hx Chronic Kidney Disease: Yes - ENDOCRINE/METABOLIC Hx Endocrine Disorders: Yes Hx Diabetes Mellitus Type 2: Yes - HEMATOLOGICAL/ONCOLOGICAL Hx Blood Disorders: No - INTEGUMENTARY Hx Dermatological Problems: No - MUSCULOSKELETAL/RHEUMATOLOGICAL Hx Falls: No - GASTROINTESTINAL Hx Gastritis: Yes - GENITOURINARY/GYNECOLOGICAL Hx Genitourinary Disorders: No - PSYCHIATRIC Hx Substance Use: No - SURGICAL HISTORY Hx Surgeries: Yes Other/Comment: repair of stomach ulcer bleed, pacemaker, fracture repair - ANESTHESIA Hx Anesthesia: Yes Hx Anesthesia Reactions: No Hx Malignant Hyperthermia: No Meds Allergies/Adverse Reactions: Allergies Allergy/AdvReac Type Severity Reaction Status Date / Time No Known Allergies Allergy Verified 11/01/18 17:58 Results - Vital Signs Recent Vital Signs: Last Vital Signs Temp 97.9 F 11/02/18 08:00 Pulse 99 H 11/02/18 08:19 Resp 20 11/02/18 08:00 BP 131/79 11/02/18 08:19 Pulse Ox 95 11/02/18 08:00
--- NOTE | 2018-11-02 10:52 | CP.PCM.DIS ---
<JalilAmanda - Last Filed: 11/02/18 10:53> Provider - Provider Date of Admission: 11/01/18 18:16 Attending physician: Rema Haque DO Consults: 11/01/18 19:56 Nursing Referral for Wound Care Routine Comment: Physician Instructions: Reason For Exam: admission from 4N; stage IV ulcer 11/01/18 20:01 Case Management Referral Routine Comment: Physician Instructions: Reason For Exam: Reason for Referral: Discharge Planning 11/02/18 07:00 Cardiology Consult Routine Comment: Consulting Provider: Mack Stein V Consulting Physician: Mack Stein V Reason for Consult: CHF exacerbation Pulmonology Consult Routine Comment: Consulting Provider: Dennis Anton I Consulting Physician: Dennis Anton I Reason for Consult: COPD Time Spent in preparation of Discharge (in minutes): 35 Diagnosis - Discharge Diagnosis (1) CHF (congestive heart failure) Status: Chronic Comment: systolic heart failure, followed by cardiology Dr. Stein. (2) COPD (chronic obstructive pulmonary disease) Status: Chronic Priority: High Comment: improved - stable on O2 (3) Decubital ulcer Status: Chronic Comment: present on admission, c/w wound care. patient has wound care at home (4) Hypertension Status: Chronic Comment: controlled. 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 Echocardiogram was completed EF 20%. Patients respiratory status is back to baseline, she is on 2L O2. She is currently on solumedrol and dunoebs RTC- will continue. Hx of Hemorrhagic CVA - hold heparin/lovenox. Acute CHF Exacerbation with Elevated Troponin COPD Exacerbation with Acute Respiratory Failure H/o Hemorrhagic CVA (02/2018) HTN Hx of PE/DVT D/c to TCU for further rehabilitation. Discharge Plan - Follow Up Plan Condition: GOOD Disposition: REHAB FACILITY/REHAB UNIT <Antonio Fry - Last Filed: 11/02/18 13:19> Provider - Provider Date of Admission: 11/01/18 18:16 Attending physician: Rema Haque DO Consults: 11/01/18 19:56 Nursing Referral for Wound Care Routine Comment: Physician Instructions: Reason For Exam: admission from 4N; stage IV ulcer 11/01/18 20:01 Case Management Referral Routine Comment: Physician Instructions: Reason For Exam: Reason for Referral: Discharge Planning 11/02/18 07:00 Cardiology Consult Routine Comment: Consulting Provider: Mack Stein V Consulting Physician: Mack Stein V Reason for Consult: CHF exacerbation Pulmonology Consult Routine Comment: Consulting Provider: Dennis Anton I Consulting Physician: Dennis Anton I Reason for Consult: COPD Attending/Attestation - Attestation I have personally seen and examined this patient.: Yes I have fully participated in the care of the patient.: Yes I have reviewed all pertinent clinical information, including history, physical exam and plan: Yes Notes (Text): 11/02/18 13:17 Patient seen and examined with resident yesterday. Case was discussed and agreed with assessment. This note was intended for yesterday's discharge summary but was completed today. Patient was discharged in stable condition to TCU.
--- NOTE | 2018-11-02 11:09 | CP.PCM.HP ---
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 Patient clinically improved and was admitted to TCU for further rehabilitation. PMD: Dr. 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 Bowel Surgery (unsure) Meds: per chart, reviewed NKDA SH: denies tobacco hx, etoh or ilicit drugs use. Present on Admission - Present on Admission Any Indicators Present on Admission: Yes Decubitus Ulcer Present: Yes Past Patient History - Past Medical History & Family History Past Medical History?: Yes - Past Social History Smoking Status: Never Smoked - CARDIAC Hx Hypertension: Yes Hx Pacemaker: Yes - PULMONARY Hx Chronic Obstructive Pulmonary Disease (COPD): Yes - NEUROLOGICAL Hx Neurological Disorder: No - HEENT Hx HEENT Problems: Yes - RENAL Hx Chronic Kidney Disease: Yes - ENDOCRINE/METABOLIC Hx Endocrine Disorders: Yes Hx Diabetes Mellitus Type 2: Yes - HEMATOLOGICAL/ONCOLOGICAL Hx Blood Disorders: No - INTEGUMENTARY Hx Dermatological Problems: No - MUSCULOSKELETAL/RHEUMATOLOGICAL Hx Falls: No - GASTROINTESTINAL Hx Gastritis: Yes - GENITOURINARY/GYNECOLOGICAL Hx Genitourinary Disorders: No - PSYCHIATRIC Hx Substance Use: No - SURGICAL HISTORY Hx Surgeries: Yes Other/Comment: repair of stomach ulcer bleed, pacemaker, fracture repair - ANESTHESIA Hx Anesthesia: Yes Hx Anesthesia Reactions: No Hx Malignant Hyperthermia: No Meds Allergies/Adverse Reactions: Allergies Allergy/AdvReac Type Severity Reaction Status Date / Time No Known Allergies Allergy Verified 11/01/18 17:58 Physical Exam - Head Exam Head Exam: ATRAUMATIC, NORMAL INSPECTION, NORMOCEPHALIC - ENT Exam ENT Exam: Mucous Membranes Moist, Normal Exam - Respiratory Exam Respiratory Exam: Decreased Breath Sounds, Prolonged Expiratory Phase, Wheezes (mild). absent: Rales - Cardiovascular Exam Cardiovascular Exam: REGULAR RHYTHM (distant heart sounds ) - Extremities Exam Extremities exam: Positive for: normal inspection. Negative for: pedal edema - Neurological Exam Neurological exam: Alert Results - Vital Signs Recent Vital Signs: Last Vital Signs Temp 97.9 F 11/02/18 08:00 Pulse 99 H 11/02/18 08:19 Resp 20 11/02/18 08:00 BP 131/79 11/02/18 08:19 Pulse Ox 95 11/02/18 08:00 Assessment & Plan (1) CHF (congestive heart failure) Status: Chronic (2) COPD (chronic obstructive pulmonary disease) Status: Chronic Priority: High (3) Decubital ulcer Status: Chronic (4) Hypertension Status: Chronic - Assessment and Plan (Free Text) Assessment: 87 year old female with PMH of COPD, Gastritis, HTN, Chronic Kidney Disease, 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 Echocardiogram was completed EF 20%. Patients respiratory status is back to baseline, she is on 2L O2. She is currently on solumedrol and dunoebs RTC- will continue. Hx of Hemorrhagic CVA - hold heparin/lovenox. Acute CHF Exacerbation with Elevated Troponin COPD Exacerbation with Acute Respiratory Failure H/o Hemorrhagic CVA (02/2018) HTN Hx of PE/DVT Admitted to TCU for rehabilitation and abx treatment. Robert Jimenes PGY-3 <Antonio Fry D - Last Filed: 11/02/18 18:06> Results - Vital Signs Recent Vital Signs: Last Vital Signs Temp 97.5 F L 11/02/18 16:19 Pulse 83 11/02/18 16:48 Resp 20 11/02/18 16:19 BP 127/63 11/02/18 16:48 Pulse Ox 94 L 11/02/18 16:19 Attending/Attestation - Attestation I have personally seen and examined this patient.: Yes I have fully participated in the care of the patient.: Yes I have reviewed all pertinent clinical information: Yes Notes (Text): 11/02/18 18:05 Patient seen and examined with resident. Case discussed and agreed with assessment and plan of management.
[2018-11-02] MEDS: Albuterol-Ipratrop 3 mg / 0.5 (3 ml) UD IH PRN ×2 (13:43→22:48)
[2018-11-02 16:20] VITALS: O2SAT 94
[2018-11-02 20:12] VITALS: TEMP 97.9
--- NOTE | 2018-11-02 20:40 | CON ---
DATE: 11/02/2018 HISTORY OF PRESENT ILLNESS: Ms. Ochoa is an 87-year-old female who is known to me from prior admissions. She was referred for Pulmonary consultation because of shortness of breath and history of chronic obstructive pulmonary disease. She is admitted at this time because of progressively worsening shortness of breath and was found to be in congestive heart failure. She has been diuresed and then sent to the transitional care unit and a Pulmonary consultation was requested to follow for chronic obstructive pulmonary disease. She has a history of intracranial bleed, which was due to anticoagulation about a year ago. 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 She also has recent cataract surgery. FAMILY HISTORY: Nonrevealing. SOCIAL HISTORY: She lives at home two daughters. REVIEW OF SYSTEM: Essentially remarkable for the patient being bedridden most of the time. She has slurred speech and slow mentation. PHYSICAL EXAMINATION: GENERAL: The patient is alert and oriented to place and time, but not to person. VITAL SIGNS: Blood pressure 131/79, pulse of 99, respiratory rate 20 per minute. She is afebrile. O2 sat not noted on the chart. SKIN: Shows fair turgor. HEENT: She is status post cataract surgery. Mouth shows fair hygiene. LUNGS: Fair aeration bilaterally with some basal dullness and few rales. HEART: S1, S2. Pacemaker in place. ABDOMEN: Soft, nontender. No organomegaly. EXTREMITIES: Show no edema or cyanosis. CENTRAL NERVOUS SYSTEM: The patient is alert and awake. No other gross deficits appreciated. LABORATORY DATA AND DIAGNOSTIC DATA: Laboratory data is pending. Chest x-ray is pending. IMPRESSION: The patient with congestive heart failure and a history of chronic obstructive pulmonary disease and intracranial bleed in the past. PLAN: The plan is to continue therapy as ordered with aerosolized bronchodilators, oxygen, and diuretic therapy. Cardiology consult already requested and has been seen by . We will continue therapy as ordered. We will continue to follow with you. Dennis Anton MD [facility] # [id number]
[2018-11-02 21:44] VITALS: BP 116/66; PULSE 82
[2018-11-02] MEDS ORDERED: Albuterol-Ipratrop 3 mg / 0.5 (3 ml) UD INH PRN (23:08)
[2018-11-03 01:39] LABS: ABG ALLEN TEST YES; ARTERIAL BLOOD GAS HCO3 30.3 mmol/L (21-28); ARTERIAL BLOOD GAS HEMOGLOBIN 9.4 g/dL (11.7-17.4); ARTERIAL BLOOD GAS O2 CAPACITY 12.8 mL/dL (16-24); ARTERIAL BLOOD GAS O2 CONTENT 11.3 ML/dL (15-23); ARTERIAL BLOOD GAS O2 SAT 88.2 % (95-98); ARTERIAL BLOOD GAS PCO2 55 mm/Hg (35-45); ARTERIAL BLOOD GAS PH 7.39 (7.35-7.45); ARTERIAL BLOOD GAS PO2 48 mm/Hg (80-100)
[2018-11-03] MEDS ORDERED: Albuterol-Ipratrop 3 mg / 0.5 (3 ml) UD IH SCH (02:00)
--- NOTE | 2018-11-03 11:10 | RAD ---
Date of service: 11/02/2018 PROCEDURE: CHEST RADIOGRAPH, 1 VIEW HISTORY: hypoxia COMPARISON: 10/31/2018 FINDINGS: LUNGS: Clear. PLEURA: No pneumothorax or pleural fluid seen. CARDIOVASCULAR: There is atherosclerotic calcification of the thoracic aorta. Normal heart size. Permanent pacemaker. There is mild congestive change noted. OSSEOUS STRUCTURES: No significant abnormalities. VISUALIZED UPPER ABDOMEN: Normal. OTHER FINDINGS: None. IMPRESSION: Mild congestive change. No infiltrate or pleural effusion noted.
== END 2018-11-03 | disposition short-term general hospital (02) | DRG 291 ==
LOC: H.TCU 18:16
PROVIDERS: ADMIT Student in an Organized Health Care Education/Training Program; ATTEND Student in an Organized Health Care Education/Training Program
PROC: F07Z9FZ Gait Training/Functional Ambulation Treatment using Assistive, Adaptive, Supportive or Protective Equipment (ICD-10-PCS; principal; 2018-11-01)
PROC: F06Z6MZ Communicative/Cognitive Integration Skills Treatment using Augmentative / Alternative Communication Equipment (ICD-10-PCS; 2018-11-01)
PROC: F07M6FZ Therapeutic Exercise Treatment of Musculoskeletal System - Whole Body using Assistive, Adaptive, Supportive or Protective Equipment (ICD-10-PCS; 2018-11-01)
PROC: F08Z4FZ Home Management Treatment using Assistive, Adaptive, Supportive or Protective Equipment (ICD-10-PCS; 2018-11-02)
DX: I13.0 Hypertensive heart and chronic kidney disease with heart failure and stage 1 through stage 4 chronic kidney disease, or unspecified chronic kidney disease (principal); L89.154 Pressure ulcer of sacral region, stage 4; I50.22 Chronic systolic (congestive) heart failure; J44.1 Chronic obstructive pulmonary disease with (acute) exacerbation; I69.154 Hemiplegia and hemiparesis following nontraumatic intracerebral hemorrhage affecting left non-dominant side; E11.22 Type 2 diabetes mellitus with diabetic chronic kidney disease; N18.9 Chronic kidney disease, unspecified; I69.128 Other speech and language deficits following nontraumatic intracerebral hemorrhage; D50.9 Iron deficiency anemia, unspecified; Z95.0 Presence of cardiac pacemaker; Z74.01 Bed confinement status; Z86.711 Personal history of pulmonary embolism; Z86.718 Personal history of other venous thrombosis and embolism; Z87.11 Personal history of peptic ulcer disease

== ENCOUNTER 2018-11-03 00:22 | Inpatient (IN) | payer MEDICARE, BC ==
[2018-11-03 00:22] VITALS: BMI 32.1
[2018-11-03] MEDS ORDERED: Albuterol-Ipratrop 3 mg / 0.5 (3 ml) UD INH STA (00:53)
[2018-11-03] MEDS ORDERED: Albuterol-Ipratrop 3 mg / 0.5 (3 ml) UD ONE (01:05)
[2018-11-03 01:39] LABS: BASO % 0.1 % (0.0-2.0); HEMOGLOBIN 9.2 g/dL (12.0-16.0); LYMPH # 0.8 K/uL (1.0-4.3); LYMPH % 4.9 % (20.0-40.0); MEAN CELL VOLUME 74.5 fl (81.0-99.0); MEAN CORPUSCULAR HEMOGLOBIN 23.5 pg (27.0-31.0); MEAN CORPUSCULAR HGB CONC 31.6 g/dL (33.0-37.0); MEAN PLATELET VOLUME 8.1 fl (7.2-11.7); MONO # 0.4 K/uL (0.0-0.8); MONO % 2.6 % (0.0-10.0); NEUT # 14.3 K/uL (1.8-7.0); NEUT % 92.4 % (50.0-75.0); NRBC % 0.2 % (0.0-0.0); PLATELET COUNT 385 K/uL (130-400); RED CELL DISTRIBUTION WIDTH 22.7 % (11.5-14.5); WHITE BLOOD COUNT 15.5 K/uL (4.8-10.8)
[2018-11-03 02:06] LABS: CALCIUM 9.1 mg/dL (8.4-10.2); TROPONIN I 1.13 ng/mL (0.00-0.120)
[2018-11-03 03:23] LABS: ANISOCYTOSIS SLIGHT; HYPOCHROMIC SLIGHT; LYMPHOCYTE 7 % (20-50); MONOCYTE 2 % (0-10); NEUTROPHIL 91 % (42-75); OVALOCYTES SLIGHT; PLATELET ESTIMATE NORMAL (NORMAL); STOMATOCYTES SLIGHT; TOTAL CELLS COUNTED 100
--- NOTE | 2018-11-03 04:21 | ED PDOC ---
HPI: SOB/CHF/COPD Time Seen by Provider: 11/03/18 00:40 Chief Complaint (Nursing): Respiratory Distress Chief Complaint (Provider): Respiratory Distress History Per: Patient, Other (Dr. Nails from TCU) History/Exam Limitations: no limitations Additional Complaint(s): 87 years old female with history of COPD and CHF transferred from TCU for evaluation of shortness of breath onset the middle of the night. According to Dr Indra Nails from TCU, patient has been recently admitted for acute respiratory failure and reports in the middle of the night patient became more short in breath and hypoxic, given medications of SOLU-Medrol and steroid with no relief. Patient transferred to ER for further treatment. When spoke to patient, she reports difficulty breathing and dry cough but denies chest pain and leg swelling and fever. PMD: None provided Past Medical History Reviewed: Historical Data, Nursing Documentation, Vital Signs Vital Signs: Last Vital Signs Temp 97.4 F L 11/03/18 00:30 Pulse 77 11/03/18 04:03 Resp 17 11/03/18 04:03 BP 137/62 11/03/18 04:03 Pulse Ox 100 11/03/18 04:03 - Medical History PMH: CHF, COPD, Fractures, Gastritis, HTN, Chronic Kidney Disease Denies: CVA, Diabetes - Surgical History Surgical History: Pacemaker - Family History Family History: States: Unknown Family Hx - Immunization History Hx Tetanus Toxoid Vaccination: No Hx Influenza Vaccination: No Hx Pneumococcal Vaccination: No - Home Medications Home Medications: Ambulatory Orders Medication Instructions Recorded Atorvastatin [Lipitor] 20 mg PO HS 05/26/17 Budesonide/Formoterol Fumarate 2 puff IH Q12 05/26/17 [Symbicort 160-4.5 Mcg Inhaler] Carvedilol [Coreg] 3.125 mg PO Q12 10/29/18 Multivitamin [Daily Isamar] 1 tab PO DAILY 10/29/18 amLODIPine [Norvasc] 10 mg PO DAILY 10/29/18 hydrALAZINE [Apresoline] 10 mg PO TID 10/29/18 Albuterol/Ipratropium [Duoneb 3 3 ml IH Q3 PRN 11/01/18 MG/3 Ml-0.5 MG/3 Ml 3 Ml] Albuterol/Ipratropium [Duoneb 3 3 ml INH RQ4 neb 11/01/18 mg/0.5 mg (3 ml) UD] Aspirin [Ecotrin] 81 mg PO DAILY tabec 11/01/18 Azithromycin 500MG/NS 250ml 500 mg IV DAILY 11/01/18 [Zithromax 500mg in NS] Fluticasone Propion/Salmeterol 1 puff IH Q12 11/01/18 [Airduo Resp. Fluticasone-Salmeterol 113-14] Furosemide [Lasix] 40 mg IV Q12 11/01/18 Magnesium Hydroxide [Milk Of 30 ml PO DAILY PRN 11/01/18 Magnesia] Potassium Chloride [K-Dur 20 mEq 20 meq PO DAILY tab 11/01/18 ER Tab] cefTRIAXone 1 gm [Rocephin 1 gram 1 gm IVPB DAILY 4 Days bag 11/01/18 IVPB] methylPREDNISolone [Solu-Medrol] 40 mg IVP Q12 ml 11/01/18 - Allergies Allergies/Adverse Reactions: Allergies Allergy/AdvReac Type Severity Reaction Status Date / Time No Known Allergies Allergy Verified 11/03/18 00:35 Review of Systems ROS Statement: Except As Marked, All Systems Reviewed And Found Negative Constitutional: Negative for: Fever Cardiovascular: Negative for: Chest Pain Respiratory: Positive for: Shortness of Breath Musculoskeletal: Negative for: Leg Pain (swelling) Physical Exam - Reviewed Nursing Documentation Reviewed: Yes Vital Signs Reviewed: Yes - Physical Exam Appears: Positive for: In Acute Distress (Respiratory) Head Exam: Positive for: ATRAUMATIC, NORMOCEPHALIC Cardiovascular/Chest: Positive for: Regular Rate, Rhythm. Negative for: Murmur Respiratory: Positive for: Accessory Muscle Use, Wheezing (bilaterally), Respiratory Distress (mild) Neurological/Psych: Positive for: Awake, Alert, Oriented (x3) - Laboratory Results Result Diagrams: 11/03/18 01:23 11/03/18 01:23 Lab Results: Troponin I 1.1300 ng/mL (0.00-0.120) H* 11/03/18 01:23 NT-Pro-B Natriuret Pep 20607 pg/ml (0-900) H 11/03/18 01:23 - ECG O2 Sat by Pulse Oximetry: 100 (RA) Pulse Ox Interpretation: Normal Medical Decision Making Medical Decision Making: Time: 50 Initial impression: shortness of breath. Differential includes but not limited to CHF exacerbation, COPD exacerbation and acute hypoxic respiratory failure. Initial plan: --ABG -EKG --BNP --BMP --Troponin --CBC --CXR --Aspirin 325 mg PO --Duoneb 3 ml INH --Lasix 40 mg IVP --SOLU-Medrol 125 mg IVP --Bipap 0116 Patient will be admitted to hospital for acute respiratory failure. Scribe Attestation: Documented by Amanda Fuentes acting as a scribe for Michelle Arguello MD. Provider Scribe Attestation: All medical record entries made by the Scribe were at my direction and personally dictated by me. I have reviewed the chart and agree that the record accurately reflects my personal performance of the history, physical exam, medical decision making, and the department course for this patient. Disposition - Clinical Impression Clinical Impression: Acute respiratory failure - Patient ED Disposition Is Patient to be Admitted: Yes - Disposition Disposition Time: 01:16
[2018-11-03] MEDS ORDERED: Magnesium Hydroxide Susp 30 ml UD PO PRN (04:51)
[2018-11-03] MEDS ORDERED: Albuterol-Ipratrop 3 mg / 0.5 (3 ml) UD IH PRN (04:51)
--- NOTE | 2018-11-03 05:16 | CP.PCM.HP ---
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 MD was called in TCU unit for dyspnea, after evaluation, Patient was treated with aggressive oxygenation, multiple breathing treatments but dyspnea persisted. Additionally a CXR was done, which showed worsening effusion bilaterally. In the ED, dyspnea persisted, patent was treated with IV lasix and steroids, and was started on Bipap machine. Patient endorsing improved dyspnea, denies fevers, chills, n/v, chest pain and palpitations. PMD: Dr. 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 Bowel Surgery (unsure) Meds: per chart, reviewed NKDA SH: denies tobacco hx, etoh or ilicit drugs use. Present on Admission - Present on Admission Any Indicators Present on Admission: No Review of Systems - Constitutional Constitutional: absent: Chills, Fever - Cardiovascular Cardiovascular: Dyspnea. absent: Chest Pain, Palpitations - Respiratory Respiratory: Cough, Dyspnea - Gastrointestinal Gastrointestinal: absent: Abdominal Pain - Neurological Neurological: absent: Dizziness, Headaches Past Patient History - Past Medical History & Family History Past Medical History?: Yes - Past Social History Smoking Status: Never Smoked Alcohol: None Drugs: Denies - CARDIAC Hx Congestive Heart Failure: Yes Hx Hypertension: Yes Hx Pacemaker: Yes - PULMONARY Hx Chronic Obstructive Pulmonary Disease (COPD): Yes - NEUROLOGICAL Hx Neurological Disorder: No - HEENT Hx HEENT Problems: Yes - RENAL Hx Chronic Kidney Disease: Yes - ENDOCRINE/METABOLIC Hx Endocrine Disorders: Yes Hx Diabetes Mellitus Type 2: Yes - HEMATOLOGICAL/ONCOLOGICAL Hx Blood Disorders: No - INTEGUMENTARY Hx Dermatological Problems: No - MUSCULOSKELETAL/RHEUMATOLOGICAL Hx Fractures: Yes - GASTROINTESTINAL Hx Gastritis: Yes - GENITOURINARY/GYNECOLOGICAL Hx Genitourinary Disorders: No - PSYCHIATRIC Hx Substance Use: No - SURGICAL HISTORY Hx Surgeries: Yes Other/Comment: repair of stomach ulcer bleed, pacemaker, fracture repair - ANESTHESIA Hx Anesthesia: Yes Hx Anesthesia Reactions: No Hx Malignant Hyperthermia: No Meds Allergies/Adverse Reactions: Allergies Allergy/AdvReac Type Severity Reaction Status Date / Time No Known Allergies Allergy Verified 11/03/18 00:35 Physical Exam - Constitutional Appears: Other (BIPAP machine is noted, breathing heavily ) - Head Exam Head Exam: NORMAL INSPECTION - Eye Exam Eye Exam: EOMI, Normal appearance - ENT Exam ENT Exam: Mucous Membranes Moist - Respiratory Exam Respiratory Exam: Prolonged Expiratory Phase. absent: Chest Wall Tenderness, Wheezes Additional comments: course breath sounds bilaterally - Cardiovascular Exam Cardiovascular Exam: REGULAR RHYTHM, +S1, +S2 - GI/Abdominal Exam GI & Abdominal Exam: Normal Bowel Sounds, Soft. absent: Tenderness - Extremities Exam Extremities exam: Positive for: normal inspection. Negative for: calf tenderness, pedal edema - Neurological Exam Neurological exam: Alert, Oriented x3 - Psychiatric Exam Psychiatric exam: Normal Mood - Skin Skin Exam: Dry, Normal Color, Warm Results - Vital Signs Recent Vital Signs: Last Vital Signs Temp 97.4 F L 11/03/18 00:30 Pulse 77 11/03/18 04:03 Resp 17 11/03/18 04:03 BP 137/62 11/03/18 04:24 Pulse Ox 100 11/03/18 04:27 - Labs Result Diagrams: 11/03/18 01:23 11/03/18 01:23 Labs: Laboratory Results - last 24 hr 11/03/18 11/03/18 01:23 01:23 WBC 15.5 H D RBC 3.90 Hgb 9.2 L Hct 29.1 L MCV 74.5 L MCH 23.5 L MCHC 31.6 L RDW 22.7 H Plt Count 385 MPV 8.1 Neut % (Auto) 92.4 H Lymph % (Auto) 4.9 L [place] % (Auto) 2.6 Eos % (Auto) 0.0 Baso % (Auto) 0.1 Neut # (Auto) 14.3 H Lymph # (Auto) 0.8 L [place] # (Auto) 0.4 Eos # (Auto) 0.0 Baso # (Auto) 0.0 Neutrophils % (Manual) 91 H Lymphocytes % (Manual) 7 L Monocytes % (Manual) 2 Platelet Estimate Normal Hypochromasia (manual) Slight Anisocytosis (manual) Slight Macrocytosis (manual) Slight Ovalocytes Slight Stomatocytes Slight Sodium 139 Potassium 3.8 Chloride 95 L Carbon Dioxide 32 H Anion Gap 16 BUN 68 H Creatinine 1.4 H Est GFR ( Amer) 43 Est GFR (Non-Af Amer) 36 Random Glucose 156 H Calcium 9.1 Troponin I 1.1300 H* NT-Pro-B Natriuret Pep 88489 H Assessment & Plan - Assessment and Plan (Free Text) Assessment: Assessment/Plan: 87 YO Female with PMHx of DVT/PE, COPD, Gastritis, HTN, Chronic Kidney Disease, 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 Acute respiratory failure -acute on chronic -likely 2/2 to CHF and COPD exacerbation -elevated troponin likely 2/2 to CHF, and pro-BNP 30,000+ -CXR noted; worsening pulmonary congestion when compared to previous XR -ECHO sig for compromised left ventricular systolic function, EF 20-25% (10/2018) -continue bipap to optimize oxygenation and work of breathing -c/w IV steroids (increase frequency and dosage), IV lasix (increase dosage), IV abx, breathing tx eddi -Cardiology and pulmonary consulted; follow up recs -abg repeat AM -CXR done in TCU, follow up official read DVT prolx -SCDs
[2018-11-03 05:49] LABS: ABG ALLEN TEST YES; ARTERIAL BLOOD GAS HCO3 31.2 mmol/L (21-28); ARTERIAL BLOOD GAS HEMOGLOBIN 9.2 g/dL (11.7-17.4); ARTERIAL BLOOD GAS O2 CAPACITY 12.5 mL/dL (16-24); ARTERIAL BLOOD GAS O2 CONTENT 12.6 ML/dL (15-23); ARTERIAL BLOOD GAS O2 SAT 100.9 % (95-98); ARTERIAL BLOOD GAS PCO2 49 mm/Hg (35-45); ARTERIAL BLOOD GAS PH 7.44 (7.35-7.45); ARTERIAL BLOOD GAS PO2 96 mm/Hg (80-100); ARTERIAL BLOOD GAS TCO2 34.8 mmol/L (22-28)
[2018-11-03] MEDS ORDERED: Albuterol-Ipratrop 3 mg / 0.5 (3 ml) UD IH SCH (06:00)
[2018-11-03] MEDS: Albuterol-Ipratrop 3 mg / 0.5 (3 ml) UD INH SCH ×5 (07:13→23:29)
[2018-11-03] MEDS: Pantoprazole 40 mg EC Tab PO SCH (08:28)
[2018-11-03] MEDS: Potassium Chloride 20 mEq ER Tab PO SCH (08:28)
[2018-11-03] MEDS: FLUTICASONE PROPION/SALMETEROL 113-14 IH SCH ×2 (08:30→21:16)
[2018-11-03] MEDS: Azithromycin 500 MG in Sodium Chloride 0.9% 250 ML IVPB SCH (08:31)
[2018-11-03] MEDS: Multivitamin With Minerals Tab PO SCH (08:31)
[2018-11-03] MEDS ORDERED: Enoxaparin 40 mg Syringe SC SCH (09:00)
[2018-11-03] MEDS ORDERED: cefTRIAXone IV 1 gm in Dextros 50 ML BAG IVPB SCH (09:00)
[2018-11-03] MEDS ORDERED: FLUTICASONE PROPION/SALMETEROL 113-14 IH SCH (09:00)
[2018-11-03] MEDS ORDERED: MethylPREDNISolone 40 mg Vial IVP SCH (09:00)
--- NOTE | 2018-11-03 10:19 | CP.PCM.CON ---
History of Present Illness - History of Present Illness History of Present Illness: This 87-year-old female who was seen in the transitional care unit yesterday was transferred to the acute care section of this facility last night when she became profoundly short of breath. She was brought to the telemetry unit given intravenous diuretics and diuresed profusely and reports significant relief of her symptoms. Telemetry shows sinus rhythm with an atrial sensed and ventricular paced rhythm. Her blood pressure is 134/70mmHg because of a short thick neck her jugular venous pressure cannot be assessed. There were very few basal rales. There was no gallop rhythm and a brief apical systolic murmur of mitral regurgitation was evident. Her extremities were warm her nailbeds were pink. There was no central or peripheral cyanosis. There was no clubbing. Abdomen was soft liver and spleen are not palpable. Her labs show a markedly elevated proBNP greater than 30,000 pg/mL microcytic anemia and moderately elevated BUN/creatinine. Her blood gases show significantly elevated PCO2 indicating hypoventilation. Her pH was normal on FiO2 of 60%. Impression: Pulmonary edema in a patient with left ventricular systolic dysfunction with an acute on chronic congestive heart failure. ) Her e chocardiogram shows severe wall motion abnormalities with a depressed left ventricular ejection fraction. ) Patient also has chronic obesity with hypoventilation syndrome. Hypertension. 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 History of COPD and bronchial asthma. Patient will continue to receive IV diuretics to prevent volume overload. Rest of her management appears to be appropriate. I have discussed her case with her pulmonary physician. Past Patient History - Past Medical History & Family History Past Medical History?: Yes - Past Social History Smoking Status: Never Smoked - CARDIAC Hx Congestive Heart Failure: Yes Hx Hypertension: Yes Hx Pacemaker: Yes - PULMONARY Hx Chronic Obstructive Pulmonary Disease (COPD): Yes - NEUROLOGICAL Hx Neurological Disorder: No - HEENT Hx HEENT Problems: Yes - RENAL Hx Chronic Kidney Disease: Yes - ENDOCRINE/METABOLIC Hx Endocrine Disorders: Yes Hx Diabetes Mellitus Type 2: Yes - HEMATOLOGICAL/ONCOLOGICAL Hx Blood Disorders: No Hx AIDS: No Hx Human Immunodeficiency Virus (HIV): No - INTEGUMENTARY Hx Dermatological Problems: No - MUSCULOSKELETAL/RHEUMATOLOGICAL Hx Falls: No Hx Fractures: Yes - GASTROINTESTINAL Hx Gastritis: Yes - GENITOURINARY/GYNECOLOGICAL Hx Genitourinary Disorders: No - PSYCHIATRIC Hx Substance Use: No - SURGICAL HISTORY Hx Surgeries: Yes Other/Comment: repair of stomach ulcer bleed, pacemaker, fracture repair - ANESTHESIA Hx Anesthesia: Yes Hx Anesthesia Reactions: No Hx Malignant Hyperthermia: No Meds Allergies/Adverse Reactions: Allergies Allergy/AdvReac Type Severity Reaction Status Date / Time No Known Allergies Allergy Verified 11/03/18 00:35 - Medications Medications: Current Medications Acetaminophen (Tylenol 325mg Tab) 650 mg PO Q6 PRN PRN Reason: Pain, Mild (1-3) Acetaminophen (Tylenol 325mg Tab) 650 mg PO Q6 PRN PRN Reason: Fever >100.4 F Albuterol/Ipratropium (Duoneb 3 Mg/0.5 Mg (3 Ml) Ud) 3 ml INH RQ4 [facility] Last Admin: 11/03/18 07:13 Dose: 3 ml Amlodipine Besylate (Norvasc) 10 mg PO DAILY [facility] Last Admin: 11/03/18 08:31 Dose: 10 mg Aspirin (Ecotrin) 81 mg PO DAILY [facility] Last Admin: 11/03/18 08:29 Dose: 81 mg Atorvastatin Calcium (Lipitor) 20 mg PO [facility] Carvedilol (Coreg) 3.125 mg PO Q12 [facility] Last Admin: 11/03/18 08:29 Dose: 3.125 mg Furosemide (Lasix) 60 mg IV Q12 [facility] Last Admin: 11/03/18 08:30 Dose: 60 mg Heparin Sodium (Porcine) (Heparin) 5,000 units SC Q8 [facility]; Protocol Last Admin: 11/03/18 08:29 Dose: 5,000 units Hydralazine HCl (Apresoline) 10 mg PO TID [facility] Last Admin: 11/03/18 08:29 Dose: 10 mg Azithromycin 500 mg/ Sodium (Chloride) 250 mls @ 250 mls/hr IVPB DAILY [facility] Last Admin: 11/03/18 08:31 Dose: 250 mls/hr Ceftriaxone Sodium 1 gm/ (Sodium Chloride) 100 mls @ 100 mls/hr IVPB DAILY [facility] Last Admin: 11/03/18 08:37 Dose: 100 mls/hr Magnesium Hydroxide (Milk Of Magnesia) 30 ml PO DAILY PRN PRN Reason: Constipation Methylprednisolone (Solu-Medrol) 60 mg IVP Q8 [facility] Last Admin: 11/03/18 09:06 Dose: 60 mg Multivitamins/Minerals (Therapeutic-M Tab) 1 tab PO DAILY [facility] Last Admin: 11/03/18 08:31 Dose: 1 tab Pantoprazole Sodium (Protonix Ec Tab) 40 mg PO DAILY [facility] Last Admin: 11/03/18 08:28 Dose: 40 mg Potassium Chloride (K-Dur 20 Meq Er Tab) 20 meq PO DAILY [facility] Last Admin: 11/03/18 08:28 Dose: 20 meq Results - Vital Signs Recent Vital Signs: Last Vital Signs Temp 97.6 F 11/03/18 08:00 Pulse 90 11/03/18 08:31 Resp 20 11/03/18 08:00 BP 128/78 11/03/18 08:31 Pulse Ox 99 11/03/18 08:00 - Labs Result Diagrams: 11/03/18 01:23 11/03/18 01:23 Labs: Laboratory Results - last 24 hr 11/03/18 11/03/18 11/03/18 01:23 01:23 05:45 WBC 15.5 H D RBC 3.90 Hgb 9.2 L Hct 29.1 L MCV 74.5 L MCH 23.5 L MCHC 31.6 L RDW 22.7 H Plt Count 385 MPV 8.1 Neut % (Auto) 92.4 H Lymph % (Auto) 4.9 L [place] % (Auto) 2.6 Eos % (Auto) 0.0 Baso % (Auto) 0.1 Neut # (Auto) 14.3 H Lymph # (Auto) 0.8 L [place] # (Auto) 0.4 Eos # (Auto) 0.0 Baso # (Auto) 0.0 Neutrophils % (Manual) 91 H Lymphocytes % (Manual) 7 L Monocytes % (Manual) 2 Platelet Estimate Normal Hypochromasia (manual) Slight Anisocytosis (manual) Slight Macrocytosis (manual) Slight Ovalocytes Slight Stomatocytes Slight pCO2 49 H pO2 96 HCO3 31.2 H ABG pH 7.44 ABG Total CO2 34.8 H ABG O2 Saturation 100.9 H ABG O2 Content 12.6 L ABG Base Excess 8.1 H ABG Hemoglobin 9.2 L ABG Carboxyhemoglobin 2.5 H POC ABG HHb (Measured) -0.9 L ABG Methemoglobin 2.2 ABG O2 Capacity 12.5 L Andres Test Yes A-a O2 Difference 271.0 Hgb O2 Saturation 96.2 Vent Mode Bipap FiO2 60.0 Inspiratory BiPAP 10 Expiratory BiPAP 5 Sodium 139 Potassium 3.8 Chloride 95 L Carbon Dioxide 32 H Anion Gap 16 BUN 68 H Creatinine 1.4 H Est GFR ( Amer) 43 Est GFR (Non-Af Amer) 36 Random Glucose 156 H Calcium 9.1 Troponin I 1.1300 H* NT-Pro-B Natriuret Pep 29111 H
--- NOTE | 2018-11-03 15:34 | CON ---
DATE: 11/03/2018 HISTORY OF PRESENT ILLNESS: Ms. Ochoa is an 87-year-old female who was transferred from the Transitional Care Unit down to telemetry because of respiratory failure. She has a history of chronic obstructive pulmonary disease, hypertension, congestive heart failure, cardiac disease, intracranial bleed in the past. She became progressively short of breath last night and was transferred back to telemetry for monitoring because of severe hypoxia. She received bronchodilators and was placed on BiPAP. She presently is awake, alert and oriented and feels better. FAMILY HISTORY: Noncontributory. SOCIAL HISTORY: She does not drink or smoke. PAST SURGICAL HISTORY: She had a pacemaker placed in 2017. PHYSICAL EXAMINATION: GENERAL: The patient is alert, awake and oriented; still on BiPAP. VITAL SIGNS: Blood pressure of 128/78, pulse of 90, respiratory rate is 20 per minute. O2 sat 99%. HEENT: Mouth shows fair hygiene. LUNGS: Fair aeration with some basal rales and mild wheezing. HEART: Irregular rhythm. ABDOMEN: Soft, nontender. No organomegaly. EXTREMITIES: Trace edema. CENTRAL NERVOUS SYSTEM: The patient is awake, alert and oriented. LABORATORY DATA: WBC of 15.5, hemoglobin 9.2, platelet count 385. Sodium 139, potassium 3.8, BUN of 68, and creatinine 1.4. Troponin 1.13. ProBNP 30,800. ABGs; pH 7.44, pCO2 of 49, pO2 of 96; this is on BiPAP. IMPRESSION: Hypercapnic respiratory failure, probably secondary to exacerbation of chronic obstructive pulmonary disease with superimposed congestive heart failure. Elevated troponin, one has to rule out acute coronary syndrome. PLAN: Continue bronchodilator therapy and BiPAP. Cardiology evaluation would be indicated. We will continue therapy as ordered. Dennis Anton MD
--- NOTE | 2018-11-03 17:32 | CARD ---
APPROVED REPORT Date of service: 11/03/2018 EKG Measurement Heart [id number] [id number] <Conclusion> Atrial-sensed ventricular-paced rhythm with premature atrial complexes with aberrant conduction Abnormal ECG
[2018-11-04] MEDS: Albuterol-Ipratrop 3 mg / 0.5 (3 ml) UD INH SCH ×6 (04:10→23:43)
[2018-11-04 05:59] LABS: HEMOGLOBIN 9.1 g/dL (12.0-16.0); MEAN CELL VOLUME 74.1 fl (81.0-99.0); MEAN CORPUSCULAR HEMOGLOBIN 23.3 pg (27.0-31.0); MEAN CORPUSCULAR HGB CONC 31.5 g/dL (33.0-37.0); RBC 3.89 Mil/uL (3.80-5.20); RED CELL DISTRIBUTION WIDTH 23.4 % (11.5-14.5); WHITE BLOOD COUNT 12.7 K/uL (4.8-10.8)
[2018-11-04 06:40] LABS: ALBUMIN 4.1 g/dL (3.5-5.0); CALCIUM 9.2 mg/dL (8.4-10.2)
--- NOTE | 2018-11-04 07:41 | CP.PCM.PN ---
Subjective - Date & Time of Evaluation Date of Evaluation: 11/04/18 Time of Evaluation: 07:40 - Subjective Subjective: The patient has been comfortable overnight while on the BiPAP machine and has is stable O2 saturation when placed on oxygen supplement by nasal cannula during meals. Telemetry shows steady sinus rhythm with atrial sensed and ventricular paced rhythm. Her blood pressure is 136/74 mmHg. Her inspiratory effort is poor but no rales are audible. The patient has diuresed well with intravenous furosemide. Today's labs show a rising BUN to 72 mg percent and creatinine to 1.5 mg percent. Her GFR has dropped to 33 mL/min. Her sodium and potassium levels were normal. Following this morning's IV Lasix dose she will be switched to oral Lasix The patient then may be sent to subacute rehabilitation for eventual discharge t o home. Objective - Vital Signs/Intake and Output Vital Signs (last 24 hours): Temp Pulse Resp BP Pulse Ox 97.9 F 88 18 142/87 100 11/04/18 04:20 11/04/18 07:32 11/04/18 04:20 11/04/18 04:20 11/04/18 04:20 Intake and Output: 11/04/18 11/04/18 06:59 18:59 Output Total 800 Balance -800 - Medications Medications: Current Medications Acetaminophen (Tylenol 325mg Tab) 650 mg PO Q6 PRN PRN Reason: Pain, Mild (1-3) Acetaminophen (Tylenol 325mg Tab) 650 mg PO Q6 PRN PRN Reason: Fever >100.4 F Albuterol/Ipratropium (Duoneb 3 Mg/0.5 Mg (3 Ml) Ud) 3 ml INH RQ4 [facility] Last Admin: 11/04/18 07:39 Dose: 3 ml Amlodipine Besylate (Norvasc) 10 mg PO DAILY [facility] Last Admin: 11/03/18 08:31 Dose: 10 mg Aspirin (Ecotrin) 81 mg PO DAILY [facility] Last Admin: 11/03/18 08:29 Dose: 81 mg Atorvastatin Calcium (Lipitor) 20 mg PO HS [facility] Last Admin: 11/03/18 21:16 Dose: 20 mg Carvedilol (Coreg) 3.125 mg PO Q12 [facility] Last Admin: 11/03/18 21:16 Dose: 3.125 mg Furosemide (Lasix) 60 mg IV Q12 [facility] Last Admin: 11/03/18 21:17 Dose: 60 mg Heparin Sodium (Porcine) (Heparin) 5,000 units SC Q8 [facility]; Protocol Last Admin: 11/04/18 00:57 Dose: 5,000 units Hydralazine HCl (Apresoline) 10 mg PO TID [facility] Last Admin: 11/03/18 16:24 Dose: 10 mg Azithromycin 500 mg/ Sodium (Chloride) 250 mls @ 250 mls/hr IVPB DAILY [facility] Last Admin: 11/03/18 08:31 Dose: 250 mls/hr Ceftriaxone Sodium 1 gm/ (Sodium Chloride) 100 mls @ 100 mls/hr IVPB DAILY [facility] Last Admin: 11/03/18 08:37 Dose: 100 mls/hr Magnesium Hydroxide (Milk Of Magnesia) 30 ml PO DAILY PRN PRN Reason: Constipation Methylprednisolone (Solu-Medrol) 60 mg IVP Q8 [facility] Last Admin: 11/04/18 00:58 Dose: 60 mg Multivitamins/Minerals (Therapeutic-M Tab) 1 tab PO DAILY [facility] Last Admin: 11/03/18 08:31 Dose: 1 tab Pantoprazole Sodium (Protonix Ec Tab) 40 mg PO DAILY [facility] Last Admin: 11/03/18 08:28 Dose: 40 mg Potassium Chloride (K-Dur 20 Meq Er Tab) 20 meq PO DAILY [facility] Last Admin: 11/03/18 08:28 Dose: 20 meq - Labs Labs: 11/04/18 04:25 11/04/18 04:25
[2018-11-04] MEDS: FLUTICASONE PROPION/SALMETEROL 113-14 IH SCH ×2 (09:18→20:23)
[2018-11-04] MEDS: Potassium Chloride 20 mEq ER Tab PO SCH (09:24)
--- NOTE | 2018-11-04 09:30 | CP.PCM.PN ---
Subjective - Date & Time of Evaluation Date of Evaluation: 11/04/18 Time of Evaluation: 09:31 - Subjective Subjective: CLINICALLY IMPROVED SOB RESOLVED AWAKE AND ALERT ON 02 VIA NE Objective - Vital Signs/Intake and Output Vital Signs (last 24 hours): Temp Pulse Resp BP Pulse Ox 97.4 F L 80 20 138/87 100 11/04/18 08:23 11/04/18 09:21 11/04/18 08:23 11/04/18 09:21 11/04/18 08:23 Intake and Output: 11/04/18 11/04/18 06:59 18:59 Output Total 800 Balance -800 - Medications Medications: Current Medications Acetaminophen (Tylenol 325mg Tab) 650 mg PO Q6 PRN PRN Reason: Pain, Mild (1-3) Acetaminophen (Tylenol 325mg Tab) 650 mg PO Q6 PRN PRN Reason: Fever >100.4 F Albuterol/Ipratropium (Duoneb 3 Mg/0.5 Mg (3 Ml) Ud) 3 ml INH RQ4 [facility] Last Admin: 11/04/18 07:39 Dose: 3 ml Amlodipine Besylate (Norvasc) 10 mg PO DAILY [facility] Last Admin: 11/03/18 08:31 Dose: 10 mg Aspirin (Ecotrin) 81 mg PO DAILY [facility] Last Admin: 11/04/18 09:21 Dose: 81 mg Atorvastatin Calcium (Lipitor) 20 mg PO HS [facility] Last Admin: 11/03/18 21:16 Dose: 20 mg Carvedilol (Coreg) 3.125 mg PO Q12 [facility] Last Admin: 11/04/18 09:21 Dose: 3.125 mg Furosemide (Lasix) 40 mg PO DAILY [facility] Heparin Sodium (Porcine) (Heparin) 5,000 units SC Q8 [facility]; Protocol Last Admin: 11/04/18 09:22 Dose: 5,000 units Hydralazine HCl (Apresoline) 10 mg PO TID [facility] Last Admin: 11/04/18 09:19 Dose: 10 mg Azithromycin 500 mg/ Sodium (Chloride) 250 mls @ 250 mls/hr IVPB DAILY [facility] Last Admin: 11/03/18 08:31 Dose: 250 mls/hr Ceftriaxone Sodium 1 gm/ (Sodium Chloride) 100 mls @ 100 mls/hr IVPB DAILY [facility] Last Admin: 11/03/18 08:37 Dose: 100 mls/hr Magnesium Hydroxide (Milk Of Magnesia) 30 ml PO DAILY PRN PRN Reason: Constipation Methylprednisolone (Solu-Medrol) 60 mg IVP Q8 [facility] Last Admin: 11/04/18 00:58 Dose: 60 mg Multivitamins/Minerals (Therapeutic-M Tab) 1 tab PO DAILY [facility] Last Admin: 11/03/18 08:31 Dose: 1 tab Pantoprazole Sodium (Protonix Ec Tab) 40 mg PO DAILY [facility] Last Admin: 11/03/18 08:28 Dose: 40 mg Potassium Chloride (K-Dur 20 Meq Er Tab) 20 meq PO DAILY [facility] Last Admin: 11/04/18 09:24 Dose: 20 meq - Labs Labs: 11/04/18 04:25 11/04/18 04:25 - Constitutional Appears: No Acute Distress - Head Exam Head Exam: ATRAUMATIC, NORMAL INSPECTION, NORMOCEPHALIC - Eye Exam Eye Exam: EOMI, Normal appearance, PERRL Pupil Exam: NORMAL ACCOMODATION, PERRL - ENT Exam ENT Exam: Mucous Membranes Moist, Normal Exam - Neck Exam Neck Exam: Full ROM, Normal Inspection. absent: Lymphadenopathy - Respiratory Exam Respiratory Exam: Clear to Ausculation Bilateral, Prolonged Expiratory Phase, NORMAL BREATHING PATTERN - Cardiovascular Exam Cardiovascular Exam: REGULAR RHYTHM, +S1, +S2. absent: Murmur - GI/Abdominal Exam GI & Abdominal Exam: Soft, Normal Bowel Sounds. absent: Tenderness - Rectal Exam Rectal Exam: NORMAL INSPECTION - Extremities Exam Extremities Exam: Full ROM, Normal Capillary Refill, Normal Inspection. absent: Joint Swelling, Pedal Edema - Back Exam Back Exam: NORMAL INSPECTION - Neurological Exam Neurological Exam: Alert, Awake, CN II-XII Intact, Normal Gait, Oriented x3 - Psychiatric Exam Psychiatric exam: Normal Affect, Normal Mood - Skin Skin Exam: Dry, Intact, Normal Color, Warm Assessment and Plan - Assessment and Plan (Free Text) Assessment: RESPIRATORY FAILURE RESOLVED Plan: WILL D/C IV ANTIBIOTICS AND TAPER STEROIDS OK TO D/C FROM THE PULMONARY VIEW POINT
[2018-11-04] MEDS: Multivitamin With Minerals Tab PO SCH (09:31)
[2018-11-04] MEDS: Azithromycin 500 MG in Sodium Chloride 0.9% 250 ML IVPB SCH (09:32)
[2018-11-04] MEDS: Pantoprazole 40 mg EC Tab PO SCH (09:40)
--- NOTE | 2018-11-04 12:32 | PCM.PCON ---
History of Present Illness - History of Present Illness History of Present Illness: Palliative Consult requested by Dr. Garrett Reason: Goals of Care 87 year old female who presented from [facility] on 11/03/18 for worsening dyspnea overnight. Patient was recently admitted to the [facility] for COPD exacerbation requiring IV steroids that worsened despite multiple respiratory treatments. She was then transferred to the ED, where IV Lasix and steroids were administered without improvement, and then admitted to telemetry. Patient was originally admitted for COPD exacerbation and Acute CHF exacerbation on 10/29/2018. Patient currently receiving breathing treatment and endorses that her only complaint is shortness of breath. 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) Past Surgical History: Pacemaker (03/2017), Unspecified Bowel Surgery Family History: Unknown Social History: Denies any tobacco, alcohol or illicit drug use; Bedbound; Has visiting caregivers for several hours daily on weekdays; Daughter (Beckie Holman) provides further care and is surrogate decision maker; No advanced directive as per patient Home Medications: Reviewed; As per chart Labs: WBC downtrending to 12.7, H/H stable at 9.1/28.8; ABG CO2 elevated at 49; [id number]; Troponins downtrending to 1.1300; BUN/Cr elevated at 72/1.5; UA showed large leukocyte esterase, negative nitrate; Influenza A/B negative Chest X-Ray (10/29/18): Mild pulmonary vascular congestion/CHF Chest X-Ray (10/31/18): Possible very small right pleural effusion 2D Echocardiogram: LV systolic function moderately to severely impaired with LVEF of 20-25%; Severe pHTN; Moderate to severe MR and TR Review of Systems - Review of Systems Review of Systems: ROS: obtained from the patient at the bedside - Respiratory Respiratory: Dyspnea, Dyspnea on Exertion Physical Exam - Constitutional Appears: Chronically Ill - Head Exam Head Exam: ATRAUMATIC, NORMAL INSPECTION, NORMOCEPHALIC - Eye Exam Eye Exam: Normal appearance, PERRL - ENT Exam ENT Exam: Mucous Membranes Moist - Neck Exam Neck exam: Positive for: Normal Inspection - Respiratory Exam Additional comments: on 3L nc - Cardiovascular Exam Cardiovascular Exam: REGULAR RHYTHM - GI/Abdominal Exam GI & Abdominal Exam: Normal Bowel Sounds - Extremities Exam Extremities exam: Positive for: pedal pulses present - Neurological Exam Neurological exam: Alert, Oriented x3 - Psychiatric Exam Psychiatric exam: Anxious - Skin Skin Exam: Dry, Pallor, Warm Palliative Care - Goals Goal(s) of care: Palliative team had discussion with patient regarding goals of care and advanced care planning. Patient reports that her daughter, Beckie Hare, is her surrogate decision maker but that she does not have an advanced directive to her knowledge. Further discussions regarding resuscitation status were attempted but patient requested that her daughter make these decisions. She did give palliative team permission to contact her daughter to have this discussion or that the discussion can take place when her daughter is present at the hospital. Psychosocial support offered. Treatment Goal(s): Alleviate symptoms, Improve ADLs, Improve quality of life End of life care discussed: Yes Assessment & Plan - Assessment and Plan (Free Text) Assessment: There is no advanced directive in the chart Palliative Performance Scale 30% I reviewed medical records, diagnostic tests, examined and interviewed the patient in bed Impression Goals of care and advance care planning: COPD Exacerbation: CHF Exacerbation: Nutrition Bedbound Suggestion - Will continue Goals of Care conversations , Pending discussion with patients daughter, Beckie Hare. -Heart Healthy Carbohydrate Consistent Diet with Pro-Stat supplementation once daily -Assist with ADLs and reposition Q2h Palliative Care will remain on board as needed Time spent with patient 55 min
[2018-11-04] MEDS ORDERED: methylPREDNISolone 60 MG in Sodium Chloride 0.9% 50 ML IVP STA (13:20)
[2018-11-04] MEDS ORDERED: MethylPREDNISolone 40 mg Vial ONE (13:20)
[2018-11-04 13:27] LABS: ABG ALLEN TEST YES; ARTERIAL BLOOD GAS HCO3 27.8 mmol/L (21-28); ARTERIAL BLOOD GAS O2 SAT 77.2 % (95-98); ARTERIAL BLOOD GAS PCO2 54 mm/Hg (35-45); ARTERIAL BLOOD GAS PH 7.36 (7.35-7.45); ARTERIAL BLOOD GAS PO2 43 mm/Hg (80-100); ARTERIAL BLOOD GAS TCO2 32.2 mmol/L (22-28)
--- NOTE | 2018-11-04 14:32 | CP.PCM.PN ---
<Amanda Jimenes - Last Filed: 11/04/18 14:37> Subjective - Date & Time of Evaluation Date of Evaluation: 11/04/18 Time of Evaluation: 09:29 - Subjective Subjective: No acute overnight events. Patient seen and examined bedside with Dr. Garrett. Currently on BIPAP, feeling better today. Patient seen by pulmonary - BIPAP d/c and placed on O2 via NC at 3L and patient breathing comfortably. She was accepted for [facility] and cleared for discharge by pulmonary. This afternoon patient desaturated on O2 via NC and was placed nonrebreather but eventually placed on BIPAP due to O2 saturation of 85%, this improved slightly on BIPAP. ABG done while patient was on BIPAP revealed hypoxia and hypercarbia and lactic acidosis. Patient was transferred to ICU. Objective - Vital Signs/Intake and Output Vital Signs (last 24 hours): Temp Pulse Resp BP Pulse Ox 97.4 F L 84 20 138/87 100 11/04/18 08:23 11/04/18 14:17 11/04/18 08:23 11/04/18 09:41 11/04/18 08:23 Intake and Output: 11/04/18 11/04/18 06:59 18:59 Output Total 800 Balance -800 - Medications Medications: Current Medications Acetaminophen (Tylenol 325mg Tab) 650 mg PO Q6 PRN PRN Reason: Pain, Mild (1-3) Acetaminophen (Tylenol 325mg Tab) 650 mg PO Q6 PRN PRN Reason: Fever >100.4 F Albuterol/Ipratropium (Duoneb 3 Mg/0.5 Mg (3 Ml) Ud) 3 ml INH RQ4 [facility] Last Admin: 11/04/18 11:48 Dose: 3 ml Amlodipine Besylate (Norvasc) 10 mg PO DAILY [facility] Last Admin: 11/03/18 08:31 Dose: 10 mg Aspirin (Ecotrin) 81 mg PO DAILY [facility] Last Admin: 11/04/18 09:21 Dose: 81 mg Atorvastatin Calcium (Lipitor) 20 mg PO HS [facility] Last Admin: 11/03/18 21:16 Dose: 20 mg Carvedilol (Coreg) 3.125 mg PO Q12 [facility] Last Admin: 11/04/18 09:21 Dose: 3.125 mg Furosemide (Lasix) 40 mg PO DAILY [facility] Last Admin: 11/04/18 09:41 Dose: 40 mg Furosemide (Lasix) 40 mg IV Q8 [facility] Heparin Sodium (Porcine) (Heparin) 5,000 units SC Q8 [facility]; Protocol Last Admin: 11/04/18 09:22 Dose: 5,000 units Hydralazine HCl (Apresoline) 10 mg PO TID [facility] Last Admin: 11/04/18 09:19 Dose: 10 mg Azithromycin 500 mg/ Sodium (Chloride) 250 mls @ 250 mls/hr IVPB DAILY [facility] Last Admin: 11/04/18 09:32 Dose: 250 mls/hr Vancomycin HCl 1 gm/ Sodium (Chloride) 250 mls @ 166.667 mls/hr IVPB DAILY [facility]; Protocol Piperacillin Sod/Tazobactam (Sod 2.25 gm/ Sodium Chloride) 100 mls @ 100 mls/hr IVPB Q6 [facility]; Protocol Magnesium Hydroxide (Milk Of Magnesia) 30 ml PO DAILY PRN PRN Reason: Constipation Multivitamins/Minerals (Therapeutic-M Tab) 1 tab PO DAILY [facility] Last Admin: 11/04/18 09:31 Dose: 1 tab Pantoprazole Sodium (Protonix Ec Tab) 40 mg PO DAILY [facility] Last Admin: 11/04/18 09:40 Dose: 40 mg Potassium Chloride (K-Dur 20 Meq Er Tab) 20 meq PO DAILY [facility] Last Admin: 11/04/18 09:24 Dose: 20 meq Prednisone (Prednisone Tab) 20 mg PO DAILY [facility] - Labs Labs: 11/04/18 04:25 11/04/18 04:25 - Constitutional Appears: In Acute Distress (acute respiratory distress) - Respiratory Exam Respiratory Exam: Accessory Muscle Use, Decreased Breath Sounds, Prolonged Expiratory Phase, Wheezes, Respiratory Distress - Cardiovascular Exam Cardiovascular Exam: REGULAR RHYTHM, RRR, +S1, +S2 Additional comments: distant heart sounds - GI/Abdominal Exam GI & Abdominal Exam: Soft. 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 PE. On admission elevated pro-BNP 30,000+. CXR noted; worsening pulmonary congestion when compared to previous XR. ECHO sig for compromised left ventricular systolic function, EF 20-25% (10/2018). Continue with diuresis and steroids. Acute hypoxic respiratory failure Systolic CHF COPD CKD Stage 3 HX of Hemorrhagic CVA HX of DVT/AR Continue with diuresis and steroids. Monitor respiratory status closely. Discuss goals of care with patient and family. C/w Heparin for DVT ppx Robert Jimenes PGY-3 <Torie Garrett - Last Filed: 11/04/18 15:25> Objective - Vital Signs/Intake and Output Vital Signs (last 24 hours): Temp Pulse Resp BP Pulse Ox 97.4 F L 84 20 148/73 100 11/04/18 08:23 11/04/18 14:17 11/04/18 08:23 11/04/18 13:19 11/04/18 08:23 Intake and Output: 11/04/18 11/04/18 06:59 18:59 Output Total 800 Balance -800 - Medications Medications: Current Medications Acetaminophen (Tylenol 325mg Tab) 650 mg PO Q6 PRN PRN Reason: Pain, Mild (1-3) Acetaminophen (Tylenol 325mg Tab) 650 mg PO Q6 PRN PRN Reason: Fever >100.4 F Albuterol/Ipratropium (Duoneb 3 Mg/0.5 Mg (3 Ml) Ud) 3 ml INH RQ4 [facility] Last Admin: 11/04/18 11:48 Dose: 3 ml Amlodipine Besylate (Norvasc) 10 mg PO DAILY [facility] Last Admin: 11/03/18 08:31 Dose: 10 mg Aspirin (Ecotrin) 81 mg PO DAILY [facility] Last Admin: 11/04/18 09:21 Dose: 81 mg Atorvastatin Calcium (Lipitor) 20 mg PO HS [facility] Last Admin: 11/03/18 21:16 Dose: 20 mg Carvedilol (Coreg) 3.125 mg PO Q12 [facility] Last Admin: 11/04/18 09:21 Dose: 3.125 mg Furosemide (Lasix) 40 mg IV Q8 [facility] Heparin Sodium (Porcine) (Heparin) 5,000 units SC Q8 [facility]; Protocol Last Admin: 11/04/18 09:22 Dose: 5,000 units Hydralazine HCl (Apresoline) 10 mg PO TID [facility] Last Admin: 11/04/18 09:19 Dose: 10 mg Azithromycin 500 mg/ Sodium (Chloride) 250 mls @ 250 mls/hr IVPB DAILY [facility] Last Admin: 11/04/18 09:32 Dose: 250 mls/hr Vancomycin HCl 1 gm/ Sodium (Chloride) 250 mls @ 166.667 mls/hr IVPB DAILY [facility]; Protocol Piperacillin Sod/Tazobactam (Sod 2.25 gm/ Sodium Chloride) 100 mls @ 100 mls/hr IVPB Q6 [facility]; Protocol Magnesium Hydroxide (Milk Of Magnesia) 30 ml PO DAILY PRN PRN Reason: Constipation Multivitamins/Minerals (Therapeutic-M Tab) 1 tab PO DAILY [facility] Last Admin: 11/04/18 09:31 Dose: 1 tab Pantoprazole Sodium (Protonix Ec Tab) 40 mg PO DAILY [facility] Last Admin: 11/04/18 09:40 Dose: 40 mg Potassium Chloride (K-Dur 20 Meq Er Tab) 20 meq PO DAILY [facility] Last Admin: 11/04/18 09:24 Dose: 20 meq - Labs Labs: 11/04/18 04:25 11/04/18 04:25 Attending/Attestation - Attestation I have personally seen and examined this patient.: Yes I have fully participated in the care of the patient.: Yes I have reviewed all pertinent clinical information, including history, physical exam and plan: Yes Notes (Text): Acute on Chronic Hypercapneic and Hypoxemic Respiratory Failure Acute on Chronic CHF systolic and Diastolic dysfunction with EF 20% Pulmonary Edema ? Pneumonia Severe Pulmonary Hypertension COPD exacerbation History of PE/DVT History of Intracerebral Bleed Lactic Acidosis RANDOLPH on CKD Stage III DVT prophylaxis BUSINESS LIBRARIAN called due to SOB and desaturation in the 70s Pt placed back on Bipap IV Lasix 60 mg and IV Solumedrol and Duoneb tx given Pt transferred to ICU IV Solumedrol 60 mg q12 IV Lasix 40 mg iv 8 Zosyn 2.25 mg IV q6 Vanco 1 gram IV daily Cardio and Pulm on case CBC, CMP, Lactic acid, ProBNP, Blood c/s Pt is Full Code I had discussed Code Status with pt however she wants her daughter Beckie to make all the decisions for her. I spoke with pt's daughter Beckie and discussed test results, diagnoses, tx plan and prognosis. Pt has poor prognosis given her extensive medical problems . Beckie asked me to speak with her son who is a Respiratory Therapist ( Demetris) . Demetris will explain everything to the family and will get back to me regarding Code Status . Palliative Care RN consulted 11/04/18 15:24
--- NOTE | 2018-11-04 14:41 | RAD ---
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 TECHNIQUE: 1 view obtained. FINDINGS: LUNGS: Poor inspiration with low lung volumes common crowded bronchovascular markings and mild bibasilar atelectasis. Central pulmonary vasculature appears although improved from prior study. Findings could represent improving pulmonary venous congestion. Small bilateral effusions also felt to be present. PLEURA: No significant pleural effusion identified, no pneumothorax apparent. CARDIOVASCULAR: Heart appears enlarged.. Aortic atherosclerotic calcification present. Normal cardiac size. No pulmonary vascular congestion. OSSEOUS STRUCTURES: No significant abnormalities. VISUALIZED UPPER ABDOMEN: Normal. OTHER FINDINGS: None. IMPRESSION: Poor inspiration with low lung volumes common crowded bronchovascular markings and mild bibasilar atelectasis. Central pulmonary vasculature appears increased. Findings could represent improving pulmonary venous congestion. Small bilateral effusions also felt to be present. Small bilateral effusions also felt to be present.
[2018-11-04] MEDS ORDERED: Piperacillin/Tazobact 3.375 GM in Sodium Chloride 0.9% 100 ML IVPB SCH (16:00)
--- NOTE | 2018-11-04 16:11 | PCM.RRT ---
<Julian Yao - Last Filed: 11/04/18 17:32> KNOCKOUT MACHINE OPERATOR Nurse Assessment - Situation Location: 4n Room Number: 401-1 KNOCKOUT MACHINE OPERATOR Reason for Call: O2 Saturation below 90% KNOCKOUT MACHINE OPERATOR Called By: RN - IV IV Inserted during KNOCKOUT MACHINE OPERATOR?: Yes IV Fluids Initiated During KNOCKOUT MACHINE OPERATOR?: no New IV Insertion Tolerance:: Excellent - Respiratory Oxygen Delivery Method: BiPAP Received Nebulizer Treatments: No Was the Patient Ventilated with Bag/Mask 100% O2?: No Secretions Suctioned?: No Was the Patient Intubated?: No Was the Patient Placed on a Ventilator?: No - Ventilator Settings FIO2 (% Oxygen): 60 - Medication Medications Administered During KNOCKOUT MACHINE OPERATOR: lasix 60 mg IV, solumedrol 60 mg IV - Diagnostic Test Ordered EKG: Yes Chest X-Ray: No CT Scan: No - Stat Labs Ordered KNOCKOUT MACHINE OPERATOR Stat Labs Ordered: ABG CPR started during KNOCKOUT MACHINE OPERATOR?: No - Vital Signs Vital Signs: Rapid Response Vital Sign Blood Pressure 150/82 Oxygen Saturation 78 - Time KNOCKOUT MACHINE OPERATOR Ended Time KNOCKOUT MACHINE OPERATOR Ended: 13:30 - Vital Signs at end of KNOCKOUT MACHINE OPERATOR Vital Signs at end of KNOCKOUT MACHINE OPERATOR: Rapid Response End Vital Sign O2 Sat by Pulse Oximetry 85 - Recommendations KNOCKOUT MACHINE OPERATOR Level of Care Recommendations: Remain in current setting I.Reason for KNOCKOUT MACHINE OPERATOR - A) Acute Change in Patient: Subjective: 87 YO Female with PMHx of DVT/PE, COPD, Gastritis, HTN, Chronic Kidney Disease, 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 She was accepted for [facility] and cleared for discharge by pulmonary. KNOCKOUT MACHINE OPERATOR was called before she was discharge due to desaturation on o2 via NC. Patient ox was in 78 on nasal canula, ABG PO2 43, lactate was 6 H. After patient was placed on BiPAP oxygen and symptom slight improved but still hypoxic. Patient was transferred to ICU for further management X-ray Poor inspiration with low lung volumes common crowded bronchovascular markings and mild bibasilar atelectasis. Central pulmonary vasculature appears increased. Findings could represent improving pulmonary venous congestion. Small bilateral effusions also felt to be present. Small bilateral effusions also felt to be present. - Constitutional Appears: In Acute Distress - Head Head Exam: ATRAUMATIC, NORMAL INSPECTION, NORMOCEPHALIC - Eyes Eye Exam: EOMI, Normal appearance, PERRL - Respiratory Exam Respiratory Exam: Wheezes, Respiratory Distress Additional comments: on bipap - Cardiovascular Exam Cardiovascular Exam: REGULAR RHYTHM, +S1, +S2 - GI/Abdominal Exam GI & Abdominal Exam: Soft, Normal Bowel Sounds - Neurological Exam Neurological Exam: Alert, Awake <Torie Garrett - Last Filed: 11/04/18 18:22> KNOCKOUT MACHINE OPERATOR Nurse Assessment - Vital Signs Vital Signs: Rapid Response Vital Sign Blood Pressure 150/82 Oxygen Saturation 78 - Vital Signs at end of KNOCKOUT MACHINE OPERATOR Vital Signs at end of KNOCKOUT MACHINE OPERATOR: Rapid Response End Vital Sign O2 Sat by Pulse Oximetry 85 Attending/Attestation - Attestation I have personally seen and examined this patient.: Yes I have fully participated in the care of the patient.: Yes I have reviewed all pertinent clinical information, including history, physical exam and plan: Yes Notes (Text): KNOCKOUT MACHINE OPERATOR called due to Desaturation to the 70's Pt is dyspneic, denies CP BP stable alert, oriented Acute on Chronic Hypercapneic and Hypoxemic Respiratory Failure due to CHF and COPD exacerbation and poss HCAP PNA - Pt placed back on Bipap -stat IV Lasix 60 mg and IV Solumedrol 60 mg -CXR - ABG - EKG - Transfer to ICU -CBC, CMP, ProBNP, Trop, Lactic acid
[2018-11-04 16:17] LABS: BASO # 0.1 K/uL (0.0-0.2); BASO % 0.4 % (0.0-2.0); LYMPH # 0.5 K/uL (1.0-4.3); LYMPH % 3.5 % (20.0-40.0); MEAN CELL VOLUME 75.2 fl (81.0-99.0); MEAN CORPUSCULAR HEMOGLOBIN 23.8 pg (27.0-31.0); MEAN CORPUSCULAR HGB CONC 31.6 g/dL (33.0-37.0); MEAN PLATELET VOLUME 8.8 fl (7.2-11.7); MONO # 0.4 K/uL (0.0-0.8); MONO % 2.5 % (0.0-10.0); NEUT # 13.7 K/uL (1.8-7.0); NEUT % 93.6 % (50.0-75.0); NRBC % 0.2 % (0.0-0.0); PLATELET COUNT 311 K/uL (130-400); RBC 3.77 Mil/uL (3.80-5.20); RED CELL DISTRIBUTION WIDTH 24.5 % (11.5-14.5); WHITE BLOOD COUNT 14.6 K/uL (4.8-10.8)
--- NOTE | 2018-11-04 16:59 | CP.PCM.CON ---
<Francine Navarro - Last Filed: 11/04/18 16:13> History of Present Illness - History of Present Illness History of Present Illness: Consult Note for ICU Pt is an 87 y/o female with hx COPD, CHF w/ rEF (EF 20-25%), Bilateral PE (2017) ,DVT, Hemorrhagic CVA (2018), Pacemaker,Gastritis, HTN, CKD admitted on for worsening shortness of breath and hypoxia. Pt was noted to have significant pulmonary congestion and ProBNP 33k and has been receiving treatment w/ Intermittent NIPPV, bronchodilators, IV Steroids, and IV Lasix. [employer] was called today as pt was noted to be acutely sob and hypoxic with SaO2 in 70's. Pt was started on BIPAP with some improvement and given 60mg of Lasix IV. Pt will be ac cepted for ICU transfer for close monitoring of respiratory status. Past Patient History - Past Medical History & Family History Past Medical History?: Yes - Past Social History Smoking Status: Never Smoked - CARDIAC Hx Congestive Heart Failure: Yes Hx Hypertension: Yes Hx Pacemaker: Yes - PULMONARY Hx Chronic Obstructive Pulmonary Disease (COPD): Yes - NEUROLOGICAL Hx Neurological Disorder: No - HEENT Hx HEENT Problems: Yes - RENAL Hx Chronic Kidney Disease: Yes - ENDOCRINE/METABOLIC Hx Endocrine Disorders: Yes Hx Diabetes Mellitus Type 2: Yes - HEMATOLOGICAL/ONCOLOGICAL Hx Blood Disorders: No Hx AIDS: No Hx Human Immunodeficiency Virus (HIV): No - INTEGUMENTARY Hx Dermatological Problems: No - MUSCULOSKELETAL/RHEUMATOLOGICAL Hx Falls: No Hx Fractures: Yes - GASTROINTESTINAL Hx Gastritis: Yes - GENITOURINARY/GYNECOLOGICAL Hx Genitourinary Disorders: No - PSYCHIATRIC Hx Substance Use: No - SURGICAL HISTORY Hx Surgeries: Yes Other/Comment: repair of stomach ulcer bleed, pacemaker, fracture repair - ANESTHESIA Hx Anesthesia: Yes Hx Anesthesia Reactions: No Hx Malignant Hyperthermia: No Meds Allergies/Adverse Reactions: Allergies Allergy/AdvReac Type Severity Reaction Status Date / Time No Known Allergies Allergy Verified 11/03/18 00:35 - Medications Medications: Current Medications Acetaminophen (Tylenol 325mg Tab) 650 mg PO Q6 PRN PRN Reason: Pain, Mild (1-3) Acetaminophen (Tylenol 325mg Tab) 650 mg PO Q6 PRN PRN Reason: Fever >100.4 F Albuterol/Ipratropium (Duoneb 3 Mg/0.5 Mg (3 Ml) Ud) 3 ml INH RQ4 [facility] Last Admin: 11/04/18 15:53 Dose: 3 ml Amlodipine Besylate (Norvasc) 10 mg PO DAILY [facility] Last Admin: 11/03/18 08:31 Dose: 10 mg Aspirin (Ecotrin) 81 mg PO DAILY [facility] Last Admin: 11/04/18 09:21 Dose: 81 mg Atorvastatin Calcium (Lipitor) 20 mg PO HS [facility] Last Admin: 11/03/18 21:16 Dose: 20 mg Carvedilol (Coreg) 3.125 mg PO Q12 [facility] Last Admin: 11/04/18 09:21 Dose: 3.125 mg Furosemide (Lasix) 40 mg IV Q8 [facility] Heparin Sodium (Porcine) (Heparin) 5,000 units SC Q8 [facility]; Protocol Last Admin: 11/04/18 09:22 Dose: 5,000 units Hydralazine HCl (Apresoline) 10 mg PO TID [facility] Last Admin: 11/04/18 09:19 Dose: 10 mg Azithromycin 500 mg/ Sodium (Chloride) 250 mls @ 250 mls/hr IVPB DAILY [facility] Last Admin: 11/04/18 09:32 Dose: 250 mls/hr Vancomycin HCl 1 gm/ Sodium (Chloride) 250 mls @ 166.667 mls/hr IVPB DAILY [facility]; Protocol Piperacillin Sod/Tazobactam (Sod 2.25 gm/ Sodium Chloride) 100 mls @ 100 mls/hr IVPB Q6 [facility]; Protocol Magnesium Hydroxide (Milk Of Magnesia) 30 ml PO DAILY PRN PRN Reason: Constipation Multivitamins/Minerals (Therapeutic-M Tab) 1 tab PO DAILY [facility] Last Admin: 11/04/18 09:31 Dose: 1 tab Pantoprazole Sodium (Protonix Ec Tab) 40 mg PO DAILY [facility] Last Admin: 11/04/18 09:40 Dose: 40 mg Potassium Chloride (K-Dur 20 Meq Er Tab) 20 meq PO DAILY [facility] Last Admin: 11/04/18 09:24 Dose: 20 meq Physical Exam - Constitutional Appears: In Acute Distress (mild respiratory distress w/ BIPAP mask on ) - Head Exam Head Exam: NORMAL INSPECTION - Eye Exam Eye Exam: EOMI, Normal appearance - ENT Exam ENT Exam: Mucous Membranes Moist - Respiratory Exam Respiratory Exam: Accessory Muscle Use, Rales (scattered). absent: Wheezes - Cardiovascular Exam Cardiovascular Exam: REGULAR RHYTHM - GI/Abdominal Exam GI & Abdominal Exam: Normal Bowel Sounds, Soft. absent: Tenderness - Extremities Exam Extremities exam: Positive for: normal inspection. Negative for: pedal edema - Neurological Exam Neurological exam: Alert, Oriented x3 - Psychiatric Exam Psychiatric exam: Anxious - Skin Skin Exam: Normal Color Results - Vital Signs Recent Vital Signs: Last Vital Signs Temp 97.4 F L 11/04/18 08:23 Pulse 84 11/04/18 14:17 Resp 20 11/04/18 08:23 BP 148/73 11/04/18 13:19 Pulse Ox 100 11/04/18 08:23 - Labs Result Diagrams: 11/04/18 04:25 11/04/18 04:25 Labs: Laboratory Results - last 24 hr 11/04/18 11/04/18 11/04/18 04:25 04:25 04:41 WBC 12.7 H RBC 3.89 Hgb 9.1 L Hct 28.8 L MCV 74.1 L MCH 23.3 L MCHC 31.5 L RDW 23.4 H Plt Count 359 pCO2 pO2 HCO3 ABG pH ABG Total CO2 ABG O2 Saturation ABG Base Excess Andres Test ABG Potassium A-a O2 Difference Glucose Lactate FiO2 Crit Value Called To Crit Value Called By Crit Value Read Back Blood Gas Notified Time Sodium 142 Potassium 3.9 Chloride 96 L Carbon Dioxide 31 H Anion Gap 19 BUN 72 H Creatinine 1.5 H Est GFR ( Amer) 40 Est GFR (Non-Af Amer) 33 POC Glucose (mg/dL) 153 H Random Glucose 135 H Calcium 9.2 Total Bilirubin 0.4 AST 28 ALT 23 Alkaline Phosphatase 79 Total Protein 8.3 H Albumin 4.1 Globulin 4.2 H Albumin/Globulin Ratio 1.0 Arterial Blood Potassium 11/04/18 13:21 WBC RBC Hgb Hct MCV MCH MCHC RDW Plt Count pCO2 54 H pO2 43 L* HCO3 27.8 ABG pH 7.36 ABG Total CO2 32.2 H ABG O2 Saturation 77.2 L ABG Base Excess 4.2 H Andres Test Yes ABG Potassium 4.8 A-a O2 Difference 603.0 Glucose 205 H Lactate 6.0 H* FiO2 100.0 Crit Value Called To Dr shalini dunaway Crit Value Called By 15 Crit Value Read Back Y Blood Gas Notified Time 1325 Sodium 140.0 Potassium Chloride 100.0 Carbon Dioxide Anion Gap BUN Creatinine Est GFR ( Amer) Est GFR (Non-Af Amer) POC Glucose (mg/dL) Random Glucose Calcium Total Bilirubin AST ALT Alkaline Phosphatase Total Protein Albumin Globulin Albumin/Globulin Ratio Arterial Blood Potassium 4.8 Assessment & Plan - Assessment and Plan (Free Text) Assessment: Pt is an 87 y/o female with hx COPD, CHF w/ rEF (EF 20-25%), Bilateral PE (2017) ,DVT, Hemorrhagic CVA (2018), Pacemaker,Gastritis, HTN, CKD admitted on for worsening shortness of breath and hypoxia. Pt was noted to have significant pulmonary congestion, ProBNP 33k and has been receiving treatment w/ Intermittent NIPPV, bronchodilators, IV Steroids, and IV Lasix. [employer] was called today as pt was noted to be acutely sob and hypoxic with SaO2 in 70's. Pt was started on BIPAP with some improvement and given 60mg of Lasix IV. Pt will be accepted for ICU transfer for close monitoring of respiratory status. #Neuro - AAox3 #Cardio - Hx of mod-severe CHF w/ rEF (Last Echo 10/30 LVEF 20-25%) - S/P 60mg Lasix x1 - C/W diuresis - ProBNP 33k - Monitor I/O closely - Monitor weight daily; maintain negative balance - Continuous cardiac monitoring - Troponin 1.13 (trending down from 1.8), likely demand ischemia. EKG no acute ischemic findings, ventricular paced - Cardiology on board, Dr. Stein #Pulm - Acute hypoxic respiratory failure 2/2 COPD vs CHF exas. PE is possible but risk of treatment outweighs benefits - C/W BIPAP FIO2 80% IPAP/EPAP 03/21 - C/W Bronchodilators, IV Steroids - Maintain O2 sat > 90%. Wean O2 administration as tolerated - Pulmonology on board, Dr. Anton - F/U am ABG and Cxray #GI - Resume diet #Renal - RANDOLPH on CKD (baseline Crea 1 w/ GFR in 50's) - Creatine 1.5 - Avoid nephrotoxic medication - Monitor electrolytes #Endo - Hga1c 5.6 - F/U TSH #Heme/ID - Hg and platelet stable - Mild leukocytosis, likely 2/2 to steroids - Afebrile, no bandemia, Procalcitonin <0.05. Low clinical suspicion for underlying infection - Lactic acid 6 on ABG, likely Type A Lactic Acidosis from acute hypoxic respiratory failure #PPX -DVT Heparin 5000q8 -GI ppx, not indicated Discussed case with Dr. Antwon Navarro, PGY2 <Chidi Kapoor - Last Filed: 11/04/18 17:22> Meds - Medications Medications: Current Medications Acetaminophen (Tylenol 325mg Tab) 650 mg PO Q6 PRN PRN Reason: Pain, Mild (1-3) Acetaminophen (Tylenol 325mg Tab) 650 mg PO Q6 PRN PRN Reason: Fever >100.4 F Albuterol/Ipratropium (Duoneb 3 Mg/0.5 Mg (3 Ml) Ud) 3 ml INH RQ4 [facility] Last Admin: 11/04/18 15:53 Dose: 3 ml Amlodipine Besylate (Norvasc) 10 mg PO DAILY [facility] Last Admin: 11/04/18 16:25 Dose: Not Given Aspirin (Ecotrin) 81 mg PO DAILY [facility] Last Admin: 11/04/18 09:21 Dose: 81 mg Atorvastatin Calcium (Lipitor) 20 mg PO HS [facility] Last Admin: 11/03/18 21:16 Dose: 20 mg Carvedilol (Coreg) 3.125 mg PO Q12 [facility] Last Admin: 11/04/18 09:21 Dose: 3.125 mg Furosemide (Lasix) 40 mg IV Q8 [facility] Last Admin: 11/04/18 16:29 Dose: 40 mg Heparin Sodium (Porcine) (Heparin) 5,000 units SC Q8 [facility]; Protocol Last Admin: 11/04/18 16:28 Dose: 5,000 units Hydralazine HCl (Apresoline) 10 mg PO TID [facility] Last Admin: 11/04/18 16:24 Dose: Not Given Azithromycin 500 mg/ Sodium (Chloride) 250 mls @ 250 mls/hr IVPB DAILY [facility] Last Admin: 11/04/18 09:32 Dose: 250 mls/hr Vancomycin HCl 1 gm/ Sodium (Chloride) 250 mls @ 166.667 mls/hr IVPB DAILY [facility]; Protocol Last Admin: 11/04/18 16:32 Dose: 166.667 mls/hr Piperacillin Sod/Tazobactam (Sod 2.25 gm/ Sodium Chloride) 100 mls @ 100 mls/hr IVPB Q6 [facility]; Protocol Last Admin: 11/04/18 16:43 Dose: Not Given Magnesium Hydroxide (Milk Of Magnesia) 30 ml PO DAILY PRN PRN Reason: Constipation Multivitamins/Minerals (Therapeutic-M Tab) 1 tab PO DAILY [facility] Last Admin: 11/04/18 09:31 Dose: 1 tab Pantoprazole Sodium (Protonix Ec Tab) 40 mg PO DAILY [facility] Last Admin: 11/04/18 09:40 Dose: 40 mg Potassium Chloride (K-Dur 20 Meq Er Tab) 20 meq PO DAILY [facility] Last Admin: 11/04/18 09:24 Dose: 20 meq Results - Vital Signs Recent Vital Signs: Last Vital Signs Temp 97.1 F L 11/04/18 16:00 Pulse 80 11/04/18 16:00 Resp 26 H 11/04/18 16:00 BP 134/73 11/04/18 16:29 Pulse Ox 91 L 11/04/18 16:00 - Labs Result Diagrams: 11/04/18 15:45 11/04/18 04:25 Labs: Laboratory Results - last 24 hr 11/04/18 11/04/18 11/04/18 04:25 04:25 04:41 WBC 12.7 H RBC 3.89 Hgb 9.1 L Hct 28.8 L MCV 74.1 L MCH 23.3 L MCHC 31.5 L RDW 23.4 H Plt Count 359 MPV Neut % (Auto) Lymph % (Auto) [place] % (Auto) Eos % (Auto) Baso % (Auto) Neut # (Auto) Lymph # (Auto) [place] # (Auto) Eos # (Auto) Baso # (Auto) pCO2 pO2 HCO3 ABG pH ABG Total CO2 ABG O2 Saturation ABG Base Excess Andres Test ABG Potassium A-a O2 Difference Glucose Lactate FiO2 Crit Value Called To Crit Value Called By Crit Value Read Back Blood Gas Notified Time Sodium 142 Potassium 3.9 Chloride 96 L Carbon Dioxide 31 H Anion Gap 19 BUN 72 H Creatinine 1.5 H Est GFR ( Amer) 40 Est GFR (Non-Af Amer) 33 POC Glucose (mg/dL) 153 H Random Glucose 135 H Lactic Acid Calcium 9.2 Total Bilirubin 0.4 AST 28 ALT 23 Alkaline Phosphatase 79 Troponin I NT-Pro-B Natriuret Pep Total Protein 8.3 H Albumin 4.1 Globulin 4.2 H Albumin/Globulin Ratio 1.0 Arterial Blood Potassium 11/04/18 11/04/18 11/04/18 13:21 15:45 15:50 WBC 14.6 H RBC 3.77 L Hgb 9.0 L Hct 28.4 L MCV 75.2 L MCH 23.8 L MCHC 31.6 L RDW 24.5 H Plt Count 311 MPV 8.8 Neut % (Auto) 93.6 H Lymph % (Auto) 3.5 L [place] % (Auto) 2.5 Eos % (Auto) 0.0 Baso % (Auto) 0.4 Neut # (Auto) 13.7 H Lymph # (Auto) 0.5 L [place] # (Auto) 0.4 Eos # (Auto) 0.0 Baso # (Auto) 0.1 pCO2 54 H pO2 43 L* HCO3 27.8 ABG pH 7.36 ABG Total CO2 32.2 H ABG O2 Saturation 77.2 L ABG Base Excess 4.2 H Andres Test Yes ABG Potassium 4.8 A-a O2 Difference 603.0 Glucose 205 H Lactate 6.0 H* FiO2 100.0 Crit Value Called To Dr shalini dunaway Crit Value Called By 15 Crit Value Read Back Y Blood Gas Notified Time 1325 Sodium 140.0 Potassium Chloride 100.0 Carbon Dioxide Anion Gap BUN Creatinine Est GFR ( Amer) Est GFR (Non-Af Amer) POC Glucose (mg/dL) Random Glucose Lactic Acid Calcium Total Bilirubin AST ALT Alkaline Phosphatase Troponin I 0.7060 H* NT-Pro-B Natriuret Pep 21709 H Total Protein Albumin Globulin Albumin/Globulin Ratio Arterial Blood Potassium 4.8 11/04/18 15:55 WBC RBC Hgb Hct MCV MCH MCHC RDW Plt Count MPV Neut % (Auto) Lymph % (Auto) [place] % (Auto) Eos % (Auto) Baso % (Auto) Neut # (Auto) Lymph # (Auto) [place] # (Auto) Eos # (Auto) Baso # (Auto) pCO2 pO2 HCO3 ABG pH ABG Total CO2 ABG O2 Saturation ABG Base Excess Andres Test ABG Potassium A-a O2 Difference Glucose Lactate FiO2 Crit Value Called To Crit Value Called By Crit Value Read Back Blood Gas Notified Time Sodium Potassium Chloride Carbon Dioxide Anion Gap BUN Creatinine Est GFR ( Amer) Est GFR (Non-Af Amer) POC Glucose (mg/dL) Random Glucose Lactic Acid 3.1 H Calcium Total Bilirubin AST ALT Alkaline Phosphatase Troponin I NT-Pro-B Natriuret Pep Total Protein Albumin Globulin Albumin/Globulin Ratio Arterial Blood Potassium Attending/Attestation - Attestation I have personally seen and examined this patient.: Yes I have fully participated in the care of the patient.: Yes I have reviewed all pertinent clinical information: Yes Notes (Text): 11/04/18 17:18 I have seen and examined the patient. Medical records, lab studies, and imaging were reviewed by me and a management plan was formulated on multidisciplinary rounds with resident Dr. Navarro. I agree with their above documented assessment and plan. Patient was admitted for SOB secondary to COPD exacerbation with CHF exacerbation, put on BIPAP and diuresed with immediate improvement. Advanced directives discussed with soy, awaiting daughter for decision making. Critical Care Time minutes. Multi-disciplinary rounds were performed with house staff, nursing, speech therapy, respiratory therapy, pharmacy and nutrition with integrated input from the primary team/attending and other consulting services. The documented time is cumulative and includes review of patient data/exams/labs/chart review and examination of the patient on rounds and throughout the day; time is exclusive of any procedures or teaching time.
[2018-11-04 17:07] LABS: TROPONIN I 0.706 ng/mL (0.00-0.120)
[2018-11-04 17:39] LABS: LYMPHOCYTE 3 % (20-50); MONOCYTE 2 % (0-10); NEUTROPHIL 95 % (42-75); TOTAL CELLS COUNTED 100
[2018-11-04 17:40] LABS: ANISOCYTOSIS MODERATE; HYPOCHROMIC SLIGHT; PLATELET ESTIMATE NORMAL (NORMAL); POIKILOCYTOSIS SLIGHT
--- NOTE | 2018-11-04 19:59 | CARD ---
APPROVED REPORT Date of service: 11/04/2018 EKG Measurement Heart [id number] <Conclusion> Ventricular-paced rhythm Abnormal ECG
[2018-11-05] MEDS: Albuterol-Ipratrop 3 mg / 0.5 (3 ml) UD INH SCH ×6 (05:00→23:16)
[2018-11-05 05:27] LABS: ABG ALLEN TEST YES; ARTERIAL BLOOD GAS HCO3 35.1 mmol/L (21-28); ARTERIAL BLOOD GAS HEMOGLOBIN 9.2 g/dL (11.7-17.4); ARTERIAL BLOOD GAS O2 CAPACITY 12.6 mL/dL (16-24); ARTERIAL BLOOD GAS O2 CONTENT 11.8 ML/dL (15-23); ARTERIAL BLOOD GAS PCO2 47 mm/Hg (35-45); ARTERIAL BLOOD GAS PH 7.51 (7.35-7.45); ARTERIAL BLOOD GAS PO2 57 mm/Hg (80-100); ARTERIAL BLOOD GAS TCO2 38.9 mmol/L (22-28)
[2018-11-05 05:55] LABS: HEMOGLOBIN 8.7 g/dL (12.0-16.0); MEAN CELL VOLUME 74.3 fl (81.0-99.0); MEAN CORPUSCULAR HEMOGLOBIN 23.4 pg (27.0-31.0); MEAN CORPUSCULAR HGB CONC 31.5 g/dL (33.0-37.0); RBC 3.71 Mil/uL (3.80-5.20); RED CELL DISTRIBUTION WIDTH 25.2 % (11.5-14.5); WHITE BLOOD COUNT 11.6 K/uL (4.8-10.8)
[2018-11-05 05:57] LABS: ALBUMIN 3.9 g/dL (3.5-5.0); CALCIUM 8.9 mg/dL (8.4-10.2)
--- NOTE | 2018-11-05 07:20 | CP.PCM.PN ---
<Amanda Jimenes - Last Filed: 11/05/18 09:25> Subjective - Date & Time of Evaluation Date of Evaluation: 11/05/18 Time of Evaluation: 07:19 - Subjective Subjective: No acute overnight events. Patient very uncomfortable on BIPAP, to be switched to High Flow as per RN. Will continue to monitor respiratory status. Maintain O2 >90%. AB.51/47/57/35 Objective - Vital Signs/Intake and Output Vital Signs (last 24 hours): Temp Pulse Resp BP Pulse Ox 97.4 F L 86 26 H 124/61 91 L 11/05/18 04:00 11/05/18 06:00 11/05/18 06:00 11/05/18 06:00 11/05/18 06:00 Intake and Output: 11/05/18 11/05/18 06:59 18:59 Intake Total 200 Output Total 1200 Balance -1000 - Medications Medications: Current Medications Acetaminophen (Tylenol 325mg Tab) 650 mg PO Q6 PRN PRN Reason: Pain, Mild (1-3) Acetaminophen (Tylenol 325mg Tab) 650 mg PO Q6 PRN PRN Reason: Fever >100.4 F Albuterol/Ipratropium (Duoneb 3 Mg/0.5 Mg (3 Ml) Ud) 3 ml INH RQ4 [facility] Last Admin: 11/05/18 05:00 Dose: 3 ml Amlodipine Besylate (Norvasc) 10 mg PO DAILY [facility] Last Admin: 11/04/18 16:25 Dose: Not Given Aspirin (Ecotrin) 81 mg PO DAILY [facility] Last Admin: 11/04/18 09:21 Dose: 81 mg Atorvastatin Calcium (Lipitor) 20 mg PO HS [facility] Last Admin: 11/04/18 21:26 Dose: 20 mg Carvedilol (Coreg) 3.125 mg PO Q12 [facility] Last Admin: 11/04/18 20:24 Dose: 3.125 mg Furosemide (Lasix) 40 mg IV Q8 [facility] Last Admin: 11/05/18 02:00 Dose: 40 mg Heparin Sodium (Porcine) (Heparin) 5,000 units SC Q8 [facility]; Protocol Last Admin: 11/05/18 00:11 Dose: 5,000 units Hydralazine HCl (Apresoline) 10 mg PO TID [facility] Last Admin: 11/04/18 16:24 Dose: Not Given Azithromycin 500 mg/ Sodium (Chloride) 250 mls @ 250 mls/hr IVPB DAILY [facility] Last Admin: 11/04/18 09:32 Dose: 250 mls/hr Vancomycin HCl 1 gm/ Sodium (Chloride) 250 mls @ 166.667 mls/hr IVPB DAILY [facility]; Protocol Last Admin: 11/04/18 16:32 Dose: 166.667 mls/hr Piperacillin Sod/Tazobactam (Sod 2.25 gm/ Sodium Chloride) 100 mls @ 100 mls/hr IVPB Q6 [facility]; Protocol Last Admin: 11/05/18 03:13 Dose: 100 mls/hr Magnesium Hydroxide (Milk Of Magnesia) 30 ml PO DAILY PRN PRN Reason: Constipation Multivitamins/Minerals (Therapeutic-M Tab) 1 tab PO DAILY [facility] Last Admin: 11/04/18 09:31 Dose: 1 tab Pantoprazole Sodium (Protonix Ec Tab) 40 mg PO DAILY [facility] Last Admin: 11/04/18 09:40 Dose: 40 mg Potassium Chloride (K-Dur 20 Meq Er Tab) 20 meq PO DAILY [facility] Last Admin: 11/04/18 09:24 Dose: 20 meq - Labs Labs: 11/05/18 04:04 11/05/18 04:04 - Constitutional Appears: In Acute Distress (respiratory distress-pt states due to BIPAP) - Head Exam Head Exam: NORMAL INSPECTION - Respiratory Exam Respiratory Exam: Decreased Breath Sounds, Rales, Respiratory Distress. absent: Rhonchi, Stridor - Cardiovascular Exam Cardiovascular Exam: REGULAR RHYTHM (distant heart sounds ), +S1, +S2 - GI/Abdominal Exam GI & Abdominal Exam: Soft, Normal Bowel Sounds. absent: Tenderness - Neurological Exam Neurological Exam: Alert, Awake Additional comments: bilateral upper/lower extremity weakness. - Psychiatric Exam Psychiatric exam: Anxious - Skin Skin Exam: Pallor Assessment and Plan - Assessment and Plan (Free Text) Assessment: 87 YO Female with PMHx of DVT/PE, COPD, Gastritis, HTN, Chronic Kidney Disease, 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 On admission elevated pro-BNP 30,000+. CXR noted; worsening pulmonary congestion when compared to previous XR. ECHO sig for compromised left ventricular systolic function, EF 20-25% (10/2018). ?RANDOLPH vs CKD stage III. Lactic acidosis is improved. Hypokalemia likely secondary to diuresis with Lasix. Continue with diuresis and steroids. Patient currently on BIPAP and is not tolerating, to be switched to high flow. Acute on Chronic CHF systolic and diastolic dysfunction with EF 20% Pulmonary Edema ? Pneumonia Severe Pulmonary Hypertension COPD exacerbation History of PE/DVT History of Intracerebral Bleed Lactic Acidosis RANDOLPH vs CKD Stage III DVT prophylaxis Continue Duonebs/Solumedrol for COPD exacerbation Continue Diuresis Lasix 40mg IV q8hrs Continue Coreg 3.125mg PO q12, Hydralazine 10mg PO TID, hold norvasc Start Ramipril 1.25mg Continue IV zosyn/vancomycin/ Azithromycin for ?pneumonia Replete Potassium PRN Monitor respiratory status closely. ABG this afternoon. Continue Heparin 5000mg q8 Will likely need to be placed back on BIPAP overnight. Code Status : Full code <FryAntonio D - Last Filed: 11/05/18 11:04> Objective - Vital Signs/Intake and Output Vital Signs (last 24 hours): Temp Pulse Resp BP Pulse Ox 97.6 F 80 22 120/58 L 93 L 11/05/18 08:00 11/05/18 10:00 11/05/18 10:00 11/05/18 10:34 11/05/18 10:00 Intake and Output: 11/05/18 11/05/18 06:59 18:59 Intake Total 200 Output Total 1200 Balance -1000 - Medications Medications: Current Medications Acetaminophen (Tylenol 325mg Tab) 650 mg PO Q6 PRN PRN Reason: Pain, Mild (1-3) Acetaminophen (Tylenol 325mg Tab) 650 mg PO Q6 PRN PRN Reason: Fever >100.4 F Albuterol/Ipratropium (Duoneb 3 Mg/0.5 Mg (3 Ml) Ud) 3 ml INH RQ4 [facility] Last Admin: 11/05/18 08:42 Dose: 3 ml Amlodipine Besylate (Norvasc) 10 mg PO DAILY [facility] Last Admin: 11/04/18 16:25 Dose: Not Given Aspirin (Ecotrin) 81 mg PO DAILY [facility] Last Admin: 11/05/18 08:20 Dose: 81 mg Atorvastatin Calcium (Lipitor) 20 mg PO HS [facility] Last Admin: 11/04/18 21:26 Dose: 20 mg Carvedilol (Coreg) 3.125 mg PO Q12 [facility] Last Admin: 11/05/18 08:20 Dose: 3.125 mg Furosemide (Lasix) 40 mg IV Q8 [facility] Last Admin: 11/05/18 08:21 Dose: 40 mg Heparin Sodium (Porcine) (Heparin) 5,000 units SC Q8 [facility]; Protocol Last Admin: 11/05/18 08:21 Dose: 5,000 units Hydralazine HCl (Apresoline) 10 mg PO TID [facility] Last Admin: 11/05/18 08:20 Dose: 10 mg Azithromycin 500 mg/ Sodium (Chloride) 250 mls @ 250 mls/hr IVPB DAILY [facility] Last Admin: 11/05/18 08:22 Dose: 250 mls/hr Vancomycin HCl 1 gm/ Sodium (Chloride) 250 mls @ 166.667 mls/hr IVPB DAILY [facility]; Protocol Last Admin: 11/05/18 08:23 Dose: 166.667 mls/hr Piperacillin Sod/Tazobactam (Sod 2.25 gm/ Sodium Chloride) 100 mls @ 100 mls/hr IVPB Q6 [facility]; Protocol Last Admin: 11/05/18 09:23 Dose: 100 mls/hr Magnesium Hydroxide (Milk Of Magnesia) 30 ml PO DAILY PRN PRN Reason: Constipation Multivitamins/Minerals (Therapeutic-M Tab) 1 tab PO DAILY [facility] Last Admin: 11/05/18 08:22 Dose: 1 tab Pantoprazole Sodium (Protonix Ec Tab) 40 mg PO DAILY [facility] Last Admin: 11/05/18 08:22 Dose: 40 mg Potassium Chloride (K-Dur 20 Meq Er Tab) 20 meq PO DAILY [facility] Last Admin: 11/05/18 08:21 Dose: 20 meq Ramipril (Altace) 1.25 mg PO DAILY [facility] Last Admin: 11/05/18 10:34 Dose: 1.25 mg - Labs Labs: 11/05/18 04:04 11/05/18 04:04 Attending/Attestation - Attestation I have personally seen and examined this patient.: Yes I have fully participated in the care of the patient.: Yes I have reviewed all pertinent clinical information, including history, physical exam and plan: Yes Notes (Text): 11/05/18 11:03 Patient seen and examined with resident. Case discussed and agreed with assessment and plan.
[2018-11-05] MEDS: Potassium Chloride 20 mEq ER Tab PO SCH (08:21)
[2018-11-05] MEDS: Azithromycin 500 MG in Sodium Chloride 0.9% 250 ML IVPB SCH (08:22)
[2018-11-05] MEDS: Multivitamin With Minerals Tab PO SCH (08:22)
[2018-11-05] MEDS: Pantoprazole 40 mg EC Tab PO SCH (08:22)
--- NOTE | 2018-11-05 08:44 | CP.CCUPN ---
CCU Subjective - Physician Review Events Since Last Encounter (Free Text): 11/05/18 08:42 alert and awake, has been very uncomfortable on BiPAP, wanted to remove it, just changed to HFNC , so far tolerating well, keeping Ox sat > 90% CCU Objective - Vital Signs / Intake & Output Vital Signs (Last 4 hours): Vital Signs Temp Pulse Resp BP Pulse Ox 11/05/18 08:21 171/30 H 11/05/18 08:20 171/30 H 11/05/18 08:00 97.6 F 100 H 21 171/30 H 94 L 11/05/18 06:00 86 26 H 124/61 91 L 11/05/18 05:32 95 H Intake and Output (Last 8hrs): Intake & Output 11/04/18 11/05/18 11/05/18 22:59 06:59 14:59 Intake Total 450 100 Output Total 400 1200 Balance 50 -1100 Weight 150 lb Intake: IV 350 Intake, Piggyback 100 100 Output: Urine 400 1200 Urethral ([place]ph[place]) 400 Urine, Voided 1200 - Physical Exam Narrative Physical Exam (Free Text): 11/05/18 08:43 P/E Neck: No JVD Lungs: Rt basal crackles Abdomen: soft, no tenderness Ext: No edema heart: No gallop - Medications Active Medications: Active Medications Generic Name Dose Route Start Last Admin Trade Name Freq PRN Reason Stop Dose Admin Acetaminophen 650 mg 11/03/18 05:10 Tylenol 325mg Tab PO Q6 PRN Pain, Mild (1-3) Acetaminophen 650 mg 11/03/18 05:10 Tylenol 325mg Tab PO Q6 PRN Fever >100.4 F Albuterol/Ipratropium 3 ml 11/03/18 08:00 11/05/18 05:00 Duoneb 3 Mg/0.5 Mg (3 Ml) Ud INH 3 ml RQ4 ELLIOTT Administration Amlodipine Besylate 10 mg 11/03/18 09:00 11/04/18 16:25 Norvasc PO Not Given DAILY ELLIOTT Aspirin 81 mg 11/03/18 09:00 11/05/18 08:20 Ecotrin PO 81 mg DAILY ELLIOTT Administration Atorvastatin Calcium 20 mg 11/03/18 22:00 11/04/18 21:26 Lipitor PO 20 mg HS ELLIOTT Administration Carvedilol 3.125 mg 11/03/18 09:00 11/05/18 08:20 Coreg PO 3.125 mg Q12 ELLIOTT Administration Furosemide 40 mg 11/04/18 17:00 11/05/18 08:21 Lasix IV 40 mg Q8 ELLIOTT Administration Heparin Sodium (Porcine) 5,000 units 11/03/18 09:00 11/05/18 08:21 Heparin SC 5,000 units Q8 ELLIOTT Administration Protocol Hydralazine HCl 10 mg 11/03/18 09:00 11/05/18 08:20 Apresoline PO 10 mg TID ELLIOTT Administration Azithromycin 500 mg/ Sodium 250 mls @ 250 mls/hr 11/03/18 09:00 11/05/18 08:22 Chloride IVPB 250 mls/hr DAILY ELLIOTT Administration Vancomycin HCl 1 gm/ Sodium 250 mls @ 166.667 mls/hr 11/04/18 14:00 11/05/18 08:23 Chloride IVPB 166.667 mls/hr DAILY ELLIOTT Administration Protocol Piperacillin Sod/Tazobactam 100 mls @ 100 mls/hr 11/04/18 14:15 11/05/18 03:13 Sod 2.25 gm/ Sodium Chloride IVPB 100 mls/hr Q6 ELLIOTT Administration Protocol Magnesium Hydroxide 30 ml 11/03/18 04:51 Milk Of Magnesia PO DAILY PRN Constipation Multivitamins/Minerals 1 tab 11/03/18 09:00 11/05/18 08:22 Therapeutic-M Tab PO 1 tab DAILY ELLIOTT Administration Pantoprazole Sodium 40 mg 11/03/18 09:00 11/05/18 08:22 Protonix Ec Tab PO 40 mg DAILY ELLIOTT Administration Potassium Chloride 20 meq 11/03/18 09:00 11/05/18 08:21 K-Dur 20 Meq Er Tab PO 20 meq DAILY ELLIOTT Administration - Patient Studies Lab Studies: Lab Studies 11/05/18 11/05/18 11/05/18 Range/Units : 04:04 04:04 WBC 11.6 H (4.8-10.8) K/uL RBC 3.71 L (3.80-5.20) Mil/uL Hgb 8.7 L (12.0-16.0) g/dL Hct 27.5 L (34.0-47.0) % MCV 74.3 L (81.0-99.0) fl MCH 23.4 L (27.0-31.0) pg MCHC 31.5 L (33.0-37.0) g/dL RDW 25.2 H (11.5-14.5) % Plt Count 352 (130-400) K/uL MPV (7.2-11.7) fl Neut % (Auto) (50.0-75.0) % Lymph % (Auto) (20.0-40.0) % [place] % (Auto) (0.0-10.0) % Eos % (Auto) (0.0-4.0) % Baso % (Auto) (0.0-2.0) % Neut # (Auto) (1.8-7.0) K/uL Lymph # (Auto) (1.0-4.3) K/uL [place] # (Auto) (0.0-0.8) K/uL Eos # (Auto) (0.0-0.7) K/uL Baso # (Auto) (0.0-0.2) K/uL Neutrophils % (Manual) (42-75) % Lymphocytes % (Manual) (20-50) % Monocytes % (Manual) (0-10) % Platelet Estimate (NORMAL) Hypochromasia (manual) Poikilocytosis (manual Anisocytosis (manual) pCO2 47 H (35-45) mm/Hg pO2 57 L (80-100) mm/Hg HCO3 35.1 H (21-28) mmol/L ABG pH 7.51 H (7.35-7.45) ABG Total CO2 38.9 H (22-28) mmol/L ABG O2 Saturation 94.0 L (95-98) % ABG O2 Content 11.8 L (15-23) ML/dL ABG Base Excess 13.1 H (-2.0-3.0) mmol/L ABG Hemoglobin 9.2 L (11.7-17.4) g/dL ABG Carboxyhemoglobin 1.9 H (0.5-1.5) % POC ABG HHb (Measured) 5.8 H (0.0-5.0) % ABG Methemoglobin 1.1 (0.0-3.0) % ABG O2 Capacity 12.6 L (16-24) mL/dL Andres Test Yes ABG Potassium (3.6-5.2) mmol/L A-a O2 Difference 169.0 mm/Hg Hgb O2 Saturation 91.2 L (95.0-98.0) % Sodium 142 (132-148) mmol/L Chloride 96 L (98-107) mmol/L Glucose (65-105) mg/dL Lactate (0.7-2.1) mmol/L Vent Mode Bipap Mechanical Rate 17 FiO2 40.0 % Inspiratory BiPAP 12 Expiratory BiPAP 7 Crit Value Called To Crit Value Called By Crit Value Read Back Blood Gas Notified Time Potassium 3.4 L (3.6-5.0) MMOL/L Carbon Dioxide 34 H (22-30) mmol/L Anion Gap 15 (10-20) BUN 77 H (7-17) mg/dl Creatinine 1.6 H (0.7-1.2) mg/dl Est GFR ( Amer) 37 Est GFR (Non-Af Amer) 31 Random Glucose 140 H (65-105) mg/dL Lactic Acid (0.7-2.1) mmol/L Calcium 8.9 (8.4-10.2) mg/dL Total Bilirubin 0.6 (0.2-1.3) mg/dl AST 35 (14-36) U/L ALT 32 (9-52) U/L Alkaline Phosphatase 75 (38-126) U/L Troponin I (0.00-0.120) ng/mL NT-Pro-B Natriuret Pep (0-900) pg/ml Total Protein 7.8 (6.3-8.2) G/DL Albumin 3.9 (3.5-5.0) g/dL Globulin 3.9 (2.2-3.9) gm/dL Albumin/Globulin Ratio 1.0 (1.0-2.1) TSH 3rd Generation 0.67 (0.46-4.68) mIU/ML Arterial Blood Potassium (3.6-5.2) mmol/L 11/04/18 11/04/18 11/04/18 Range/Units 15:55 15:50 15:45 WBC 14.6 H (4.8-10.8) K/uL RBC 3.77 L (3.80-5.20) Mil/uL Hgb 9.0 L (12.0-16.0) g/dL Hct 28.4 L (34.0-47.0) % MCV 75.2 L (81.0-99.0) fl MCH 23.8 L (27.0-31.0) pg MCHC 31.6 L (33.0-37.0) g/dL RDW 24.5 H (11.5-14.5) % Plt Count 311 (130-400) K/uL MPV 8.8 (7.2-11.7) fl Neut % (Auto) 93.6 H (50.0-75.0) % Lymph % (Auto) 3.5 L (20.0-40.0) % [place] % (Auto) 2.5 (0.0-10.0) % Eos % (Auto) 0.0 (0.0-4.0) % Baso % (Auto) 0.4 (0.0-2.0) % Neut # (Auto) 13.7 H (1.8-7.0) K/uL Lymph # (Auto) 0.5 L (1.0-4.3) K/uL [place] # (Auto) 0.4 (0.0-0.8) K/uL Eos # (Auto) 0.0 (0.0-0.7) K/uL Baso # (Auto) 0.1 (0.0-0.2) K/uL Neutrophils % (Manual) 95 H (42-75) % Lymphocytes % (Manual) 3 L (20-50) % Monocytes % (Manual) 2 (0-10) % Platelet Estimate Normal (NORMAL) Hypochromasia (manual) Slight Poikilocytosis (manual Slight Anisocytosis (manual) Moderate pCO2 (35-45) mm/Hg pO2 (80-100) mm/Hg HCO3 (21-28) mmol/L ABG pH (7.35-7.45) ABG Total CO2 (22-28) mmol/L ABG O2 Saturation (95-98) % ABG O2 Content (15-23) ML/dL ABG Base Excess (-2.0-3.0) mmol/L ABG Hemoglobin (11.7-17.4) g/dL ABG Carboxyhemoglobin (0.5-1.5) % POC ABG HHb (Measured) (0.0-5.0) % ABG Methemoglobin (0.0-3.0) % ABG O2 Capacity (16-24) mL/dL Andres Test ABG Potassium (3.6-5.2) mmol/L A-a O2 Difference mm/Hg Hgb O2 Saturation (95.0-98.0) % Sodium (132-148) mmol/L Chloride (98-107) mmol/L Glucose (65-105) mg/dL Lactate (0.7-2.1) mmol/L Vent Mode Mechanical Rate FiO2 % Inspiratory BiPAP Expiratory BiPAP Crit Value Called To Crit Value Called By Crit Value Read Back Blood Gas Notified Time Potassium (3.6-5.0) MMOL/L Carbon Dioxide (22-30) mmol/L Anion Gap (10-20) BUN (7-17) mg/dl Creatinine (0.7-1.2) mg/dl Est GFR ( Amer) Est GFR (Non-Af Amer) Random Glucose (65-105) mg/dL Lactic Acid 3.1 H (0.7-2.1) mmol/L Calcium (8.4-10.2) mg/dL Total Bilirubin (0.2-1.3) mg/dl AST (14-36) U/L ALT (9-52) U/L Alkaline Phosphatase (38-126) U/L Troponin I 0.7060 H* (0.00-0.120) ng/mL NT-Pro-B Natriuret Pep 66023 H (0-900) pg/ml Total Protein (6.3-8.2) G/DL Albumin (3.5-5.0) g/dL Globulin (2.2-3.9) gm/dL Albumin/Globulin Ratio (1.0-2.1) TSH 3rd Generation (0.46-4.68) mIU/ML Arterial Blood Potassium (3.6-5.2) mmol/L 11/04/18 Range/Units 13:21 WBC (4.8-10.8) K/uL RBC (3.80-5.20) Mil/uL Hgb (12.0-16.0) g/dL Hct (34.0-47.0) % MCV (81.0-99.0) fl MCH (27.0-31.0) pg MCHC (33.0-37.0) g/dL RDW (11.5-14.5) % Plt Count (130-400) K/uL MPV (7.2-11.7) fl Neut % (Auto) (50.0-75.0) % Lymph % (Auto) (20.0-40.0) % [place] % (Auto) (0.0-10.0) % Eos % (Auto) (0.0-4.0) % Baso % (Auto) (0.0-2.0) % Neut # (Auto) (1.8-7.0) K/uL Lymph # (Auto) (1.0-4.3) K/uL [place] # (Auto) (0.0-0.8) K/uL Eos # (Auto) (0.0-0.7) K/uL Baso # (Auto) (0.0-0.2) K/uL Neutrophils % (Manual) (42-75) % Lymphocytes % (Manual) (20-50) % Monocytes % (Manual) (0-10) % Platelet Estimate (NORMAL) Hypochromasia (manual) Poikilocytosis (manual Anisocytosis (manual) pCO2 54 H (35-45) mm/Hg pO2 43 L* (80-100) mm/Hg HCO3 27.8 (21-28) mmol/L ABG pH 7.36 (7.35-7.45) ABG Total CO2 32.2 H (22-28) mmol/L ABG O2 Saturation 77.2 L (95-98) % ABG O2 Content (15-23) ML/dL ABG Base Excess 4.2 H (-2.0-3.0) mmol/L ABG Hemoglobin (11.7-17.4) g/dL ABG Carboxyhemoglobin (0.5-1.5) % POC ABG HHb (Measured) (0.0-5.0) % ABG Methemoglobin (0.0-3.0) % ABG O2 Capacity (16-24) mL/dL Andres Test Yes ABG Potassium 4.8 (3.6-5.2) mmol/L A-a O2 Difference 603.0 mm/Hg Hgb O2 Saturation (95.0-98.0) % Sodium 140.0 (132-148) mmol/L Chloride 100.0 (98-107) mmol/L Glucose 205 H (65-105) mg/dL Lactate 6.0 H* (0.7-2.1) mmol/L Vent Mode Mechanical Rate FiO2 100.0 % Inspiratory BiPAP Expiratory BiPAP Crit Value Called To Dr shalini dunaway Crit Value Called By 15 Crit Value Read Back Y Blood Gas Notified Time 1325 Potassium (3.6-5.0) MMOL/L Carbon Dioxide (22-30) mmol/L Anion Gap (10-20) BUN (7-17) mg/dl Creatinine (0.7-1.2) mg/dl Est GFR ( Amer) Est GFR (Non-Af Amer) Random Glucose (65-105) mg/dL Lactic Acid (0.7-2.1) mmol/L Calcium (8.4-10.2) mg/dL Total Bilirubin (0.2-1.3) mg/dl AST (14-36) U/L ALT (9-52) U/L Alkaline Phosphatase (38-126) U/L Troponin I (0.00-0.120) ng/mL NT-Pro-B Natriuret Pep (0-900) pg/ml Total Protein (6.3-8.2) G/DL Albumin (3.5-5.0) g/dL Globulin (2.2-3.9) gm/dL Albumin/Globulin Ratio (1.0-2.1) TSH 3rd Generation (0.46-4.68) mIU/ML Arterial Blood Potassium 4.8 (3.6-5.2) mmol/L Laboratory Results - last 24 hr 11/04/18 11/04/18 11/04/18 13:21 15:45 15:50 WBC 14.6 H RBC 3.77 L Hgb 9.0 L Hct 28.4 L MCV 75.2 L MCH 23.8 L MCHC 31.6 L RDW 24.5 H Plt Count 311 MPV 8.8 Neut % (Auto) 93.6 H Lymph % (Auto) 3.5 L [place] % (Auto) 2.5 Eos % (Auto) 0.0 Baso % (Auto) 0.4 Neut # (Auto) 13.7 H Lymph # (Auto) 0.5 L [place] # (Auto) 0.4 Eos # (Auto) 0.0 Baso # (Auto) 0.1 Neutrophils % (Manual) 95 H Lymphocytes % (Manual) 3 L Monocytes % (Manual) 2 Platelet Estimate Normal Hypochromasia (manual) Slight Poikilocytosis (manual Slight Anisocytosis (manual) Moderate pCO2 54 H pO2 43 L* HCO3 27.8 ABG pH 7.36 ABG Total CO2 32.2 H ABG O2 Saturation 77.2 L ABG O2 Content ABG Base Excess 4.2 H ABG Hemoglobin ABG Carboxyhemoglobin POC ABG HHb (Measured) ABG Methemoglobin ABG O2 Capacity Andres Test Yes ABG Potassium 4.8 A-a O2 Difference 603.0 Hgb O2 Saturation Sodium 140.0 Chloride 100.0 Glucose 205 H Lactate 6.0 H* Vent Mode Mechanical Rate FiO2 100.0 Inspiratory BiPAP Expiratory BiPAP Crit Value Called To Dr shalini dunaway Crit Value Called By 15 Crit Value Read Back Y Blood Gas Notified Time 1325 Potassium Carbon Dioxide Anion Gap BUN Creatinine Est GFR ( Amer) Est GFR (Non-Af Amer) Random Glucose Lactic Acid Calcium Total Bilirubin AST ALT Alkaline Phosphatase Troponin I 0.7060 H* NT-Pro-B Natriuret Pep 44293 H Total Protein Albumin Globulin Albumin/Globulin Ratio TSH 3rd Generation Arterial Blood Potassium 4.8 11/04/18 11/05/18 11/05/18 15:55 04:04 04:04 WBC 11.6 H RBC 3.71 L Hgb 8.7 L Hct 27.5 L MCV 74.3 L MCH 23.4 L MCHC 31.5 L RDW 25.2 H Plt Count 352 MPV Neut % (Auto) Lymph % (Auto) [place] % (Auto) Eos % (Auto) Baso % (Auto) Neut # (Auto) Lymph # (Auto) [place] # (Auto) Eos # (Auto) Baso # (Auto) Neutrophils % (Manual) Lymphocytes % (Manual) Monocytes % (Manual) Platelet Estimate Hypochromasia (manual) Poikilocytosis (manual Anisocytosis (manual) pCO2 pO2 HCO3 ABG pH ABG Total CO2 ABG O2 Saturation ABG O2 Content ABG Base Excess ABG Hemoglobin ABG Carboxyhemoglobin POC ABG HHb (Measured) ABG Methemoglobin ABG O2 Capacity Andres Test ABG Potassium A-a O2 Difference Hgb O2 Saturation Sodium 142 Chloride 96 L Glucose Lactate Vent Mode Mechanical Rate FiO2 Inspiratory BiPAP Expiratory BiPAP Crit Value Called To Crit Value Called By Crit Value Read Back Blood Gas Notified Time Potassium 3.4 L Carbon Dioxide 34 H Anion Gap 15 BUN 77 H Creatinine 1.6 H Est GFR ( Amer) 37 Est GFR (Non-Af Amer) 31 Random Glucose 140 H Lactic Acid 3.1 H Calcium 8.9 Total Bilirubin 0.6 AST 35 ALT 32 Alkaline Phosphatase 75 Troponin I NT-Pro-B Natriuret Pep Total Protein 7.8 Albumin 3.9 Globulin 3.9 Albumin/Globulin Ratio 1.0 TSH 3rd Generation 0.67 Arterial Blood Potassium 11/05/18 05:19 WBC RBC Hgb Hct MCV MCH MCHC RDW Plt Count MPV Neut % (Auto) Lymph % (Auto) [place] % (Auto) Eos % (Auto) Baso % (Auto) Neut # (Auto) Lymph # (Auto) [place] # (Auto) Eos # (Auto) Baso # (Auto) Neutrophils % (Manual) Lymphocytes % (Manual) Monocytes % (Manual) Platelet Estimate Hypochromasia (manual) Poikilocytosis (manual Anisocytosis (manual) pCO2 47 H pO2 57 L HCO3 35.1 H ABG pH 7.51 H ABG Total CO2 38.9 H ABG O2 Saturation 94.0 L ABG O2 Content 11.8 L ABG Base Excess 13.1 H ABG Hemoglobin 9.2 L ABG Carboxyhemoglobin 1.9 H POC ABG HHb (Measured) 5.8 H ABG Methemoglobin 1.1 ABG O2 Capacity 12.6 L Andres Test Yes ABG Potassium A-a O2 Difference 169.0 Hgb O2 Saturation 91.2 L Sodium Chloride Glucose Lactate Vent Mode Bipap Mechanical Rate 17 FiO2 40.0 Inspiratory BiPAP 12 Expiratory BiPAP 7 Crit Value Called To Crit Value Called By Crit Value Read Back Blood Gas Notified Time Potassium Carbon Dioxide Anion Gap BUN Creatinine Est GFR ( Amer) Est GFR (Non-Af Amer) Random Glucose Lactic Acid Calcium Total Bilirubin AST ALT Alkaline Phosphatase Troponin I NT-Pro-B Natriuret Pep Total Protein Albumin Globulin Albumin/Globulin Ratio TSH 3rd Generation Arterial Blood Potassium Radiology Impressions: Radiology Impressions Chest X-Ray 11/04/18 13:26 IMPRESSION: Poor inspiration with low lung volumes common crowded bronchovascular markings and mild bibasilar atelectasis. Central pulmonary vasculature appears increased. Findings could represent improving pulmonary venous congestion. Small bilateral effusions also felt to be present. Small bilateral effusions also felt to be present. Critical Care Progress Note - Nutrition Nutrition: Nutrition Category Date Time Status Consistent Carbohydrate [DIET] Diets 11/03/18 Dinner Active Assessment/Plan - Assessment and Plan (Free Text) Assessment: 87 YOF, with COPD exacerbation, CHDrEF exacerbation #Cardio - CHFrEF (Last Echo 10/30 LVEF 20-25%), has pulm congestion - - C/W diuresis , lasix 40 mg q 8H - Monitor I/O closely - Monitor weight daily; maintain negative balance - Continuous cardiac monitoring - Troponin 1.13 (trending down from 1.8), likely demand ischemia. EKG no acute ischemic findings, ventricular paced - Cardiology on board, Dr. Stein #Pulm - Acute hypoxic respiratory failure 2/2 COPD vs CHF exas. PE is possible but risk of treatment outweighs benefits - changed BIPAP to HFNC : 35 LPM, FIO2 40% - C/W Bronchodilators, IV Steroids - Maintain O2 sat > 90%. Wean O2 administration as tolerated - Pulmonology on board, Dr. Anton - F/U am ABG and Cxray #GI - Resume diet #Renal - RANDOLPH on CKD (baseline Crea 1 w/ GFR in 50's) - Creatine 1.5 - Avoid nephrotoxic medication - Monitor electrolytes #Endo - Hga1c 5.6 - F/U TSH #Heme/ID - Hg and platelet stable - Mild leukocytosis, likely 2/2 to steroids - Afebrile, no bandemia, Procalcitonin <0.05. Low clinical suspicion for underlying infection - Lactic acid 6 on ABG, likely Type A Lactic Acidosis from acute hypoxic respiratory failure #PPX -DVT Heparin 5000q8 -GI ppx, not indicated
--- NOTE | 2018-11-05 11:14 | CP.PCM.PN ---
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\ ON HIGH FLOW O2--O2 SAT--87% AWAKE ALERT AND IN NO APPARENT DISTRESS Objective - Vital Signs/Intake and Output Vital Signs (last 24 hours): Temp Pulse Resp BP Pulse Ox 97.6 F 80 22 120/58 L 93 L 11/05/18 08:00 11/05/18 10:00 11/05/18 10:00 11/05/18 10:34 11/05/18 10:00 Intake and Output: 11/05/18 11/05/18 06:59 18:59 Intake Total 200 Output Total 1200 Balance -1000 - Medications Medications: Current Medications Acetaminophen (Tylenol 325mg Tab) 650 mg PO Q6 PRN PRN Reason: Pain, Mild (1-3) Acetaminophen (Tylenol 325mg Tab) 650 mg PO Q6 PRN PRN Reason: Fever >100.4 F Albuterol/Ipratropium (Duoneb 3 Mg/0.5 Mg (3 Ml) Ud) 3 ml INH RQ4 [facility] Last Admin: 11/05/18 08:42 Dose: 3 ml Amlodipine Besylate (Norvasc) 10 mg PO DAILY [facility] Last Admin: 11/04/18 16:25 Dose: Not Given Aspirin (Ecotrin) 81 mg PO DAILY [facility] Last Admin: 11/05/18 08:20 Dose: 81 mg Atorvastatin Calcium (Lipitor) 20 mg PO HS [facility] Last Admin: 11/04/18 21:26 Dose: 20 mg Carvedilol (Coreg) 3.125 mg PO Q12 [facility] Last Admin: 11/05/18 08:20 Dose: 3.125 mg Furosemide (Lasix) 40 mg IV Q8 [facility] Last Admin: 11/05/18 08:21 Dose: 40 mg Heparin Sodium (Porcine) (Heparin) 5,000 units SC Q8 [facility]; Protocol Last Admin: 11/05/18 08:21 Dose: 5,000 units Hydralazine HCl (Apresoline) 10 mg PO TID [facility] Last Admin: 11/05/18 08:20 Dose: 10 mg Azithromycin 500 mg/ Sodium (Chloride) 250 mls @ 250 mls/hr IVPB DAILY [facility] Last Admin: 11/05/18 08:22 Dose: 250 mls/hr Vancomycin HCl 1 gm/ Sodium (Chloride) 250 mls @ 166.667 mls/hr IVPB DAILY [facility]; Protocol Last Admin: 11/05/18 08:23 Dose: 166.667 mls/hr Piperacillin Sod/Tazobactam (Sod 2.25 gm/ Sodium Chloride) 100 mls @ 100 mls/hr IVPB Q6 [facility]; Protocol Last Admin: 11/05/18 09:23 Dose: 100 mls/hr Magnesium Hydroxide (Milk Of Magnesia) 30 ml PO DAILY PRN PRN Reason: Constipation Multivitamins/Minerals (Therapeutic-M Tab) 1 tab PO DAILY [facility] Last Admin: 11/05/18 08:22 Dose: 1 tab Pantoprazole Sodium (Protonix Ec Tab) 40 mg PO DAILY [facility] Last Admin: 11/05/18 08:22 Dose: 40 mg Potassium Chloride (K-Dur 20 Meq Er Tab) 20 meq PO DAILY [facility] Last Admin: 11/05/18 08:21 Dose: 20 meq Ramipril (Altace) 1.25 mg PO DAILY [facility] Last Admin: 11/05/18 10:34 Dose: 1.25 mg - Labs Labs: 11/05/18 04:04 11/05/18 04:04 - Constitutional Appears: No Acute Distress - Head Exam Head Exam: ATRAUMATIC, NORMAL INSPECTION, NORMOCEPHALIC - Eye Exam Eye Exam: EOMI, Normal appearance, PERRL Pupil Exam: NORMAL ACCOMODATION, PERRL - ENT Exam ENT Exam: Mucous Membranes Moist, Normal Exam - Neck Exam Neck Exam: Full ROM, Normal Inspection. absent: Lymphadenopathy - Respiratory Exam Respiratory Exam: Clear to Ausculation Bilateral, Prolonged Expiratory Phase, Rales Additional comments: ON HIGH FLOW O2 - Cardiovascular Exam Cardiovascular Exam: REGULAR RHYTHM, +S1, +S2. absent: Murmur - GI/Abdominal Exam GI & Abdominal Exam: Soft, Normal Bowel Sounds. absent: Tenderness - Rectal Exam Rectal Exam: NORMAL INSPECTION - Extremities Exam Extremities Exam: Full ROM, Normal Capillary Refill, Pedal Edema. absent: Joint Swelling - Back Exam Back Exam: NORMAL INSPECTION - Neurological Exam Neurological Exam: Alert, Awake, CN II-XII Intact, Normal Gait, Oriented x3 - Psychiatric Exam Psychiatric exam: Normal Affect, Normal Mood - Skin Skin Exam: Dry, Intact, Normal Color, Warm Assessment and Plan - Assessment and Plan (Free Text) Assessment: ACUTE RESPIRATORY FAILURE CHF Plan: CONTINUE CURRENT RX
[2018-11-05] MEDS: FLUTICASONE PROPION/SALMETEROL 113-14 IH SCH (20:37)
[2018-11-06] MEDS ORDERED: Albuterol-Ipratrop 3 mg / 0.5 (3 ml) UD INH STA (02:14)
[2018-11-06] MEDS: Albuterol-Ipratrop 3 mg / 0.5 (3 ml) UD INH SCH ×5 (04:30→19:17)
[2018-11-06 04:33] LABS: ABG ALLEN TEST YES; ARTERIAL BLOOD GAS HCO3 37.3 mmol/L (21-28); ARTERIAL BLOOD GAS HEMOGLOBIN 8.7 g/dL (11.7-17.4); ARTERIAL BLOOD GAS O2 CAPACITY 11.9 mL/dL (16-24); ARTERIAL BLOOD GAS O2 CONTENT 10.9 ML/dL (15-23); ARTERIAL BLOOD GAS O2 SAT 91.3 % (95-98); ARTERIAL BLOOD GAS PCO2 47 mm/Hg (35-45); ARTERIAL BLOOD GAS PH 7.54 (7.35-7.45); ARTERIAL BLOOD GAS PO2 52 mm/Hg (80-100); ARTERIAL BLOOD GAS TCO2 41.6 mmol/L (22-28)
[2018-11-06 05:28] LABS: CALCIUM 8.6 mg/dL (8.4-10.2)
[2018-11-06 05:36] LABS: HEMOGLOBIN 8.5 g/dL (12.0-16.0); MEAN CELL VOLUME 75.1 fl (81.0-99.0); MEAN CORPUSCULAR HEMOGLOBIN 23.5 pg (27.0-31.0); MEAN CORPUSCULAR HGB CONC 31.3 g/dL (33.0-37.0); RBC 3.6 Mil/uL (3.80-5.20); RED CELL DISTRIBUTION WIDTH 26.3 % (11.5-14.5); WHITE BLOOD COUNT 17.8 K/uL (4.8-10.8)
--- NOTE | 2018-11-06 08:38 | CP.PCM.PN ---
<Amanda Jimenes - Last Filed: 11/06/18 12:05> Subjective - Date & Time of Evaluation Date of Evaluation: 11/06/18 Time of Evaluation: 08:40 - Subjective Subjective: No acute overnight events. Patient seen sitting upright in bed, with high flow O2 at 60% FIO2. 20LPM, with O2 sat of: She reports feeling a bit better today, has +cough. No other complaints at present. Objective - Vital Signs/Intake and Output Vital Signs (last 24 hours): Temp Pulse Resp BP Pulse Ox 97.9 F 80 20 124/54 L 91 L 11/06/18 00:00 11/06/18 06:00 11/06/18 06:00 11/06/18 06:00 11/06/18 06:00 Intake and Output: 11/06/18 11/06/18 06:59 18:59 Intake Total 250 Output Total 750 Balance -500 - Medications Medications: Current Medications Acetaminophen (Tylenol 325mg Tab) 650 mg PO Q6 PRN PRN Reason: Pain, Mild (1-3) Acetaminophen (Tylenol 325mg Tab) 650 mg PO Q6 PRN PRN Reason: Fever >100.4 F Albuterol/Ipratropium (Duoneb 3 Mg/0.5 Mg (3 Ml) Ud) 3 ml INH RQ4 [facility] Last Admin: 11/06/18 07:34 Dose: 3 ml Amlodipine Besylate (Norvasc) 10 mg PO DAILY [facility] Last Admin: 11/04/18 16:25 Dose: Not Given Aspirin (Ecotrin) 81 mg PO DAILY [facility] Last Admin: 11/05/18 08:20 Dose: 81 mg Atorvastatin Calcium (Lipitor) 20 mg PO HS [facility] Last Admin: 11/05/18 21:18 Dose: 20 mg Carvedilol (Coreg) 3.125 mg PO Q12 [facility] Last Admin: 11/05/18 20:37 Dose: 3.125 mg Furosemide (Lasix) 40 mg IV Q8 [facility] Last Admin: 11/06/18 01:06 Dose: Not Given Heparin Sodium (Porcine) (Heparin) 5,000 units SC Q8 [facility]; Protocol Last Admin: 11/06/18 00:02 Dose: 5,000 units Hydralazine HCl (Apresoline) 10 mg PO TID [facility] Last Admin: 11/05/18 16:04 Dose: 10 mg Azithromycin 500 mg/ Sodium (Chloride) 250 mls @ 250 mls/hr IVPB DAILY [facility] Last Admin: 11/05/18 08:22 Dose: 250 mls/hr Vancomycin HCl 1 gm/ Sodium (Chloride) 250 mls @ 166.667 mls/hr IVPB DAILY [facility]; Protocol Last Admin: 11/05/18 08:23 Dose: 166.667 mls/hr Piperacillin Sod/Tazobactam (Sod 2.25 gm/ Sodium Chloride) 100 mls @ 100 mls/hr IVPB Q6 [facility]; Protocol Last Admin: 11/06/18 03:29 Dose: 100 mls/hr Magnesium Hydroxide (Milk Of Magnesia) 30 ml PO DAILY PRN PRN Reason: Constipation Multivitamins/Minerals (Therapeutic-M Tab) 1 tab PO DAILY [facility] Last Admin: 11/05/18 08:22 Dose: 1 tab Pantoprazole Sodium (Protonix Ec Tab) 40 mg PO DAILY [facility] Last Admin: 11/05/18 08:22 Dose: 40 mg Potassium Chloride (K-Dur 20 Meq Er Tab) 20 meq PO DAILY [facility] Last Admin: 11/05/18 08:21 Dose: 20 meq Ramipril (Altace) 1.25 mg PO DAILY [facility] Last Admin: 11/05/18 10:34 Dose: 1.25 mg - Labs Labs: 11/06/18 04:35 11/06/18 04:35 - Constitutional Appears: No Acute Distress, Chronically Ill - Respiratory Exam Respiratory Exam: Decreased Breath Sounds, Rales, Wheezes (bilaterally) Additional comments: wearing NC - HIGHFLOW - Cardiovascular Exam Additional comments: distant heart sounds - GI/Abdominal Exam GI & Abdominal Exam: Soft. 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 On admission elevated pro-BNP 30,000+. CXR noted; worsening pulmonary congestion when compared to previous XR. ECHO significant for compromised left ventricular systolic function, EF 20-25% (10/2018). ?RANDOLPH vs CKD stage III. Hypokalemia likely secondary to diuresis with Lasix/albuterol treatments. Continue with diuresis and steroids. Patient currently on BIPAP and is not tolerating, to be switched to high flow. Acute on Chronic CHF systolic and diastolic dysfunction with EF 20%. Pulmonary Edema Severe Pulmonary Hypertension -Continue Diuresis Lasix 40mg IV q8hrs Continue Coreg 3.125mg PO q12, Hydralazine 10mg PO TID -norvasc d/c -ramipril 1.25mg started - monitor renal function closely ? Pneumonia Continue IV zosyn/vancomycin/ Azithromycin for ?pneumonia Lactic Acidosis - improving Hypokalemia Replete Potassium PRN COPD exacerbation -Continue Duonebs/Solumedrol for COPD exacerbation History of PE/DVT DVT prophylaxis Continue Heparin 5000mg q8 History of Intracerebral Bleed RANDOLPH vs CKD Stage III -started on NICKI -i monitor renal function Code Status : Full code <Antonio Fry D - Last Filed: 11/06/18 14:03> Objective - Vital Signs/Intake and Output Vital Signs (last 24 hours): Temp Pulse Resp BP Pulse Ox 97.8 F 103 H 25 H 96/51 L 94 L 11/06/18 12:00 11/06/18 12:00 11/06/18 12:00 11/06/18 12:00 11/06/18 12:00 Intake and Output: 11/06/18 11/06/18 06:59 18:59 Intake Total 250 Output Total 750 Balance -500 - Medications Medications: Current Medications Acetaminophen (Tylenol 325mg Tab) 650 mg PO Q6 PRN PRN Reason: Pain, Mild (1-3) Acetaminophen (Tylenol 325mg Tab) 650 mg PO Q6 PRN PRN Reason: Fever >100.4 F Albuterol/Ipratropium (Duoneb 3 Mg/0.5 Mg (3 Ml) Ud) 3 ml INH RQ4 [facility] Last Admin: 11/06/18 11:42 Dose: 3 ml Amlodipine Besylate (Norvasc) 10 mg PO DAILY [facility] Last Admin: 11/04/18 16:25 Dose: Not Given Aspirin (Ecotrin) 81 mg PO DAILY [facility] Last Admin: 11/06/18 08:56 Dose: 81 mg Atorvastatin Calcium (Lipitor) 20 mg PO HS [facility] Last Admin: 11/05/18 21:18 Dose: 20 mg Carvedilol (Coreg) 3.125 mg PO Q12 [facility] Last Admin: 11/05/18 20:37 Dose: 3.125 mg Furosemide (Lasix) 40 mg IV Q8 [facility] Last Admin: 11/06/18 09:01 Dose: 40 mg Heparin Sodium (Porcine) (Heparin) 5,000 units SC Q8 [facility]; Protocol Last Admin: 11/06/18 08:57 Dose: 5,000 units Hydralazine HCl (Apresoline) 10 mg PO TID [facility] Last Admin: 11/05/18 16:04 Dose: 10 mg Azithromycin 500 mg/ Sodium (Chloride) 250 mls @ 250 mls/hr IVPB DAILY [facility] Last Admin: 11/06/18 09:02 Dose: 250 mls/hr Vancomycin HCl 1 gm/ Sodium (Chloride) 250 mls @ 166.667 mls/hr IVPB DAILY [facility]; Protocol Last Admin: 11/06/18 09:03 Dose: 166.667 mls/hr Piperacillin Sod/Tazobactam (Sod 2.25 gm/ Sodium Chloride) 100 mls @ 100 mls/hr IVPB Q6 [facility]; Protocol Last Admin: 11/06/18 03:29 Dose: 100 mls/hr Magnesium Hydroxide (Milk Of Magnesia) 30 ml PO DAILY PRN PRN Reason: Constipation Multivitamins/Minerals (Therapeutic-M Tab) 1 tab PO DAILY [facility] Last Admin: 11/06/18 09:04 Dose: 1 tab Pantoprazole Sodium (Protonix Ec Tab) 40 mg PO DAILY [facility] Last Admin: 11/06/18 08:56 Dose: 40 mg Potassium Chloride (K-Dur 20 Meq Er Tab) 40 meq PO DAILY [facility] Ramipril (Altace) 1.25 mg PO DAILY [facility] Last Admin: 11/05/18 10:34 Dose: 1.25 mg - Labs Labs: 11/06/18 04:35 11/06/18 04:35 Attending/Attestation - Attestation I have personally seen and examined this patient.: Yes I have fully participated in the care of the patient.: Yes I have reviewed all pertinent clinical information, including history, physical exam and plan: Yes Notes (Text): 11/06/18 14:03 Patient seen and examined with resident. Case discussed and agreed with assessment and plan.
[2018-11-06] MEDS: Pantoprazole 40 mg EC Tab PO SCH (08:56)
[2018-11-06] MEDS: Potassium Chloride 20 mEq ER Tab PO SCH (08:58)
[2018-11-06] MEDS: FLUTICASONE PROPION/SALMETEROL 113-14 IH SCH ×2 (08:59→21:20)
[2018-11-06] MEDS: Azithromycin 500 MG in Sodium Chloride 0.9% 250 ML IVPB SCH (09:02)
[2018-11-06] MEDS: Multivitamin With Minerals Tab PO SCH (09:04)
--- NOTE | 2018-11-06 09:11 | CP.CCUPN ---
CCU Subjective - Physician Review Events Since Last Encounter (Free Text): 11/06/18 09:09 Back on HFNC and tlerating well, o2 sat 98% Was on BiPAP overnight , CCU Objective - Vital Signs / Intake & Output Vital Signs (Last 4 hours): Vital Signs Pulse Resp BP Pulse Ox 11/06/18 09:01 114/56 L 11/06/18 06:00 80 20 124/54 L 91 L Intake and Output (Last 8hrs): Intake & Output 11/05/18 11/06/18 11/06/18 22:59 06:59 14:59 Intake Total 150 100 Output Total 350 400 Balance -200 -300 Weight 151 lb Intake: Intake, Piggyback 100 100 Oral 50 Output: Urine 350 400 Urine, Voided 350 400 Other: # Bowel Movements 2 - Physical Exam Narrative Physical Exam (Free Text): 11/06/18 09:10 P/E Neck; No JVD Lungs: Rt basal crackles Abdomen: soft, no-tender Ext" +1 edema Heart: No gallop Neuro, no focal signs - Medications Active Medications: Active Medications Generic Name Dose Route Start Last Admin Trade Name Freq PRN Reason Stop Dose Admin Acetaminophen 650 mg 11/03/18 05:10 Tylenol 325mg Tab PO Q6 PRN Pain, Mild (1-3) Acetaminophen 650 mg 11/03/18 05:10 Tylenol 325mg Tab PO Q6 PRN Fever >100.4 F Albuterol/Ipratropium 3 ml 11/03/18 08:00 11/06/18 07:34 Duoneb 3 Mg/0.5 Mg (3 Ml) Ud INH 3 ml RQ4 [facility] Administration Amlodipine Besylate 10 mg 11/03/18 09:00 11/04/18 16:25 Norvasc PO Not Given DAILY [facility] Aspirin 81 mg 11/03/18 09:00 11/06/18 08:56 Ecotrin PO 81 mg DAILY [facility] Administration Atorvastatin Calcium 20 mg 11/03/18 22:00 11/05/18 21:18 Lipitor PO 20 mg HS [facility] Administration Carvedilol 3.125 mg 11/03/18 09:00 11/05/18 20:37 Coreg PO 3.125 mg Q12 [facility] Administration Furosemide 40 mg 11/04/18 17:00 11/06/18 09:01 Lasix IV 40 mg Q8 [facility] Administration Heparin Sodium (Porcine) 5,000 units 11/03/18 09:00 11/06/18 08:57 Heparin SC 5,000 units Q8 [facility] Administration Protocol Hydralazine HCl 10 mg 11/03/18 09:00 11/05/18 16:04 Apresoline PO 10 mg TID [facility] Administration Azithromycin 500 mg/ Sodium 250 mls @ 250 mls/hr 11/03/18 09:00 11/06/18 09:02 Chloride IVPB 250 mls/hr DAILY [facility] Administration Vancomycin HCl 1 gm/ Sodium 250 mls @ 166.667 mls/hr 11/04/18 14:00 11/06/18 09:03 Chloride IVPB 166.667 mls/hr DAILY [facility] Administration Protocol Piperacillin Sod/Tazobactam 100 mls @ 100 mls/hr 11/04/18 14:15 11/06/18 03:29 Sod 2.25 gm/ Sodium Chloride IVPB 100 mls/hr Q6 [facility] Administration Protocol Magnesium Hydroxide 30 ml 11/03/18 04:51 Milk Of Magnesia PO DAILY PRN Constipation Multivitamins/Minerals 1 tab 11/03/18 09:00 11/06/18 09:04 Therapeutic-M Tab PO 1 tab DAILY [facility] Administration Pantoprazole Sodium 40 mg 11/03/18 09:00 11/06/18 08:56 Protonix Ec Tab PO 40 mg DAILY [facility] Administration Potassium Chloride 20 meq 11/03/18 09:00 11/06/18 08:58 K-Dur 20 Meq Er Tab PO 20 meq DAILY [facility] Administration Ramipril 1.25 mg 11/05/18 09:15 11/05/18 10:34 Altace PO 1.25 mg DAILY [facility] Administration - Patient Studies Lab Studies: Microbiology Studies 11/04/18 17:30 MRSA Culture (Admit) - Final Naris MRSA NOT DETECTED 11/04/18 15:45 Blood Culture - Preliminary Blood NO GROWTH AFTER 24 HOURS 11/04/18 15:45 Blood Culture - Preliminary Blood NO GROWTH AFTER 24 HOURS Lab Studies 11/06/18 11/06/18 11/06/18 Range/Units 04:35 04:35 04:29 WBC 17.8 H D (4.8-10.8) K/uL RBC 3.60 L (3.80-5.20) Mil/uL Hgb 8.5 L (12.0-16.0) g/dL Hct 27.0 L (34.0-47.0) % MCV 75.1 L (81.0-99.0) fl MCH 23.5 L (27.0-31.0) pg MCHC 31.3 L (33.0-37.0) g/dL RDW 26.3 H (11.5-14.5) % Plt Count 295 (130-400) K/uL pCO2 47 H (35-45) mm/Hg pO2 52 L (80-100) mm/Hg HCO3 37.3 H (21-28) mmol/L ABG pH 7.54 H (7.35-7.45) ABG Total CO2 41.6 H (22-28) mmol/L ABG O2 Saturation 91.3 L (95-98) % ABG O2 Content 10.9 L (15-23) ML/dL ABG Base Excess 16.0 H (-2.0-3.0) mmol/L ABG Hemoglobin 8.7 L (11.7-17.4) g/dL ABG Carboxyhemoglobin 2.0 H (0.5-1.5) % POC ABG HHb (Measured) 8.4 H (0.0-5.0) % ABG Methemoglobin 1.0 (0.0-3.0) % ABG O2 Capacity 11.9 L (16-24) mL/dL Andres Test Yes A-a O2 Difference 317.0 mm/Hg Hgb O2 Saturation 88.5 L (95.0-98.0) % Liter Flow 35 Vent Mode High flow lpm FiO2 60.0 % Sodium 140 (132-148) mmol/l Potassium 3.3 L (3.6-5.0) MMOL/L Chloride 95 L (98-107) mmol/L Carbon Dioxide 35 H (22-30) mmol/L Anion Gap 13 (10-20) BUN 84 H (7-17) mg/dl Creatinine 1.4 H (0.7-1.2) mg/dl Est GFR ( Amer) 43 Est GFR (Non-Af Amer) 36 Random Glucose 88 (65-105) mg/dL Calcium 8.6 (8.4-10.2) mg/dL Laboratory Results - last 24 hr 11/06/18 11/06/18 11/06/18 04:29 04:35 04:35 WBC 17.8 H D RBC 3.60 L Hgb 8.5 L Hct 27.0 L MCV 75.1 L MCH 23.5 L MCHC 31.3 L RDW 26.3 H Plt Count 295 pCO2 47 H pO2 52 L HCO3 37.3 H ABG pH 7.54 H ABG Total CO2 41.6 H ABG O2 Saturation 91.3 L ABG O2 Content 10.9 L ABG Base Excess 16.0 H ABG Hemoglobin 8.7 L ABG Carboxyhemoglobin 2.0 H POC ABG HHb (Measured) 8.4 H ABG Methemoglobin 1.0 ABG O2 Capacity 11.9 L Andres Test Yes A-a O2 Difference 317.0 Hgb O2 Saturation 88.5 L Liter Flow 35 Vent Mode High flow lpm FiO2 60.0 Sodium 140 Potassium 3.3 L Chloride 95 L Carbon Dioxide 35 H Anion Gap 13 BUN 84 H Creatinine 1.4 H Est GFR ( Amer) 43 Est GFR (Non-Af Amer) 36 Random Glucose 88 Calcium 8.6 Critical Care Progress Note - Nutrition Nutrition: Nutrition Category Date Time Status Consistent Carbohydrate [DIET] Diets 11/03/18 Dinner Active Assessment/Plan - Assessment and Plan (Free Text) Assessment: 11/06/18 #Cardio - CHFrEF (Last Echo 10/30 LVEF 20-25%), has pulm congestion - - C/W diuresis , lasix 40 mg q 8H - Monitor I/O closely - Monitor weight daily; maintain negative balance - Continuous cardiac monitoring - Troponin 1.13 (trending down from 1.8), likely demand ischemia. EKG no acute ischemic findings, ventricular paced - Cardiology on board, Dr. Stein #Pulm - Acute hypoxic respiratory failure 2/2 COPD vs CHF exas. PE is possible but risk of treatment outweighs benefits - Was on BIPAP overnight changed back to HFNC : 35 LPM, FIO2 40% - C/W Bronchodilators, IV Steroids - Maintain O2 sat > 90%. Wean O2 administration as tolerated - Pulmonology on board, Dr. Anton - F/U am ABG and Cxray #GI - Resume diet #Renal - RANDOLPH on CKD (baseline Crea 1 w/ GFR in 50's) - Creatine 1.5 - Avoid nephrotoxic medication - Monitor electrolytes #Endo - Hga1c 5.6 - F/U TSH #Heme/ID - Hg and platelet stable - Mild leukocytosis, likely 2/2 to steroids - Afebrile, no bandemia, Procalcitonin <0.05. Low clinical suspicion for underlying infection - Lactic acid 6 on ABG, likely Type A Lactic Acidosis from acute hypoxic respiratory failure #PPX -DVT Heparin 5000q8 -GI ppx, not indicated
[2018-11-06] MEDS ORDERED: Potassium Chloride 20 mEq ER Tab PO ONE (10:21)
--- NOTE | 2018-11-06 11:43 | CP.PCM.PN ---
Subjective - Date & Time of Evaluation Date of Evaluation: 11/06/18 Time of Evaluation: 11:43 - Subjective Subjective: AWAKE AND ALERT FAMILY AT BEDSIDE SOB IMPROVED O2 SAT 92% ON HIGH FLOW O2 LUNGS-FAIR AERATION WITH FEW RALES HEART-S1S2 ABD-BENIGN EXT-NO EDEMA/CYANOSIS IMP-RESPIRATORY FAILURE IMPROVED CHF-IMPROVING PLAN-CONTINUE CURRENT RX ATTEMPT TO WEAN OFF HIGH FLOW O2 Objective - Vital Signs/Intake and Output Vital Signs (last 24 hours): Temp Pulse Resp BP Pulse Ox 97.9 F 80 20 114/56 L 91 L 11/06/18 00:00 11/06/18 06:00 11/06/18 11:10 11/06/18 09:01 11/06/18 06:00 Intake and Output: 11/06/18 11/06/18 06:59 18:59 Intake Total 250 Output Total 750 Balance -500 - Medications Medications: Current Medications Acetaminophen (Tylenol 325mg Tab) 650 mg PO Q6 PRN PRN Reason: Pain, Mild (1-3) Acetaminophen (Tylenol 325mg Tab) 650 mg PO Q6 PRN PRN Reason: Fever >100.4 F Albuterol/Ipratropium (Duoneb 3 Mg/0.5 Mg (3 Ml) Ud) 3 ml INH RQ4 [facility] Last Admin: 11/06/18 07:34 Dose: 3 ml Amlodipine Besylate (Norvasc) 10 mg PO DAILY [facility] Last Admin: 11/04/18 16:25 Dose: Not Given Aspirin (Ecotrin) 81 mg PO DAILY [facility] Last Admin: 11/06/18 08:56 Dose: 81 mg Atorvastatin Calcium (Lipitor) 20 mg PO HS [facility] Last Admin: 11/05/18 21:18 Dose: 20 mg Carvedilol (Coreg) 3.125 mg PO Q12 [facility] Last Admin: 11/05/18 20:37 Dose: 3.125 mg Furosemide (Lasix) 40 mg IV Q8 [facility] Last Admin: 11/06/18 09:01 Dose: 40 mg Heparin Sodium (Porcine) (Heparin) 5,000 units SC Q8 [facility]; Protocol Last Admin: 11/06/18 08:57 Dose: 5,000 units Hydralazine HCl (Apresoline) 10 mg PO TID [facility] Last Admin: 11/05/18 16:04 Dose: 10 mg Azithromycin 500 mg/ Sodium (Chloride) 250 mls @ 250 mls/hr IVPB DAILY [facility] Last Admin: 11/06/18 09:02 Dose: 250 mls/hr Vancomycin HCl 1 gm/ Sodium (Chloride) 250 mls @ 166.667 mls/hr IVPB DAILY [facility]; Protocol Last Admin: 11/06/18 09:03 Dose: 166.667 mls/hr Piperacillin Sod/Tazobactam (Sod 2.25 gm/ Sodium Chloride) 100 mls @ 100 mls/hr IVPB Q6 [facility]; Protocol Last Admin: 11/06/18 03:29 Dose: 100 mls/hr Magnesium Hydroxide (Milk Of Magnesia) 30 ml PO DAILY PRN PRN Reason: Constipation Multivitamins/Minerals (Therapeutic-M Tab) 1 tab PO DAILY [facility] Last Admin: 11/06/18 09:04 Dose: 1 tab Pantoprazole Sodium (Protonix Ec Tab) 40 mg PO DAILY [facility] Last Admin: 11/06/18 08:56 Dose: 40 mg Potassium Chloride (K-Dur 20 Meq Er Tab) 40 meq PO DAILY [facility] Ramipril (Altace) 1.25 mg PO DAILY [facility] Last Admin: 11/05/18 10:34 Dose: 1.25 mg - Labs Labs: 11/06/18 04:35 11/06/18 04:35
[2018-11-06 12:05] LABS: URINE BACTERIA RARE (<OCC); URINE BILIRUBIN NEGATIVE (NEGATIVE); URINE BLOOD LARGE (NEGATIVE); URINE CLARITY SLIGHTY-CLOUDY (Clear); URINE COLOR YELLOW (YELLOW); URINE GLUCOSE (UA) NEG (NEGATIVE); URINE LEUKOCYTE ESTERASE MOD Leu/uL (Negative); URINE PROTEIN NEGATIVE (NEGATIVE); URINE UROBILINOGEN 0.2-1.0 mg/dL (0.2-1.0)
[2018-11-07] MEDS: Albuterol-Ipratrop 3 mg / 0.5 (3 ml) UD INH SCH ×7 (00:30→23:30)
[2018-11-07 06:22] LABS: MEAN CELL VOLUME 75.7 fl (81.0-99.0); MEAN CORPUSCULAR HEMOGLOBIN 24.2 pg (27.0-31.0); RBC 3.71 Mil/uL (3.80-5.20); RED CELL DISTRIBUTION WIDTH 27.1 % (11.5-14.5)
[2018-11-07 08:33] LABS: ALBUMIN 3.3 g/dL (3.5-5.0); CALCIUM 8.7 mg/dL (8.4-10.2)
[2018-11-07] MEDS: FLUTICASONE PROPION/SALMETEROL 113-14 IH SCH ×2 (08:52→21:07)
[2018-11-07] MEDS: Pantoprazole 40 mg EC Tab PO SCH (08:52)
[2018-11-07] MEDS: Potassium Chloride 20 mEq ER Tab PO SCH (08:54)
[2018-11-07] MEDS: Azithromycin 500 MG in Sodium Chloride 0.9% 250 ML IVPB SCH (08:55)
[2018-11-07] MEDS: Multivitamin With Minerals Tab PO SCH (08:55)
--- NOTE | 2018-11-07 10:58 | CP.PCM.PN ---
<Amanda Jimenes - Last Filed: 11/07/18 11:48> Subjective - Date & Time of Evaluation Date of Evaluation: 11/07/18 Time of Evaluation: 10:58 - Subjective Subjective: Patient seen and examined bedside. Sitting upright in no acute distress, breathing comfortably with HFNC: FIO2 60% at 35 LPM. BP: 119/68, HR 76, SPO2: 96% Complaining of pain at IV site, nurse checked IV line. Azithromycin running. Forgetful. No other complaints. No chest pain or dyspnea. Will check ABG. Objective - Vital Signs/Intake and Output Vital Signs (last 24 hours): Temp Pulse Resp BP Pulse Ox 97.7 F 73 28 H 116/58 L 96 11/07/18 08:00 11/07/18 10:00 11/07/18 10:00 11/07/18 10:00 11/07/18 10:00 Intake and Output: 11/07/18 11/07/18 06:59 18:59 Intake Total 400 250 Output Total 1100 Balance -700 250 - Medications Medications: Current Medications Acetaminophen (Tylenol 325mg Tab) 650 mg PO Q6 PRN PRN Reason: Pain, Mild (1-3) Acetaminophen (Tylenol 325mg Tab) 650 mg PO Q6 PRN PRN Reason: Fever >100.4 F Albuterol/Ipratropium (Duoneb 3 Mg/0.5 Mg (3 Ml) Ud) 3 ml INH RQ4 [facility] Last Admin: 11/07/18 07:59 Dose: 3 ml Aspirin (Ecotrin) 81 mg PO DAILY [facility] Last Admin: 11/07/18 08:53 Dose: 81 mg Atorvastatin Calcium (Lipitor) 20 mg PO HS [facility] Last Admin: 11/06/18 21:20 Dose: 20 mg Carvedilol (Coreg) 3.125 mg PO Q12 [facility] Last Admin: 11/06/18 10:00 Dose: Not Given Furosemide (Lasix) 40 mg IVP BID [facility] Last Admin: 11/07/18 09:51 Dose: 40 mg Heparin Sodium (Porcine) (Heparin) 5,000 units SC Q12 [facility]; Protocol Last Admin: 11/07/18 08:53 Dose: 5,000 units Hydralazine HCl (Apresoline) 10 mg PO TID [facility] Last Admin: 11/06/18 14:20 Dose: Not Given Azithromycin 500 mg/ Sodium (Chloride) 250 mls @ 250 mls/hr IVPB DAILY [facility] Last Admin: 11/07/18 08:55 Dose: 250 mls/hr Vancomycin HCl 1 gm/ Sodium (Chloride) 250 mls @ 166.667 mls/hr IVPB DAILY [facility]; Protocol Last Admin: 11/07/18 08:56 Dose: 166.667 mls/hr Piperacillin Sod/Tazobactam (Sod 2.25 gm/ Sodium Chloride) 100 mls @ 100 mls/hr IVPB Q6H [facility]; Protocol Last Admin: 11/07/18 08:57 Dose: 100 mls/hr Magnesium Hydroxide (Milk Of Magnesia) 30 ml PO DAILY PRN PRN Reason: Constipation Multivitamins/Minerals (Therapeutic-M Tab) 1 tab PO DAILY [facility] Last Admin: 11/07/18 08:55 Dose: 1 tab Pantoprazole Sodium (Protonix Ec Tab) 40 mg PO DAILY [facility] Last Admin: 11/07/18 08:52 Dose: 40 mg Potassium Chloride (K-Dur 20 Meq Er Tab) 40 meq PO DAILY [facility] Last Admin: 11/07/18 08:54 Dose: 40 meq Ramipril (Altace) 1.25 mg PO DAILY [facility] Last Admin: 11/06/18 10:05 Dose: Not Given - Labs Labs: 11/07/18 04:45 11/07/18 04:45 - Constitutional Appears: Non-toxic, Chronically Ill - Head Exam Head Exam: NORMAL INSPECTION, NORMOCEPHALIC - Respiratory Exam Respiratory Exam: Prolonged Expiratory Phase. absent: Chest Wall Tenderness, Wheezes Additional comments: examined anterior chest, unable to examine posteriorly. - Cardiovascular Exam Additional comments: distant heart sounds - GI/Abdominal Exam GI & Abdominal Exam: Soft. 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 On admission elevated pro-BNP 30,000+. CXR noted; worsening pulmonary congestion when compared to previous XR. ECHO significant for compromised left ventricular systolic function, EF 20-25% (10/2018). ?RANDOLPH vs CKD stage III. Hypokalemia likely secondary to diuresis with lasix/albuterol treatments. Decrease lasix to q12, hold BP medications for now. ABG reviewed, continue with HFNC FIOw 60% at 35LPM. Acute on Chronic CHF systolic and diastolic dysfunction with EF 20%. Pulmonary Edema Severe Pulmonary Hypertension -Lasix 40mg IV decreased to q12 from q8 -Hold -Coreg 3.125mg PO q12, Hydralazine 10mg PO TID, held yesterday due to low BP -Norvasc d/c -Ramipril 1.25mg held yesterday ? Pneumonia- Continue IV zosyn/vancomycin/ Azithromycin for ?pneumonia Lactic Acidosis - improving Hypokalemia- resolved, continue to monitor COPD exacerbation-Continue Duonebs/Solumedrol for COPD exacerbation History of PE/DVT DVT prophylaxis Continue Heparin 5000mg q12 History of Intracerebral Bleed RANDOLPH vs CKD Stage III, stable chronic Anemia- Chronic, stable Code Status : Full code Case d/w Dr. Fry <Antonio Fry D - Last Filed: 11/07/18 12:28> Objective - Vital Signs/Intake and Output Vital Signs (last 24 hours): Temp Pulse Resp BP Pulse Ox 98.6 F 84 25 H 128/71 93 L 11/07/18 11:41 11/07/18 11:41 11/07/18 11:41 11/07/18 11:41 11/07/18 11:41 Intake and Output: 11/07/18 11/07/18 06:59 18:59 Intake Total 400 500 Output Total 1100 Balance -700 500 - Medications Medications: Current Medications Acetaminophen (Tylenol 325mg Tab) 650 mg PO Q6 PRN PRN Reason: Pain, Mild (1-3) Acetaminophen (Tylenol 325mg Tab) 650 mg PO Q6 PRN PRN Reason: Fever >100.4 F Albuterol/Ipratropium (Duoneb 3 Mg/0.5 Mg (3 Ml) Ud) 3 ml INH RQ4 [facility] Last Admin: 11/07/18 11:13 Dose: 3 ml Aspirin (Ecotrin) 81 mg PO DAILY [facility] Last Admin: 11/07/18 08:53 Dose: 81 mg Atorvastatin Calcium (Lipitor) 20 mg PO HS [facility] Last Admin: 11/06/18 21:20 Dose: 20 mg Carvedilol (Coreg) 3.125 mg PO Q12 [facility] Last Admin: 11/06/18 10:00 Dose: Not Given Furosemide (Lasix) 40 mg IVP BID [facility] Last Admin: 11/07/18 09:51 Dose: 40 mg Heparin Sodium (Porcine) (Heparin) 5,000 units SC Q12 [facility]; Protocol Last Admin: 11/07/18 08:53 Dose: 5,000 units Hydralazine HCl (Apresoline) 10 mg PO TID [facility] Last Admin: 11/06/18 14:20 Dose: Not Given Azithromycin 500 mg/ Sodium (Chloride) 250 mls @ 250 mls/hr IVPB DAILY [facility] Last Admin: 11/07/18 08:55 Dose: 250 mls/hr Vancomycin HCl 1 gm/ Sodium (Chloride) 250 mls @ 166.667 mls/hr IVPB DAILY [facility]; Protocol Last Admin: 11/07/18 08:56 Dose: 166.667 mls/hr Piperacillin Sod/Tazobactam (Sod 2.25 gm/ Sodium Chloride) 100 mls @ 100 mls/hr IVPB Q6H [facility]; Protocol Last Admin: 11/07/18 08:57 Dose: 100 mls/hr Magnesium Hydroxide (Milk Of Magnesia) 30 ml PO DAILY PRN PRN Reason: Constipation Multivitamins/Minerals (Therapeutic-M Tab) 1 tab PO DAILY [facility] Last Admin: 11/07/18 08:55 Dose: 1 tab Pantoprazole Sodium (Protonix Ec Tab) 40 mg PO DAILY [facility] Last Admin: 11/07/18 08:52 Dose: 40 mg Potassium Chloride (K-Dur 20 Meq Er Tab) 40 meq PO DAILY [facility] Last Admin: 11/07/18 08:54 Dose: 40 meq Ramipril (Altace) 1.25 mg PO DAILY [facility] Last Admin: 11/06/18 10:05 Dose: Not Given - Labs Labs: 11/07/18 04:45 11/07/18 04:45 Attending/Attestation - Attestation I have personally seen and examined this patient.: Yes I have fully participated in the care of the patient.: Yes I have reviewed all pertinent clinical information, including history, physical exam and plan: Yes Notes (Text): 05/27/19 12:28 Patient seen and examined with resident. Case discussed and agreed with assessment and plan.
[2018-11-07 11:22] LABS: ABG ALLEN TEST YES; ARTERIAL BLOOD GAS HCO3 33.3 mmol/L (21-28); ARTERIAL BLOOD GAS HEMOGLOBIN 8.7 g/dL (11.7-17.4); ARTERIAL BLOOD GAS O2 CAPACITY 11.7 mL/dL (16-24); ARTERIAL BLOOD GAS O2 CONTENT 11.7 ML/dL (15-23); ARTERIAL BLOOD GAS O2 SAT 100.1 % (95-98); ARTERIAL BLOOD GAS PCO2 39 mm/Hg (35-45); ARTERIAL BLOOD GAS PH 7.55 (7.35-7.45); ARTERIAL BLOOD GAS PO2 65 mm/Hg (80-100); ARTERIAL BLOOD GAS TCO2 35.3 mmol/L (22-28)
--- NOTE | 2018-11-07 11:23 | CP.PCM.PN ---
Subjective - Date & Time of Evaluation Date of Evaluation: 11/07/18 Time of Evaluation: 11:23 - Subjective Subjective: NO APPARENT RESPIRATORY DISTRESS O2 SAT-95% ON HIGH FLOW O2 AT 60% Objective - Vital Signs/Intake and Output Vital Signs (last 24 hours): Temp Pulse Resp BP Pulse Ox 97.7 F 73 28 H 116/58 L 96 11/07/18 08:00 11/07/18 10:00 11/07/18 10:00 11/07/18 10:00 11/07/18 10:00 Intake and Output: 11/07/18 11/07/18 06:59 18:59 Intake Total 400 250 Output Total 1100 Balance -700 250 - Medications Medications: Current Medications Acetaminophen (Tylenol 325mg Tab) 650 mg PO Q6 PRN PRN Reason: Pain, Mild (1-3) Acetaminophen (Tylenol 325mg Tab) 650 mg PO Q6 PRN PRN Reason: Fever >100.4 F Albuterol/Ipratropium (Duoneb 3 Mg/0.5 Mg (3 Ml) Ud) 3 ml INH RQ4 [facility] Last Admin: 11/07/18 11:13 Dose: 3 ml Aspirin (Ecotrin) 81 mg PO DAILY [facility] Last Admin: 11/07/18 08:53 Dose: 81 mg Atorvastatin Calcium (Lipitor) 20 mg PO HS [facility] Last Admin: 11/06/18 21:20 Dose: 20 mg Carvedilol (Coreg) 3.125 mg PO Q12 [facility] Last Admin: 11/06/18 10:00 Dose: Not Given Furosemide (Lasix) 40 mg IVP BID [facility] Last Admin: 11/07/18 09:51 Dose: 40 mg Heparin Sodium (Porcine) (Heparin) 5,000 units SC Q12 [facility]; Protocol Last Admin: 11/07/18 08:53 Dose: 5,000 units Hydralazine HCl (Apresoline) 10 mg PO TID [facility] Last Admin: 11/06/18 14:20 Dose: Not Given Azithromycin 500 mg/ Sodium (Chloride) 250 mls @ 250 mls/hr IVPB DAILY [facility] Last Admin: 11/07/18 08:55 Dose: 250 mls/hr Vancomycin HCl 1 gm/ Sodium (Chloride) 250 mls @ 166.667 mls/hr IVPB DAILY [facility]; Protocol Last Admin: 11/07/18 08:56 Dose: 166.667 mls/hr Piperacillin Sod/Tazobactam (Sod 2.25 gm/ Sodium Chloride) 100 mls @ 100 mls/hr IVPB Q6H [facility]; Protocol Last Admin: 11/07/18 08:57 Dose: 100 mls/hr Magnesium Hydroxide (Milk Of Magnesia) 30 ml PO DAILY PRN PRN Reason: Constipation Multivitamins/Minerals (Therapeutic-M Tab) 1 tab PO DAILY [facility] Last Admin: 11/07/18 08:55 Dose: 1 tab Pantoprazole Sodium (Protonix Ec Tab) 40 mg PO DAILY [facility] Last Admin: 11/07/18 08:52 Dose: 40 mg Potassium Chloride (K-Dur 20 Meq Er Tab) 40 meq PO DAILY [facility] Last Admin: 11/07/18 08:54 Dose: 40 meq Ramipril (Altace) 1.25 mg PO DAILY [facility] Last Admin: 11/06/18 10:05 Dose: Not Given - Labs Labs: 11/07/18 04:45 11/07/18 04:45 - Constitutional Appears: No Acute Distress - Head Exam Head Exam: ATRAUMATIC, NORMAL INSPECTION, NORMOCEPHALIC - Eye Exam Eye Exam: EOMI, Normal appearance, PERRL Pupil Exam: NORMAL ACCOMODATION, PERRL - ENT Exam ENT Exam: Mucous Membranes Moist, Normal Exam - Neck Exam Neck Exam: Full ROM, Normal Inspection. absent: Lymphadenopathy - Respiratory Exam Respiratory Exam: Prolonged Expiratory Phase, Rales, NORMAL BREATHING PATTERN - Cardiovascular Exam Cardiovascular Exam: REGULAR RHYTHM, +S1, +S2. absent: Murmur - GI/Abdominal Exam GI & Abdominal Exam: Soft, Normal Bowel Sounds. absent: Tenderness - Rectal Exam Rectal Exam: NORMAL INSPECTION - Extremities Exam Extremities Exam: Full ROM, Normal Capillary Refill, Normal Inspection. absent: Joint Swelling, Pedal Edema - Back Exam Back Exam: NORMAL INSPECTION - Neurological Exam Neurological Exam: Alert, Awake, CN II-XII Intact, Oriented x3 - Psychiatric Exam Psychiatric exam: Normal Affect, Normal Mood - Skin Skin Exam: Dry, Intact, Normal Color, Warm Assessment and Plan - Assessment and Plan (Free Text) Assessment: ACUTE RESPIRATORY FAILURE--CLINICALLY IMPROVING Plan: REPEAT CXR ABGS IN AM ATTEMPT TO WEAN OFF HIGH FLOW O2
--- NOTE | 2018-11-07 17:49 | RAD ---
Date of service: 11/07/2018 HISTORY: RESPIRATORY FAILURE COMPARISON: Portable chest 11/04/2018. TECHNIQUE: 1 view obtained. FINDINGS: LUNGS: Right basilar airspace disease is questioned Stable cardiomegaly. No pulmonary vascular congestion. Pacemaker reiterated. None is seen at the left. PLEURA: Interval right pleural effusion is identified. None is seen at the left. No pneumothorax bilaterally. CARDIOVASCULAR: No aortic atherosclerotic calcification present. Stable cardiomegaly. Pacemaker reiterated. No pulmonary vascular congestion. OSSEOUS STRUCTURES: No significant abnormalities. VISUALIZED UPPER ABDOMEN: Normal. OTHER FINDINGS: None. IMPRESSION: Interval right pleural effusion appears mild with underlying airspace disease not excluded.
--- NOTE | 2018-11-07 22:37 | PN ---
DATE: 11/07/2018 CRITICAL CARE PROGRESS NOTE LOCATION: The patient in ICU, bed 435. TIME SPENT: Thirty-five minutes. The patient is seen, evaluated at the bedside. 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 Overnight, less short of breath with good diuresis remains afebrile, normotensive. This morning, alert, awake, follows commands appropriate, noted to be in mild distress. No cough, no fever, chills. No abdominal pain, diarrhea, or dysuria. PHYSICAL EXAMINATION: VITAL SIGNS: Temperature 97.7, heart rate of 73, blood pressure 116/58, mean arterial pressure of 77, respiratory rate of 28, saturation 96%. Intake 1000, output 2100, negative balance 1100. Urine output 2100. Urine voided 1100, Humphries 1000. Weight 148 pounds. HEAD, EARS, EYES, NOSE, AND THROAT: Pupils are reactive. Conjunctivae pink. Sclerae anicteric. NECK: No jugular venous distention. CHEST: Bilateral breath sounds. Expiration prolonged, fine crepitations at the bases. ABDOMEN: Bowel sounds present. Soft. EXTREMITIES: 1+ edema. DP palpable. CURRENT MEDICATIONS: Tylenol 650 every 6 hours p.r.n. albuterol/Atrovent inhalation 3 mL every 4 hours, Ecotrin 81 mg daily, Lipitor 20 mg p.o. daily, Zithromax 500 mg IV daily, Coreg 3.125 every 12 hours, Lasix 40 IV b.i.d., heparin 5000 units subcutaneous every 12 hours, hydralazine 10 mg p.o. three times daily, magnesium hydroxide 30 mL p.o. daily, Protonix 40 daily, potassium chloride, K-Dur 20 mEq daily, vancomycin 1 g IV daily, Altace 1.25 mg p.o. daily. LABORATORY DATA: WBC 15, hemoglobin 9, hematocrit 28, platelet count 273. ABG pH of 7.54, pCO2 of 47 pO2 of 52. Saturation 91.3 on high-flow nasal oxygen 35 liters with 60% FIO2. SMA-7, sodium 141, potassium 3.7, chloride 90, CO2 of 31, blood urea nitrogen 66, creatinine 1.1, eGFR of 57, calcium 8.7, phosphorus 3, magnesium 2, total bilirubin 0.6, AST 35, ALT 35, alkaline phosphatase 75, total protein 6.7, albumin 3.3. TSH 0.67. Urinalysis, RBC 47, microscopic WBC 12. Stool occult blood negative. Chest x-ray from 11/04/2018 poor inspiration with low lung volume, central pulmonary vascular congestion, bibasilar atelectasis. IMPRESSION/PLAN: 1. Neurologic: Alert, awake, follows commands appropriate. 2. Pulmonary: Acute hypoxic respiratory failure secondary to chronic obstructive pulmonary disease versus congestive heart failure, on high-flow nasal oxygen, saturating well over 94%. Continue bronchodilator, IV steroids. Followup by Pulmonary appreciated. 3. Gastrointestinal: No acute issues, on normal diet. 4. Renal. Acute on chronic kidney disease. Avoid nephrotoxic medications. Monitor electrolytes. 5. Endocrine: Hemoglobin A1c within normal range. Follow TSH. 6. Hematology: Hemoglobin and platelet count stable. Mild leukocytosis secondary to steroids. 7. Continue DVT and GI prophylaxis, head of bed 30 degrees up. Appreciate palliative care consult. Leopoldo Parsons MD
[2018-11-08] MEDS: Albuterol-Ipratrop 3 mg / 0.5 (3 ml) UD INH SCH ×6 (04:29→23:40)
[2018-11-08 05:29] LABS: CALCIUM 8.8 mg/dL (8.4-10.2)
[2018-11-08 05:32] LABS: HEMOGLOBIN 9.1 g/dL (12.0-16.0); MEAN CELL VOLUME 75.9 fl (81.0-99.0); MEAN CORPUSCULAR HEMOGLOBIN 24.2 pg (27.0-31.0); MEAN CORPUSCULAR HGB CONC 31.8 g/dL (33.0-37.0); RBC 3.75 Mil/uL (3.80-5.20); RED CELL DISTRIBUTION WIDTH 26.5 % (11.5-14.5); WHITE BLOOD COUNT 13.8 K/uL (4.8-10.8)
--- NOTE | 2018-11-08 07:55 | CP.CCUPN ---
CCU Subjective - Physician Review Events Since Last Encounter (Free Text): 11/08/18 12:34 The patient was Seen/interviewed and examined by me at the bedside during ICU round, Medical records reviewed and Management issues were discussed and formulated with the house staff. Events reviewed Mrs Ochoa is a 87 Years old Female with past medical history of hypertension, chronic kidney disease, gastritis, chronic obstructive pulmonary disease and congestive heart failure with reduced ejection fraction (EF 20-25% 10/2018) Who was transferred from transitional care unit for evaluation of shortness of breath Admission CXR consistent with Poor inspiration with low lung volumes, pulmonary venous congestion, Small bilateral effusions and mild bibasilar atelectasis. She was admitted to the hospital for management of acute on chronic respiratory failure secondary to acute exacerbation of COPD and CHF Started on intra-venous steroid, IV Lasix, IV antibiotics and bronchodilator nebulizers She was also placed on BIPAP, she was uncomfortable on the BiPAP wanted to remove it, switch to high flow nasal cannula, and currently down to 2-4L nasal cannula Patient continue to slowly clinically improve and is feeling better today Complaining of productive cough, less dyspnea since admission, denies chest pain, fever/chills, palpitation or hemoptysis Afebrile Last 24H I&O 1080/1100 CCU Objective - Vital Signs / Intake & Output Vital Signs (Last 4 hours): Vital Signs Temp Pulse Resp BP Pulse Ox 11/08/18 07:47 24 11/08/18 06:00 76 14 108/60 93 L 11/08/18 04:29 26 H 11/08/18 04:00 98 F 74 26 H 134/77 95 Intake and Output (Last 8hrs): Intake & Output 11/07/18 11/08/18 11/08/18 22:59 06:59 14:59 Intake Total 260 220 Output Total 700 400 Balance -440 -180 Weight 152 lb 9.6 oz Intake: Intake, Piggyback 200 100 Oral 60 120 Output: Urine 700 400 Urine, Voided 700 400 Other: # Bowel Movements 1 - Physical Exam Head: Positive for: Atraumatic, Normocephalic Pupils: Positive for: PERRL Extroacular Muscles: Positive for: EOMI Conjunctiva: Positive for: Normal Mouth: Positive for: Moist Mucous Membranes Nose (Internal): Positive for: Normal Inspection Neck: Positive for: Normal Range of Motion, Trachea Midline. Negative for: Meningeal Signs, MIDLINE TENDERNESS, Paraspinal Tenderness, JVD, Lymphadenopathy, Bruit, Other Respiratory/Chest: Positive for: Good Air Exchange, Decreased Breath Sounds, Tachypneic (Mild). Negative for: Wheezes, Rales, Retracting, Rhonchi Cardiovascular: Positive for: Regular Rate and Rhythm, Normal S1, S2, Peripheal Pulses Present. Negative for: Murmurs, Irregular Rhythm, Tachycardic, Bradycardic Abdomen: Positive for: Normal Bowel Sounds. Negative for: Tenderness, Distention Lower Extremity: Positive for: Normal Inspection. Negative for: Edema Neurological: Positive for: GCS=15, CN II-XII Intact, Speech Normal Psychiatric: Positive for: Alert, Oriented x 3 - Medications Active Medications: Active Medications Generic Name Dose Route Start Last Admin Trade Name Freq PRN Reason Stop Dose Admin Acetaminophen 650 mg 11/03/18 05:10 Tylenol 325mg Tab PO Q6 PRN Pain, Mild (1-3) Acetaminophen 650 mg 11/03/18 05:10 Tylenol 325mg Tab PO Q6 PRN Fever >100.4 F Albuterol/Ipratropium 3 ml 11/03/18 08:00 11/08/18 07:38 Duoneb 3 Mg/0.5 Mg (3 Ml) Ud INH 3 ml RQ4 [facility] Administration Aspirin 81 mg 11/03/18 09:00 11/07/18 08:53 Ecotrin PO 81 mg DAILY [facility] Administration Atorvastatin Calcium 20 mg 11/03/18 22:00 11/07/18 21:09 Lipitor PO 20 mg HS [facility] Administration Carvedilol 3.125 mg 11/03/18 09:00 11/06/18 10:00 Coreg PO Not Given Q12 [facility] Furosemide 40 mg 11/07/18 09:00 11/07/18 17:36 Lasix IVP 40 mg BID [facility] Administration Heparin Sodium (Porcine) 5,000 units 11/07/18 09:00 11/07/18 21:08 Heparin SC 5,000 units Q12 [facility] Administration Protocol Hydralazine HCl 10 mg 11/03/18 09:00 11/06/18 14:20 Apresoline PO Not Given TID [facility] Azithromycin 500 mg/ Sodium 250 mls @ 250 mls/hr 11/03/18 09:00 11/07/18 08:55 Chloride IVPB 250 mls/hr DAILY [facility] Administration Vancomycin HCl 1 gm/ Sodium 250 mls @ 166.667 mls/hr 11/04/18 14:00 11/07/18 08:56 Chloride IVPB 166.667 mls/hr DAILY [facility] Administration Protocol Piperacillin Sod/Tazobactam 100 mls @ 100 mls/hr 11/06/18 21:00 11/08/18 02:49 Sod 2.25 gm/ Sodium Chloride IVPB 100 mls/hr Q6H [facility] Administration Protocol Lactulose 20 gm 11/07/18 21:46 11/07/18 23:43 Enulose PO 20 gm DAILY PRN Administration Constipation Magnesium Hydroxide 30 ml 11/03/18 04:51 Milk Of Magnesia PO DAILY PRN Constipation Multivitamins/Minerals 1 tab 11/03/18 09:00 11/07/18 08:55 Therapeutic-M Tab PO 1 tab DAILY [facility] Administration Pantoprazole Sodium 40 mg 11/03/18 09:00 11/07/18 08:52 Protonix Ec Tab PO 40 mg DAILY [facility] Administration Potassium Chloride 40 meq 11/07/18 09:00 11/07/18 08:54 K-Dur 20 Meq Er Tab PO 40 meq DAILY [facility] Administration Ramipril 1.25 mg 11/05/18 09:15 11/06/18 10:05 Altace PO Not Given DAILY [facility] - Patient Studies Lab Studies: Microbiology Studies 11/04/18 15:45 Blood Culture - Preliminary Blood NO GROWTH AFTER 3 DAYS 11/04/18 15:45 Blood Culture - Preliminary Blood NO GROWTH AFTER 3 DAYS Lab Studies 11/08/18 11/08/18 11/07/18 Range/Units 04:45 04:45 11:10 WBC 13.8 H (4.8-10.8) K/uL RBC 3.75 L (3.80-5.20) Mil/uL Hgb 9.1 L (12.0-16.0) g/dL Hct 28.4 L (34.0-47.0) % MCV 75.9 L (81.0-99.0) fl MCH 24.2 L (27.0-31.0) pg MCHC 31.8 L (33.0-37.0) g/dL RDW 26.5 H (11.5-14.5) % Plt Count 268 (130-400) K/uL pCO2 39 (35-45) mm/Hg pO2 65 L (80-100) mm/Hg HCO3 33.3 H (21-28) mmol/L ABG pH 7.55 H (7.35-7.45) ABG Total CO2 35.3 H (22-28) mmol/L ABG O2 Saturation 100.1 H (95-98) % ABG O2 Content 11.7 L (15-23) ML/dL ABG Base Excess 10.8 H (-2.0-3.0) mmol/L ABG Hemoglobin 8.7 L (11.7-17.4) g/dL ABG Carboxyhemoglobin 3.1 H (0.5-1.5) % POC ABG HHb (Measured) -0.1 L (0.0-5.0) % ABG Methemoglobin 1.9 (0.0-3.0) % ABG O2 Capacity 11.7 L (16-24) mL/dL Andres Test Yes A-a O2 Difference 314.0 mm/Hg Hgb O2 Saturation 95.1 (95.0-98.0) % FiO2 60.0 % Sodium 140 (132-148) mmol/l Potassium 3.6 (3.6-5.0) MMOL/L Chloride 99 (98-107) mmol/L Carbon Dioxide 31 H (22-30) mmol/L Anion Gap 14 (10-20) BUN 49 H (7-17) mg/dl Creatinine 1.2 (0.7-1.2) mg/dl Est GFR ( Amer) 52 Est GFR (Non-Af Amer) 43 Random Glucose 117 H (65-105) mg/dL Calcium 8.8 (8.4-10.2) mg/dL Phosphorus (2.5-4.5) mg/dl Magnesium (1.6-2.3) MG/DL Total Bilirubin (0.2-1.3) mg/dl AST (14-36) U/L ALT (9-52) U/L Alkaline Phosphatase (38-126) U/L Total Protein (6.3-8.2) G/DL Albumin (3.5-5.0) g/dL Globulin (2.2-3.9) gm/dL Albumin/Globulin Ratio (1.0-2.1) Random Vancomycin ug/mL 11/07/18 11/07/18 Range/Units 10:15 04:45 WBC (4.8-10.8) K/uL RBC (3.80-5.20) Mil/uL Hgb (12.0-16.0) g/dL Hct (34.0-47.0) % MCV (81.0-99.0) fl MCH (27.0-31.0) pg MCHC (33.0-37.0) g/dL RDW (11.5-14.5) % Plt Count (130-400) K/uL pCO2 (35-45) mm/Hg pO2 (80-100) mm/Hg HCO3 (21-28) mmol/L ABG pH (7.35-7.45) ABG Total CO2 (22-28) mmol/L ABG O2 Saturation (95-98) % ABG O2 Content (15-23) ML/dL ABG Base Excess (-2.0-3.0) mmol/L ABG Hemoglobin (11.7-17.4) g/dL ABG Carboxyhemoglobin (0.5-1.5) % POC ABG HHb (Measured) (0.0-5.0) % ABG Methemoglobin (0.0-3.0) % ABG O2 Capacity (16-24) mL/dL Andres Test A-a O2 Difference mm/Hg Hgb O2 Saturation (95.0-98.0) % FiO2 % Sodium 141 (132-148) mmol/l Potassium 3.7 (3.6-5.0) MMOL/L Chloride 99 (98-107) mmol/L Carbon Dioxide 31 H (22-30) mmol/L Anion Gap 15 (10-20) BUN 66 H (7-17) mg/dl Creatinine 1.1 (0.7-1.2) mg/dl Est GFR ( Amer) 57 Est GFR (Non-Af Amer) 47 Random Glucose 100 (65-105) mg/dL Calcium 8.7 (8.4-10.2) mg/dL Phosphorus 3.0 (2.5-4.5) mg/dl Magnesium 2.0 (1.6-2.3) MG/DL Total Bilirubin 0.6 (0.2-1.3) mg/dl AST 35 (14-36) U/L ALT 35 (9-52) U/L Alkaline Phosphatase 71 (38-126) U/L Total Protein 6.7 (6.3-8.2) G/DL Albumin 3.3 L (3.5-5.0) g/dL Globulin 3.4 (2.2-3.9) gm/dL Albumin/Globulin Ratio 1.0 (1.0-2.1) Random Vancomycin 15.3 ug/mL Laboratory Results - last 24 hr 11/07/18 11/07/18 11/07/18 04:45 10:15 11:10 WBC RBC Hgb Hct MCV MCH MCHC RDW Plt Count pCO2 39 pO2 65 L HCO3 33.3 H ABG pH 7.55 H ABG Total CO2 35.3 H ABG O2 Saturation 100.1 H ABG O2 Content 11.7 L ABG Base Excess 10.8 H ABG Hemoglobin 8.7 L ABG Carboxyhemoglobin 3.1 H POC ABG HHb (Measured) -0.1 L ABG Methemoglobin 1.9 ABG O2 Capacity 11.7 L Andres Test Yes A-a O2 Difference 314.0 Hgb O2 Saturation 95.1 FiO2 60.0 Sodium 141 Potassium 3.7 Chloride 99 Carbon Dioxide 31 H Anion Gap 15 BUN 66 H Creatinine 1.1 Est GFR ( Amer) 57 Est GFR (Non-Af Amer) 47 Random Glucose 100 Calcium 8.7 Phosphorus 3.0 Magnesium 2.0 Total Bilirubin 0.6 AST 35 ALT 35 Alkaline Phosphatase 71 Total Protein 6.7 Albumin 3.3 L Globulin 3.4 Albumin/Globulin Ratio 1.0 Random Vancomycin 15.3 11/08/18 11/08/18 04:45 04:45 WBC 13.8 H RBC 3.75 L Hgb 9.1 L Hct 28.4 L MCV 75.9 L MCH 24.2 L MCHC 31.8 L RDW 26.5 H Plt Count 268 pCO2 pO2 HCO3 ABG pH ABG Total CO2 ABG O2 Saturation ABG O2 Content ABG Base Excess ABG Hemoglobin ABG Carboxyhemoglobin POC ABG HHb (Measured) ABG Methemoglobin ABG O2 Capacity Andres Test A-a O2 Difference Hgb O2 Saturation FiO2 Sodium 140 Potassium 3.6 Chloride 99 Carbon Dioxide 31 H Anion Gap 14 BUN 49 H Creatinine 1.2 Est GFR ( Amer) 52 Est GFR (Non-Af Amer) 43 Random Glucose 117 H Calcium 8.8 Phosphorus Magnesium Total Bilirubin AST ALT Alkaline Phosphatase Total Protein Albumin Globulin Albumin/Globulin Ratio Random Vancomycin Radiology Impressions: Radiology Impressions Chest X-Ray 11/07/18 11:19 IMPRESSION: Interval right pleural effusion appears mild with underlying airspace disease not excluded. Review of Systems - Cardiovascular Cardiovascular: absent: Acrocyanosis, Chest Pain, Chest Pain at Rest, Chest Pain with Activity, Claudication, Diaphoresis - Respiratory Respiratory: Cough, Dyspnea, Dyspnea on Exertion. absent: Hemoptysis, Wheezing, Snoring, Stridor Critical Care Progress Note - Extremities/Vascular Does the Patient have a Central Venous Catheter?: No Does the Patient need a Central Venous Catheter?: No Does the Patient have a Humphries Catheter?: No Does the Patient need a Humphries Catheter?: No - Nutrition Nutrition: Nutrition Category Date Time Status Consistent Carbohydrate [DIET] Diets 11/03/18 Dinner Active Assessment/Plan (1) Acute respiratory failure Current Visit: Yes Status: Acute Priority: High Comment: CXR with fluid overload IV antibiotics s/P IV Methylprednisolone Continue nebulizer treatment Continue diuretics (2) Acute systolic congestive heart failure Current Visit: Yes Status: Acute Priority: High Comment: Furosemide (Lasix) 40 mg IVP BID Wean off FIO2 Continue diuresis, No chest pain, less dyspnea Trending Trop Cardiology consult appreciated Strict I&O, daily Wt Negative fluid balance (3) Pleural effusion associated with pulmonary infection Current Visit: Yes Status: Acute Priority: High Comment: IV Vanco and Piperacillin Sod/Tazobactam IV Diuresis (4) COPD (chronic obstructive pulmonary disease) Current Visit: Yes Status: Chronic Priority: High Comment: Albuterol/Ipratropium INH RQ4 Wean off BIPAP, Use of BIPAP as needed Currently on Broad spectrum antibiotic coverage, tolerating Pulmonary consult appreciated (5) Pulmonary hypertension Current Visit: Yes Status: Chronic Priority: High - Assessment and Plan (Free Text) Assessment: # HOB maintained at 30 degrees. # GI/DVT PPX # Stress Ulcer prophylaxis with Protonix 40 mg IVP QD # DVT prophylaxis with SCD, SQ Heparin # Code Status: DNR/DNI Total critical care time 36 minutes
--- NOTE | 2018-11-08 08:52 | CP.PCM.PN ---
Subjective - Date & Time of Evaluation Date of Evaluation: 11/08/18 Time of Evaluation: 08:52 - Subjective Subjective: DENIES CHEST PAINS/SOB COUGH LESS VSS Objective - Vital Signs/Intake and Output Vital Signs (last 24 hours): Temp Pulse Resp BP Pulse Ox 98 F 76 24 108/60 93 L 11/08/18 04:00 11/08/18 06:00 11/08/18 07:47 11/08/18 06:00 11/08/18 06:00 Intake and Output: 11/08/18 11/08/18 06:59 18:59 Intake Total 380 Output Total 400 Balance -20 - Medications Medications: Current Medications Acetaminophen (Tylenol 325mg Tab) 650 mg PO Q6 PRN PRN Reason: Pain, Mild (1-3) Acetaminophen (Tylenol 325mg Tab) 650 mg PO Q6 PRN PRN Reason: Fever >100.4 F Albuterol/Ipratropium (Duoneb 3 Mg/0.5 Mg (3 Ml) Ud) 3 ml INH RQ4 [facility] Last Admin: 11/08/18 07:38 Dose: 3 ml Aspirin (Ecotrin) 81 mg PO DAILY [facility] Last Admin: 11/07/18 08:53 Dose: 81 mg Atorvastatin Calcium (Lipitor) 20 mg PO HS [facility] Last Admin: 11/07/18 21:09 Dose: 20 mg Carvedilol (Coreg) 3.125 mg PO Q12 [facility] Last Admin: 11/06/18 10:00 Dose: Not Given Furosemide (Lasix) 40 mg IVP BID [facility] Last Admin: 11/07/18 17:36 Dose: 40 mg Heparin Sodium (Porcine) (Heparin) 5,000 units SC Q12 [facility]; Protocol Last Admin: 11/07/18 21:08 Dose: 5,000 units Hydralazine HCl (Apresoline) 10 mg PO TID [facility] Last Admin: 11/06/18 14:20 Dose: Not Given Azithromycin 500 mg/ Sodium (Chloride) 250 mls @ 250 mls/hr IVPB DAILY [facility] Last Admin: 11/07/18 08:55 Dose: 250 mls/hr Vancomycin HCl 1 gm/ Sodium (Chloride) 250 mls @ 166.667 mls/hr IVPB DAILY [facility]; Protocol Last Admin: 11/07/18 08:56 Dose: 166.667 mls/hr Piperacillin Sod/Tazobactam (Sod 2.25 gm/ Sodium Chloride) 100 mls @ 100 mls/hr IVPB Q6H [facility]; Protocol Last Admin: 11/08/18 08:17 Dose: 100 mls/hr Lactulose (Enulose) 20 gm PO DAILY PRN PRN Reason: Constipation Last Admin: 11/07/18 23:43 Dose: 20 gm Magnesium Hydroxide (Milk Of Magnesia) 30 ml PO DAILY PRN PRN Reason: Constipation Multivitamins/Minerals (Therapeutic-M Tab) 1 tab PO DAILY [facility] Last Admin: 11/07/18 08:55 Dose: 1 tab Pantoprazole Sodium (Protonix Ec Tab) 40 mg PO DAILY [facility] Last Admin: 11/07/18 08:52 Dose: 40 mg Potassium Chloride (K-Dur 20 Meq Er Tab) 40 meq PO DAILY [facility] Last Admin: 11/07/18 08:54 Dose: 40 meq Ramipril (Altace) 1.25 mg PO DAILY [facility] Last Admin: 11/06/18 10:05 Dose: Not Given - Labs Labs: 11/08/18 04:45 11/08/18 04:45 - Constitutional Appears: No Acute Distress - Head Exam Head Exam: ATRAUMATIC, NORMAL INSPECTION, NORMOCEPHALIC - Eye Exam Eye Exam: EOMI, Normal appearance, PERRL Pupil Exam: NORMAL ACCOMODATION, PERRL - ENT Exam ENT Exam: Mucous Membranes Moist, Normal Exam - Neck Exam Neck Exam: Full ROM, Normal Inspection. absent: Lymphadenopathy - Respiratory Exam Respiratory Exam: Rales, NORMAL BREATHING PATTERN Additional comments: ON 60% HIGH FLOW O2 - Cardiovascular Exam Cardiovascular Exam: REGULAR RHYTHM, +S1, +S2. absent: Murmur - GI/Abdominal Exam GI & Abdominal Exam: Soft, Normal Bowel Sounds. absent: Tenderness - Rectal Exam Rectal Exam: NORMAL INSPECTION - Extremities Exam Extremities Exam: Full ROM, Normal Capillary Refill, Normal Inspection. absent: Joint Swelling, Pedal Edema - Back Exam Back Exam: NORMAL INSPECTION - Neurological Exam Neurological Exam: Alert, Awake, CN II-XII Intact - Psychiatric Exam Psychiatric exam: Normal Affect, Normal Mood - Skin Skin Exam: Dry, Intact, Normal Color, Warm Assessment and Plan - Assessment and Plan (Free Text) Assessment: RESPIRATORY FAILURE CHF PLEURAL EFFUSION Plan: WILL CONTINUE CURRENT RX SERIAL CXRS AND ABGS
--- NOTE | 2018-11-08 09:30 | CP.PCM.PN ---
Subjective - Date & Time of Evaluation Date of Evaluation: 11/08/18 Time of Evaluation: 09:00 - Subjective Subjective: Patient on high flow oxygen delivery at 60% FiO2 with a pulse oximetry in the range of 92 to 93%. Patient is in sinus rhythm with atrial sensed ventricular paced rhythm and a blood pressure of 114/74 mmHg. Her mentation is clear and answers questions appropriately with her usual speech deficit. Her extremities were warm her nailbeds were pink. There was no central or peripheral cyanosis. A faint apical systolic murmur of mitral regurgitation was present there was no S3 gallop. Labs show a significant drop in her azotemia and an improvement in her GFR over the last couple of days. The patient continues to get IV furosemide regularly and has good urine output. The case was discussed with Dr. Anton. Present treatment to be continued. Objective - Vital Signs/Intake and Output Vital Signs (last 24 hours): Temp Pulse Resp BP Pulse Ox 98 F 76 24 108/60 93 L 11/08/18 04:00 11/08/18 06:00 11/08/18 07:47 11/08/18 06:00 11/08/18 06:00 Intake and Output: 11/08/18 11/08/18 06:59 18:59 Intake Total 380 Output Total 400 Balance -20 - Medications Medications: Current Medications Acetaminophen (Tylenol 325mg Tab) 650 mg PO Q6 PRN PRN Reason: Pain, Mild (1-3) Acetaminophen (Tylenol 325mg Tab) 650 mg PO Q6 PRN PRN Reason: Fever >100.4 F Albuterol/Ipratropium (Duoneb 3 Mg/0.5 Mg (3 Ml) Ud) 3 ml INH RQ4 [facility] Last Admin: 11/08/18 07:38 Dose: 3 ml Aspirin (Ecotrin) 81 mg PO DAILY [facility] Last Admin: 11/07/18 08:53 Dose: 81 mg Atorvastatin Calcium (Lipitor) 20 mg PO HS [facility] Last Admin: 11/07/18 21:09 Dose: 20 mg Carvedilol (Coreg) 3.125 mg PO Q12 [facility] Last Admin: 11/06/18 10:00 Dose: Not Given Furosemide (Lasix) 40 mg IVP BID [facility] Last Admin: 11/07/18 17:36 Dose: 40 mg Heparin Sodium (Porcine) (Heparin) 5,000 units SC Q12 [facility]; Protocol Last Admin: 11/07/18 21:08 Dose: 5,000 units Hydralazine HCl (Apresoline) 10 mg PO TID [facility] Last Admin: 11/06/18 14:20 Dose: Not Given Vancomycin HCl 1 gm/ Sodium (Chloride) 250 mls @ 166.667 mls/hr IVPB DAILY [facility]; Protocol Last Admin: 11/08/18 08:57 Dose: 166.667 mls/hr Piperacillin Sod/Tazobactam (Sod 2.25 gm/ Sodium Chloride) 100 mls @ 100 mls/hr IVPB Q6H [facility]; Protocol Last Admin: 11/08/18 08:17 Dose: 100 mls/hr Lactulose (Enulose) 20 gm PO DAILY PRN PRN Reason: Constipation Last Admin: 11/07/18 23:43 Dose: 20 gm Magnesium Hydroxide (Milk Of Magnesia) 30 ml PO DAILY PRN PRN Reason: Constipation Multivitamins/Minerals (Therapeutic-M Tab) 1 tab PO DAILY [facility] Last Admin: 11/07/18 08:55 Dose: 1 tab Pantoprazole Sodium (Protonix Ec Tab) 40 mg PO DAILY [facility] Last Admin: 11/07/18 08:52 Dose: 40 mg Potassium Chloride (K-Dur 20 Meq Er Tab) 40 meq PO DAILY [facility] Last Admin: 11/07/18 08:54 Dose: 40 meq Ramipril (Altace) 1.25 mg PO DAILY [facility] Last Admin: 11/06/18 10:05 Dose: Not Given - Labs Labs: 11/08/18 04:45 11/08/18 04:45
[2018-11-08] MEDS: Azithromycin 500 MG in Sodium Chloride 0.9% 250 ML IVPB SCH (09:46)
--- NOTE | 2018-11-08 10:10 | CP.PCM.PN ---
<Amanda Jimenes - Last Filed: 11/08/18 11:32> Subjective - Date & Time of Evaluation Date of Evaluation: 11/08/18 Time of Evaluation: 10:10 - Subjective Subjective: No acute overnight events. Patient feeling better today, appears in better spirits. Remains on HFNC at 60% FIO2 at 35 LPM, O2 sat: 93%. Has been afebrile. Breathing comfortably, no dyspnea, +cough, productive states she is unable to expectorate. Morning ABG pending, will follow and attempt to wean off High Flow today. Objective - Vital Signs/Intake and Output Vital Signs (last 24 hours): Temp Pulse Resp BP Pulse Ox 98.3 F 84 20 116/49 L 96 11/08/18 08:00 11/08/18 10:00 11/08/18 10:00 11/08/18 10:00 11/08/18 10:00 Intake and Output: 11/08/18 11/08/18 06:59 18:59 Intake Total 380 470 Output Total 400 Balance -20 470 - Medications Medications: Current Medications Acetaminophen (Tylenol 325mg Tab) 650 mg PO Q6 PRN PRN Reason: Pain, Mild (1-3) Acetaminophen (Tylenol 325mg Tab) 650 mg PO Q6 PRN PRN Reason: Fever >100.4 F Albuterol/Ipratropium (Duoneb 3 Mg/0.5 Mg (3 Ml) Ud) 3 ml INH RQ4 [facility] Last Admin: 11/08/18 07:38 Dose: 3 ml Aspirin (Ecotrin) 81 mg PO DAILY [facility] Last Admin: 11/07/18 08:53 Dose: 81 mg Atorvastatin Calcium (Lipitor) 20 mg PO HS [facility] Last Admin: 11/07/18 21:09 Dose: 20 mg Carvedilol (Coreg) 3.125 mg PO Q12 [facility] Last Admin: 11/06/18 10:00 Dose: Not Given Furosemide (Lasix) 40 mg IVP BID [facility] Last Admin: 11/07/18 17:36 Dose: 40 mg Heparin Sodium (Porcine) (Heparin) 5,000 units SC Q12 [facility]; Protocol Last Admin: 11/07/18 21:08 Dose: 5,000 units Hydralazine HCl (Apresoline) 10 mg PO TID [facility] Last Admin: 11/06/18 14:20 Dose: Not Given Vancomycin HCl 1 gm/ Sodium (Chloride) 250 mls @ 166.667 mls/hr IVPB DAILY [facility]; Protocol Last Admin: 11/08/18 08:57 Dose: 166.667 mls/hr Piperacillin Sod/Tazobactam (Sod 2.25 gm/ Sodium Chloride) 100 mls @ 100 mls/hr IVPB Q6H [facility]; Protocol Last Admin: 11/08/18 08:17 Dose: 100 mls/hr Lactulose (Enulose) 20 gm PO DAILY PRN PRN Reason: Constipation Last Admin: 11/07/18 23:43 Dose: 20 gm Magnesium Hydroxide (Milk Of Magnesia) 30 ml PO DAILY PRN PRN Reason: Constipation Multivitamins/Minerals (Therapeutic-M Tab) 1 tab PO DAILY [facility] Last Admin: 11/07/18 08:55 Dose: 1 tab Pantoprazole Sodium (Protonix Ec Tab) 40 mg PO DAILY [facility] Last Admin: 11/07/18 08:52 Dose: 40 mg Potassium Chloride (K-Dur 20 Meq Er Tab) 40 meq PO DAILY [facility] Last Admin: 11/07/18 08:54 Dose: 40 meq Ramipril (Altace) 1.25 mg PO DAILY [facility] Last Admin: 11/06/18 10:05 Dose: Not Given - Labs Labs: 11/08/18 04:45 11/08/18 04:45 - Constitutional Appears: Non-toxic - Head Exam Head Exam: ATRAUMATIC, NORMAL INSPECTION, NORMOCEPHALIC - Respiratory Exam Respiratory Exam: Rales (right lung base ), NORMAL BREATHING PATTERN. absent: Respiratory Distress, Stridor Additional comments: wearing NC. clear to auscultation anteriorly except right lung base - Cardiovascular Exam Cardiovascular Exam: +S1, +S2 Additional comments: distant heart sounds - GI/Abdominal Exam GI & Abdominal Exam: Soft. absent: Distended, Guarding, Tenderness - Extremities Exam Extremities Exam: Normal Inspection. 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 On admission elevated pro-BNP 30,000+. CXR noted; worsening pulmonary congestion when compared to previous XR. ECHO significant for compromised left ventricular systolic function, EF 20-25% (). ?RANDOLPH vs CKD stage III that has been improving and stable. Today patient is more alert, feeling better. ABG pending this morning, HFNC FIO2 60% at 35LPM. Attempt to wean off high flow today. Start mucomyst. Monitor respiratory status closely. PT/OT eval Acute on Chronic CHF systolic and diastolic dysfunction with EF 20% -Lasix 40mg IV q12 -restart Coreg 3.125mg PO q12, - hold Hydralazine 10mg PO TID/Ramipril 1.25mg due to BP RLL Pneumonia/Effusion- Continue IV zosyn/vancomycin/ Azithromycin for pneumonia, will add mucomyst. Pulmonary Edema Severe Pulmonary Hypertension Lactic Acidosis - resolved Hypokalemia- resolved, continue to monitor COPD exacerbation-Continue Duonebs/Solumedrol for COPD exacerbation History of PE/DVT DVT prophylaxis Continue Heparin 5000mg q12 History of Intracerebral Bleed RANDOLPH vs CKD Stage III, stable chronic, improved - BUN/Cr improving, GFR stable. Anemia- Chronic, stable, improving Stage IV decubitus ulcer- present on admission, wound care following. Code Status : Full code <GerryTorieannelise Garzon - Last Filed: 11/08/18 14:48> Objective - Vital Signs/Intake and Output Vital Signs (last 24 hours): Temp Pulse Resp BP Pulse Ox 98.2 F 103 H 22 139/64 92 L 11/08/18 12:00 11/08/18 14:00 11/08/18 14:00 11/08/18 14:00 11/08/18 14:00 Intake and Output: 11/08/18 11/08/18 06:59 18:59 Intake Total 380 1280 Output Total 400 Balance -20 1280 - Medications Medications: Current Medications Acetaminophen (Tylenol 325mg Tab) 650 mg PO Q6 PRN PRN Reason: Pain, Mild (1-3) Acetaminophen (Tylenol 325mg Tab) 650 mg PO Q6 PRN PRN Reason: Fever >100.4 F Acetylcysteine (Acetylcysteine 20%) 2 ml INH RBID [facility] Albuterol/Ipratropium (Duoneb 3 Mg/0.5 Mg (3 Ml) Ud) 3 ml INH RQ4 [facility] Last Admin: 11/08/18 11:48 Dose: 3 ml Aspirin (Ecotrin) 81 mg PO DAILY [facility] Last Admin: 11/08/18 10:30 Dose: 81 mg Atorvastatin Calcium (Lipitor) 20 mg PO HS [facility] Last Admin: 11/07/18 21:09 Dose: 20 mg Carvedilol (Coreg) 3.125 mg PO Q12 [facility] Last Admin: 11/06/18 10:00 Dose: Not Given Furosemide (Lasix) 40 mg IVP BID [facility] Last Admin: 11/08/18 10:30 Dose: 40 mg Heparin Sodium (Porcine) (Heparin) 5,000 units SC Q12 [facility]; Protocol Last Admin: 11/08/18 10:31 Dose: 5,000 units Hydralazine HCl (Apresoline) 10 mg PO TID [facility] Last Admin: 11/06/18 14:20 Dose: Not Given Vancomycin HCl 1 gm/ Sodium (Chloride) 250 mls @ 166.667 mls/hr IVPB DAILY [facility]; Protocol Last Admin: 11/08/18 08:57 Dose: 166.667 mls/hr Piperacillin Sod/Tazobactam (Sod 2.25 gm/ Sodium Chloride) 100 mls @ 100 mls/hr IVPB Q6H [facility]; Protocol Last Admin: 11/08/18 08:17 Dose: 100 mls/hr Lactulose (Enulose) 20 gm PO DAILY PRN PRN Reason: Constipation Last Admin: 11/07/18 23:43 Dose: 20 gm Multivitamins/Minerals (Therapeutic-M Tab) 1 tab PO DAILY [facility] Last Admin: 11/08/18 10:29 Dose: 1 tab Pantoprazole Sodium (Protonix Ec Tab) 40 mg PO DAILY [facility] Last Admin: 11/08/18 10:32 Dose: 40 mg Potassium Chloride (K-Dur 20 Meq Er Tab) 40 meq PO DAILY [facility] Last Admin: 11/08/18 10:29 Dose: 40 meq Ramipril (Altace) 1.25 mg PO DAILY [facility] Last Admin: 11/06/18 10:05 Dose: Not Given - Labs Labs: 11/08/18 04:45 11/08/18 04:45 Attending/Attestation - Attestation I have personally seen and examined this patient.: Yes I have fully participated in the care of the patient.: Yes I have reviewed all pertinent clinical information, including history, physical exam and plan: Yes Notes (Text): Acute on Chronic Hypercapneic and Hypoxemic Respiratory Failure Acute on Chronic CHF systolic and Diastolic dysfunction with EF 20% Pulmonary Edema ? 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
[2018-11-08] MEDS: FLUTICASONE PROPION/SALMETEROL 113-14 IH SCH ×2 (10:28→21:26)
[2018-11-08] MEDS: Multivitamin With Minerals Tab PO SCH (10:29)
[2018-11-08] MEDS: Potassium Chloride 20 mEq ER Tab PO SCH (10:29)
[2018-11-08] MEDS: Pantoprazole 40 mg EC Tab PO SCH (10:32)
--- NOTE | 2018-11-08 10:53 | PCM.PPROG ---
History of Present Illness - History of Present Illness History of Present Illness: 87 year old female who presented from [facility] on 11/03/18 for worsening dyspnea overnight. Patient was recently admitted to the [facility] for COPD exacerbation requiring IV steroids that worsened despite multiple respiratory treatments. She was then transferred to the ED, where IV Lasix and steroids were administered without improvement, and then admitted to telemetry. Patient was originally admitted for COPD exacerbation and Acute CHF exacerbation on 10/29/2018. [employer] HELPER on [employer] 11/04 for respiratory distress. Patient currently in the ICU on high flow O2. 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) Past Surgical History: Pacemaker (03/2017), Unspecified Bowel Surgery Family History: Unknown Social History: Denies any tobacco, alcohol or illicit drug use; Bedbound; Has visiting caregivers for several hours daily on weekdays; Daughter (Beckie Holman) provides further care and is surrogate decision maker; No advanced directive as per patient Review of Systems - Review of Systems Review of Systems: ROS obtained from patient in bed - Respiratory Respiratory: Dyspnea, Dyspnea on Exertion Physical Exam - Constitutional Appears: No Acute Distress, Chronically Ill - Head Exam Head Exam: ATRAUMATIC, NORMAL INSPECTION, NORMOCEPHALIC - Respiratory Exam Respiratory Exam: Decreased Breath Sounds Additional comments: on high flow O2 - Cardiovascular Exam Cardiovascular Exam: REGULAR RHYTHM - Extremities Exam Extremities exam: Positive for: pedal pulses present - Psychiatric Exam Psychiatric exam: Normal Affect, Normal Mood - Skin Skin Exam: Dry, Pallor, Warm Palliative Care Assessment - Modified MRC Dyspnea Scale Modified MRC Dyspnea Scale: Too breathless to leave the house,or breathless dressing or undressing Grade: 5 - Pain Scale Pain Score: 0 Pain Scale Used: Numeric - Devon Scale Sensory Perception: No Impairment Moisture: Occasionally Moist Activity: Bedfast Mobility: Very Limited Nutrition: Probably Inadequate Friction & Shear: Potential Problem Total Score - Skin Risk Assessment: 14 - Psychosocial Distress Patient screened for psychosocial distress: Yes Palliative Care - Goals Goal(s) of care: Goals of care discussed with patient's daughters, They are agreeable to ltach placement at this time Code Status: DNR/DNI, Daughters verbalized understanding and confirmed designation Treatment Goal(s): Alleviate symptoms, Improve ADLs, Improve quality of life End of life care discussed: Yes - Plan Discharge planning: senior living acute care Assessment & Plan - Assessment and Plan (Free Text) Assessment: Impression Goals of care and advance care planning: COPD Exacerbation: CHF Exacerbation: Suggestion - F/u social work for placement . -Assist with ADLs and reposition Q2h -Will continue Goals of Care discussions as needed Palliative Care will remain on board as needed Time spent with patient 35 min
[2018-11-08 15:50] LABS: ABG ALLEN TEST YES; ARTERIAL BLOOD GAS HCO3 32.1 mmol/L (21-28); ARTERIAL BLOOD GAS HEMOGLOBIN 9.8 g/dL (11.7-17.4); ARTERIAL BLOOD GAS O2 CAPACITY 13.4 mL/dL (16-24); ARTERIAL BLOOD GAS O2 CONTENT 12.7 ML/dL (15-23); ARTERIAL BLOOD GAS O2 SAT 94.6 % (95-98); ARTERIAL BLOOD GAS PCO2 38 mm/Hg (35-45); ARTERIAL BLOOD GAS PH 7.54 (7.35-7.45); ARTERIAL BLOOD GAS PO2 60 mm/Hg (80-100); ARTERIAL BLOOD GAS TCO2 33.7 mmol/L (22-28)
[2018-11-08] MEDS: Acetylcysteine 20% Inhal Soln (4ml) INH SCH (19:00)
[2018-11-09] MEDS: Albuterol-Ipratrop 3 mg / 0.5 (3 ml) UD INH SCH ×6 (05:06→23:07)
[2018-11-09 05:51] LABS: HEMOGLOBIN 9.7 g/dL (12.0-16.0); MEAN CELL VOLUME 77.1 fl (81.0-99.0); MEAN CORPUSCULAR HEMOGLOBIN 24.2 pg (27.0-31.0); MEAN CORPUSCULAR HGB CONC 31.3 g/dL (33.0-37.0); RBC 4.02 Mil/uL (3.80-5.20); RED CELL DISTRIBUTION WIDTH 27.4 % (11.5-14.5); WHITE BLOOD COUNT 17.5 K/uL (4.8-10.8)
[2018-11-09 05:57] LABS: ALBUMIN 3.6 g/dL (3.5-5.0); CALCIUM 9.1 mg/dL (8.4-10.2)
[2018-11-09] MEDS: Acetylcysteine 20% Inhal Soln (4ml) INH SCH ×2 (07:44→19:30)
--- NOTE | 2018-11-09 08:18 | RAD ---
Date of service: 11/09/2018 HISTORY: right pleural effusion COMPARISON: 11/07/2018 TECHNIQUE: 1 view obtained. FINDINGS: LUNGS: Inspiration more shallow now than before. Asymmetrical elevation of the right hemidiaphragm.-similar-appearing. Interval perceived patchy opacity left inferolateral hemithorax interval left inferolateral pleural thickening and/or interval patchy infiltrate here some considerations. Accentuation due to crowding and summation soft tissues also possible. No interval dense consolidation seen. Minimal subsegmental compressive atelectasis right lung base. Less now than before. PLEURA: Interval decrease right pleural effusion. Small residual inferred., no pneumothorax apparent. CARDIOVASCULAR: There is presence of aortic atherosclerotic calcification on x-ray. Mild cardiomegaly-similar possible mild pulmonary venous congestion-probably probably chronic. Pacemaker in place as before. OSSEOUS STRUCTURES: Chronic right shoulder dislocation with anatomical deformity stable appearing. Left shoulder osseous hypertrophic arthrosis-concomitant degenerative debris/loose bodies suspect in similar-appearing Thoraco lumbar spondylosis VISUALIZED UPPER ABDOMEN: Normal. OTHER FINDINGS: None. IMPRESSION: Interval decreased right pleural effusion-trace residual likely persists. Other findings as above.
[2018-11-09] MEDS: Multivitamin With Minerals Tab PO SCH (08:28)
[2018-11-09] MEDS: Pantoprazole 40 mg EC Tab PO SCH (08:28)
[2018-11-09] MEDS: Potassium Chloride 20 mEq ER Tab PO SCH (08:31)
[2018-11-09 08:38] LABS: ABG ALLEN TEST YES; ARTERIAL BLOOD GAS HCO3 30.6 mmol/L (21-28); ARTERIAL BLOOD GAS HEMOGLOBIN 9.7 g/dL (11.7-17.4); ARTERIAL BLOOD GAS O2 CAPACITY 13.5 mL/dL (16-24); ARTERIAL BLOOD GAS O2 CONTENT 13.5 ML/dL (15-23); ARTERIAL BLOOD GAS O2 SAT 99.8 % (95-98); ARTERIAL BLOOD GAS PCO2 41 mm/Hg (35-45); ARTERIAL BLOOD GAS PH 7.49 (7.35-7.45); ARTERIAL BLOOD GAS PO2 138 mm/Hg (80-100); ARTERIAL BLOOD GAS TCO2 32.5 mmol/L (22-28)
--- NOTE | 2018-11-09 09:55 | CP.PCM.PN ---
Subjective - Date & Time of Evaluation Date of Evaluation: 11/09/18 Time of Evaluation: 09:55 - Subjective Subjective: COMFORTABLE ON 60% HIGH FLOW O2 O2 SAT-100% NO NEW CLINICAL FINDINGS Objective - Vital Signs/Intake and Output Vital Signs (last 24 hours): Temp Pulse Resp BP Pulse Ox 97.5 F L 76 25 H 119/50 L 95 11/09/18 08:00 11/09/18 08:28 11/09/18 08:00 11/09/18 09:33 11/09/18 08:00 Intake and Output: 11/09/18 11/09/18 06:59 18:59 Intake Total 440 100 Output Total 400 Balance 40 100 - Medications Medications: Current Medications Acetaminophen (Tylenol 325mg Tab) 650 mg PO Q6 PRN PRN Reason: Pain, Mild (1-3) Acetaminophen (Tylenol 325mg Tab) 650 mg PO Q6 PRN PRN Reason: Fever >100.4 F Acetylcysteine (Acetylcysteine 20%) 2 ml INH RBID [facility] Last Admin: 11/09/18 07:44 Dose: 2 ml Albuterol/Ipratropium (Duoneb 3 Mg/0.5 Mg (3 Ml) Ud) 3 ml INH RQ4 [facility] Last Admin: 11/09/18 07:44 Dose: 3 ml Aspirin (Ecotrin) 81 mg PO DAILY [facility] Last Admin: 11/09/18 08:29 Dose: 81 mg Atorvastatin Calcium (Lipitor) 20 mg PO HS [facility] Last Admin: 11/08/18 21:26 Dose: 20 mg Carvedilol (Coreg) 3.125 mg PO Q12 [facility] Last Admin: 11/09/18 08:28 Dose: 3.125 mg Furosemide (Lasix) 40 mg IVP BID [facility] Last Admin: 11/09/18 09:33 Dose: 40 mg Heparin Sodium (Porcine) (Heparin) 5,000 units SC Q12 [facility]; Protocol Last Admin: 11/09/18 08:31 Dose: 5,000 units Hydralazine HCl (Apresoline) 10 mg PO TID [facility] Last Admin: 11/06/18 14:20 Dose: Not Given Vancomycin HCl 1 gm/ Sodium (Chloride) 250 mls @ 166.667 mls/hr IVPB DAILY [facility]; Protocol Last Admin: 11/09/18 09:34 Dose: 166.667 mls/hr Piperacillin Sod/Tazobactam (Sod 2.25 gm/ Sodium Chloride) 100 mls @ 100 mls/hr IVPB Q6H [facility]; Protocol Last Admin: 11/09/18 08:30 Dose: 100 mls/hr Lactulose (Enulose) 20 gm PO DAILY PRN PRN Reason: Constipation Last Admin: 11/07/18 23:43 Dose: 20 gm Multivitamins/Minerals (Therapeutic-M Tab) 1 tab PO DAILY [facility] Last Admin: 11/09/18 08:28 Dose: 1 tab Pantoprazole Sodium (Protonix Ec Tab) 40 mg PO DAILY [facility] Last Admin: 11/09/18 08:28 Dose: 40 mg Potassium Chloride (K-Dur 20 Meq Er Tab) 40 meq PO DAILY [facility] Last Admin: 11/09/18 08:31 Dose: 40 meq Ramipril (Altace) 1.25 mg PO DAILY [facility] Last Admin: 11/06/18 10:05 Dose: Not Given - Labs Labs: 11/09/18 04:32 11/09/18 04:32 - Constitutional Appears: Chronically Ill - Head Exam Head Exam: ATRAUMATIC, NORMAL INSPECTION, NORMOCEPHALIC - Eye Exam Eye Exam: EOMI, Normal appearance, PERRL Pupil Exam: NORMAL ACCOMODATION, PERRL - ENT Exam ENT Exam: Mucous Membranes Moist, Normal Exam - Neck Exam Neck Exam: Full ROM, Normal Inspection. absent: Lymphadenopathy - Respiratory Exam Respiratory Exam: Prolonged Expiratory Phase, NORMAL BREATHING PATTERN Additional comments: ON HIGH FLOW O2 - Cardiovascular Exam Cardiovascular Exam: REGULAR RHYTHM, +S1, +S2. absent: Murmur - GI/Abdominal Exam GI & Abdominal Exam: Soft, Normal Bowel Sounds. absent: Tenderness - Rectal Exam Rectal Exam: NORMAL INSPECTION - Extremities Exam Extremities Exam: Full ROM, Normal Capillary Refill, Normal Inspection. absent: Joint Swelling, Pedal Edema - Back Exam Back Exam: NORMAL INSPECTION - Neurological Exam Neurological Exam: Alert, Awake, CN II-XII Intact, Normal Gait, Oriented x3 - Psychiatric Exam Psychiatric exam: Normal Affect, Normal Mood - Skin Skin Exam: Dry, Intact, Normal Color, Warm Assessment and Plan - Assessment and Plan (Free Text) Assessment: ACUTE RESPIRATORY FAILURE CXR--IMPROVEMENT OF PLEURAL EFFUSION Plan: CONTINUE ATTEMPTS TO WEAN OFF HIGH FLOW O2
--- NOTE | 2018-11-09 10:53 | PCM.PPROG ---
History of Present Illness - History of Present Illness History of Present Illness: Patient is a 87 year old female who presented from [facility] on 11/03/18 for worsening dyspnea overnight. Patient was recently admitted to the [facility] for COPD exacerbation requiring IV steroids that worsened despite multiple respiratory treatments. She was then transferred to the ED, where IV Lasix and steroids were administered without improvement, and then admitted to telemetry. Patient was originally admitted for COPD exacerbation and Acute CHF exacerbation on 10/29/2018. 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 Patient currently in the ICU on high flow O2. 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) Past Surgical History: Pacemaker (03/2017), Unspecified Bowel Surgery Family History: Unknown Social History: Denies any tobacco, alcohol or illicit drug use; Bedbound; Has visiting caregivers for several hours daily on weekdays; Daughter (Beckie Holman) provides further care and is surrogate decision maker; No advanced directive as per patient Review of Systems - Review of Systems Review of Systems: ROS obtained from the patient in bed - Respiratory Respiratory: Dyspnea on Exertion Physical Exam - Constitutional Appears: No Acute Distress, Chronically Ill - Head Exam Head Exam: ATRAUMATIC, NORMAL INSPECTION, NORMOCEPHALIC - Eye Exam Eye Exam: Normal appearance, PERRL - ENT Exam ENT Exam: Mucous Membranes Moist - Neck Exam Neck exam: Positive for: Normal Inspection - Respiratory Exam Respiratory Exam: Decreased Breath Sounds - Cardiovascular Exam Cardiovascular Exam: REGULAR RHYTHM - GI/Abdominal Exam GI & Abdominal Exam: Normal Bowel Sounds, Soft - Extremities Exam Extremities exam: Positive for: pedal pulses present - Neurological Exam Neurological exam: Alert, Oriented x3 - Psychiatric Exam Psychiatric exam: Normal Affect, Normal Mood - Skin Skin Exam: Dry, Pallor, Warm Palliative Care Assessment - Modified MRC Dyspnea Scale Modified MRC Dyspnea Scale: Too breathless to leave the house,or breathless dressing or undressing Grade: 5 - Pain Scale Pain Score: 0 Pain Scale Used: Numeric - Devon Scale Sensory Perception: No Impairment Moisture: Occasionally Moist Activity: Chairfast Mobility: Very Limited Nutrition: Probably Inadequate Friction & Shear: Potential Problem Total Score - Skin Risk Assessment: 15 - Psychosocial Distress Patient screened for psychosocial distress: Yes Palliative Care - Goals Goal(s) of care: Code Status: Full code at this time, prior DNR/DNI status rescinded by patient and surrogate decision maker Treatment Goal(s): Alleviate symptoms, Improve ADLs, Improve quality of life End of life care discussed: Yes Assessment & Plan - Assessment and Plan (Free Text) Assessment: Impression Goals of care and advance care planning: COPD Exacerbation: CHF Exacerbation: Suggestion -continue PT/OT -Assist with ADLs and reposition Q2h -Will continue Goals of Care discussions as needed
--- NOTE | 2018-11-09 15:12 | CP.PCM.PN ---
<Amanda Jimenes - Last Filed: 11/09/18 15:52> Subjective - Date & Time of Evaluation Date of Evaluation: 11/09/18 Time of Evaluation: 08:30 - Subjective Subjective: No acute overnight events. Patient sitting upright comfortably. O2 Sat 95% on HFNC at 60% FIO2 at 35 LPM. No complaints at present. Mucomyst added yesterday. Morning ABG pending. CXR given increase in WBC count. patient remains afebrile. Objective - Vital Signs/Intake and Output Vital Signs (last 24 hours): Temp Pulse Resp BP Pulse Ox 982 F H 81 22 130/61 100 11/09/18 12:00 11/09/18 14:00 11/09/18 14:00 11/09/18 13:00 11/09/18 14:00 Intake and Output: 11/09/18 11/09/18 06:59 18:59 Intake Total 440 830 Output Total 400 Balance 40 830 - Medications Medications: Current Medications Acetaminophen (Tylenol 325mg Tab) 650 mg PO Q6 PRN PRN Reason: Pain, Mild (1-3) Acetaminophen (Tylenol 325mg Tab) 650 mg PO Q6 PRN PRN Reason: Fever >100.4 F Acetylcysteine (Acetylcysteine 20%) 2 ml INH RBID [facility] Last Admin: 11/09/18 07:44 Dose: 2 ml Albuterol/Ipratropium (Duoneb 3 Mg/0.5 Mg (3 Ml) Ud) 3 ml INH RQ4 [facility] Last Admin: 11/09/18 11:17 Dose: 3 ml Aspirin (Ecotrin) 81 mg PO DAILY [facility] Last Admin: 11/09/18 08:29 Dose: 81 mg Atorvastatin Calcium (Lipitor) 20 mg PO HS [facility] Last Admin: 11/08/18 21:26 Dose: 20 mg Carvedilol (Coreg) 3.125 mg PO Q12 [facility] Last Admin: 11/09/18 08:28 Dose: 3.125 mg Dimethicone (Proshield Plus Skin Protectant) 1 applic TOP Q8 [facility] Furosemide (Lasix) 40 mg IVP BID [facility] Last Admin: 11/09/18 09:33 Dose: 40 mg Heparin Sodium (Porcine) (Heparin) 5,000 units SC Q12 [facility]; Protocol Last Admin: 11/09/18 08:31 Dose: 5,000 units Hydralazine HCl (Apresoline) 10 mg PO TID [facility] Last Admin: 11/06/18 14:20 Dose: Not Given Vancomycin HCl 1 gm/ Sodium (Chloride) 250 mls @ 166.667 mls/hr IVPB DAILY [facility]; Protocol Last Admin: 11/09/18 09:34 Dose: 166.667 mls/hr Piperacillin Sod/Tazobactam (Sod 2.25 gm/ Sodium Chloride) 100 mls @ 100 mls/hr IVPB Q6H [facility]; Protocol Last Admin: 11/09/18 15:02 Dose: 100 mls/hr Isosorbide Mononitrate (Imdur Er) 30 mg PO DAILY [facility] Last Admin: 11/09/18 15:03 Dose: 30 mg Lactulose (Enulose) 20 gm PO DAILY PRN PRN Reason: Constipation Last Admin: 11/07/18 23:43 Dose: 20 gm Multivitamins/Minerals (Therapeutic-M Tab) 1 tab PO DAILY [facility] Last Admin: 11/09/18 08:28 Dose: 1 tab Pantoprazole Sodium (Protonix Ec Tab) 40 mg PO DAILY [facility] Last Admin: 11/09/18 08:28 Dose: 40 mg Potassium Chloride (K-Dur 20 Meq Er Tab) 40 meq PO DAILY [facility] Last Admin: 11/09/18 08:31 Dose: 40 meq Ramipril (Altace) 1.25 mg PO DAILY [facility] Last Admin: 11/06/18 10:05 Dose: Not Given - Labs Labs: 11/09/18 04:32 11/09/18 04:32 - Constitutional Appears: No Acute Distress - Head Exam Head Exam: NORMAL INSPECTION, NORMOCEPHALIC - Eye Exam Pupil Exam: NORMAL ACCOMODATION - Respiratory Exam Respiratory Exam: Rales (right lower lung), NORMAL BREATHING PATTERN. absent: Rhonchi, Respiratory Distress - Cardiovascular Exam Additional comments: distant heart sounds - GI/Abdominal Exam GI & Abdominal Exam: Soft. 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 On admission elevated pro-BNP 30,000+. CXR noted; worsening pulmonary congestion when compared to previous XR. ECHO significant for compromised left ventricular systolic function, EF 20-25% ( 10/2018). ?RANDOLPH vs CKD stage III that has been improving and stable. Today patient is more alert, feeling better. ABG pending this morning, HFNC FIO2 60% at 35LPM. Attempt to wean off high flow today. Continue mucomyst. Interval improvement of RLLE effusion/pneumonia- mucomyst added yesterday- co ntinue. ABG: with hyperoxia, decrease fio2% PT/OT eval Acute on Chronic CHF systolic and diastolic dysfunction with EF 20% -Lasix 40mg IV q12 -Coreg 3.125mg PO q12 - hold Hydralazine 10mg PO TID/Ramipril 1.25mg due to BP RLL Pneumonia/Effusion- Continue IV zosyn/vancomycin/ Azithromycin for pneumonia, will add mucomyst. - improved after mucomyst added - decreased FIO2 requirement. Pulmonary Edema- improving Severe Pulmonary Hypertension COPD exacerbation-Continue Duonebs/Solumedrol for COPD exacerbation History of PE/DVT DVT prophylaxis Continue Heparin 5000mg q12 History of Intracerebral Bleed RANDOLPH vs CKD Stage III, stable chronic, improved - BUN/Cr improving, GFR stable. Anemia- Chronic, stable, improving Stage IV decubitus ulcer- present on admission, wound care following. Code Status : Full code <Torie Garrett - Last Filed: 11/09/18 16:58> Objective - Vital Signs/Intake and Output Vital Signs (last 24 hours): Temp Pulse Resp BP Pulse Ox 97.8 F 80 24 138/74 100 11/09/18 16:00 11/09/18 16:00 11/09/18 16:00 11/09/18 16:12 11/09/18 16:00 Intake and Output: 11/09/18 11/09/18 06:59 18:59 Intake Total 440 830 Output Total 400 Balance 40 830 - Medications Medications: Current Medications Acetaminophen (Tylenol 325mg Tab) 650 mg PO Q6 PRN PRN Reason: Pain, Mild (1-3) Acetaminophen (Tylenol 325mg Tab) 650 mg PO Q6 PRN PRN Reason: Fever >100.4 F Acetylcysteine (Acetylcysteine 20%) 2 ml INH RBID [facility] Last Admin: 11/09/18 07:44 Dose: 2 ml Albuterol/Ipratropium (Duoneb 3 Mg/0.5 Mg (3 Ml) Ud) 3 ml INH RQ4 [facility] Last Admin: 11/09/18 15:30 Dose: 3 ml Aspirin (Ecotrin) 81 mg PO DAILY [facility] Last Admin: 11/09/18 08:29 Dose: 81 mg Atorvastatin Calcium (Lipitor) 20 mg PO HS [facility] Last Admin: 11/08/18 21:26 Dose: 20 mg Carvedilol (Coreg) 3.125 mg PO Q12 [facility] Last Admin: 11/09/18 08:28 Dose: 3.125 mg Dimethicone (Proshield Plus Skin Protectant) 1 applic TOP Q8 [facility] Last Admin: 11/09/18 16:13 Dose: 1 applic Furosemide (Lasix) 40 mg IVP BID [facility] Last Admin: 11/09/18 16:12 Dose: 40 mg Heparin Sodium (Porcine) (Heparin) 5,000 units SC Q12 [facility]; Protocol Last Admin: 11/09/18 08:31 Dose: 5,000 units Hydralazine HCl (Apresoline) 10 mg PO TID [facility] Last Admin: 11/06/18 14:20 Dose: Not Given Vancomycin HCl 1 gm/ Sodium (Chloride) 250 mls @ 166.667 mls/hr IVPB DAILY [facility]; Protocol Last Admin: 11/09/18 09:34 Dose: 166.667 mls/hr Piperacillin Sod/Tazobactam (Sod 2.25 gm/ Sodium Chloride) 100 mls @ 100 mls/hr IVPB Q6H [facility]; Protocol Last Admin: 11/09/18 15:02 Dose: 100 mls/hr Isosorbide Mononitrate (Imdur Er) 30 mg PO DAILY [facility] Last Admin: 11/09/18 15:03 Dose: 30 mg Lactulose (Enulose) 20 gm PO DAILY PRN PRN Reason: Constipation Last Admin: 11/07/18 23:43 Dose: 20 gm Multivitamins/Minerals (Therapeutic-M Tab) 1 tab PO DAILY [facility] Last Admin: 05/29/19 08:28 Dose: 1 tab Pantoprazole Sodium (Protonix Ec Tab) 40 mg PO DAILY [facility] Last Admin: 11/09/18 08:28 Dose: 40 mg Potassium Chloride (K-Dur 20 Meq Er Tab) 40 meq PO DAILY [facility] Last Admin: 11/09/18 08:31 Dose: 40 meq Ramipril (Altace) 1.25 mg PO DAILY [facility] Last Admin: 11/06/18 10:05 Dose: Not Given - Labs Labs: 11/09/18 04:32 11/09/18 04:32 Attending/Attestation - Attestation I have personally seen and examined this patient.: Yes I have fully participated in the care of the patient.: Yes I have reviewed all pertinent clinical information, including history, physical exam and plan: Yes Notes (Text): Acute on Chronic Hypercapneic and Hypoxemic Respiratory Failure Acute on Chronic CHF systolic and Diastolic dysfunction with EF 20% Pulmonary Edema ? 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
[2018-11-09] MEDS: Proshield Plus GEL TOP SCH (16:13)
[2018-11-09] MEDS: metOLazone 2.5 MG TAB PO SCH (17:46)
[2018-11-09] MEDS: FLUTICASONE PROPION/SALMETEROL 113-14 IH SCH (20:26)
[2018-11-09 23:10] LABS: ABG ALLEN TEST YES; ARTERIAL BLOOD GAS HCO3 30.1 mmol/L (21-28); ARTERIAL BLOOD GAS O2 SAT 99.3 % (95-98); ARTERIAL BLOOD GAS PCO2 44 mm/Hg (35-45); ARTERIAL BLOOD GAS PH 7.46 (7.35-7.45); ARTERIAL BLOOD GAS PO2 96 mm/Hg (80-100); ARTERIAL BLOOD GAS TCO2 32.7 mmol/L (22-28)
[2018-11-10] MEDS ORDERED: Sodium Chloride 0.9% 250 ML IV SCH (01:00)
[2018-11-10] MEDS: Proshield Plus GEL TOP SCH ×3 (01:00→18:17)
[2018-11-10] MEDS ORDERED: Sodium Chloride 0.9% 500 ML IV ONE (01:30)
[2018-11-10] MEDS ORDERED: Sodium Chloride 0.9% 500 ML IV SCH (02:30)
[2018-11-10] MEDS: Albuterol-Ipratrop 3 mg / 0.5 (3 ml) UD INH SCH ×6 (05:35→23:15)
[2018-11-10 05:55] LABS: ABG ALLEN TEST YES; ARTERIAL BLOOD GAS HCO3 29.1 mmol/L (21-28); ARTERIAL BLOOD GAS HEMOGLOBIN 8.5 g/dL (11.7-17.4); ARTERIAL BLOOD GAS O2 CAPACITY 11.7 mL/dL (16-24); ARTERIAL BLOOD GAS O2 CONTENT 11.7 ML/dL (15-23); ARTERIAL BLOOD GAS PCO2 43 mm/Hg (35-45); ARTERIAL BLOOD GAS PH 7.45 (7.35-7.45); ARTERIAL BLOOD GAS PO2 92 mm/Hg (80-100); ARTERIAL BLOOD GAS TCO2 31.2 mmol/L (22-28)
[2018-11-10] MEDS: Acetylcysteine 20% Inhal Soln (4ml) INH SCH ×2 (07:41→19:51)
[2018-11-10 08:12] LABS: HEMOGLOBIN 8.7 g/dL (12.0-16.0); MEAN CELL VOLUME 77.6 fl (81.0-99.0); MEAN CORPUSCULAR HEMOGLOBIN 24.8 pg (27.0-31.0); MEAN CORPUSCULAR HGB CONC 31.9 g/dL (33.0-37.0); RBC 3.5 Mil/uL (3.80-5.20); RED CELL DISTRIBUTION WIDTH 27.5 % (11.5-14.5); WHITE BLOOD COUNT 9.7 K/uL (4.8-10.8)
[2018-11-10 08:21] LABS: ALBUMIN 3.2 g/dL (3.5-5.0); CALCIUM 8.7 mg/dL (8.4-10.2)
[2018-11-10] MEDS: metOLazone 2.5 MG TAB PO SCH (08:29)
[2018-11-10] MEDS: Multivitamin With Minerals Tab PO SCH (08:30)
[2018-11-10] MEDS: Potassium Chloride 20 mEq ER Tab PO SCH (08:30)
[2018-11-10] MEDS: Pantoprazole 40 mg EC Tab PO SCH (08:30)
--- NOTE | 2018-11-10 08:31 | CT ---
Date of service: 11/09/2018 PROCEDURE: CT HEAD WITHOUT CONTRAST. HISTORY: increasing lethargy with normal ABG COMPARISON: 02/10/2018 TECHNIQUE: Axial computed tomography images were obtained through the head/brain without intravenous contrast. Radiation dose: Total exam DLP = 747.73 mGy-cm. This CT exam was performed using one or more of the following dose reduction techniques: Automated exposure control, adjustment of the mA and/or kV according to patient size, and/or use of iterative reconstruction technique. FINDINGS: HEMORRHAGE: The prior left thalamic hematoma has markedly decreased in size now only 1 x 2 mm. The prior surrounding edema has also markedly decreased.. No current appreciated rightward midline shift BRAIN: The prior left thalamic hematoma has markedly decreased in size now only 1 x 2 mm. No new or interval hemorrhages seen. The prior surrounding edema has also markedly decreased.. No current appreciated rightward midline shift The deep white matter mostly periventricular symmetrical hypodensity bordering each frontal ventricular horn compatible with marked chronic microangiopathic change is similar. Additional findings more posteriorly bordering each occipital horn also appear similar. Generalized cerebral atrophy similar. VENTRICLES: Unremarkable. No hydrocephalus. CALVARIUM: Unremarkable. PARANASAL SINUSES: The large fluid level in the right sphenoid sinus compatible with acute sphenoid sinusitis is similar. MASTOID AIR CELLS: The prior right mastoid effusion/fluid and air cells has decreased. Minimal residual persists. OTHER FINDINGS: None. IMPRESSION: Marked interval diminution in left thalamic hematoma. Marked interval improvement in the prior surrounding edema here. Currently no rightward midline shift seen. No interval hemorrhage is noted. Extensive similar chronic appearing microangiopathic disease. Similar acute right sphenoid sinusitis Interval improvement in the prior right mastoid effusion The preliminary [place] [facility] report mentioned several entities on this exam. However the mention of interval marked improvement in the size of the left thalamic hematoma and the interval decreased/improvement of the prior surrounding edema is not mentioned.
--- NOTE | 2018-11-10 09:17 | CP.PCM.PN ---
Subjective - Date & Time of Evaluation Date of Evaluation: 11/10/18 Time of Evaluation: 08:45 - Subjective Subjective: The patient was aggressively diuresed following her return from the transitional care unit with congestive cardiac failure. This has resulted in resolution of pulmonary congestion while gradual increasing creatinine level and a drop in systolic blood pressure. The patient yesterday required replenishment of intravenous fluid to maintain adequate blood pressure. The patient now appears resting comfortably virtually lying flat, breathing 16 to 18 breaths/min with a pulse oximetry of 100% with oxygen supplement using nasal cannula. awake overnight monitor shows atrial and ventricular pacing at 60 bpm with a blood pressure of 96/70 mmHg. No rales were audible and there was no gallop. An apical systolic murmur of mitral regurgitation was audible. The lab data shows a mild improvement today in BUN while the creatinine still remains mildly elevated. Hypokalemia has resolved. The pacemaker was interrogated yesterday and demonstrates normal function in DDD mode. No significant arrhythmia except a 5 beat supraventricular tachycardia was noted couple of weeks back which spontaneously resolved. The battery status was okay. Oral furosemide can be reintroduced if her systolic blood pressure consistently remains above 100 mmHg. Objective - Vital Signs/Intake and Output Vital Signs (last 24 hours): Temp Pulse Resp BP Pulse Ox 97.6 F 60 13 113/41 L 100 11/10/18 08:05 11/10/18 08:05 11/10/18 08:05 11/10/18 08:05 11/10/18 08:05 Intake and Output: 11/10/18 11/10/18 06:59 18:59 Intake Total 1125 Output Total 800 Balance 325 - Medications Medications: Current Medications Acetaminophen (Tylenol 325mg Tab) 650 mg PO Q6 PRN PRN Reason: Pain, Mild (1-3) Acetaminophen (Tylenol 325mg Tab) 650 mg PO Q6 PRN PRN Reason: Fever >100.4 F Acetylcysteine (Acetylcysteine 20%) 2 ml INH RBID [facility] Last Admin: 11/10/18 07:41 Dose: 2 ml Albuterol/Ipratropium (Duoneb 3 Mg/0.5 Mg (3 Ml) Ud) 3 ml INH RQ4 [facility] Last Admin: 11/10/18 07:41 Dose: 3 ml Aspirin (Ecotrin) 81 mg PO DAILY [facility] Last Admin: 11/09/18 08:29 Dose: 81 mg Atorvastatin Calcium (Lipitor) 20 mg PO HS [facility] Last Admin: 11/09/18 21:00 Dose: 20 mg Dimethicone (Proshield Plus Skin Protectant) 1 applic TOP Q8 [facility] Last Admin: 11/10/18 01:00 Dose: 1 applic Heparin Sodium (Porcine) (Heparin) 5,000 units SC Q12 [facility]; Protocol Last Admin: 11/10/18 08:29 Dose: 5,000 units Piperacillin Sod/Tazobactam (Sod 2.25 gm/ Sodium Chloride) 100 mls @ 100 mls/hr IVPB Q6H [facility]; Protocol Last Admin: 11/10/18 08:34 Dose: 100 mls/hr Lactulose (Enulose) 20 gm PO DAILY PRN PRN Reason: Constipation Last Admin: 11/07/18 23:43 Dose: 20 gm Metolazone (Zaroxolyn) 2.5 mg PO DAILY [facility] Last Admin: 11/10/18 08:29 Dose: 2.5 mg Multivitamins/Minerals (Therapeutic-M Tab) 1 tab PO DAILY [facility] Last Admin: 11/10/18 08:30 Dose: 1 tab Pantoprazole Sodium (Protonix Ec Tab) 40 mg PO DAILY [facility] Last Admin: 11/10/18 08:30 Dose: 40 mg Potassium Chloride (K-Dur 20 Meq Er Tab) 40 meq PO DAILY [facility] Last Admin: 11/10/18 08:30 Dose: 40 meq Prednisone (Prednisone Tab) 40 mg PO DAILY [facility] Last Admin: 11/10/18 08:32 Dose: 40 mg Ramipril (Altace) 1.25 mg PO DAILY [facility] Last Admin: 11/06/18 10:05 Dose: Not Given - Labs Labs: 11/10/18 07:30 11/10/18 07:30
[2018-11-10] MEDS: FLUTICASONE PROPION/SALMETEROL 113-14 IH SCH ×3 (10:00→21:06)
--- NOTE | 2018-11-10 11:24 | CP.CCUPN ---
<Francine Navarro - Last Filed: 11/10/18 10:51> CCU Subjective - Physician Review Subjective (Free Text): Overnight BP low in 70's systolic fluid responsive. Pt also noted to be lethargic, head CT completed, no acute findings. Pt seen and examined this am. Alert and oriented. Saturated well overnight w/ am ABG PaO2 92. Weaned to High flow FIO2 40% Critical Care Time Spent (in minutes): 35 CCU Objective - Vital Signs / Intake & Output Vital Signs (Last 4 hours): Vital Signs Temp Pulse Resp BP Pulse Ox 11/10/18 10:00 92 H 29 H 106/46 L 94 L 11/10/18 08:05 97.6 F 60 13 113/41 L 100 11/10/18 08:00 78 19 101/54 L 98 11/10/18 07:41 16 Intake and Output (Last 8hrs): Intake & Output 11/09/18 11/10/18 11/10/18 22:59 06:59 14:59 Intake Total 610 975 350 Output Total 400 600 400 Balance 210 375 -50 Intake: IV 0 875 Intake, Piggyback 200 100 100 Oral 410 250 Output: Urine 400 600 400 Urethral (Humphries) 200 Urine, Voided 200 600 400 Other: # Bowel Movements 1 - Physical Exam Head: Positive for: Atraumatic, Normocephalic Pupils: Positive for: PERRL Extroacular Muscles: Positive for: EOMI Conjunctiva: Positive for: Normal Mouth: Positive for: Moist Mucous Membranes Nose (Internal): Positive for: Normal Inspection Neck: Positive for: Normal Range of Motion, Trachea Midline. Negative for: Meningeal Signs, MIDLINE TENDERNESS, Paraspinal Tenderness, JVD, Lymphadenopathy, Bruit, Other Respiratory/Chest: Positive for: Good Air Exchange, Decreased Breath Sounds, Tachypneic (Mild). Negative for: Wheezes, Rales, Retracting, Rhonchi Cardiovascular: Positive for: Regular Rate and Rhythm, Normal S1, S2, Peripheal Pulses Present. Negative for: Murmurs, Irregular Rhythm, Tachycardic, Bradycardic Abdomen: Positive for: Normal Bowel Sounds. Negative for: Tenderness, Distention Lower Extremity: Positive for: Normal Inspection. Negative for: Edema Neurological: Positive for: GCS=15, CN II-XII Intact, Speech Normal Psychiatric: Positive for: Alert, Oriented x 3 - Medications Active Medications: Active Medications Generic Name Dose Route Start Last Admin Trade Name Freq PRN Reason Stop Dose Admin Acetaminophen 650 mg 11/03/18 05:10 Tylenol 325mg Tab PO Q6 PRN Pain, Mild (1-3) Acetaminophen 650 mg 11/03/18 05:10 Tylenol 325mg Tab PO Q6 PRN Fever >100.4 F Acetylcysteine 2 ml 11/08/18 20:00 11/10/18 07:41 Acetylcysteine 20% INH 2 ml RBID ELLIOTT Administration Albuterol/Ipratropium 3 ml 11/03/18 08:00 11/10/18 07:41 Duoneb 3 Mg/0.5 Mg (3 Ml) Ud INH 3 ml RQ4 ELLIOTT Administration Aspirin 81 mg 11/03/18 09:00 11/10/18 09:16 Ecotrin PO 81 mg DAILY ELLIOTT Administration Atorvastatin Calcium 20 mg 11/03/18 22:00 11/09/18 21:00 Lipitor PO 20 mg HS ELLIOTT Administration Dimethicone 1 applic 11/09/18 17:00 11/10/18 10:48 Proshield Plus Skin Protectant TOP 1 applic Q8 ELLIOTT Administration Heparin Sodium (Porcine) 5,000 units 11/07/18 09:00 11/10/18 08:29 Heparin SC 5,000 units Q12 ELLIOTT Administration Protocol Piperacillin Sod/Tazobactam 100 mls @ 100 mls/hr 11/06/18 21:00 11/10/18 08:34 Sod 2.25 gm/ Sodium Chloride IVPB 100 mls/hr Q6H ELLIOTT Administration Protocol Lactulose 20 gm 11/07/18 21:46 11/07/18 23:43 Enulose PO 20 gm DAILY PRN Administration Constipation Metolazone 2.5 mg 11/09/18 17:00 11/10/18 08:29 Zaroxolyn PO 2.5 mg DAILY ELLIOTT Administration Multivitamins/Minerals 1 tab 11/03/18 09:00 11/10/18 08:30 Therapeutic-M Tab PO 1 tab DAILY ELLIOTT Administration Pantoprazole Sodium 40 mg 11/03/18 09:00 11/10/18 08:30 Protonix Ec Tab PO 40 mg DAILY ELLIOTT Administration Potassium Chloride 40 meq 11/07/18 09:00 11/10/18 08:30 K-Dur 20 Meq Er Tab PO 40 meq DAILY ELLIOTT Administration Prednisone 40 mg 11/09/18 17:00 11/10/18 08:32 Prednisone Tab PO 40 mg DAILY ELLIOTT Administration Ramipril 1.25 mg 11/05/18 09:15 11/06/18 10:05 Altace PO Not Given DAILY ELLIOTT - Patient Studies Lab Studies: Microbiology Studies 11/04/18 15:45 Blood Culture - Final Blood NO GROWTH AFTER 5 DAYS 11/04/18 15:45 Blood Culture - Final Blood NO GROWTH AFTER 5 DAYS Gram Stain - Final TEST NOT PERFORMED Lab Studies 11/10/18 11/10/18 11/10/18 Range/Units 07:30 07:30 05:45 WBC 9.7 (4.8-10.8) K/uL RBC 3.50 L (3.80-5.20) Mil/uL Hgb 8.7 L (12.0-16.0) g/dL Hct 27.2 L (34.0-47.0) % MCV 77.6 L (81.0-99.0) fl MCH 24.8 L (27.0-31.0) pg MCHC 31.9 L (33.0-37.0) g/dL RDW 27.5 H (11.5-14.5) % Plt Count 224 (130-400) K/uL pCO2 43 (35-45) mm/Hg pO2 92 (80-100) mm/Hg HCO3 29.1 H (21-28) mmol/L ABG pH 7.45 (7.35-7.45) ABG Total CO2 31.2 H (22-28) mmol/L ABG O2 Saturation 100.0 H (95-98) % ABG O2 Content 11.7 L (15-23) ML/dL ABG Base Excess 5.4 H (-2.0-3.0) mmol/L ABG Hemoglobin 8.5 L (11.7-17.4) g/dL ABG Carboxyhemoglobin 2.4 H (0.5-1.5) % POC ABG HHb (Measured) 0.0 (0.0-5.0) % ABG Methemoglobin 1.4 (0.0-3.0) % ABG O2 Capacity 11.7 L (16-24) mL/dL Andres Test Yes ABG Potassium (3.6-5.2) mmol/L A-a O2 Difference 211.0 mm/Hg Hgb O2 Saturation 96.2 (95.0-98.0) % Sodium 137 (132-148) mmol/L Chloride 97 L (98-107) mmol/L Glucose (65-105) mg/dL Lactate (0.7-2.1) mmol/L Liter Flow 20 Vent Mode High flow lpm FiO2 50.0 % Potassium 4.0 (3.6-5.0) MMOL/L Carbon Dioxide 28 (22-30) mmol/L Anion Gap 16 (10-20) BUN 43 H (7-17) mg/dl Creatinine 1.6 H (0.7-1.2) mg/dl Est GFR ( Amer) 37 Est GFR (Non-Af Amer) 31 Random Glucose 136 H (65-105) mg/dL Calcium 8.7 (8.4-10.2) mg/dL Magnesium 1.9 (1.6-2.3) MG/DL Total Bilirubin 0.5 (0.2-1.3) mg/dl AST 23 (14-36) U/L ALT 31 (9-52) U/L Alkaline Phosphatase 60 (38-126) U/L Total Protein 6.6 (6.3-8.2) G/DL Albumin 3.2 L (3.5-5.0) g/dL Globulin 3.4 (2.2-3.9) gm/dL Albumin/Globulin Ratio 1.0 (1.0-2.1) Arterial Blood Potassium (3.6-5.2) mmol/L 11/09/18 Range/Units 23:01 WBC (4.8-10.8) K/uL RBC (3.80-5.20) Mil/uL Hgb (12.0-16.0) g/dL Hct (34.0-47.0) % MCV (81.0-99.0) fl MCH (27.0-31.0) pg MCHC (33.0-37.0) g/dL RDW (11.5-14.5) % Plt Count (130-400) K/uL pCO2 44 (35-45) mm/Hg pO2 96 (80-100) mm/Hg HCO3 30.1 H (21-28) mmol/L ABG pH 7.46 H (7.35-7.45) ABG Total CO2 32.7 H (22-28) mmol/L ABG O2 Saturation 99.3 H (95-98) % ABG O2 Content (15-23) ML/dL ABG Base Excess 6.6 H (-2.0-3.0) mmol/L ABG Hemoglobin (11.7-17.4) g/dL ABG Carboxyhemoglobin (0.5-1.5) % POC ABG HHb (Measured) (0.0-5.0) % ABG Methemoglobin (0.0-3.0) % ABG O2 Capacity (16-24) mL/dL Andres Test Yes ABG Potassium 4.4 (3.6-5.2) mmol/L A-a O2 Difference 206.0 mm/Hg Hgb O2 Saturation (95.0-98.0) % Sodium 136.0 (132-148) mmol/L Chloride 102.0 (98-107) mmol/L Glucose 160 H (65-105) mg/dL Lactate 0.8 (0.7-2.1) mmol/L Liter Flow Vent Mode High flow lpm FiO2 50.0 % Potassium (3.6-5.0) MMOL/L Carbon Dioxide (22-30) mmol/L Anion Gap (10-20) BUN (7-17) mg/dl Creatinine (0.7-1.2) mg/dl Est GFR ( Amer) Est GFR (Non-Af Amer) Random Glucose (65-105) mg/dL Calcium (8.4-10.2) mg/dL Magnesium (1.6-2.3) MG/DL Total Bilirubin (0.2-1.3) mg/dl AST (14-36) U/L ALT (9-52) U/L Alkaline Phosphatase (38-126) U/L Total Protein (6.3-8.2) G/DL Albumin (3.5-5.0) g/dL Globulin (2.2-3.9) gm/dL Albumin/Globulin Ratio (1.0-2.1) Arterial Blood Potassium 4.4 (3.6-5.2) mmol/L Laboratory Results - last 24 hr 11/09/18 11/10/18 11/10/18 23:01 05:45 07:30 WBC 9.7 RBC 3.50 L Hgb 8.7 L Hct 27.2 L MCV 77.6 L MCH 24.8 L MCHC 31.9 L RDW 27.5 H Plt Count 224 pCO2 44 43 pO2 96 92 HCO3 30.1 H 29.1 H ABG pH 7.46 H 7.45 ABG Total CO2 32.7 H 31.2 H ABG O2 Saturation 99.3 H 100.0 H ABG O2 Content 11.7 L ABG Base Excess 6.6 H 5.4 H ABG Hemoglobin 8.5 L ABG Carboxyhemoglobin 2.4 H POC ABG HHb (Measured) 0.0 ABG Methemoglobin 1.4 ABG O2 Capacity 11.7 L Andres Test Yes Yes ABG Potassium 4.4 A-a O2 Difference 206.0 211.0 Hgb O2 Saturation 96.2 Sodium 136.0 Chloride 102.0 Glucose 160 H Lactate 0.8 Liter Flow 20 Vent Mode High flow lpm High flow lpm FiO2 50.0 50.0 Potassium Carbon Dioxide Anion Gap BUN Creatinine Est GFR ( Amer) Est GFR (Non-Af Amer) Random Glucose Calcium Magnesium Total Bilirubin AST ALT Alkaline Phosphatase Total Protein Albumin Globulin Albumin/Globulin Ratio Arterial Blood Potassium 4.4 11/10/18 07:30 WBC RBC Hgb Hct MCV MCH MCHC RDW Plt Count pCO2 pO2 HCO3 ABG pH ABG Total CO2 ABG O2 Saturation ABG O2 Content ABG Base Excess ABG Hemoglobin ABG Carboxyhemoglobin POC ABG HHb (Measured) ABG Methemoglobin ABG O2 Capacity Andres Test ABG Potassium A-a O2 Difference Hgb O2 Saturation Sodium 137 Chloride 97 L Glucose Lactate Liter Flow Vent Mode FiO2 Potassium 4.0 Carbon Dioxide 28 Anion Gap 16 BUN 43 H Creatinine 1.6 H Est GFR ( Amer) 37 Est GFR (Non-Af Amer) 31 Random Glucose 136 H Calcium 8.7 Magnesium 1.9 Total Bilirubin 0.5 AST 23 ALT 31 Alkaline Phosphatase 60 Total Protein 6.6 Albumin 3.2 L Globulin 3.4 Albumin/Globulin Ratio 1.0 Arterial Blood Potassium Radiology Impressions: Radiology Impressions Head CT 11/09/18 23:30 IMPRESSION: Marked interval diminution in left thalamic hematoma. Marked interval improvement in the prior surrounding edema here. Currently no rightward midline shift seen. No interval hemorrhage is noted. Extensive similar chronic appearing microangiopathic disease. Similar acute right sphenoid sinusitis Interval improvement in the prior right mastoid effusion The preliminary [place] rad report mentioned several entities on this exam. However the mention of interval marked improvement in the size of the left thalamic hematoma and the interval decreased/improvement of the prior surrounding edema is not mentioned. Critical Care Progress Note - Nutrition Nutrition: Nutrition Category Date Time Status Heart Healthy Diet [DIET] Diets 11/08/18 Dinner Active Assessment/Plan - Assessment and Plan (Free Text) Assessment: Pt is an 87 y/o female with hx of CHFrEF (EF 20-25% on 10/2018), CKD, BL PE/DVT, Hemorhagic CVA (whil diandra Xarelto) HTN, COPD transferred to ICU for hypoxic respiratory failure, now on high flow O2 weaning in progress. Pt is an 87 y/o female with hx COPD, CHF w/ rEF (EF 20-25%), Bilateral PE (2016 ) ,DVT, Hemorrhagic CVA (2017), Pacemaker,Gastritis, HTN, CKD admitted on for worsening shortness of breath and hypoxia. Pt was noted to have significant pulmonary congestion, ProBNP 33k and has been receiving treatment w/ Intermittent NIPPV, bronchodilators, IV Steroids, and IV Lasix. SPICE BLENDER was called today as pt was noted to be acutely sob and hypoxic with SaO2 in 70's. Pt was started on BIPAP with some improvement and given 60mg of Lasix IV. Pt will be accepted for ICU transfer for close monitoring of respiratory status. #Neuro - AAox3 - Head CT (11/09) no acute findings #Cardio - Hx of mod-severe CHF w/ rEF (Last Echo 10/30 LVEF 20-25%) - Hypotensive. May be over diuresis vs poor cardiac reserve vs steroid withdrawal - Responded to fluid challenge - Hold diuresis and antihypertensive medications for now - Otherwise hemodynamically stable this am - Continuous cardiac monitoring - Cardiology on board, Dr. Stein #Pulm - Acute hypoxic respiratory failure 2/2 COPD vs CHF exas. PE is possible but risk of treatment outweighs benefits - C/W High Flow, weaned FIO2 to 40% today - C/W Bronchodilators and PO steroids (fell off a few days ago) - Maintain O2 sat > 90%. Wean O2 administration as tolerated - Pulmonology on board, Dr. Anton #GI - Resume diet #Renal - RANDOLPH on CKD (baseline Crea 1 w/ GFR in 50's) - BUN 43 Creatine 1.6 - May be prerenal 2/2 to perfusion in setting of reduced LVEF + hypotension + poor po intake - Will consider gentle hydration if not too congestion on tomorrows chest xray - Avoid nephrotoxic medication - Monitor electrolytes -- Monitor Urine Output, maintain >0.5cc/kg/hr #Endo - Hga1c 5.6 - TSH wnl #Heme/ID - CBC stable - Afebrile, no bandemia, Procalcitonin <0.05. Low clinical suspicion for underlying infection #PPX -DVT Heparin 5000q8 -GI ppx, not indicated Dispo: Recommending LTAC for chronic hypoxia requiring High Flow O2 but family refusing. Full Code Discussed case with Dr. Mik Navarro, PGY2 <Balta Houser - Last Filed: 11/10/18 17:50> Assessment/Plan - Assessment and Plan (Free Text) Plan: Attestation: Patient seen and examined at the bedside with Resident Dr. Pastor Navarro; and I agree with her outline of plans and management documented above as discussed on AM rounds; reflecting my review of all applicable clinical data, and participation in the care of the patient throughout the day in ICU; today, November 10, 2018.
--- NOTE | 2018-11-10 12:29 | CP.PCM.PN ---
<Amanda Jimenes - Last Filed: 11/10/18 12:37> Subjective - Date & Time of Evaluation Date of Evaluation: 11/10/18 Time of Evaluation: 12:26 - Subjective Subjective: Overnight events: Patient with change in mental status. ABG -unremarkable. CT HEAD: no acute findings. This morning patient on HFNC, decreased to 40%. ABG: pO2: 92 No complaints. Breathing comfortably on HF. Objective - Vital Signs/Intake and Output Vital Signs (last 24 hours): Temp Pulse Resp BP Pulse Ox 97.6 F 80 18 105/41 L 96 11/10/18 11:57 11/10/18 12:00 11/10/18 12:00 11/10/18 12:00 11/10/18 12:00 Intake and Output: 11/10/18 11/10/18 06:59 18:59 Intake Total 1125 550 Output Total 800 400 Balance 325 150 - Medications Medications: Current Medications Acetaminophen (Tylenol 325mg Tab) 650 mg PO Q6 PRN PRN Reason: Pain, Mild (1-3) Acetaminophen (Tylenol 325mg Tab) 650 mg PO Q6 PRN PRN Reason: Fever >100.4 F Acetylcysteine (Acetylcysteine 20%) 2 ml INH RBID ELLIOTT Last Admin: 11/10/18 07:41 Dose: 2 ml Albuterol/Ipratropium (Duoneb 3 Mg/0.5 Mg (3 Ml) Ud) 3 ml INH RQ4 ELLIOTT Last Admin: 11/10/18 11:29 Dose: 3 ml Aspirin (Ecotrin) 81 mg PO DAILY ELLIOTT Last Admin: 11/10/18 09:16 Dose: 81 mg Atorvastatin Calcium (Lipitor) 20 mg PO HS ELLIOTT Last Admin: 11/09/18 21:00 Dose: 20 mg Dimethicone (Proshield Plus Skin Protectant) 1 applic TOP Q8 ELLIOTT Last Admin: 11/10/18 10:48 Dose: 1 applic Heparin Sodium (Porcine) (Heparin) 5,000 units SC Q12 ELLIOTT; Protocol Last Admin: 11/10/18 08:29 Dose: 5,000 units Piperacillin Sod/Tazobactam (Sod 2.25 gm/ Sodium Chloride) 100 mls @ 100 mls/hr IVPB Q6H ELLIOTT; Protocol Last Admin: 11/10/18 08:34 Dose: 100 mls/hr Lactulose (Enulose) 20 gm PO DAILY PRN PRN Reason: Constipation Last Admin: 11/07/18 23:43 Dose: 20 gm Metolazone (Zaroxolyn) 2.5 mg PO DAILY ON LICENSE OF [facility] Last Admin: 11/10/18 08:29 Dose: 2.5 mg Multivitamins/Minerals (Therapeutic-M Tab) 1 tab PO DAILY ON LICENSE OF [facility] Last Admin: 11/10/18 08:30 Dose: 1 tab Pantoprazole Sodium (Protonix Ec Tab) 40 mg PO DAILY ON LICENSE OF [facility] Last Admin: 11/10/18 08:30 Dose: 40 mg Potassium Chloride (K-Dur 20 Meq Er Tab) 40 meq PO DAILY ON LICENSE OF [facility] Last Admin: 11/10/18 08:30 Dose: 40 meq Prednisone (Prednisone Tab) 40 mg PO DAILY ON LICENSE OF [facility] Last Admin: 11/10/18 08:32 Dose: 40 mg Ramipril (Altace) 1.25 mg PO DAILY ON LICENSE OF [facility] Last Admin: 11/06/18 10:05 Dose: Not Given - Labs Labs: 11/10/18 07:30 11/10/18 07:30 - Constitutional Appears: Non-toxic - Head Exam Head Exam: ATRAUMATIC, NORMAL INSPECTION - Respiratory Exam Respiratory Exam: Rales, NORMAL BREATHING PATTERN. absent: Prolonged Expiratory Phase, Rhonchi, Respiratory Distress Additional comments: right lower lobe base - Cardiovascular Exam Cardiovascular Exam: REGULAR RHYTHM (distant heart sounds) - GI/Abdominal Exam GI & Abdominal Exam: Soft. absent: Distended, Guarding, Tenderness - Extremities Exam Extremities Exam: absent: Pedal Edema - Neurological Exam Neurological Exam: Alert, Awake - Skin Skin Exam: Dry Assessment and Plan - Assessment and Plan (Free Text) Assessment: 87 YO Female with PMHx of DVT/PE, COPD, Gastritis, HTN, Chronic Kidney Disease, 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 On admission elevated pro-BNP 30,000+. CXR noted; worsening pulmonary congestion when compared to previous XR. ECHO significant for compromised left ventricular systolic function, EF 20-25% (10/2018). ?RANDOLPH vs CKD stage III that has been improving and stable. CXR on 11/10 with improved RLL infintrate/effusion Today patient is more alert, feeling better. ABG reviewed. HFNC - decrease FIO2 to 40%. Prednisone started. continue with IV abx PT/OT eval Acute on Chronic CHF systolic and diastolic dysfunction with EF 20% -Lasix 40mg IV q12 - discontinue due to BP. Cardiology recommends restarting PO lasix if BP maintained >100. -Coreg 3.125mg PO q12 - hold Hydralazine 10mg PO TID/Ramipril 1.25mg due to BP RLL Pneumonia/Effusion- Continue IV zosyn/vancomycin/ Azithromycin for pneumonia. Pulmonary Edema- improving Severe Pulmonary Hypertension COPD exacerbation-Continue Duonebs for COPD exacerbation - PO prednisone started, will taper at time of d/c as pt has been on high dose steroids during her admission with likely adrenal suppression. History of PE/DVT DVT prophylaxis Continue Heparin 5000mg q12 History of Intracerebral Bleed RANDOLPH vs CKD Stage III, stable chronic, improved - BUN/Cr improving, GFR stable. Anemia- Chronic, stable, improving Stage IV decubitus ulcer- present on admission, wound care following. Code Status : Full code Case d/w Dr. Fry. <Antonio Fry D - Last Filed: 11/10/18 13:41> Objective - Vital Signs/Intake and Output Vital Signs (last 24 hours): Temp Pulse Resp BP Pulse Ox 97.6 F 80 18 105/41 L 96 11/10/18 11:57 11/10/18 12:00 11/10/18 12:00 11/10/18 12:00 11/10/18 12:00 Intake and Output: 11/10/18 11/10/18 06:59 18:59 Intake Total 1125 550 Output Total 800 400 Balance 325 150 - Medications Medications: Current Medications Acetaminophen (Tylenol 325mg Tab) 650 mg PO Q6 PRN PRN Reason: Pain, Mild (1-3) Acetaminophen (Tylenol 325mg Tab) 650 mg PO Q6 PRN PRN Reason: Fever >100.4 F Acetylcysteine (Acetylcysteine 20%) 2 ml INH RBID ON LICENSE OF [facility] Last Admin: 11/10/18 07:41 Dose: 2 ml Albuterol/Ipratropium (Duoneb 3 Mg/0.5 Mg (3 Ml) Ud) 3 ml INH RQ4 ON LICENSE OF [facility] Last Admin: 11/10/18 11:29 Dose: 3 ml Aspirin (Ecotrin) 81 mg PO DAILY ON LICENSE OF [facility] Last Admin: 11/10/18 09:16 Dose: 81 mg Atorvastatin Calcium (Lipitor) 20 mg PO HS ELLIOTT Last Admin: 11/09/18 21:00 Dose: 20 mg Dimethicone (Proshield Plus Skin Protectant) 1 applic TOP Q8 ON LICENSE OF [facility] Last Admin: 11/10/18 10:48 Dose: 1 applic Heparin Sodium (Porcine) (Heparin) 5,000 units SC Q12 ON LICENSE OF [facility]; Protocol Last Admin: 11/10/18 08:29 Dose: 5,000 units Piperacillin Sod/Tazobactam (Sod 2.25 gm/ Sodium Chloride) 100 mls @ 100 mls/hr IVPB Q6H ON LICENSE OF [facility]; Protocol Last Admin: 11/10/18 08:34 Dose: 100 mls/hr Lactulose (Enulose) 20 gm PO DAILY PRN PRN Reason: Constipation Last Admin: 11/07/18 23:43 Dose: 20 gm Metolazone (Zaroxolyn) 2.5 mg PO DAILY ON [facility] Last Admin: 11/10/18 08:29 Dose: 2.5 mg Multivitamins/Minerals (Therapeutic-M Tab) 1 tab PO DAILY ON LICENSE OF [facility] Last Admin: 11/10/18 08:30 Dose: 1 tab Pantoprazole Sodium (Protonix Ec Tab) 40 mg PO DAILY ON [facility] Last Admin: 11/10/18 08:30 Dose: 40 mg Potassium Chloride (K-Dur 20 Meq Er Tab) 40 meq PO DAILY ON [facility] Last Admin: 11/10/18 08:30 Dose: 40 meq Prednisone (Prednisone Tab) 40 mg PO DAILY ON [facility] Last Admin: 11/10/18 08:32 Dose: 40 mg Ramipril (Altace) 1.25 mg PO DAILY ON [facility] Last Admin: 11/06/18 10:05 Dose: Not Given - Labs Labs: 11/10/18 07:30 11/10/18 07:30 Attending/Attestation - Attestation I have personally seen and examined this patient.: Yes I have fully participated in the care of the patient.: Yes I have reviewed all pertinent clinical information, including history, physical exam and plan: Yes Notes (Text): 11/10/18 13:41 Patient seen and examined with resident. Case discussed and agreed with assessment and plan.
--- NOTE | 2018-11-10 14:59 | RAD ---
Date of service: 11/10/2018 HISTORY: assess for congestion COMPARISON: Portable chest 11/09/2018. TECHNIQUE: 1 view obtained. FINDINGS: LUNGS: No active pulmonary disease. PLEURA: Trace left pleural effusion not completely excluded. None is seen the right. No pneumothorax bilaterally. CARDIOVASCULAR: Calcific atherosclerotic changes are seen related to the thoracic aorta. Bipolar permanent cardiac pacemaker reiterated. Cardiac silhouette appears enlarged once again. No definite pulmonary vascular congestion. No pulmonary vascular congestion. OSSEOUS STRUCTURES: No significant abnormalities. VISUALIZED UPPER ABDOMEN: Normal. OTHER FINDINGS: None. IMPRESSION: Trace left pleural effusion in question. No definite infiltrate or pulmonary vascular congestion in the interval bilaterally. Pacemaker reiterated.
[2018-11-11] MEDS: Proshield Plus GEL TOP SCH ×3 (02:00→16:31)
[2018-11-11] MEDS: Albuterol-Ipratrop 3 mg / 0.5 (3 ml) UD INH SCH ×6 (03:58→23:12)
[2018-11-11 05:22] LABS: HEMOGLOBIN 8.3 g/dL (12.0-16.0); MEAN CELL VOLUME 77.7 fl (81.0-99.0); MEAN CORPUSCULAR HEMOGLOBIN 24.5 pg (27.0-31.0); MEAN CORPUSCULAR HGB CONC 31.5 g/dL (33.0-37.0); RBC 3.38 Mil/uL (3.80-5.20); RED CELL DISTRIBUTION WIDTH 28.6 % (11.5-14.5); WHITE BLOOD COUNT 13.1 K/uL (4.8-10.8)
[2018-11-11] MEDS: Acetylcysteine 20% Inhal Soln (4ml) INH SCH ×2 (07:59→19:09)
[2018-11-11] MEDS: FLUTICASONE PROPION/SALMETEROL 113-14 IH SCH ×2 (08:09→20:59)
[2018-11-11] MEDS: Potassium Chloride 20 mEq ER Tab PO SCH (08:11)
[2018-11-11] MEDS: Multivitamin With Minerals Tab PO SCH (08:12)
[2018-11-11] MEDS: Pantoprazole 40 mg EC Tab PO SCH (08:12)
--- NOTE | 2018-11-11 11:50 | PCM.PPROG ---
History of Present Illness - History of Present Illness History of Present Illness: Patient is a 87 year old female who presented from [facility] on 11/03/18 for worsening dyspnea overnight. Patient was recently admitted to the [facility] for COPD exacerbation requiring IV steroids that worsened despite multiple respiratory treatments. She was then transferred to the ED, where IV Lasix and steroids were administered without improvement, and then admitted to telemetry. Patient was originally admitted for COPD exacerbation and Acute CHF exacerbation on 10/29/2018. SPRAYER INSECTICIDE on 4North 11/04 for respiratory distress. Patient was then transferred to ICU on high flow O2. She is currently tolerating 4L nc today. 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) Past Surgical History: Pacemaker (03/2017), Unspecified Bowel Surgery Family History: Unknown Social History: Denies any tobacco, alcohol or illicit drug use; Bedbound; Has visiting caregivers for several hours daily on weekdays; Daughter (Beckie Holman) provides further care and is surrogate decision maker; No advanced directive as per patient Review of Systems - Review of Systems Review of Systems: ROS obtained from patient at the bedside - Musculoskeletal Musculoskeletal: Back Pain Physical Exam - Constitutional Appears: No Acute Distress, Chronically Ill - Head Exam Head Exam: ATRAUMATIC, NORMAL INSPECTION, NORMOCEPHALIC - Eye Exam Eye Exam: Normal appearance, PERRL - ENT Exam ENT Exam: Mucous Membranes Moist - Neck Exam Neck exam: Positive for: Normal Inspection - Respiratory Exam Respiratory Exam: Decreased Breath Sounds - Cardiovascular Exam Cardiovascular Exam: REGULAR RHYTHM - Exam Additional comments: Incontinent - Extremities Exam Extremities exam: Positive for: pedal pulses present - Neurological Exam Neurological exam: Alert, Oriented x3 - Psychiatric Exam Psychiatric exam: Normal Affect, Normal Mood - Skin Skin Exam: Dry, Pallor, Warm Additional comments: skin not intact, has sacral wound Palliative Care Assessment - Modified MRC Dyspnea Scale Modified MRC Dyspnea Scale: Too breathless to leave the house,or breathless dressing or undressing Grade: 5 - Pain Scale Pain Score: 3 Pain Scale Used: Numeric - Pain Location Upper or Lower: Lower Pain Location Body Site: Back - Devon Scale Sensory Perception: No Impairment Moisture: Very Moist Activity: Bedfast Mobility: Very Limited Nutrition: Probably Inadequate Friction & Shear: Problem Total Score - Skin Risk Assessment: 12 - Psychosocial Distress Patient screened for psychosocial distress: Yes Palliative Care - Goals Goal(s) of care: Goals of Care: Discussed with patient and family. They would like patient to come home once she is stable. They do not want a ltach placement at this time. Code Status: Full code at this time, prior DNR/DNI status rescinded by patient and surrogate decision maker Treatment Goal(s): Alleviate symptoms, Improve ADLs, Improve quality of life End of life care discussed: Yes - Plan Interdisciplinary involved: Nurse, castables worker, event manager, Physician Discharge planning: Home Assessment & Plan - Assessment and Plan (Free Text) Assessment: Impression Goals of care and advance care planning: COPD Exacerbation: CHF Exacerbation: Bed Bound Sacral wound (stage iv) Pain Suggestion -continue PT/OT -Assist with ADLs and reposition Q2h -Continue wound care -Assess for pain q4h, continue tylenol 650mg prn -Will continue Goals of Care discussions as needed Palliative Care will remain on board as needed Time spent with patient 30 min
--- NOTE | 2018-11-11 12:10 | CP.PCM.PN ---
Subjective - Date & Time of Evaluation Date of Evaluation: 11/11/18 Time of Evaluation: 12:10 - Subjective Subjective: AWAKE/ALERT AND ORIENTED X 3 NO APPARENT DISTRESS VSS OFF HIGH FLOW O2 ON NC O2 SAT--100% Objective - Vital Signs/Intake and Output Vital Signs (last 24 hours): Temp Pulse Resp BP Pulse Ox 98.0 F 81 18 112/53 L 100 11/11/18 12:00 11/11/18 12:00 11/11/18 12:00 11/11/18 12:00 11/11/18 12:00 Intake and Output: 11/11/18 11/11/18 06:59 18:59 Intake Total 250 630 Output Total 650 1 Balance -400 629 - Medications Medications: Current Medications Acetaminophen (Tylenol 325mg Tab) 650 mg PO Q6 PRN PRN Reason: Pain, Mild (1-3) Acetaminophen (Tylenol 325mg Tab) 650 mg PO Q6 PRN PRN Reason: Fever >100.4 F Acetylcysteine (Acetylcysteine 20%) 2 ml INH RBID [facility] Last Admin: 11/11/18 07:59 Dose: 2 ml Albuterol/Ipratropium (Duoneb 3 Mg/0.5 Mg (3 Ml) Ud) 3 ml INH RQ4 [facility] Last Admin: 11/11/18 11:23 Dose: 3 ml Aspirin (Ecotrin) 81 mg PO DAILY [facility] Last Admin: 11/11/18 08:09 Dose: 81 mg Atorvastatin Calcium (Lipitor) 20 mg PO HS [facility] Last Admin: 11/10/18 21:06 Dose: 20 mg Dimethicone (Proshield Plus Skin Protectant) 1 applic TOP Q8 [facility] Last Admin: 11/11/18 08:11 Dose: 1 applic Heparin Sodium (Porcine) (Heparin) 5,000 units SC Q12 [facility]; Protocol Last Admin: 11/11/18 08:09 Dose: 5,000 units Piperacillin Sod/Tazobactam (Sod 2.25 gm/ Sodium Chloride) 100 mls @ 100 mls/hr IVPB Q6H [facility]; Protocol Last Admin: 11/11/18 08:12 Dose: 100 mls/hr Metolazone (Zaroxolyn) 2.5 mg PO DAILY [facility] Last Admin: 11/10/18 08:29 Dose: 2.5 mg Multivitamins/Minerals (Therapeutic-M Tab) 1 tab PO DAILY [facility] Last Admin: 11/11/18 08:12 Dose: 1 tab Pantoprazole Sodium (Protonix Ec Tab) 40 mg PO DAILY [facility] Last Admin: 11/11/18 08:12 Dose: 40 mg Potassium Chloride (K-Dur 20 Meq Er Tab) 40 meq PO DAILY [facility] Last Admin: 11/11/18 08:11 Dose: 40 meq Prednisone (Prednisone Tab) 40 mg PO DAILY [facility] Last Admin: 11/11/18 08:11 Dose: 40 mg Ramipril (Altace) 1.25 mg PO DAILY [facility] Last Admin: 11/06/18 10:05 Dose: Not Given - Labs Labs: 11/11/18 04:20 11/11/18 04:20 - Constitutional Appears: Well, No Acute Distress - Head Exam Head Exam: ATRAUMATIC, NORMAL INSPECTION, NORMOCEPHALIC - Eye Exam Eye Exam: EOMI, Normal appearance, PERRL Pupil Exam: NORMAL ACCOMODATION, PERRL - ENT Exam ENT Exam: Mucous Membranes Moist, Normal Exam - Neck Exam Neck Exam: Full ROM, Normal Inspection. absent: Lymphadenopathy - Respiratory Exam Respiratory Exam: Clear to Ausculation Bilateral, NORMAL BREATHING PATTERN - Cardiovascular Exam Cardiovascular Exam: REGULAR RHYTHM, +S1, +S2. absent: Murmur - GI/Abdominal Exam GI & Abdominal Exam: Soft, Normal Bowel Sounds. absent: Tenderness - Rectal Exam Rectal Exam: NORMAL INSPECTION - Extremities Exam Extremities Exam: Full ROM, Normal Capillary Refill, Normal Inspection. absent: Joint Swelling, Pedal Edema - Back Exam Back Exam: NORMAL INSPECTION - Neurological Exam Neurological Exam: Alert, Awake, CN II-XII Intact, Oriented x3 - Psychiatric Exam Psychiatric exam: Normal Affect, Normal Mood - Skin Skin Exam: Dry, Intact, Normal Color, Warm Assessment and Plan - Assessment and Plan (Free Text) Assessment: RESP FAILURE IMPROVED CHF-IMPROVED Plan: OK TO TRANSFER TO REGULAR FLOOR CONSIDER SUBACUTE CARE
--- NOTE | 2018-11-11 13:08 | CP.PCM.PN ---
<Amanda Jimenes - Last Filed: 11/11/18 13:52> Subjective - Date & Time of Evaluation Date of Evaluation: 11/11/18 Time of Evaluation: 13:08 - Subjective Subjective: No acute overnight events. Patient off HFNC this AM, now on 4L O2 via NC. O2 sat 100% No dyspnea. No complaints. Eating breakfast. Sitting up right and breathing comfortably. Follow up PT/OT eval. Objective - Vital Signs/Intake and Output Vital Signs (last 24 hours): Temp Pulse Resp BP Pulse Ox 98.0 F 81 18 112/53 L 100 11/11/18 12:00 11/11/18 12:00 11/11/18 12:00 11/11/18 12:00 11/11/18 12:00 Intake and Output: 11/11/18 11/11/18 06:59 18:59 Intake Total 250 630 Output Total 650 1 Balance -400 629 - Medications Medications: Current Medications Acetaminophen (Tylenol 325mg Tab) 650 mg PO Q6 PRN PRN Reason: Pain, Mild (1-3) Acetaminophen (Tylenol 325mg Tab) 650 mg PO Q6 PRN PRN Reason: Fever >100.4 F Acetylcysteine (Acetylcysteine 20%) 2 ml INH RBID [facility] Last Admin: 11/11/18 07:59 Dose: 2 ml Albuterol/Ipratropium (Duoneb 3 Mg/0.5 Mg (3 Ml) Ud) 3 ml INH RQ4 [facility] Last Admin: 11/11/18 11:23 Dose: 3 ml Aspirin (Ecotrin) 81 mg PO DAILY [facility] Last Admin: 11/11/18 08:09 Dose: 81 mg Atorvastatin Calcium (Lipitor) 20 mg PO HS [facility] Last Admin: 11/10/18 21:06 Dose: 20 mg Dimethicone (Proshield Plus Skin Protectant) 1 applic TOP Q8 [facility] Last Admin: 11/11/18 08:11 Dose: 1 applic Heparin Sodium (Porcine) (Heparin) 5,000 units SC Q12 [facility]; Protocol Last Admin: 11/11/18 08:09 Dose: 5,000 units Piperacillin Sod/Tazobactam (Sod 2.25 gm/ Sodium Chloride) 100 mls @ 100 mls/hr IVPB Q6H [facility]; Protocol Last Admin: 11/11/18 08:12 Dose: 100 mls/hr Metolazone (Zaroxolyn) 2.5 mg PO DAILY [facility] Last Admin: 11/10/18 08:29 Dose: 2.5 mg Multivitamins/Minerals (Therapeutic-M Tab) 1 tab PO DAILY [facility] Last Admin: 11/11/18 08:12 Dose: 1 tab Pantoprazole Sodium (Protonix Ec Tab) 40 mg PO DAILY [facility] Last Admin: 11/11/18 08:12 Dose: 40 mg Potassium Chloride (K-Dur 20 Meq Er Tab) 40 meq PO DAILY [facility] Last Admin: 11/11/18 08:11 Dose: 40 meq Prednisone (Prednisone Tab) 40 mg PO DAILY [facility] Last Admin: 11/11/18 08:11 Dose: 40 mg Ramipril (Altace) 1.25 mg PO DAILY [facility] Last Admin: 11/06/18 10:05 Dose: Not Given - Labs Labs: 11/11/18 04:20 11/11/18 04:20 - Constitutional Appears: Well, Non-toxic, No Acute Distress - Head Exam Head Exam: ATRAUMATIC, NORMAL INSPECTION, NORMOCEPHALIC - Eye Exam Eye Exam: EOMI, Normal appearance, PERRL - Respiratory Exam Respiratory Exam: Clear to Ausculation Bilateral, NORMAL BREATHING PATTERN. absent: Rales, Rhonchi, Wheezes, Respiratory Distress - Cardiovascular Exam Cardiovascular Exam: REGULAR RHYTHM, +S1, +S2. absent: Murmur Additional comments: distant heart souns - GI/Abdominal Exam GI & Abdominal Exam: Soft, Normal Bowel Sounds. absent: Tenderness - Neurological Exam Neurological Exam: Alert, Awake - Skin Skin Exam: Dry, Intact, Normal Color, Warm Assessment and Plan - Assessment and Plan (Free Text) Assessment: 87 YO Female with PMHx of DVT/PE, COPD, Gastritis, HTN, Chronic Kidney Disease, 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 On admission elevated pro-BNP 30,000+. CXR noted; worsening pulmonary congestion when compared to previous XR. ECHO significant for compromised left ventricular systolic function, EF 20-25% (10/2018). ?RANDOLPH vs CKD stage III that has been improving and stable. CXR on 11/10 with improved RLL infiltrate/effusion Today patient is more alert, feeling better. Off HFNC, now on O2 4L via NC with good O2 sat. continue with IV abx, continue prednisone. PT/OT rec KATHRIN. Acute on Chronic CHF systolic and diastolic dysfunction with EF 20% -Cardiology recommends restarting PO lasix if BP maintained >100. -Coreg 3.125mg PO q12 - HELD: Hydralazine 10mg PO TID/Ramipril 1.25mg due to BP, consider restarting since BP is improving. RLL Pneumonia/Effusion- Continue IV zosyn/vancomycin/ Azithromycin for pneumonia. Pulmonary Edema- improving. Severe Pulmonary Hypertension. COPD exacerbation-Continue Duonebs for COPD exacerbation - PO prednisone started, will taper at time of d/c as pt has been on high dose steroids during her admission with likely adrenal suppression. History of PE/DVT DVT prophylaxis Continue Heparin 5000mg q12 History of Intracerebral Bleed. RANDOLPH vs CKD Stage III, stable chronic, improved - BUN/Cr improving, GFR stable. Anemia- Chronic, stable, improving Stage IV decubitus ulcer- present on admission, wound care following. Code Status : Full code Case d/w Dr. Fry. <Antonio Fry D - Last Filed: 11/12/18 12:03> Objective - Vital Signs/Intake and Output Vital Signs (last 24 hours): Temp Pulse Resp BP Pulse Ox 98.1 F 91 H 18 123/69 99 11/12/18 08:00 11/12/18 08:00 11/12/18 08:00 11/12/18 08:51 11/12/18 08:00 Intake and Output: 11/12/18 11/12/18 06:59 18:59 Output Total 650 Balance -650 - Medications Medications: Current Medications Acetaminophen (Tylenol 325mg Tab) 650 mg PO Q6 PRN PRN Reason: Pain, Mild (1-3) Acetaminophen (Tylenol 325mg Tab) 650 mg PO Q6 PRN PRN Reason: Fever >100.4 F Acetylcysteine (Acetylcysteine 20%) 2 ml INH RBID [facility] Last Admin: 11/12/18 08:01 Dose: 2 ml Albuterol/Ipratropium (Duoneb 3 Mg/0.5 Mg (3 Ml) Ud) 3 ml INH RQ4 [facility] Last Admin: 11/12/18 11:55 Dose: 3 ml Aspirin (Ecotrin) 81 mg PO DAILY [facility] Last Admin: 11/12/18 08:45 Dose: 81 mg Atorvastatin Calcium (Lipitor) 20 mg PO HS [facility] Last Admin: 11/11/18 21:00 Dose: 20 mg Dimethicone (Proshield Plus Skin Protectant) 1 applic TOP Q8 [facility] Last Admin: 11/12/18 08:45 Dose: 1 applic Furosemide (Lasix) 40 mg PO DAILY [facility] Last Admin: 11/12/18 08:51 Dose: 40 mg Heparin Sodium (Porcine) (Heparin) 5,000 units SC Q12 [facility]; Protocol Last Admin: 11/12/18 08:45 Dose: 5,000 units Metolazone (Zaroxolyn) 2.5 mg PO DAILY [facility] Last Admin: 11/10/18 08:29 Dose: 2.5 mg Multivitamins/Minerals (Therapeutic-M Tab) 1 tab PO DAILY [facility] Last Admin: 11/12/18 08:47 Dose: 1 tab Pantoprazole Sodium (Protonix Ec Tab) 40 mg PO DAILY [facility] Last Admin: 11/12/18 08:46 Dose: 40 mg Potassium Chloride (K-Dur 20 Meq Er Tab) 40 meq PO DAILY [facility] Last Admin: 11/12/18 08:46 Dose: 40 meq Prednisone (Prednisone Tab) 40 mg PO DAILY [facility] Last Admin: 11/12/18 08:46 Dose: 40 mg Ramipril (Altace) 1.25 mg PO DAILY [facility] Last Admin: 11/06/18 10:05 Dose: Not Given - Labs Labs: 11/12/18 06:00 11/12/18 06:00 Attending/Attestation - Attestation I have personally seen and examined this patient.: Yes I have fully participated in the care of the patient.: Yes I have reviewed all pertinent clinical information, including history, physical exam and plan: Yes Notes (Text): 11/12/18 12:02 Patient seen and examined with resident. Case discussed and agreed with assessment.
--- NOTE | 2018-11-11 13:44 | CP.CCUPN ---
<Francine Navarro - Last Filed: 11/11/18 13:40> CCU Subjective - Physician Review Subjective (Free Text): Saturating in 98-100% on High Flow FIO40% overnight. Placed on NC 4L this am and tolerating well with good oxygenation Pt alert and oriented, eating breakfast, has no concerns/complaints. Will downgrade to Med/Surg. 11/11/18 13:40 CCU Objective - Vital Signs / Intake & Output Vital Signs (Last 4 hours): Vital Signs Temp Pulse Resp BP Pulse Ox 11/11/18 12:00 98.0 F 81 18 112/53 L 100 11/11/18 10:00 88 22 118/49 L 100 Intake and Output (Last 8hrs): Intake & Output 11/10/18 11/11/18 11/11/18 22:59 06:59 14:59 Intake Total 650 100 630 Output Total 200 650 1 Balance 450 -550 629 Weight 154 lb Intake: IV 0 100 Intake, Piggyback 200 100 Oral 450 530 Output: Urine 200 650 Urethral (Humphries) 250 Urine, Voided 200 Urine/Stool Mix 1 Other: # Bowel Movements 1 - Physical Exam Head: Positive for: Atraumatic, Normocephalic Pupils: Positive for: PERRL Extroacular Muscles: Positive for: EOMI Conjunctiva: Positive for: Normal Mouth: Positive for: Moist Mucous Membranes Nose (Internal): Positive for: Normal Inspection Neck: Positive for: Normal Range of Motion, Trachea Midline. Negative for: Meningeal Signs, MIDLINE TENDERNESS, Paraspinal Tenderness, JVD, Lymphadenopathy, Bruit, Other Respiratory/Chest: Positive for: Good Air Exchange, Decreased Breath Sounds, Tachypneic (Mild). Negative for: Wheezes, Rales, Retracting, Rhonchi Cardiovascular: Positive for: Regular Rate and Rhythm, Normal S1, S2, Peripheal Pulses Present. Negative for: Murmurs, Irregular Rhythm, Tachycardic, Bradycardic Abdomen: Positive for: Normal Bowel Sounds. Negative for: Tenderness, Distention Lower Extremity: Positive for: Normal Inspection. Negative for: Edema Neurological: Positive for: GCS=15, CN II-XII Intact, Speech Normal Psychiatric: Positive for: Alert, Oriented x 3 - Medications Active Medications: Active Medications Generic Name Dose Route Start Last Admin Trade Name Freq PRN Reason Stop Dose Admin Acetaminophen 650 mg 11/03/18 05:10 Tylenol 325mg Tab PO Q6 PRN Pain, Mild (1-3) Acetaminophen 650 mg 11/03/18 05:10 Tylenol 325mg Tab PO Q6 PRN Fever >100.4 F Acetylcysteine 2 ml 11/08/18 20:00 11/11/18 07:59 Acetylcysteine 20% INH 2 ml RBID [facility] Administration Albuterol/Ipratropium 3 ml 11/03/18 08:00 11/11/18 11:23 Duoneb 3 Mg/0.5 Mg (3 Ml) Ud INH 3 ml RQ4 [facility] Administration Aspirin 81 mg 11/03/18 09:00 11/11/18 08:09 Ecotrin PO 81 mg DAILY [facility] Administration Atorvastatin Calcium 20 mg 11/03/18 22:00 11/10/18 21:06 Lipitor PO 20 mg HS [facility] Administration Dimethicone 1 applic 11/09/18 17:00 11/11/18 08:11 Proshield Plus Skin Protectant TOP 1 applic Q8 [facility] Administration Heparin Sodium (Porcine) 5,000 units 11/07/18 09:00 11/11/18 08:09 Heparin SC 5,000 units Q12 [facility] Administration Protocol Piperacillin Sod/Tazobactam 100 mls @ 100 mls/hr 11/06/18 21:00 11/11/18 08:12 Sod 2.25 gm/ Sodium Chloride IVPB 100 mls/hr Q6H [facility] Administration Protocol Metolazone 2.5 mg 11/09/18 17:00 11/10/18 08:29 Zaroxolyn PO 2.5 mg DAILY [facility] Administration Multivitamins/Minerals 1 tab 11/03/18 09:00 11/11/18 08:12 Therapeutic-M Tab PO 1 tab DAILY [facility] Administration Pantoprazole Sodium 40 mg 11/03/18 09:00 11/11/18 08:12 Protonix Ec Tab PO 40 mg DAILY [facility] Administration Potassium Chloride 40 meq 11/07/18 09:00 11/11/18 08:11 K-Dur 20 Meq Er Tab PO 40 meq DAILY [facility] Administration Prednisone 40 mg 11/09/18 17:00 11/11/18 08:11 Prednisone Tab PO 40 mg DAILY [facility] Administration Ramipril 1.25 mg 11/05/18 09:15 11/06/18 10:05 Altace PO Not Given DAILY [facility] - Patient Studies Lab Studies: Lab Studies 11/11/18 11/11/18 Range/Units 04:20 04:20 WBC 13.1 H (4.8-10.8) K/uL RBC 3.38 L (3.80-5.20) Mil/uL Hgb 8.3 L (12.0-16.0) g/dL Hct 26.3 L (34.0-47.0) % MCV 77.7 L (81.0-99.0) fl MCH 24.5 L (27.0-31.0) pg MCHC 31.5 L (33.0-37.0) g/dL RDW 28.6 H (11.5-14.5) % Plt Count 230 (130-400) K/uL Sodium 135 (132-148) mmol/l Potassium 3.5 L (3.6-5.0) MMOL/L Chloride 97 L (98-107) mmol/L Carbon Dioxide 29 (22-30) mmol/L Anion Gap 13 (10-20) BUN 37 H (7-17) mg/dl Creatinine 1.5 H (0.7-1.2) mg/dl Est GFR ( Amer) 40 Est GFR (Non-Af Amer) 33 Random Glucose 124 H (65-105) mg/dL Calcium 9.0 (8.4-10.2) mg/dL Laboratory Results - last 24 hr 11/11/18 11/11/18 04:20 04:20 WBC 13.1 H RBC 3.38 L Hgb 8.3 L Hct 26.3 L MCV 77.7 L MCH 24.5 L MCHC 31.5 L RDW 28.6 H Plt Count 230 Sodium 135 Potassium 3.5 L Chloride 97 L Carbon Dioxide 29 Anion Gap 13 BUN 37 H Creatinine 1.5 H Est GFR ( Amer) 40 Est GFR (Non-Af Amer) 33 Random Glucose 124 H Calcium 9.0 Radiology Impressions: Radiology Impressions Chest X-Ray 11/10/18 11:08 IMPRESSION: Trace left pleural effusion in question. No definite infiltrate or pulmonary vascular congestion in the interval bilaterally. Pacemaker reiterated. Critical Care Progress Note - Nutrition Nutrition: Nutrition Category Date Time Status Heart Healthy Diet [DIET] Diets 05/28/19 Dinner Active Assessment/Plan - Assessment and Plan (Free Text) Assessment: Pt is an 87 y/o female with hx of CHFrEF (EF 20-25% on 10/2018), CKD, BL PE/DVT, Hemorhagic CVA (whil diandra Xarelto) HTN, COPD transferred to ICU for hypoxic respiratory failure, was in BIPAP and weaned to nasal cannula this morning with good oxygenations and no signs of respiratory distress Will downgrade to Med/Surg this am. #Neuro - AAox3 - Head CT (11/09) no acute findings #Cardio - Hx of mod-severe CHF w/ rEF (Last Echo 10/30 LVEF 20-25%) - Hemodynamically stable - Cardiology on board, Dr. Stein #Pulm - Acute hypoxic respiratory failure 2/2 COPD vs CHF exas. PE is possible but risk of treatment outweighs benefits - C/W High Flow, weaned to NC today. Primary team is making arrangements for Trilogy device for ventilatory support - C/W Bronchodilators and PO steroids (fell off a few days ago) - Maintain O2 sat > 90% - Pulmonology on board, Dr. Anton #GI - Resume diet #Renal - RANDOLPH on CKD (baseline Crea 1 w/ GFR in 50's) - BUN 43 Creatine 1.6 - May be prerenal 2/2 to perfusion in setting of reduced LVEF + hypotension + poor po intake - Will consider gentle hydration i - Avoid nephrotoxic medication - Monitor electrolytes - Monitor Urine Output, maintain >0.5cc/kg/hr #Endo - Hga1c 5.6 - TSH wnl #Heme/ID - CBC stable - Afebrile, no bandemia, Procalcitonin <0.05. Low clinical suspicion for underlying infection #PPX -DVT Heparin 5000q8 -GI ppx, not indicated Full Code Discussed case with Dr. Mik Navarro, PGY2 <Balta Houser - Last Filed: 11/11/18 15:53> Assessment/Plan - Assessment and Plan (Free Text) Plan: Attestation: Patient seen and examined at the bedside with Resident Dr. Pastor Navarro; and I agree with her outline of plans and management documented above as discussed on AM rounds; reflecting my review of all applicable clinical data, and participation in the care of the patient throughout the day in ICU; today, November 11, 2018.
[2018-11-12] MEDS: Proshield Plus GEL TOP SCH ×3 (02:00→16:44)
[2018-11-12] MEDS: Albuterol-Ipratrop 3 mg / 0.5 (3 ml) UD INH SCH ×6 (04:08→23:05)
[2018-11-12 07:40] LABS: HEMOGLOBIN 8.7 g/dL (12.0-16.0); MEAN CELL VOLUME 78.6 fl (81.0-99.0); MEAN CORPUSCULAR HEMOGLOBIN 24.9 pg (27.0-31.0); MEAN CORPUSCULAR HGB CONC 31.6 g/dL (33.0-37.0); RBC 3.5 Mil/uL (3.80-5.20); RED CELL DISTRIBUTION WIDTH 29.1 % (11.5-14.5); WHITE BLOOD COUNT 14.4 K/uL (4.8-10.8)
[2018-11-12] MEDS: Acetylcysteine 20% Inhal Soln (4ml) INH SCH ×2 (08:01→19:24)
[2018-11-12] MEDS: FLUTICASONE PROPION/SALMETEROL 113-14 IH SCH ×2 (08:45→22:33)
[2018-11-12] MEDS: Potassium Chloride 20 mEq ER Tab PO SCH (08:46)
[2018-11-12] MEDS: Pantoprazole 40 mg EC Tab PO SCH (08:46)
[2018-11-12] MEDS: Multivitamin With Minerals Tab PO SCH (08:47)
--- NOTE | 2018-11-12 13:26 | CP.PCM.PN ---
<Farzaneh Conti - Last Filed: 11/12/18 13:45> Subjective - Date & Time of Evaluation Date of Evaluation: 11/12/18 Time of Evaluation: 13:23 - Subjective Subjective: 87 YO F seen resting comfortably in bed on NC saturating well. - Denies any dsypnea or complaints. Objective - Vital Signs/Intake and Output Vital Signs (last 24 hours): Temp Pulse Resp BP Pulse Ox 98.1 F 91 H 18 123/69 99 11/12/18 08:00 11/12/18 08:00 11/12/18 08:00 11/12/18 08:51 11/12/18 08:00 Intake and Output: 11/12/18 11/12/18 06:59 18:59 Output Total 650 Balance -650 - Medications Medications: Current Medications Acetaminophen (Tylenol 325mg Tab) 650 mg PO Q6 PRN PRN Reason: Pain, Mild (1-3) Acetaminophen (Tylenol 325mg Tab) 650 mg PO Q6 PRN PRN Reason: Fever >100.4 F Acetylcysteine (Acetylcysteine 20%) 2 ml INH RBID [facility] Last Admin: 11/12/18 08:01 Dose: 2 ml Albuterol/Ipratropium (Duoneb 3 Mg/0.5 Mg (3 Ml) Ud) 3 ml INH RQ4 [facility] Last Admin: 11/12/18 11:55 Dose: 3 ml Aspirin (Ecotrin) 81 mg PO DAILY [facility] Last Admin: 11/12/18 08:45 Dose: 81 mg Atorvastatin Calcium (Lipitor) 20 mg PO HS [facility] Last Admin: 11/11/18 21:00 Dose: 20 mg Dimethicone (Proshield Plus Skin Protectant) 1 applic TOP Q8 [facility] Last Admin: 11/12/18 08:45 Dose: 1 applic Furosemide (Lasix) 40 mg PO DAILY [facility] [place] Last Admin: 11/12/18 08:51 Dose: 40 mg Heparin Sodium (Porcine) (Heparin) 5,000 units SC Q12 [facility] [place]; Protocol Last Admin: 11/12/18 08:45 Dose: 5,000 units Metolazone (Zaroxolyn) 2.5 mg PO DAILY [facility] [place] Last Admin: 11/10/18 08:29 Dose: 2.5 mg Multivitamins/Minerals (Therapeutic-M Tab) 1 tab PO DAILY [facility] [place] Last Admin: 11/12/18 08:47 Dose: 1 tab Pantoprazole Sodium (Protonix Ec Tab) 40 mg PO DAILY [facility] [place] Last Admin: 11/12/18 08:46 Dose: 40 mg Potassium Chloride (K-Dur 20 Meq Er Tab) 40 meq PO DAILY [facility] [place] Last Admin: 11/12/18 08:46 Dose: 40 meq Prednisone (Prednisone Tab) 40 mg PO DAILY [facility] [place] Last Admin: 11/12/18 08:46 Dose: 40 mg Ramipril (Altace) 1.25 mg PO DAILY [facility] [place] Last Admin: 11/06/18 10:05 Dose: Not Given - Labs Labs: 11/12/18 06:00 11/12/18 06:00 - Constitutional Appears: Well, No Acute Distress - Head Exam Head Exam: ATRAUMATIC, NORMAL INSPECTION, NORMOCEPHALIC - Eye Exam Eye Exam: EOMI, Normal appearance - Respiratory Exam Respiratory Exam: Clear to Ausculation Bilateral. absent: Rhonchi, Wheezes, Respiratory Distress - Cardiovascular Exam Cardiovascular Exam: REGULAR RHYTHM, +S1, +S2 - GI/Abdominal Exam GI & Abdominal Exam: Soft, Normal Bowel Sounds. 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 On admission elevated pro-BNP 30,000+. CXR noted; worsening pulmonary congestion when compared to previous XR. ECHO significant for compromised left ventricular systolic function, EF 20-25% (10/2018). ?RANDOLPH vs CKD stage III that has been improving and stable. CXR on 11/10 with improved RLL infiltrate/effusion Today patient is more alert, feeling better. Patient saturating at 99 percent on 4 L continue with IV abx, continue prednisone. PT/OT rec KATHRIN. Acute on Chronic CHF systolic and diastolic dysfunction with EF 20% -Cardiology recommends restarting PO lasix if BP maintained >100. -Coreg 3.125mg PO q12 - HELD: Hydralazine 10mg PO TID/Ramipril 1.25mg due to BP, consider restarting since BP is improving. RLL Pneumonia/Effusion- Continue IV zosyn/vancomycin/ Azithromycin for pneumonia. Pulmonary Edema- improving. Severe Pulmonary Hypertension. COPD exacerbation-Continue Duonebs for COPD exacerbation - PO prednisone started, will taper at time of d/c as pt has been on high dose steroids during her admission with likely adrenal suppression. History of PE/DVT Systolic heart failure CHF: Restarted LAsix 40 mg Daily DVT prophylaxis Continue Heparin 5000mg q12 History of Intracerebral Bleed. RANDOLPH vs CKD Stage III, stable chronic, improved - BUN/Cr improving, GFR stable. Anemia- Chronic, stable, improving Stage IV decubitus ulcer- present on admission, wound care following. Code Status : Full code <Antonio Fry D - Last Filed: 11/12/18 14:48> Objective - Vital Signs/Intake and Output Vital Signs (last 24 hours): Temp Pulse Resp BP Pulse Ox 98.1 F 91 H 18 123/69 99 11/12/18 08:00 11/12/18 08:00 11/12/18 08:00 11/12/18 08:51 11/12/18 08:00 Intake and Output: 11/12/18 11/12/18 06:59 18:59 Output Total 650 Balance -650 - Medications Medications: Current Medications Acetaminophen (Tylenol 325mg Tab) 650 mg PO Q6 PRN PRN Reason: Pain, Mild (1-3) Acetaminophen (Tylenol 325mg Tab) 650 mg PO Q6 PRN PRN Reason: Fever >100.4 F Acetylcysteine (Acetylcysteine 20%) 2 ml INH RBID [facility] [place] Last Admin: 11/12/18 08:01 Dose: 2 ml Albuterol/Ipratropium (Duoneb 3 Mg/0.5 Mg (3 Ml) Ud) 3 ml INH RQ4 [facility] [place] Last Admin: 11/12/18 11:55 Dose: 3 ml Aspirin (Ecotrin) 81 mg PO DAILY [facility] [place] Last Admin: 11/12/18 08:45 Dose: 81 mg Atorvastatin Calcium (Lipitor) 20 mg PO HS [facility] [place] Last Admin: 11/11/18 21:00 Dose: 20 mg Dimethicone (Proshield Plus Skin Protectant) 1 applic TOP Q8 [facility] [place] Last Admin: 11/12/18 08:45 Dose: 1 applic Furosemide (Lasix) 40 mg PO DAILY [facility] [place] Last Admin: 11/12/18 08:51 Dose: 40 mg Heparin Sodium (Porcine) (Heparin) 5,000 units SC Q12 [facility] [place]; Protocol Last Admin: 11/12/18 08:45 Dose: 5,000 units Metolazone (Zaroxolyn) 2.5 mg PO DAILY [facility] [place] Last Admin: 11/10/18 08:29 Dose: 2.5 mg Multivitamins/Minerals (Therapeutic-M Tab) 1 tab PO DAILY [facility] [place] Last Admin: 11/12/18 08:47 Dose: 1 tab Pantoprazole Sodium (Protonix Ec Tab) 40 mg PO DAILY [facility] [place] Last Admin: 11/12/18 08:46 Dose: 40 mg Potassium Chloride (K-Dur 20 Meq Er Tab) 40 meq PO DAILY [facility] [place] Last Admin: 11/12/18 08:46 Dose: 40 meq Prednisone (Prednisone Tab) 40 mg PO DAILY [facility] [place] Last Admin: 11/12/18 08:46 Dose: 40 mg Ramipril (Altace) 1.25 mg PO DAILY [facility] [place] Last Admin: 11/06/18 10:05 Dose: Not Given - Labs Labs: 11/12/18 06:00 11/12/18 06:00 Attending/Attestation - Attestation I have personally seen and examined this patient.: Yes I have fully participated in the care of the patient.: Yes I have reviewed all pertinent clinical information, including history, physical exam and plan: Yes Notes (Text): 11/12/18 14:47 Patient seen and examined with resident. Case discussed and agreed with assessment and plan.
--- NOTE | 2018-11-12 19:25 | CP.PCM.PCO ---
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 Bactroban started.
[2018-11-13] MEDS: Proshield Plus GEL TOP SCH ×3 (01:28→17:31)
[2018-11-13] MEDS: Albuterol-Ipratrop 3 mg / 0.5 (3 ml) UD INH SCH ×6 (04:16→23:45)
[2018-11-13 07:38] LABS: BASO % 0.1 % (0.0-2.0); HEMOGLOBIN 8.8 g/dL (12.0-16.0); LYMPH # 1.4 K/uL (1.0-4.3); LYMPH % 9.8 % (20.0-40.0); MEAN CELL VOLUME 78.2 fl (81.0-99.0); MEAN CORPUSCULAR HEMOGLOBIN 24.7 pg (27.0-31.0); MEAN CORPUSCULAR HGB CONC 31.6 g/dL (33.0-37.0); MEAN PLATELET VOLUME 9.8 fl (7.2-11.7); MONO # 0.8 K/uL (0.0-0.8); MONO % 5.6 % (0.0-10.0); NEUT # 11.8 K/uL (1.8-7.0); NEUT % 84.5 % (50.0-75.0); PLATELET COUNT 247 K/uL (130-400); RBC 3.55 Mil/uL (3.80-5.20); RED CELL DISTRIBUTION WIDTH 29.7 % (11.5-14.5)
[2018-11-13] MEDS: Acetylcysteine 20% Inhal Soln (4ml) INH SCH ×2 (07:50→19:09)
[2018-11-13 08:02] LABS: ALB/GLOB RATIO 1.1 (1.0-2.1); ALBUMIN 3.7 g/dL (3.5-5.0); CALCIUM 9.1 mg/dL (8.4-10.2)
[2018-11-13] MEDS: FLUTICASONE PROPION/SALMETEROL 113-14 IH SCH ×2 (09:13→21:09)
[2018-11-13] MEDS: Potassium Chloride 20 mEq ER Tab PO SCH (09:15)
[2018-11-13] MEDS: Pantoprazole 40 mg EC Tab PO SCH (09:16)
[2018-11-13] MEDS: Multivitamin With Minerals Tab PO SCH (09:17)
[2018-11-13 11:12] LABS: ANISOCYTOSIS SLIGHT; BANDS 1 % (0-2); LYMPHOCYTE 10 % (20-50); MONOCYTE 5 % (0-10); MYELOCYTE 1 % (0-0); NEUTROPHIL 82 % (42-75); PLATELET ESTIMATE NORMAL (NORMAL); POIKILOCYTOSIS SLIGHT; REACTIVE LYMPHOCYTES 1 % (0-0); TOTAL CELLS COUNTED 100
[2018-11-13 11:13] LABS: LARGE PLATELETS PRESENT; OVALOCYTES SLIGHT; SPHEROCYTES SLIGHT; TARGET CELLS SLIGHT; TEARDROP CELLS SLIGHT
--- NOTE | 2018-11-13 12:12 | CP.PCM.PN ---
Subjective - Date & Time of Evaluation Date of Evaluation: 11/13/18 Time of Evaluation: 12:11 - Subjective Subjective: NO NEW CLINICAL FINDINGS O2 SAT ADEQUATE WILL CONTINUE CURRENT RX FOR POSSIBLE D/C TO SUBACUTE CARE Objective - Vital Signs/Intake and Output Vital Signs (last 24 hours): Temp Pulse Resp BP Pulse Ox 97.7 F 103 H 20 130/72 93 L 11/13/18 09:16 11/13/18 09:16 11/13/18 09:16 11/13/18 09:16 11/13/18 09:16 Intake and Output: 11/13/18 11/13/18 06:59 18:59 Output Total 750 Balance -750 - Medications Medications: Current Medications Acetaminophen (Tylenol 325mg Tab) 650 mg PO Q6 PRN PRN Reason: Pain, Mild (1-3) Acetaminophen (Tylenol 325mg Tab) 650 mg PO Q6 PRN PRN Reason: Fever >100.4 F Acetylcysteine (Acetylcysteine 20%) 2 ml INH RBID [facility] Last Admin: 11/13/18 07:50 Dose: 2 ml Albuterol/Ipratropium (Duoneb 3 Mg/0.5 Mg (3 Ml) Ud) 3 ml INH RQ4 [facility] Last Admin: 11/13/18 11:03 Dose: 3 ml Aspirin (Ecotrin) 81 mg PO DAILY [facility] Last Admin: 11/13/18 09:14 Dose: 81 mg Atorvastatin Calcium (Lipitor) 20 mg PO HS [facility] Last Admin: 11/12/18 22:35 Dose: 20 mg Dimethicone (Proshield Plus Skin Protectant) 1 applic TOP Q8 [facility] Last Admin: 11/13/18 09:16 Dose: 1 applic Furosemide (Lasix) 40 mg PO DAILY [facility] Last Admin: 11/13/18 09:15 Dose: 40 mg Heparin Sodium (Porcine) (Heparin) 5,000 units SC Q12 [facility]; Protocol Last Admin: 11/13/18 09:15 Dose: 5,000 units Metolazone (Zaroxolyn) 2.5 mg PO DAILY [facility] Last Admin: 11/10/18 08:29 Dose: 2.5 mg Multivitamins/Minerals (Therapeutic-M Tab) 1 tab PO DAILY [facility] Last Admin: 11/13/18 09:17 Dose: 1 tab Mupirocin (Bactroban Ointment) 1 applic TOP BID [facility] Last Admin: 11/13/18 09:14 Dose: 1 appl Pantoprazole Sodium (Protonix Ec Tab) 40 mg PO DAILY [facility] Last Admin: 11/13/18 09:16 Dose: 40 mg Potassium Chloride (K-Dur 20 Meq Er Tab) 40 meq PO DAILY [facility] Last Admin: 11/13/18 09:15 Dose: 40 meq Prednisone (Prednisone Tab) 40 mg PO DAILY [facility] Last Admin: 11/13/18 09:16 Dose: 40 mg Ramipril (Altace) 1.25 mg PO DAILY [facility] Last Admin: 11/06/18 10:05 Dose: Not Given - Labs Labs: 11/13/18 06:00 11/13/18 06:00
--- NOTE | 2018-11-13 13:47 | CP.PCM.PN ---
<Farzaneh Conti - Last Filed: 11/13/18 17:31> Subjective - Date & Time of Evaluation Date of Evaluation: 11/13/18 Time of Evaluation: 13:43 - Subjective Subjective: Patient was seen and examined resting comfortably at bedside. Has been saturating well. 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 Denies any complaints will be going to subacute rehab tomorrow. Objective - Vital Signs/Intake and Output Vital Signs (last 24 hours): Temp Pulse Resp BP Pulse Ox 97.7 F 103 H 20 130/72 93 L 11/13/18 09:16 11/13/18 09:16 11/13/18 09:16 11/13/18 09:16 11/13/18 09:16 Intake and Output: 11/13/18 11/13/18 06:59 18:59 Output Total 750 Balance -750 - Medications Medications: Current Medications Acetaminophen (Tylenol 325mg Tab) 650 mg PO Q6 PRN PRN Reason: Pain, Mild (1-3) Acetaminophen (Tylenol 325mg Tab) 650 mg PO Q6 PRN PRN Reason: Fever >100.4 F Acetylcysteine (Acetylcysteine 20%) 2 ml INH RBID [facility] Last Admin: 11/13/18 07:50 Dose: 2 ml Albuterol/Ipratropium (Duoneb 3 Mg/0.5 Mg (3 Ml) Ud) 3 ml INH RQ4 [facility] Last Admin: 11/13/18 11:03 Dose: 3 ml Aspirin (Ecotrin) 81 mg PO DAILY [facility] Last Admin: 11/13/18 09:14 Dose: 81 mg Atorvastatin Calcium (Lipitor) 20 mg PO HS [facility] Last Admin: 11/12/18 22:35 Dose: 20 mg Dimethicone (Proshield Plus Skin Protectant) 1 applic TOP Q8 [facility] Last Admin: 11/13/18 09:16 Dose: 1 applic Furosemide (Lasix) 40 mg PO DAILY [facility] Last Admin: 11/13/18 09:15 Dose: 40 mg Heparin Sodium (Porcine) (Heparin) 5,000 units SC Q12 [facility]; Protocol Last Admin: 11/13/18 09:15 Dose: 5,000 units Metolazone (Zaroxolyn) 2.5 mg PO DAILY [facility] Last Admin: 11/10/18 08:29 Dose: 2.5 mg Multivitamins/Minerals (Therapeutic-M Tab) 1 tab PO DAILY [facility] Last Admin: 11/13/18 09:17 Dose: 1 tab Mupirocin (Bactroban Ointment) 1 applic TOP BID [facility] Last Admin: 11/13/18 09:14 Dose: 1 appl Pantoprazole Sodium (Protonix Ec Tab) 40 mg PO DAILY [facility] Last Admin: 11/13/18 09:16 Dose: 40 mg Potassium Chloride (K-Dur 20 Meq Er Tab) 40 meq PO DAILY [facility] Last Admin: 11/13/18 09:15 Dose: 40 meq Prednisone (Prednisone Tab) 40 mg PO DAILY [facility] Last Admin: 11/13/18 09:16 Dose: 40 mg Ramipril (Altace) 1.25 mg PO DAILY [facility] Last Admin: 11/06/18 10:05 Dose: Not Given - Labs Labs: 11/13/18 06:00 11/13/18 06:00 - Constitutional Appears: No Acute Distress - Head Exam Head Exam: NORMAL INSPECTION - Eye Exam Eye Exam: Normal appearance - Respiratory Exam Respiratory Exam: Decreased Breath Sounds, Clear to Ausculation Bilateral. absent: Wheezes - Cardiovascular Exam Cardiovascular Exam: REGULAR RHYTHM, +S1, +S2 - GI/Abdominal Exam GI & Abdominal Exam: Soft. 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 On admission elevated pro-BNP 30,000+. CXR noted; worsening pulmonary congestion when compared to previous XR. ECHO significant for compromised left ventricular systolic function, EF 20-25% (10/2018). ?RANDOLPH vs CKD stage III that has been improving and stable. CXR on 11/10 with improved RLL infiltrate/effusion Today patient is more alert, feeling better. Patient saturating at 99 percent on 4 L continue with IV abx, continue prednisone. PT/OT rec KATHRIN. Acute on Chronic CHF systolic and diastolic dysfunction with EF 20% -Cardiology recommends restarting PO lasix if BP maintained >100. -Coreg 3.125mg PO q12 - HELD: Hydralazine 10mg PO TID. Will restart Coreg 3.25 BID - RLL Pneumonia/Effusion- Continue IV zosyn/vancomycin/ Azithromycin for pneumonia . Pulmonary Edema- improving. Severe Pulmonary Hypertension. COPD exacerbation-Continue Duonebs for COPD exacerbation - PO prednisone started, will taper at time of d/c as pt has been on high dose steroids during her admission with likely adrenal suppression. History of PE/DVT Systolic heart failure CHF: Restarted LAsix 40 mg Daily DVT prophylaxis Continue Heparin 5000mg q12 History of Intracerebral Bleed. RANDOLPH vs CKD Stage III, stable chronic, improved - BUN/Cr improving, GFR stable. Anemia- Chronic, stable, improving Stage IV decubitus ulcer- present on admission, wound care following. Code Status : Full code <Sobia Fryno D - Last Filed: 11/13/18 17:47> Objective - Vital Signs/Intake and Output Vital Signs (last 24 hours): Temp Pulse Resp BP Pulse Ox 98.5 F 106 H 18 133/63 96 11/13/18 16:33 11/13/18 16:33 11/13/18 16:33 11/13/18 16:33 11/13/18 16:33 Intake and Output: 11/13/18 11/13/18 06:59 18:59 Output Total 750 Balance -750 - Medications Medications: Current Medications Acetaminophen (Tylenol 325mg Tab) 650 mg PO Q6 PRN PRN Reason: Pain, Mild (1-3) Acetaminophen (Tylenol 325mg Tab) 650 mg PO Q6 PRN PRN Reason: Fever >100.4 F Acetylcysteine (Acetylcysteine 20%) 2 ml INH RBID [facility] Last Admin: 11/13/18 07:50 Dose: 2 ml Albuterol/Ipratropium (Duoneb 3 Mg/0.5 Mg (3 Ml) Ud) 3 ml INH RQ4 [facility] Last Admin: 11/13/18 15:25 Dose: 3 ml Aspirin (Ecotrin) 81 mg PO DAILY [facility] Last Admin: 11/13/18 09:14 Dose: 81 mg Atorvastatin Calcium (Lipitor) 20 mg PO HS [facility] Last Admin: 11/12/18 22:35 Dose: 20 mg Carvedilol (Coreg) 3.125 mg PO Q12 [facility] Dimethicone (Proshield Plus Skin Protectant) 1 applic TOP Q8 [facility] Last Admin: 11/13/18 17:31 Dose: 1 applic Furosemide (Lasix) 40 mg PO DAILY [facility] Last Admin: 11/13/18 09:15 Dose: 40 mg Heparin Sodium (Porcine) (Heparin) 5,000 units SC Q12 [facility]; Protocol Last Admin: 11/13/18 09:15 Dose: 5,000 units Metolazone (Zaroxolyn) 2.5 mg PO DAILY [facility] Last Admin: 11/10/18 08:29 Dose: 2.5 mg Multivitamins/Minerals (Therapeutic-M Tab) 1 tab PO DAILY [facility] Last Admin: 11/13/18 09:17 Dose: 1 tab Mupirocin (Bactroban Ointment) 1 applic TOP BID [facility] Last Admin: 11/13/18 17:24 Dose: 1 appl Pantoprazole Sodium (Protonix Ec Tab) 40 mg PO DAILY [facility] Last Admin: 11/13/18 09:16 Dose: 40 mg Potassium Chloride (K-Dur 20 Meq Er Tab) 40 meq PO DAILY [facility] Last Admin: 11/13/18 09:15 Dose: 40 meq Prednisone (Prednisone Tab) 40 mg PO DAILY [facility] Last Admin: 11/13/18 09:16 Dose: 40 mg Ramipril (Altace) 1.25 mg PO DAILY [facility] Last Admin: 11/06/18 10:05 Dose: Not Given - Labs Labs: 11/13/18 06:00 11/13/18 06:00 Attending/Attestation - Attestation I have personally seen and examined this patient.: Yes I have fully participated in the care of the patient.: Yes I have reviewed all pertinent clinical information, including history, physical exam and plan: Yes Notes (Text): 11/13/18 17:47 Patient seen and examined with resident. Case discussed and agreed with assessment and plan.
[2018-11-14] MEDS: Proshield Plus GEL TOP SCH ×3 (01:42→16:30)
[2018-11-14] MEDS: Albuterol-Ipratrop 3 mg / 0.5 (3 ml) UD INH SCH ×4 (04:57→15:25)
[2018-11-14] MEDS: Acetylcysteine 20% Inhal Soln (4ml) INH SCH (08:14)
[2018-11-14] MEDS: Potassium Chloride 20 mEq ER Tab PO SCH (09:49)
[2018-11-14] MEDS: FLUTICASONE PROPION/SALMETEROL 113-14 IH SCH (09:49)
[2018-11-14] MEDS: Multivitamin With Minerals Tab PO SCH (09:50)
[2018-11-14] MEDS: Pantoprazole 40 mg EC Tab PO SCH (09:56)
[2018-11-14 15:56] VITALS: BP 100/57; RESP 20; TEMP 97.6
--- NOTE | 2018-11-14 17:33 | CP.PCM.DIS ---
Provider - Provider Date of Admission: 11/03/18 01:16 Attending physician: Sho Nails MD Consults: 11/03/18 07:00 Cardiology Consult Routine Comment: Consulting Provider: Mack Stein V Consulting Physician: Mack Stein V Reason for Consult: chf exacerbation Pulmonology Consult Routine Comment: Consulting Provider: Dennis Anton I Consulting Physician: Dennis Anton I Reason for Consult: COPD exacerbation 11/03/18 07:48 Wound Care [Nursing Referral for Wound Care] Routine Comment: Physician Instructions: Reason For Exam: pt with stage three pressure ulcer 11/03/18 08:11 Nursing Referral for Wound Care Routine Comment: Physician Instructions: Reason For Exam: Stage three pressure ulcer 11/03/18 09:15 Pastoral Care Referral Routine Comment: Physician Instructions: Reason For Exam: PASTORAL CARE 11/04/18 10:29 Palliative Care Consult Routine Comment: Consulting Provider: Teresa Bean Physician Instructions: Reason For Exam: goals of care Time Spent in preparation of Discharge (in minutes): 35 Diagnosis - Discharge Diagnosis (1) Acute respiratory failure Status: Resolved Priority: Low (2) COPD (chronic obstructive pulmonary disease) Status: Chronic Priority: Low (3) Hypertension Status: Chronic Priority: Low Hospital Course - Lab Results Lab Results: Micro Results 11/11/18 19:35 Naris MRSA Culture (Admit) - Final MRSA DETECTED 11/04/18 15:45 Blood Blood Culture - Final NO GROWTH AFTER 5 DAYS 11/04/18 15:45 Blood Blood Culture - Final NO GROWTH AFTER 5 DAYS 11/04/18 15:45 Blood Gram Stain - Final TEST NOT PERFORMED 11/04/18 17:30 Naris MRSA Culture (Admit) - Final MRSA NOT DETECTED Most Recent Lab Values WBC 14.0 K/uL (4.8-10.8) H 11/13/18 06:00 RBC 3.55 Mil/uL (3.80-5.20) L 11/13/18 06:00 Hgb 8.8 g/dL (12.0-16.0) L 11/13/18 06:00 Hct 27.8 % (34.0-47.0) L 11/13/18 06:00 MCV 78.2 fl (81.0-99.0) L 11/13/18 06:00 MCH 24.7 pg (27.0-31.0) L 11/13/18 06:00 MCHC 31.6 g/dL (33.0-37.0) L 11/13/18 06:00 RDW 29.7 % (11.5-14.5) H 11/13/18 06:00 Plt Count 247 K/uL (130-400) 11/13/18 06:00 MPV 9.8 fl (7.2-11.7) 11/13/18 06:00 Neut % (Auto) 84.5 % (50.0-75.0) H 11/13/18 06:00 Lymph % (Auto) 9.8 % (20.0-40.0) L 11/13/18 06:00 [place] % (Auto) 5.6 % (0.0-10.0) 11/13/18 06:00 Eos % (Auto) 0.0 % (0.0-4.0) 11/13/18 06:00 Baso % (Auto) 0.1 % (0.0-2.0) 11/13/18 06:00 Neut # (Auto) 11.8 K/uL (1.8-7.0) H 11/13/18 06:00 Lymph # (Auto) 1.4 K/uL (1.0-4.3) 11/13/18 06:00 [place] # (Auto) 0.8 K/uL (0.0-0.8) 11/13/18 06:00 Eos # (Auto) 0.0 K/uL (0.0-0.7) 11/13/18 06:00 Baso # (Auto) 0.0 K/uL (0.0-0.2) 11/13/18 06:00 Neutrophils % (Manual) 82 % (42-75) H 11/13/18 06:00 Band Neutrophils % 1 % (0-2) 11/13/18 06:00 Lymphocytes % (Manual) 10 % (20-50) L 11/13/18 06:00 Reactive Lymphs % 1 % (0-0) H 11/13/18 06:00 Monocytes % (Manual) 5 % (0-10) 11/13/18 06:00 Myelocytes % 1 % (0-0) H 11/13/18 06:00 Platelet Estimate Normal (NORMAL) 11/13/18 06:00 Large Platelets Present 11/13/18 06:00 Hypochromasia (manual) Slight 11/04/18 15:45 Poikilocytosis (manual Slight 11/13/18 06:00 Anisocytosis (manual) Slight 11/13/18 06:00 Macrocytosis (manual) Slight 11/03/18 01:23 Spherocytes Slight 11/13/18 06:00 Target Cells Slight 11/13/18 06:00 Tear Drop Cells Slight 11/13/18 06:00 Ovalocytes Slight 11/13/18 06:00 Stomatocytes Slight 11/03/18 01:23 pCO2 43 mm/Hg (35-45) 11/10/18 05:45 pO2 92 mm/Hg (80-100) 11/10/18 05:45 HCO3 29.1 mmol/L (21-28) H 11/10/18 05:45 ABG pH 7.45 (7.35-7.45) 11/10/18 05:45 ABG Total CO2 31.2 mmol/L (22-28) H 11/10/18 05:45 ABG O2 Saturation 100.0 % (95-98) H 11/10/18 05:45 ABG O2 Content 11.7 ML/dL (15-23) L 11/10/18 05:45 ABG Base Excess 5.4 mmol/L (-2.0-3.0) H 11/10/18 05:45 ABG Hemoglobin 8.5 g/dL (11.7-17.4) L 11/10/18 05:45 ABG Carboxyhemoglobin 2.4 % (0.5-1.5) H 11/10/18 05:45 POC ABG HHb (Measured) 0.0 % (0.0-5.0) 11/10/18 05:45 ABG Methemoglobin 1.4 % (0.0-3.0) 11/10/18 05:45 ABG O2 Capacity 11.7 mL/dL (16-24) L 11/10/18 05:45 Andres Test Yes 11/10/18 05:45 ABG Potassium 4.4 mmol/L (3.6-5.2) 11/09/18 23:01 A-a O2 Difference 211.0 mm/Hg 11/10/18 05:45 Hgb O2 Saturation 96.2 % (95.0-98.0) 11/10/18 05:45 Sodium 136.0 mmol/L (132-148) 11/09/18 23:01 Chloride 102.0 mmol/L (98-107) 11/09/18 23:01 Glucose 160 mg/dL (65-105) H 11/09/18 23:01 Lactate 0.8 mmol/L (0.7-2.1) 11/09/18 23:01 Liter Flow 20 11/10/18 05:45 Vent Mode High flow lpm 11/10/18 05:45 Mechanical Rate 17 11/05/18 05:19 FiO2 50.0 % 11/10/18 05:45 Inspiratory BiPAP 12 11/05/18 05:19 Expiratory BiPAP 7 11/05/18 05:19 Crit Value Called To Dr shalini dunaway 11/04/18 13:21 Crit Value Called By [place] 11/04/18 13:21 Crit Value Read Back Y 11/04/18 13:21 Blood Gas Notified Time 1325 11/04/18 13:21 Sodium 136 mmol/l (132-148) 11/13/18 06:00 Potassium 4.7 MMOL/L (3.6-5.0) 11/13/18 06:00 Chloride 95 mmol/L (98-107) L 11/13/18 06:00 Carbon Dioxide 30 mmol/L (22-30) 11/13/18 06:00 Anion Gap 16 (10-20) 11/13/18 06:00 BUN 42 mg/dl (7-17) H 11/13/18 06:00 Creatinine 1.1 mg/dl (0.7-1.2) 11/13/18 06:00 Est GFR ( Amer) 57 11/13/18 06:00 Est GFR (Non-Af Amer) 47 11/13/18 06:00 POC Glucose (mg/dL) 129 mg/dL (65-110) H 11/06/18 17:09 Random Glucose 103 mg/dL (65-105) 11/13/18 06:00 Lactic Acid 3.1 mmol/L (0.7-2.1) H 11/04/18 15:55 Calcium 9.1 mg/dL (8.4-10.2) 11/13/18 06:00 Phosphorus 3.0 mg/dl (2.5-4.5) 11/07/18 04:45 Magnesium 1.9 MG/DL (1.6-2.3) 11/10/18 07:30 Total Bilirubin 0.4 mg/dl (0.2-1.3) 11/13/18 06:00 AST 20 U/L (14-36) 11/13/18 06:00 ALT 24 U/L (9-52) 11/13/18 06:00 Alkaline Phosphatase 57 U/L (38-126) 11/13/18 06:00 Troponin I 0.7060 ng/mL (0.00-0.120) H* 11/04/18 15:50 NT-Pro-B Natriuret Pep 75901 pg/ml (0-900) H 11/04/18 15:50 Total Protein 7.0 G/DL (6.3-8.2) 11/13/18 06:00 Albumin 3.7 g/dL (3.5-5.0) 11/13/18 06:00 Globulin 3.4 gm/dL (2.2-3.9) 11/13/18 06:00 Albumin/Globulin Ratio 1.1 (1.0-2.1) 11/13/18 06:00 TSH 3rd Generation 0.67 mIU/ML (0.46-4.68) 11/05/18 04:04 Arterial Blood Potassium 4.4 mmol/L (3.6-5.2) 11/09/18 23:01 Urine Color Yellow (YELLOW) 11/06/18 11:30 Urine Clarity Slighty-cloudy (Clear) 11/06/18 11:30 Urine pH 6.0 (5.0-8.0) 11/06/18 11:30 Ur Specific [place] 1.010 (1.003-1.030) 11/06/18 11:30 Urine Protein Negative mg/dL (NEGATIVE) 11/06/18 11:30 Urine Glucose (UA) Neg mg/dL (NEGATIVE) 11/06/18 11:30 Urine Ketones Negative mg/dL (NEGATIVE) 11/06/18 11:30 Urine Blood Large (NEGATIVE) 11/06/18 11:30 Urine Nitrate Negative (NEGATIVE) 11/06/18 11:30 Urine Bilirubin Negative (NEGATIVE) 11/06/18 11:30 Urine Urobilinogen 0.2-1.0 mg/dL (0.2-1.0) 11/06/18 11:30 Ur Leukocyte Esterase Mod Giov[place]/uL (Negative) 11/06/18 11:30 Urine RBC (Auto) 47 /hpf (0-3) H 11/06/18 11:30 Urine Microscopic WBC 12 /hpf (0-5) H 11/06/18 11:30 Urine Bacteria Rare (<OCC) 11/06/18 11:30 Stool Occult Blood Negative (NEGATIVE) 11/05/18 19:25 Random Vancomycin 15.3 ug/mL 11/07/18 10:15 - Hospital Course Hospital Course: 87 y/o female w/ pmhx DVT/PE, COPD, Gastritis, HTN, Chronic Kidney Disease, 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 On admission elevated pro-BNP 30,000+. CXR noted; worsening pulmonary congestion when compared to previous XR. ECHO significant for compromised left ventricular systolic function, EF 20-25% (10/2018). CXR showed infiltrate/effusion, patient was treated w/ IV zosyn/vancomycin/ Azithromycin for pneumonia. COPD exacerbation managed w. Duonebs and predniose. Patient's symptoms improved, and she became stable for discharge to subacute rehab facility per PT recommendations. Patient discharged w/ Mupirocin 2% nasal for MRSA+ to complete 7 days of treatment, prednisone taper (Day1 40mg, Day#2 30mg, Day#3 20mg, Day#4 15mg, Day#5 10mg, Day#6 5mg, Day#7 5mg, and Lasix 40mg PO QD, and advised to cont. home meds. Discharge Exam - ENT Exam ENT Exam: Mucous Membranes Moist - Respiratory Exam Respiratory Exam: Clear to PA & Lateral, NORMAL BREATHING PATTERN - Cardiovascular Exam Cardiovascular Exam: REGULAR RHYTHM, +S1, +S2 - GI/Abdominal Exam GI & Abdominal Exam: Normal Bowel Sounds - Extremities Exam Extremities exam: normal inspection - Neurological Exam Neurological exam: Alert, Oriented x3 - Skin Skin Exam: Dry, Intact, Warm Discharge Plan - Discharge Medications Prescriptions: Furosemide [Lasix] 40 mg PO DAILY #30 tablet Mupirocin 2% Nasal [Bactroban 2% Nasal] 1 applic TOP BID 5 Days gm predniSONE [Prednisone] 10 mg PO DAILY #13 tab - Follow Up Plan Condition: GOOD Disposition: TRANSF TO SNF Instructions: Pleural Effusion, Asthma (DC)
[2018-11-14 18:03] VITALS: PULSE 101; O2SAT 97
== END 2018-11-14 18:36 | DRG 291 ==
LOC: H.ER 00:22 → OBSVTOIN 01:16 → H.ERHOLD 01:16 → INTOOBSV 01:16 → H.TEL 06:10 → H.ICU/CCU 11-04 13:49 → H.MEDSURG1 11-11 17:37
PROVIDERS: ADMIT Internal Medicine; ATTEND Internal Medicine
PROC: 5A09557 Assistance with Respiratory Ventilation, Greater than 96 Consecutive Hours, Continuous Positive Airway Pressure (ICD-10-PCS; principal; 2018-11-03)
DX: I13.0 Hypertensive heart and chronic kidney disease with heart failure and stage 1 through stage 4 chronic kidney disease, or unspecified chronic kidney disease (principal); J96.21 Acute and chronic respiratory failure with hypoxia; L89.94 Pressure ulcer of unspecified site, stage 4; I50.43 Acute on chronic combined systolic (congestive) and diastolic (congestive) heart failure; J18.1 Lobar pneumonia, unspecified organism; J96.22 Acute and chronic respiratory failure with hypercapnia; J44.1 Chronic obstructive pulmonary disease with (acute) exacerbation; J44.0 Chronic obstructive pulmonary disease with (acute) lower respiratory infection; N17.9 Acute kidney failure, unspecified; E87.2 Acidosis; J98.11 Atelectasis; N18.3 Chronic kidney disease, stage 3 (moderate); D50.9 Iron deficiency anemia, unspecified; E11.22 Type 2 diabetes mellitus with diabetic chronic kidney disease; Z68.32 Body mass index [BMI] 32.0-32.9, adult; E66.9 Obesity, unspecified; E87.6 Hypokalemia; I27.20 Pulmonary hypertension, unspecified; I34.0 Nonrheumatic mitral (valve) insufficiency; J01.30 Acute sphenoidal sinusitis, unspecified; T50.2X5A Adverse effect of carbonic-anhydrase inhibitors, benzothiadiazides and other diuretics, initial encounter; Z79.51 Long term (current) use of inhaled steroids; Z79.82 Long term (current) use of aspirin; Z79.899 Other long term (current) drug therapy; Z86.711 Personal history of pulmonary embolism; Z86.718 Personal history of other venous thrombosis and embolism; Z86.73 Personal history of transient ischemic attack (TIA), and cerebral infarction without residual deficits; Z87.11 Personal history of peptic ulcer disease; Z95.0 Presence of cardiac pacemaker; I95.9 Hypotension, unspecified; K29.70 Gastritis, unspecified, without bleeding